=== PATIENT | male | born 1965 | race Two or more races ===

== ENCOUNTER → 2016-02-20 | Outpatient (CLI) | payer BC | LOC: RAD 10:53 | PROVIDERS: ATTEND Preventive Medicine Undersea and Hyperbaric Medicine | DX: L97.522 Non-pressure chronic ulcer of other part of left foot with fat layer exposed (principal) ==

== ENCOUNTER → 2016-02-27 | Outpatient (CLI) | payer BC | LOC: RAD 09:07 | PROVIDERS: ATTEND Preventive Medicine Undersea and Hyperbaric Medicine | DX: Z01.818 Encounter for other preprocedural examination (principal) | CPT/HCPCS: 71020 ==

== ENCOUNTER 2016-02-28 23:29 | Emergency (ER) | payer BC ==
--- NOTE | 2016-02-29 01:46 | ER Document Report ---
ED General - General Chief Complaint: High Blood Pressure Stated Complaint: POSSIBLE HIGH BLOOD PRESSURE Time seen by provider: 01:44 Notes: Patient is a 50-year-old male that comes emergency department for chief complaint of elevated blood pressure. Patient states that his stomach upset, he vomited, he felt unwell, he checked his blood pressure noticed it was about 170/100. He states became concerned and came emergency department. He denies any current symptoms including headache, chest pain, abdominal pain. He states he feels fine and wants go home. Patient states that he only got sick to the stomach after he took the for antibiotics that he is on at the same time. Patient is on antibiotics for his left foot which he is about to begin hyperbaric treatments for. Patient denies any fevers or chills. TRAVEL OUTSIDE OF THE [place] IN LAST 30 DAYS: No - Related Data Allergies/Adverse Reactions: No Known Allergies Allergy (Verified 02/28/16 23:40) Past Medical History - General Information source: Patient - Social History Smoking Status: Current Every Day Smoker Frequency of alcohol use: None Drug Abuse: None Lives with: Family Family History: Reviewed & Not Pertinent, CAD, COPD, DM Patient has suicidal ideation: No Patient has homicidal ideation: No - Past Medical History Cardiac Medical History: Reports: Hx Hypertension Endocrine Medical History: Reports: Hx Diabetes Mellitus Type 2 - He has diabetic retinopathy and nephropathy. There is proteinuria Renal/ Medical History: Denies: Hx Peritoneal Dialysis Psychiatric Medical History: Denies: Hx Depression - Immunizations Hx Diphtheria, Pertussis, Tetanus Vaccination: Yes - unkown of date Review of Systems - Review of Systems Constitutional: No symptoms reported EENT: No symptoms reported Cardiovascular: See HPI Respiratory: No symptoms reported Gastrointestinal: See HPI Genitourinary: No symptoms reported Male Genitourinary: No symptoms reported Musculoskeletal: No symptoms reported Skin: No symptoms reported Hematologic/Lymphatic: No symptoms reported Neurological/Psychological: No symptoms reported Physical Exam - Vital signs Vitals: Temp Pulse Resp BP Pulse Ox 97.9 F 91 16 158/79 H 98 02/28/16 23:37 02/28/16 23:37 02/28/16 23:37 02/28/16 23:37 02/28/16 23:37 Interpretation: Normal - General General appearance: Appears well, Alert In distress: None - HEENT Head: Normocephalic, Atraumatic Eyes: Normal Pupils: PERRL - Respiratory Respiratory status: No respiratory distress Chest status: Nontender Breath sounds: Normal. No: Decreased air movement, Wheezing Chest palpation: Normal - Cardiovascular Rhythm: Regular. No: Tachycardia Heart sounds: Normal auscultation, S1 appreciated, S2 appreciated Murmur: No - Abdominal Inspection: Normal Distension: No distension Bowel sounds: Normal Tenderness: Nontender Organomegaly: No organomegaly - Back Back: Normal, Nontender - Extremities General upper extremity: Normal inspection, Nontender, Normal color, Normal ROM , Normal temperature General lower extremity: Other - Patient has a walking boot on his left foot. Otherwise unremarkable exam - Neurological Neuro grossly intact: Yes Cognition: Normal Orientation: AAOx4 [place] Coma Scale Eye Opening: Spontaneous [place] Coma Scale Verbal: Oriented Lc Coma Scale Motor: Obeys Commands [place] Coma Scale Total: 15 Speech: Normal Motor strength normal: LUE, RUE, LLE, RLE Sensory: Normal - Psychological Associated symptoms: Normal affect, Normal mood - Skin Skin Temperature: Warm Skin Moisture: Dry Skin Color: Normal Course - Re-evaluation Re-evalutation: Patient with asymptomatic hypertension, very well appearing, patient is declining any additional evaluation regardless. No emergent evaluation needed, patient is to continue his daily medications and follow-up closely with his primary care provider. Discussed return precautions. Patient states understanding and agreement. - Vital Signs Vital signs: Temp Pulse Resp BP Pulse Ox 97.9 F 83 16 149/81 H 98 02/28/16 23:37 02/29/16 01:58 02/28/16 23:37 02/29/16 01:58 02/28/16 23:37 Discharge - Discharge Clinical Impression: Essential hypertension, Non healing left heel wound Vomiting Qualifiers: Vomiting type: unspecified Vomiting Intractability: non-intractable Nausea presence: with nausea Qualified Code(s): R11.2 - Nausea with vomiting, unspecified Condition: Stable Disposition: HOME, SELF-CARE Additional Instructions: Continue your antibiotics. Take your blood pressure medication as prescribed. Follow-up with your primary care provider. Return to the emergency department for any concerning symptoms - chest pain, numbness or weakness, dizziness, etc. Forms: Return to Work, Elevated Blood Pressure Referrals: JOSE GONZALEZ MD [Primary Care Provider] - Follow up as needed
[2016-02-29 01:59] VITALS: BP 149/81
== END 2016-02-29 01:55 | disposition home or self-care (01) ==
LOC: ER 23:29
DX: I10 Essential (primary) hypertension (principal); R11.2 Nausea with vomiting, unspecified; F17.210 Nicotine dependence, cigarettes, uncomplicated
CPT/HCPCS: 99283

== ENCOUNTER → 2016-03-04 | Outpatient (CLI) | payer BC | LOC: RAD 03-02 10:59 | PROVIDERS: ATTEND Preventive Medicine Undersea and Hyperbaric Medicine | DX: L97.422 Non-pressure chronic ulcer of left heel and midfoot with fat layer exposed (principal) ==

== ENCOUNTER 2016-03-07 20:33 | Emergency (ER) | payer BC ==
--- NOTE | 2016-03-07 21:03 | ER Document Report ---
ED Medical Screen (RME) - General Stated Complaint: LEFT FOOT/CAST PROBLEM Notes: Cast to left lower extremity Wet shower patient's provider advised to come to the emergency room for removal. I greeted and performed a rapid initial assessment of this patient. Comprehensive ED assessment and evaluation of the patient, analysis of test results and completion of the medical decision making process will be conducted by additional ED providers. TRAVEL OUTSIDE OF THE [place] IN LAST 30 DAYS: No - Related Data Allergies/Adverse Reactions: No Known Allergies Allergy (Verified 02/28/16 23:40) Past Medical History - Past Medical History Cardiac Medical History: Reports: Hx Hypertension Endocrine Medical History: Reports: Hx Diabetes Mellitus Type 2 - He has diabetic retinopathy and nephropathy. There is proteinuria Renal/ Medical History: Denies: Hx Peritoneal Dialysis Psychiatric Medical History: Denies: Hx Depression - Immunizations Hx Diphtheria, Pertussis, Tetanus Vaccination: Yes - unkown of date
--- NOTE | 2016-03-07 22:48 | ER Document Report ---
ED Extremity Problem, Lower - General Chief Complaint: Other Stated Complaint: LEFT FOOT/CAST PROBLEM Time seen by provider: 22:46 Mode of Arrival: Ambulatory Information source: Patient TRAVEL OUTSIDE OF THE [place] 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, he is seen by the wound care clinic and recently had a cast placed on this foot, unfortunately he states he got it wet in the shower this evening and feels as though the cast tightening around his ankle and causing his toes to tingle, patient denies any other injury or pain - Related Data Allergies/Adverse Reactions: No Known Allergies Allergy (Verified 02/28/16 23:40) Past Medical History - General Information source: Patient - Social History Smoking Status: Current Every Day Smoker Chew tobacco use (# tins/day): No Frequency of alcohol use: None Drug Abuse: None Family History: Reviewed & Not Pertinent, CAD, COPD, DM Patient has suicidal ideation: No Patient has homicidal ideation: No - Past Medical History Cardiac Medical History: Reports: Hx Hypertension Endocrine Medical History: Reports: Hx Diabetes Mellitus Type 2 - He has diabetic retinopathy and nephropathy. There is proteinuria Renal/ Medical History: Denies: Hx Peritoneal Dialysis Psychiatric Medical History: Denies: Hx Depression - Immunizations Hx Diphtheria, Pertussis, Tetanus Vaccination: Yes - unkown of date Review of Systems - Review of Systems Constitutional: No symptoms reported EENT: No symptoms reported Cardiovascular: No symptoms reported Respiratory: No symptoms reported Gastrointestinal: No symptoms reported Genitourinary: No symptoms reported Male Genitourinary: No symptoms reported Musculoskeletal: See HPI Skin: No symptoms reported Hematologic/Lymphatic: No symptoms reported Neurological/Psychological: No symptoms reported -: Yes All other systems reviewed and negative Physical Exam - Vital signs Vitals: Temp Pulse Resp BP Pulse Ox 97.4 F 92 18 169/72 H 99 03/07/16 20:58 03/07/16 20:58 03/07/16 20:58 03/07/16 20:58 03/07/16 20:58 Interpretation: Normal - Notes Notes: - General General appearance: Appears well, Alert In distress: None - HEENT Head: Normocephalic, Atraumatic Eyes: Normal Conjunctiva: Normal Extraocular movements intact: Yes Eyelashes: Normal Pupils: PERRL - Respiratory Respiratory status: No respiratory distress - Cardiovascular Rhythm: Regular - Abdominal Inspection: Normal - Back Back: Normal - Extremities General upper extremity: Normal inspection General lower extremity: Cast in place on the left lower extremity which goes from just below the knee and covers the toes completely - Neurological Neuro grossly intact: Yes Orientation: AAOx4 [place] Coma Scale Eye Opening: Spontaneous Lc Coma Scale Verbal: Oriented Wheeler Coma Scale Motor: Obeys Commands Lc Coma Scale Total: 15 - Psychological Associated symptoms: Normal affect, Normal mood - Skin Skin Temperature: Warm Skin Moisture: Dry Skin Color: Normal Course - Re-evaluation Re-evalutation: 03/07/16 22:46 Patient was discussed with powderer Dr. Martinez from the wound care clinic, who is in agreement with removing patient's cast, he requested Xeroform and gauze dressing with Kerlix, have patient wear his postop shoe and follow-up at the wound care center in the morning 03/08/16 23:38 After cast was removed neurovascular evaluation was performed, patient has distal sensation and motor intact, brisk capillary refill, 2+ DP pulses, there is a large ulcer to the heel which was redressed, patient was advised to follow- up at the wound care center in the morning, states he actually has an appointment for hyperbaric treatment - Vital Signs Vital signs: Temp Pulse Resp BP Pulse Ox 97.6 F 84 18 162/97 H 98 03/07/16 23:24 03/07/16 23:24 03/07/16 23:24 03/07/16 23:24 03/07/16 23:24 Procedures - Additional Procedures cast removal Time performed: 23:04 Additional Procedures: Other - Cast on the left lower extremity was bivalved using the cast removal saw, removed without difficulty, it did appear to be quite wet inside Discharge - Discharge Clinical Impression: Cast removal Condition: Stable Disposition: HOME, SELF-CARE Additional Instructions: Follow up with the wound care clinic first thing tomorrow morning. Return if symptoms worsen or any additional concerns.
[2016-03-07 23:31] VITALS: BP 162/97
== END 2016-03-07 23:26 | disposition home or self-care (01) ==
LOC: ER 20:33
DX: Z46.89 Encounter for fitting and adjustment of other specified devices (principal); E11.621 Type 2 diabetes mellitus with foot ulcer; L97.429 Non-pressure chronic ulcer of left heel and midfoot with unspecified severity; E11.21 Type 2 diabetes mellitus with diabetic nephropathy; E11.319 Type 2 diabetes mellitus with unspecified diabetic retinopathy without macular edema; I10 Essential (primary) hypertension; F17.200 Nicotine dependence, unspecified, uncomplicated
CPT/HCPCS: 99282

== ENCOUNTER → 2016-04-20 | Outpatient (CLI) | payer BC, MEDICAID | LOC: RAD 14:09 | PROVIDERS: ATTEND Preventive Medicine Undersea and Hyperbaric Medicine | DX: E11.621 Type 2 diabetes mellitus with foot ulcer (principal); L97.422 Non-pressure chronic ulcer of left heel and midfoot with fat layer exposed ==

== ENCOUNTER 2016-08-06 06:34 | Day surgery (SDC) | payer BC, MEDICAID ==
[~2016-08-06 06:34] MED LIST: KETOROLAC TROMETHAMINE 0.45% 4 DROP/0.4 ML DROPERETTE ONE; LIDOCAINE 4% INJ/PF (40 MG/ML) 5 ML AMPUL ONE; TETRACAINE HCL 0.5% OPH SOLN 0.6 ML DROPERETTE ONE
[2016-08-06] MEDS ORDERED: FENTANYL CITRATE INJ/PF 100 MCG/2 ML AMPUL ONE (06:47)
[2016-08-06] MEDS ORDERED: MIDAZOLAM 2 MG/2 ML INJ ONE ×2 (06:47)
[2016-08-06] MEDS: TROPICAMIDE 1% OPH SOLN 3 ML OD PRN ×3 (06:52→07:12)
[2016-08-06] MEDS: KETOROLAC TROMETHAMINE 0.45% 4 DROP/0.4 ML DROPERETTE OD PRN ×2 (06:52→07:12)
[2016-08-06] MEDS: CYCLOPENTOLATE 0.2%/PHENYLEPHRINE 1% OPH SOLN 2 ML OD PRN ×4 (06:52→07:22)
[2016-08-06] MEDS: TETRACAINE HCL 0.5% OPH SOLN 0.6 ML DROPERETTE OD PRN ×2 (06:52→07:12)
[2016-08-06] MEDS: BESIFLOXACIN HCL 0.6% OPH SUSP 5 ML BOTTLE OD PRN ×2 (06:52→07:02)
[2016-08-06] MEDS ORDERED: LIDOCAINE 1% INJ-PF (10 MG/ML) 30 ML SDV ONE (07:10)
[2016-08-06] MEDS ORDERED: CHONDR SU A NA/HYALUR INTRAOC KIT (SURGICARE) ONE (07:10)
[2016-08-06] MEDS ORDERED: EPINEPHRINE INJ/PF 1 MG/1 ML AMPULE ONE (07:10)
[2016-08-06] MEDS ORDERED: BUPIVACAINE HCL 0.75% INJ/PF (7.5 MG/1 ML) 10 ML SDV OD PRN ×2 (07:44→08:00)
[2016-08-06] MEDS ORDERED: LIDOCAINE 4% INJ/PF (40 MG/ML) 5 ML AMPUL OD PRN ×2 (07:44→08:00)
[2016-08-06] MEDS ORDERED: BESIFLOXACIN HCL 0.6% OPH SUSP 5 ML BOTTLE OD PRN (08:00)
[2016-08-06] MEDS ORDERED: KETOROLAC TROMETHAMINE 0.45% 4 DROP/0.4 ML DROPERETTE OD PRN (08:00)
[2016-08-06] MEDS ORDERED: CYCLOPENTOLATE 0.2%/PHENYLEPHRINE 1% OPH SOLN 2 ML OD PRN (08:00)
[2016-08-06] MEDS ORDERED: TROPICAMIDE 1% OPH SOLN 3 ML OD PRN (08:00)
[2016-08-06] MEDS ORDERED: TETRACAINE HCL 0.5% OPH SOLN 0.6 ML DROPERETTE OD PRN (08:00)
--- NOTE | 2016-08-06 08:29 | [facility] OPERATIVE REPORT E ---
[facility] Operative Report NAME: MERLE ABAD AGE: 51Y DATE OF SURGERY: 08/06/2016 ROOM: [facility] Operative Report PREOPERATIVE DIAGNOSIS: CATARACT, RIGHT EYE. POSTOPERATIVE DIAGNOSIS: CATARACT, RIGHT EYE. PROCEDURE PERFORMED: PHACOEMULSIFICATION WITH POSTERIOR CHAMBER INTRAOCULAR LENS, RIGHT EYE. SURGEON: DORIAN VILLA MD ANESTHESIA: TOPICAL WITH MAC. INDICATIONS FOR SURGERY: Prior ocular surgery with progression of cataract due to vitrectomy, difficulty reading small print and road signs. Best corrected visual acuity 20/40. PROCEDURE: The patient was brought to the Operating Room and placed on the operative table. Following tetracaine drops, topical anesthesia was administered. This consisted of instrument wipe pledgets soaked in a solution of 4% Xylocaine mixed with 0.75% Marcaine in a 1:2 ratio. A 2 x 1 cm pledget was placed in the superior fornix. A 1 x 1 cm pledget was placed in the inferior fornix. The eye was patched shut for 5 minutes. The patch was removed. The eye was sterilely prepped and draped in the usual manner. Lid speculum was placed in the eye. The pledgets were removed. 4-0 black silk sutures were placed around the superior and the inferior rectus muscles to be used as traction. A conjunctival peritomy was made at the 10 o'clock position. Hemostasis was obtained with bipolar cautery. A posterior limbal groove was created using a crescent knife and dissected anteriorly towards the cornea. A sharp point blade was used to create a paracentesis site at the 2 o'clock position. A 2.4 mm keratome was used to enter the anterior chamber through the groove. Viscoelastic was injected into the anterior chamber. An anterior capsulotomy was performed using Utrata forceps in a capsulorrhexis fashion. Hydrodissection and hydrodelineation were performed. Phacoemulsification was performed in xpyogx-[id number] technique. A total of 11.49 seconds phaco time was used. Following this, the I/A unit was used to remove residual cortex. Viscoelastic was injected into the capsular bag. Intraocular lens model S60WS, 21.0 diopters, serial number [id number] was placed in the capsular bag. The I/A unit was used to remove residual viscoelastic. The wound was seen to be watertight under high and low pressure, and no sutures were placed. The intraocular lens was well centered. The pressure was adjusted in the eye to normal pressure. The 4-0 black silk sutures and lid speculum were removed. The eye was shielded after Besivance drops were placed. The patient tolerated the procedure well and was sent to the Recovery Room in good condition. DICTATING PHYSICIAN: DORIAN VILLA M.D. right DICTATING PHYSICIAN: DORIAN VILLA M.D. [id number] Y#: [id number] ID: [id number] JOB#: [id number] ACCT: [id number] cc:DORIAN VILLA M.D. >
--- NOTE | 2016-08-06 08:34 | [facility] DISCHARGE SUMMARY E ---
[facility] Discharge Summary NAME: MERLE ABAD AGE: 51Y ADMITTED: 08/06/2016 DISCHARGED: FINAL DIAGNOSIS: Cataract right eye. HOSPITAL COURSE: The patient is a 51-year-old gentleman, who underwent uneventful cataract extraction with intraocular lens implant right eye on 08/06/2016. DISPOSITION: The patient was discharged to home. DISCHARGE INSTRUCTIONS: He is instructed to resume preoperative medications, take Tylenol as needed for discomfort, use eye shield, to use Besivance, Durezol, and Ilevro at 3 p.m. and 8 p.m., and to follow up in my office in 1 day. DICTATING PHYSICIAN: DORIAN VILLA M.D. [id number] PHY#: [id number] ID: [id number] JOB#: [id number] ACCT: [id number] cc:DORIAN VILLA M.D. >
[2016-08-07] MEDS ORDERED: BUPIVACAINE HCL 0.75% INJ/PF (7.5 MG/1 ML) 10 ML SDV OD PRN (05:00)
[2016-08-07] MEDS ORDERED: CYCLOPENTOLATE 0.2%/PHENYLEPHRINE 1% OPH SOLN 2 ML OD PRN (05:00)
[2016-08-07] MEDS ORDERED: LIDOCAINE 4% INJ/PF (40 MG/ML) 5 ML AMPUL OD PRN (05:00)
[2016-08-07] MEDS ORDERED: KETOROLAC TROMETHAMINE 0.45% 4 DROP/0.4 ML DROPERETTE OD PRN (05:00)
[2016-08-07] MEDS ORDERED: TROPICAMIDE 1% OPH SOLN 3 ML OD PRN (05:00)
[2016-08-07] MEDS ORDERED: BESIFLOXACIN HCL 0.6% OPH SUSP 5 ML BOTTLE OD PRN (05:00)
[2016-08-07] MEDS ORDERED: TETRACAINE HCL 0.5% OPH SOLN 0.6 ML DROPERETTE OD PRN (05:00)
== END 2016-08-06 08:53 | disposition home or self-care (01) ==
LOC: SC 06:34
PROVIDERS: ATTEND Ophthalmology
PROC: 08RJ3JZ Replacement of Right Lens with Synthetic Substitute, Percutaneous Approach (ICD-10-PCS; principal; 2016-08-06 07:30)
DX: H25.813 Combined forms of age-related cataract, bilateral (principal); E11.3513 Type 2 diabetes mellitus with proliferative diabetic retinopathy with macular edema, bilateral; I10 Essential (primary) hypertension; F17.210 Nicotine dependence, cigarettes, uncomplicated; Z79.899 Other long term (current) drug therapy; Z79.84 Long term (current) use of oral hypoglycemic drugs; Z79.82 Long term (current) use of aspirin
CPT/HCPCS: 66984; 82962; V2632; J2250; J3490 ×3; J0171; J3010; 142

== ENCOUNTER 2017-05-06 09:56 | Emergency (ER) | payer OTHER, MEDICAID ==
[2017-05-06] MEDS ORDERED: ACETAMINOPHEN 325 MG TABLET PO ONE (09:59)
[2017-05-06] MEDS ORDERED: ACETAMINOPHEN 325 MG TABLET ONE (10:11)
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
--- NOTE | 2017-05-06 11:37 | RADIOLOGY REPORT (SQ) ---
EXAM DESCRIPTION: FOOT LEFT COMPLETE COMPLETED DATE/TIME: 05/06/2017 11:21 am REASON FOR STUDY: fall injury COMPARISON: None. NUMBER OF VIEWS: Three views. TECHNIQUE: AP, lateral and oblique radiographic images acquired of the left foot. LIMITATIONS: None. FINDINGS: MINERALIZATION: Normal. BONES: There is a fracture of the medial malleolus. There is a fracture of the navicular in the sagi ttal plane. JOINTS: No effusions. SOFT TISSUES: No soft tissue swelling. No foreign body. OTHER: No other significant finding. IMPRESSION: Medial malleolar and navicular fractures. TECHNICAL DOCUMENTATION: JOB ID: [id number] [employer]- All Rights Reserved Reading location - IP/workstation name: [email or web address]
--- NOTE | 2017-05-06 11:38 | RADIOLOGY REPORT (SQ) ---
EXAM DESCRIPTION: ANKLE LEFT COMPLETE COMPLETED DATE/TIME: 05/06/2017 11:21 am REASON FOR STUDY: fall injury COMPARISON: None. NUMBER OF VIEWS: Three views. TECHNIQUE: AP, lateral, and oblique radiographic images acquired of the left ankle. LIMITATIONS: None. FINDINGS: MINERALIZATION: Normal. BONES: There is an oblique fracture of the distal fibula and transverse fracture of the medial malleo muna. There is no dislocation. JOINTS: No effusions. SOFT TISSUES: No soft tissue swelling. No foreign body. OTHER: No other significant finding. IMPRESSION: Bimalleolar fractures. TECHNICAL DOCUMENTATION: JOB ID: [id number] [employer]- All Rights Reserved Reading location - IP/workstation name: [email or web address]
--- NOTE | 2017-05-06 11:39 | RADIOLOGY REPORT (SQ) ---
EXAM DESCRIPTION: TIBIA FIBULA LEFT COMPLETED DATE/TIME: 05/06/2017 11:21 am REASON FOR STUDY: fall injury COMPARISON: None. NUMBER OF VIEWS: Two views. TECHNIQUE: Two radiographic images acquired of the left tibia and fibula to include the knee and ank le in at least one projection. LIMITATIONS: None. FINDINGS: MINERALIZATION: Normal. BONES: Bimalleolar fractures. No proximal tibial or fibular fracture is seen. SOFT TISSUES: No obvious swelling or foreign body. OTHER: No other significant finding. IMPRESSION: Bimalleolar fractures. TECHNICAL DOCUMENTATION: JOB ID: [id number] [employer]- All Rights Reserved Reading location - IP/workstation name: [email or web address]
[2017-05-06 12:28] VITALS: BP 179/81
== END 2017-05-06 12:28 | disposition home or self-care (01) ==
LOC: ER 09:56
PROC: 2W3RX1Z Immobilization of Left Lower Leg using Splint (ICD-10-PCS; principal; 2017-05-06)
DX: S82.842A Displaced bimalleolar fracture of left lower leg, initial encounter for closed fracture (principal); S92.255A Nondisplaced fracture of navicular [scaphoid] of left foot, initial encounter for closed fracture; S99.912A Unspecified injury of left ankle, initial encounter; M25.572 Pain in left ankle and joints of left foot; M79.89 Other specified soft tissue disorders; W01.0XXA Fall on same level from slipping, tripping and stumbling without subsequent striking against object, initial encounter; F17.210 Nicotine dependence, cigarettes, uncomplicated; I10 Essential (primary) hypertension; E11.21 Type 2 diabetes mellitus with diabetic nephropathy; E11.40 Type 2 diabetes mellitus with diabetic neuropathy, unspecified
CPT/HCPCS: 99283; 99406

== ENCOUNTER 2017-05-15 13:59 | Inpatient (IN) | payer MEDICAID, OTHER ==
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
[2017-05-15] MEDS ORDERED: ONDANSETRON HCL INJ/PF 4 MG/2 ML SDV IV ONE (15:37)
[2017-05-15] MEDS ORDERED: MORPHINE SULFATE 10 MG/ML INJ IV ONE (15:37)
--- NOTE | 2017-05-15 15:41 | RADIOLOGY REPORT (SQ) ---
EXAM DESCRIPTION: HIP LEFT AP/LATERAL COMPLETED DATE/TIME: 05/15/2017 3:27 pm REASON FOR STUDY: FALL, TRAUMA, PAIN COMPARISON: None. NUMBER OF VIEWS: Two views. TECHNIQUE: AP pelvis and additional frog-leg view of the left hip. LIMITATIONS: None. FINDINGS: MINERALIZATION: Normal. LEFT HIP: Nondisplaced fracture of the left femoral neck. RIGHT HIP: No fracture or dislocation. No worrisome bone lesions. PUBIS AND ISCHIUM: No fracture. PELVIS: No fracture. SACRUM: No fracture or dislocation. No worrisome bone lesions. LOWER LUMBAR SPINE: No fracture or dislocation. No worrisome bone lesions. No significant disc disea se. SOFT TISSUES: No findings. OTHER: No other significant finding. IMPRESSION: Nondisplaced fracture of the left femoral neck. TECHNICAL DOCUMENTATION: JOB ID: [id number] [place]-72 2010 [employer]- All Rights Reserved Reading location - IP/workstation name: [email or web address]
--- NOTE | 2017-05-15 15:44 | RADIOLOGY REPORT (SQ) ---
EXAM DESCRIPTION: SHOULDER LEFT 2 OR MORE VIEWS COMPLETED DATE/TIME: 05/15/2017 3:27 pm REASON FOR STUDY: FALL, TRAUMA, PAIN COMPARISON: None. NUMBER OF VIEWS: Three views. TECHNIQUE: Internal rotation, external rotation, and Y view images acquired of the left shoulder. LIMITATIONS: None. FINDINGS: MINERALIZATION: Normal. BONES: Fracture the proximal humerus, possibly involving the humeral neck as well as the greater tube rosity. JOINTS: No dislocation. VISUALIZED LUNGS AND RIBS: No pneumothorax. No rib fracture. SOFT TISSUES: No radiopaque foreign body. OTHER: No other significant finding. IMPRESSION: Fracture the proximal humerus, possibly involving the humeral neck as well as the greate r tuberosity. TECHNICAL DOCUMENTATION: JOB ID: [id number] [place]-72 2010 [employer]- All Rights Reserved Reading location - IP/workstation name: [facility]
[2017-05-15 16:27] LABS: ABSOLUTE EOSINOPHILS # (AUTO) 0.1 10^3/uL (0.0-0.6); ABSOLUTE LYMPHOCYTES (AUTO) 0.9 10^3/uL (0.5-4.7); ABSOLUTE MONOCYTES (AUTO) 0.4 10^3/uL (0.1-1.4); ABSOLUTE NEUT (AUTO) 6.6 10^3/uL (1.7-8.2); BASOPHILS % (AUTO) 0.3 % (0-2); EOSINOPHILS % (AUTO) 0.7 % (0-6); HEMATOCRIT 29.2 % (37.9-51.0); LYMPHOCYTES % (AUTO) 11.1 % (13-45); MEAN CORPUSCULAR HEMOGLOBIN 30.9 pg (27.0-33.4); MEAN CORPUSCULAR HGB CONC 34.2 g/dL (32.0-36.0); MEAN CORPUSCULAR VOLUME 90 fl (80-97); MONOCYTES % (AUTO) 5.5 % (3-13); PLATELET COUNT 241 10^3/uL (150-450); RED BLOOD COUNT 3.24 10^6/uL (4.35-5.55); RED CELL DISTRIBUTION WIDTH 13.4 % (11.5-14.0); SEGMENTED NEUTROPHILS % (AUTO) 82.4 % (42-78); TOTAL CELLS COUNTED % (AUTO) 100 %
[2017-05-15 16:42] LABS: BLOOD UREA NITROGEN 42 mg/dL (7-20); CALCIUM 9.1 mg/dL (8.4-10.2); GLUCOSE 135 mg/dL (75-110)
--- NOTE | 2017-05-15 16:42 | EKG REPORT ---
SEVERITY:- NORMAL ECG - SINUS RHYTHM : Confirmed by: Reyes Best 15-May-2017 16:41:37
[2017-05-15 16:43] LABS: ALANINE AMINOTRANSFERASE 26 U/L (21-72); ALBUMIN 3.2 g/dL (3.5-5.0); ALKALINE PHOSPHATASE 89 U/L (38-126); ANION GAP 8 (5-19); ASPARTATE AMINO TRANSFERASE 20 U/L (17-59); BILIRUBIN,DIRECT 0.2 mg/dL (0.0-0.4); BILIRUBIN,TOTAL 0.2 mg/dL (0.2-1.3); CARBON DIOXIDE 22 mmol/L (22-30); CHLORIDE 111 mmol/L (98-107); POTASSIUM 5.1 mmol/L (3.6-5.0); SODIUM 141.4 mmol/L (137-145); TOTAL PROTEIN 6.4 g/dL (6.3-8.2)
[2017-05-15] MEDS ORDERED: NORMAL SALINE 1000 ML 1,000 ML IV PRN (17:49)
[2017-05-15] MEDS ORDERED: DEXTROSE 50%-WATER SYRINGE 12.5 GM/25 ML DOSE IV PRN (17:50)
[2017-05-15] MEDS ORDERED: DEXTROSE 40% GEL 15 GM TUBE PO PRN (17:50)
[2017-05-15] MEDS ORDERED: GLUCAGON,HUMAN RECOMB 1 MG INJ IM PRN (17:50)
[2017-05-15] MEDS ORDERED: DEXTROSE 50%-WATER SYRINGE 25 GM/50 ML DOSE IV PRN (17:50)
[2017-05-15] MEDS ORDERED: DEXTROSE 40% GEL 15 GM TUBE X 2 PO PRN (17:50)
[2017-05-15] MEDS ORDERED: MORPHINE SULFATE 10 MG/ML INJ IV PRN (18:20)
[2017-05-15] MEDS ORDERED: CLONIDINE HCL 0.1 MG TABLET PO ONE (21:15)
[2017-05-15] MEDS ORDERED: LISINOPRIL 10 MG TABLET PO ONE (21:15)
[2017-05-15] MEDS: CLONIDINE HCL 0.1 MG TABLET PO SCH (21:55)
[2017-05-15] MEDS: MORPHINE SULFATE 10 MG/ML INJ IV PRN (21:55)
[2017-05-15 22:36] LABS: APPEARANCE,URINE CLEAR; BILIRUBIN,URINE NEGATIVE (NEGATIVE); COLOR,URINE YELLOW; GLUCOSE, URINE 150 mg/dL (NEGATIVE); KETONES,URINE NEGATIVE (NEGATIVE); LEUKOCYTE ESTERASE,URINE NEGATIVE (NEGATIVE); NITRITE,URINE NEGATIVE (NEGATIVE); PROTEIN,URINE >=500 mg/dL (NEGATIVE); URINE SPECIFIC GRAVITY 1.012; UROBILINOGEN,URINE NEGATIVE mg/dL (<2.0)
[2017-05-16] MEDS: MORPHINE SULFATE 10 MG/ML INJ IV PRN ×4 (00:08→09:39)
[2017-05-16] MEDS: LANSOPRAZOLE 30 MG TAB.RAP.DR PO SCH (05:14)
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
[2017-05-16] MEDS ORDERED: FUROSEMIDE 40 MG TABLET PO SCH (08:00)
[2017-05-16] MEDS ORDERED: CEFAZOLIN SODIUM 2 GM in NORMAL SALINE 100 ML IV PRN (08:15)
[2017-05-16] MEDS ORDERED: TRANEXAMIC ACID INJ/PF 1,000 MG/10 ML SDV IV PRN (08:15)
[2017-05-16] MEDS ORDERED: RINGERS SOLUTION,LACTATED 1,000 ML IV PRN (08:16)
[2017-05-16] MEDS: AMLODIPINE BESYLATE 10 MG TABLET PO SCH (09:39)
[2017-05-16] MEDS ORDERED: LISINOPRIL 10 MG TABLET PO SCH (10:00)
[2017-05-16] MEDS ORDERED: DEXAMETHASONE SOD PHOSPHATE INJ 4 MG/1 ML VIAL ONE (11:32)
[2017-05-16] MEDS ORDERED: MIDAZOLAM 2 MG/2 ML INJ ONE (11:32)
[2017-05-16] MEDS ORDERED: FENTANYL CITRATE INJ/PF 100 MCG/2 ML AMPUL ONE ×2 (11:32→15:51)
[2017-05-16] MEDS ORDERED: LIDOCAINE 2% INJ-PF (20 MG/ML) 10 ML AMPUL ONE (11:32)
[2017-05-16] MEDS ORDERED: ONDANSETRON HCL INJ/PF 4 MG/2 ML SDV ONE (11:32)
[2017-05-16] MEDS ORDERED: ACETAMINOPHEN 100 ML IV ONE (11:33)
[2017-05-16] MEDS ORDERED: PROPOFOL INJ 200 MG/20 ML VIAL IV ONE (11:33)
[2017-05-16] MEDS ORDERED: TRANEXAMIC ACID INJ/PF 1,000 MG/10 ML SDV IV ONE (11:38)
[2017-05-16] MEDS ORDERED: CEFAZOLIN INJ 1 GM VIAL ONE (12:09)
[2017-05-16] MEDS ORDERED: BUPIVACAINE HCL 0.25% /EPINEPHRINE INJ/PF 30 ML SDV ONE (12:34)
[2017-05-16] MEDS ORDERED: PROMETHAZINE HCL INJ 25 MG/1 ML VIAL IV PRN ×2 (13:33)
[2017-05-16] MEDS ORDERED: OXYCODONE-ACETAMINOPHEN 5-325 MG TABLET PO PRN ×2 (13:33)
[2017-05-16] MEDS ORDERED: MORPHINE SULFATE 10 MG/ML INJ IV PRN ×2 (13:33→15:37)
[2017-05-16] MEDS ORDERED: FENTANYL CITRATE INJ/PF 100 MCG/2 ML AMPUL IV PRN ×3 (13:33)
[2017-05-16] MEDS ORDERED: DIPHENHYDRAMINE HCL 50 MG/ML VIAL IV PRN (13:33)
[2017-05-16] MEDS ORDERED: MEPERIDINE HCL/PF INJ 25 MG/1 ML DISP.SYRIN IV PRN (13:33)
[2017-05-16] MEDS ORDERED: SUCCINYLCHOLINE CHLORIDE INJ 200 MG/10 ML VIAL ONE (14:57)
--- NOTE | 2017-05-16 15:08 | Operative Report ---
Operative Report DATE OF SURGERY: 05/16/17 PREOPERATIVE DIAGNOSIS: Left valgus impacted femoral neck fracture. Left proximal humeral fracture. Left bimalleolar ankle fracture OPERATION: Percutaneous fixation left femoral neck fracture. Open reduction internal fixation left bimalleolar ankle fracture. Open reduction internal fixation left proximal humerus fracture SURGEON: TYSON BABCOKC ANESTHESIA: GA PROCEDURE: With the patient supine on the fracture table the left lower extremities prepped and draped in sterile fashion. Under fluoroscopic guidance the pins for the [place] 6.5 titanium cannulated screws were placed percutaneously into the femoral neck and head. A triangle type pattern is formed with one pin inferior and then one anterior and posterior. Pin depth measures 90 mm. 3 x 90 mm cannulated screws were then placed over the pins. The pins are withdrawn. X-rays were obtained in both planes to assure satisfactory hardware placement. The wound was then irrigated and closed in layers with interrupted Vicryl followed by giselle. Sterile dressings applied and the patient was then transferred to a regular bed for next 2 stages of his treatment The patient was next transferred to a regular operating room table in the left lower extremities prepped and draped in sterile fashion. The limb was elevated for exsanguination tourniquet inflated 280 torr. A longitudinal incision is made over the distal fibula and sharp dissection was carried incision through the periosteum. The fracture is visualized. Its distracted and then held in anatomic position with a lobster claw clamp. Subsequently a [place] titanium distal fibula plate is applied and secured with 3 screws proximally and 4 screws distally. Fracture position and hardware placement are ideal. Next a longitudinal incision was made over the medial malleolus. This is a relatively small fragment this anterior as well as medial. It is reduced with a dental pick and then secured with a single 4 oh cannulated screw. The wounds are irrigated and closed using interrupted Vicryl followed by giselle. A sterile dressing is applied and attention is now going to be turned to the left shoulder. The patient's position is now changed to a beachchair position on the operating table. The left upper extremity forequarter prepped and draped in sterile fashion. A standard deltopectoral approach to the proximal humerus is taken. The fracture was exposed and reduced. A [place] titanium proximal humeral plate is applied just lateral to the biceps tendon. It secured with 3 screws distally and 3 screws proximally. When the hardware fixation is finished uroscopy is used to assess fracture reduction as well as hardware placement. At this point is noticed that the posterior superior screw was slightly long and protruding from the back of the humeral head. An attempt is made to remove this using several screwdrivers as well as a screw removal set all of which are unsuccessful because the head of the screw becomes stripped. At that point decision was made whether or not to proceed removal of all hardware and attempt to remove this protruding screw. It is not clear that this is going to represent a clinical problem at this point. There is certainly full passive range of motion without any impingement that I can perceive. In light of this a decision was made to leave the screw in situ. The wound is irrigated and closed is using Vicryl and giselle. A sterile compressive dressing and a shoulder immobilizer applied. The patient's return to the PACU. I discussed the situation with the patient's and explained that there is a screw that is too long and that I am not sure that it is going to be a clinical problem. If it turns out to be a clinical problem we can with her posterior approach and remove the protruding part of the screw.
[2017-05-16] MEDS ORDERED: PROMETHAZINE HCL INJ 25 MG/1 ML VIAL ONE (15:48)
--- NOTE | 2017-05-16 16:06 | RADIOLOGY REPORT (SQ) ---
EXAM DESCRIPTION: NO CHG FLUORO; HIP IN OPERATING RM COMPLETED DATE/TIME: 05/16/2017 3:35 pm REASON FOR STUDY: LT HIP PINNING ASST WITH FLUORO IN OR COMPARISON: Preoperative radiographs. FLUOROSCOPY TIME: 0.4 minutes 3 images saved to PACS. TECHNIQUE: Intra-operative images acquired during surgical procedure to evaluate progress. NUMBER OF IMAGES: 3 LIMITATIONS: None. FINDINGS: Images reveal open reduction internal fixation of proximal femur fracture, grossly anatomi c alignment. IMPRESSION: IMAGE(S) OBTAINED DURING PROCEDURE. COMMENT: Quality ID 145: Final reports for procedures using fluoroscopy that document radiation exp osure indices, or exposure time and number of fluorographic images (if radiation exposure indices are not available) Please consult full operative report of the attending physician for description of the procedure. TECHNICAL DOCUMENTATION: JOB ID: [id number] [employer]- All Rights Reserved Reading location - IP/workstation name: [email or web address]
--- NOTE | 2017-05-16 16:06 | RADIOLOGY REPORT (SQ) ---
EXAM DESCRIPTION: NO CHG FLUORO; HIP IN OPERATING RM COMPLETED DATE/TIME: 05/16/2017 3:35 pm REASON FOR STUDY: LT HIP PINNING ASST WITH FLUORO IN OR COMPARISON: Preoperative radiographs. FLUOROSCOPY TIME: 0.4 minutes 3 images saved to PACS. TECHNIQUE: Intra-operative images acquired during surgical procedure to evaluate progress. NUMBER OF IMAGES: 3 LIMITATIONS: None. FINDINGS: Images reveal open reduction internal fixation of proximal femur fracture, grossly anatomi c alignment. IMPRESSION: IMAGE(S) OBTAINED DURING PROCEDURE. COMMENT: Quality ID 145: Final reports for procedures using fluoroscopy that document radiation exp osure indices, or exposure time and number of fluorographic images (if radiation exposure indices are not available) Please consult full operative report of the attending physician for description of the procedure. TECHNICAL DOCUMENTATION: JOB ID: [id number] [employer]- All Rights Reserved Reading location - IP/workstation name: [email or web address]
--- NOTE | 2017-05-16 16:07 | RADIOLOGY REPORT (SQ) ---
EXAM DESCRIPTION: NO CHG FLUORO; ANKLE LEFT AP/LATERAL COMPLETED DATE/TIME: 05/16/2017 3:35 pm REASON FOR STUDY: ORIF LEFT ANKLE ASST WITH FLUORO IN OR COMPARISON: Preoperative radiographs. FLUOROSCOPY TIME: 0.3 minutes 3 images saved to PACS. TECHNIQUE: Intra-operative images acquired during surgical procedure to evaluate progress. NUMBER OF IMAGES: 3 LIMITATIONS: None. FINDINGS: Images reveal open reduction internal fixation of medial and lateral ankle fractures with grossly anatomic alignment. IMPRESSION: IMAGE(S) OBTAINED DURING PROCEDURE. COMMENT: Quality ID 145: Final reports for procedures using fluoroscopy that document radiation exp osure indices, or exposure time and number of fluorographic images (if radiation exposure indices are not available) Please consult full operative report of the attending physician for description of the procedure. TECHNICAL DOCUMENTATION: JOB ID: [id number] [employer]- All Rights Reserved Reading location - IP/workstation name: [email or web address]
--- NOTE | 2017-05-16 16:07 | RADIOLOGY REPORT (SQ) ---
EXAM DESCRIPTION: NO CHG FLUORO; ANKLE LEFT AP/LATERAL COMPLETED DATE/TIME: 05/16/2017 3:35 pm REASON FOR STUDY: ORIF LEFT ANKLE ASST WITH FLUORO IN OR COMPARISON: Preoperative radiographs. FLUOROSCOPY TIME: 0.3 minutes 3 images saved to PACS. TECHNIQUE: Intra-operative images acquired during surgical procedure to evaluate progress. NUMBER OF IMAGES: 3 LIMITATIONS: None. FINDINGS: Images reveal open reduction internal fixation of medial and lateral ankle fractures with grossly anatomic alignment. IMPRESSION: IMAGE(S) OBTAINED DURING PROCEDURE. COMMENT: Quality ID 145: Final reports for procedures using fluoroscopy that document radiation exp osure indices, or exposure time and number of fluorographic images (if radiation exposure indices are not available) Please consult full operative report of the attending physician for description of the procedure. TECHNICAL DOCUMENTATION: JOB ID: [id number] [employer]- All Rights Reserved Reading location - IP/workstation name: [email or web address]
--- NOTE | 2017-05-16 16:08 | RADIOLOGY REPORT (SQ) ---
EXAM DESCRIPTION: NO CHG FLUORO; SHOULDER LEFT 2 OR MORE VIEWS COMPLETED DATE/TIME: 05/16/2017 3:35 pm REASON FOR STUDY: ORIF LEFT SHOULDER ASST WITH FLUORO IN OR COMPARISON: Preoperative radiographs. FLUOROSCOPY TIME: 0.3 minutes 3 images saved to PACS. TECHNIQUE: Intra-operative images acquired during surgical procedure to evaluate progress. NUMBER OF IMAGES: 3 LIMITATIONS: None. FINDINGS: Images reveal open reduction internal fixation of proximal humerus fracture. Grossly more omic alignment. IMPRESSION: IMAGE(S) OBTAINED DURING PROCEDURE. COMMENT: Quality ID 145: Final reports for procedures using fluoroscopy that document radiation exp osure indices, or exposure time and number of fluorographic images (if radiation exposure indices are not available) Please consult full operative report of the attending physician for description of the procedure. TECHNICAL DOCUMENTATION: JOB ID: [id number] [employer]- All Rights Reserved Reading location - IP/workstation name: [email or web address]
--- NOTE | 2017-05-16 16:08 | RADIOLOGY REPORT (SQ) ---
EXAM DESCRIPTION: NO CHG FLUORO; SHOULDER LEFT 2 OR MORE VIEWS COMPLETED DATE/TIME: 05/16/2017 3:35 pm REASON FOR STUDY: ORIF LEFT SHOULDER ASST WITH FLUORO IN OR COMPARISON: Preoperative radiographs. FLUOROSCOPY TIME: 0.3 minutes 3 images saved to PACS. TECHNIQUE: Intra-operative images acquired during surgical procedure to evaluate progress. NUMBER OF IMAGES: 3 LIMITATIONS: None. FINDINGS: Images reveal open reduction internal fixation of proximal humerus fracture. Grossly more omic alignment. IMPRESSION: IMAGE(S) OBTAINED DURING PROCEDURE. COMMENT: Quality ID 145: Final reports for procedures using fluoroscopy that document radiation exp osure indices, or exposure time and number of fluorographic images (if radiation exposure indices are not available) Please consult full operative report of the attending physician for description of the procedure. TECHNICAL DOCUMENTATION: JOB ID: [id number] [employer]- All Rights Reserved Reading location - IP/workstation name: [email or web address]
[2017-05-16] MEDS ORDERED: OXYCODONE HCL IR 5 MG TABLET PO PRN (18:00)
[2017-05-16] MEDS ORDERED: CEFAZOLIN SODIUM 2 GM in NORMAL SALINE 100 ML IV SCH (18:00)
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
[2017-05-16] MEDS ORDERED: HYDRALAZINE HCL 50 MG TABLET PO SCH (20:15)
[2017-05-16] MEDS ORDERED: (PENDING PHARMACY ID) (Calcitriol [Rocaltrol 0.5 Mcg Capsule] 0.5 MCG) PO SCH (20:15)
[2017-05-16] MEDS: CLONIDINE HCL 0.1 MG TABLET PO SCH (21:22)
[2017-05-16] MEDS: HYDRALAZINE HCL 50 MG TABLET PO SCH (21:22)
[2017-05-16] MEDS: CEFAZOLIN SODIUM 2 GM in NORMAL SALINE 100 ML IV SCH (22:00)
[2017-05-16] MEDS ORDERED: CLONIDINE HCL 0.1 MG TABLET PO SCH (22:00)
[2017-05-17] MEDS: MORPHINE SULFATE 10 MG/ML INJ IV PRN ×4 (00:15→13:17)
[2017-05-17] MEDS: HYDRALAZINE HCL 50 MG TABLET PO SCH ×3 (05:26→23:49)
[2017-05-17] MEDS: LANSOPRAZOLE 30 MG TAB.RAP.DR PO SCH (05:26)
[2017-05-17] MEDS: CEFAZOLIN SODIUM 2 GM in NORMAL SALINE 100 ML IV SCH (05:27)
[2017-05-17 06:21] LABS: ABSOLUTE LYMPHOCYTES (AUTO) 0.6 10^3/uL (0.5-4.7); ABSOLUTE MONOCYTES (AUTO) 0.5 10^3/uL (0.1-1.4); ABSOLUTE NEUT (AUTO) 5.5 10^3/uL (1.7-8.2); BASOPHILS % (AUTO) 0.2 % (0-2); EOSINOPHILS % (AUTO) 0.2 % (0-6); HEMATOCRIT 23.9 % (37.9-51.0); HEMOGLOBIN 8.3 g/dL (13.5-17.0); LYMPHOCYTES % (AUTO) 9.3 % (13-45); MEAN CORPUSCULAR HEMOGLOBIN 31.2 pg (27.0-33.4); MEAN CORPUSCULAR HGB CONC 34.7 g/dL (32.0-36.0); MEAN CORPUSCULAR VOLUME 90 fl (80-97); PLATELET COUNT 172 10^3/uL (150-450); RED BLOOD COUNT 2.66 10^6/uL (4.35-5.55); RED CELL DISTRIBUTION WIDTH 13.6 % (11.5-14.0); SEGMENTED NEUTROPHILS % (AUTO) 82.3 % (42-78); TOTAL CELLS COUNTED % (AUTO) 100 %; WHITE BLOOD COUNT 6.7 10^3/uL (4.0-10.5)
[2017-05-17 06:43] LABS: ANION GAP 10 (5-19); BLOOD UREA NITROGEN 40 mg/dL (7-20); CALCIUM 8.5 mg/dL (8.4-10.2); CARBON DIOXIDE 20 mmol/L (22-30); CHLORIDE 109 mmol/L (98-107); GLUCOSE 140 mg/dL (75-110); POTASSIUM 4.8 mmol/L (3.6-5.0); SODIUM 139.2 mmol/L (137-145)
--- NOTE | 2017-05-17 07:09 | PDOC PROGRESS REPORT ---
Subjective Progress Note for:: 05/17/17 Reason For Visit: LEFT HIP FRACTURE 52-year-old male status post open reduction of left shoulder, left hip, and left ankle yesterday. Patient comfortable overnight. Physical Exam Vital Signs: Temp Pulse Resp BP Pulse Ox 37.0 C 92 18 182/78 H 97 05/17/17 04:12 05/17/17 04:12 05/16/17 23:31 05/17/17 04:12 05/17/17 04:12 Intake & Output 05/16/17 05/17/17 05/18/17 06:59 06:59 06:59 Intake Total 1422 7740 Output Total 1100 1800 Balance 322 5940 Weight 75.9 kg General appearance: PRESENT: no acute distress Head exam: PRESENT: normocephalic Respiratory exam: PRESENT: unlabored Cardiovascular exam: PRESENT: RRR Vascular exam: PRESENT: normal capillary refill GI/Abdominal exam: PRESENT: soft Rectal exam: PRESENT: deferred Extremities exam: PRESENT: other - All 3 dressings are clean dry and intact. Distal neurovascular examination is intact to the left upper left lower extremity. Neurological exam: PRESENT: alert, awake, oriented to person, oriented to place , oriented to time, oriented to situation. ABSENT: motor sensory deficit Psychiatric exam: PRESENT: appropriate affect, normal mood. ABSENT: homicidal ideation, suicidal ideation Skin exam: PRESENT: dry, intact, warm. ABSENT: cyanosis, rash Results Laboratory Results: 05/17/17 06:02 05/17/17 06:02 05/16/17 05/17/17 05/17/17 12:16 06:02 06:02 WBC 6.7 RBC 2.66 L Hgb 8.3 L Hct 23.9 L MCV 90 MCH 31.2 MCHC 34.7 RDW 13.6 Plt Count 172 Seg Neutrophils % 82.3 H Lymphocytes % 9.3 L Monocytes % 8.0 Eosinophils % 0.2 Basophils % 0.2 Absolute Neutrophils 5.5 Absolute Lymphocytes 0.6 Absolute Monocytes 0.5 Absolute Eosinophils 0.0 Absolute Basophils 0.0 Sodium 139.2 Potassium 4.8 Chloride 109 H Carbon Dioxide 20 L Anion Gap 10 BUN 40 H Creatinine 2.79 H Est GFR ( Amer) 29 L Est GFR (Non-Af Amer) 24 L Glucose 140 H Calcium 8.5 Blood Type O POSITIVE Antibody Screen NEGATIVE Impressions: Ankle X-Ray 05/16/17 00:00 IMPRESSION: IMAGE(S) OBTAINED DURING PROCEDURE. Fluoroscopy 05/16/17 00:00 IMPRESSION: IMAGE(S) OBTAINED DURING PROCEDURE. Hip X-Ray 05/16/17 00:00 IMPRESSION: IMAGE(S) OBTAINED DURING PROCEDURE. Shoulder X-Ray 05/16/17 00:00 IMPRESSION: IMAGE(S) OBTAINED DURING PROCEDURE. Status: Imported from PACS Assessment & Plan - Diagnosis (1) Bimalleolar fracture of right ankle Is this a current diagnosis for this admission?: Yes Plan: Postop day 1 status post ORIF (2) Fracture, humerus, proximal Qualifiers: Encounter type: initial encounter Fracture type: closed Fracture morphology: other fracture Fracture alignment: nondisplaced Laterality: left Qualified Code(s): S42.295A - Other nondisplaced fracture of upper end of left humerus, initial encounter for closed fracture Is this a current diagnosis for this admission?: Yes Plan: Postop day 1 status post ORIF (3) Hip fracture, left Qualifiers: Encounter type: initial encounter Fracture type: closed Qualified Code(s) : S72.002A - Fracture of unspecified part of neck of left femur, initial encounter for closed fracture Is this a current diagnosis for this admission?: Yes Plan: Postop day 1 status post ORIF. Patient be mobilized with physical therapy and a touchdown weightbearing restriction for the left lower extremity. - Time Time Spent with patient: 15-24 minutes Anticipated discharge: SNF Within: Other
[2017-05-17] MEDS: AMLODIPINE BESYLATE 10 MG TABLET PO SCH (09:24)
[2017-05-17] MEDS: CALCITRIOL 0.25 MCG CAPSULE PO SCH (09:25)
[2017-05-17] MEDS: ASPIRIN 81 MG TABLET, ENT COATED PO SCH (09:26)
[2017-05-17] MEDS: INSULIN LISPRO 100 UNIT/ML 3 ML VIAL SUBCUT PRN (17:03)
--- NOTE | 2017-05-17 20:25 | PDOC PROGRESS REPORT ---
Subjective Progress Note for:: 05/17/17 Subjective:: He complained of nausea and vomiting most likely this is related to the medication, morphine, he is otherwise stable Reason For Visit: LEFT HIP FRACTURE Physical Exam Vital Signs: Temp Pulse Resp BP Pulse Ox 99 F 98 20 178/76 H 92 05/17/17 13:00 05/17/17 14:00 05/17/17 13:00 05/17/17 13:00 05/17/17 13:00 Intake & Output 05/16/17 05/17/17 05/18/17 06:59 06:59 06:59 Intake Total 1422 7890 480 Output Total 1100 2250 425 Balance 322 5640 55 Weight 75.9 kg General appearance: PRESENT: no acute distress Eye exam: PRESENT: PERRLA Respiratory exam: PRESENT: decreased breath sounds Cardiovascular exam: PRESENT: +S1, +S2 GI/Abdominal exam: PRESENT: soft Neurological exam: PRESENT: alert Results Laboratory Results: 05/17/17 06:02 05/17/17 06:02 05/17/17 05/17/17 06:02 06:02 WBC 6.7 RBC 2.66 L Hgb 8.3 L Hct 23.9 L MCV 90 MCH 31.2 MCHC 34.7 RDW 13.6 Plt Count 172 Seg Neutrophils % 82.3 H Lymphocytes % 9.3 L Monocytes % 8.0 Eosinophils % 0.2 Basophils % 0.2 Absolute Neutrophils 5.5 Absolute Lymphocytes 0.6 Absolute Monocytes 0.5 Absolute Eosinophils 0.0 Absolute Basophils 0.0 Sodium 139.2 Potassium 4.8 Chloride 109 H Carbon Dioxide 20 L Anion Gap 10 BUN 40 H Creatinine 2.79 H Est GFR ( Amer) 29 L Est GFR (Non-Af Amer) 24 L Glucose 140 H Calcium 8.5 Impressions: Ankle X-Ray 05/16/17 00:00 IMPRESSION: IMAGE(S) OBTAINED DURING PROCEDURE. Fluoroscopy 05/16/17 00:00 IMPRESSION: IMAGE(S) OBTAINED DURING PROCEDURE. Hip X-Ray 05/16/17 00:00 IMPRESSION: IMAGE(S) OBTAINED DURING PROCEDURE. Shoulder X-Ray 05/16/17 00:00 IMPRESSION: IMAGE(S) OBTAINED DURING PROCEDURE. Assessment & Plan - Diagnosis (1) Bimalleolar fracture of left ankle Qualifiers: Encounter type: initial encounter Fracture type: closed Qualified Code(s) : S82.842A - Displaced bimalleolar fracture of left lower leg, initial encounter for closed fracture Is this a current diagnosis for this admission?: Yes (2) Left humeral fracture Qualifiers: Encounter type: initial encounter Humerus Location: proximal Fracture type: closed Fracture morphology: other fracture Fracture alignment: nondisplaced Qualified Code(s): S42.295A - Other nondisplaced fracture of upper end of left humerus, initial encounter for closed fracture Is this a current diagnosis for this admission?: Yes (3) Chronic kidney disease, stage 4 (severe) Is this a current diagnosis for this admission?: Yes (4) Diabetes mellitus Qualifiers: Diabetes mellitus type: type 2 Diabetes mellitus detention insulin use: with detention use Diabetes mellitus complication status: with ophthalmic complications Diabetes mellitus complication detail: with diabetic retinopathy Diabetic retinopathy severity: with severe nonproliferative retinopathy Diabetes mellitus macular edema: with macular edema Laterality: bilateral Qualified Code(s): E11.3413 - 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
[2017-05-17] MEDS: ONDANSETRON HCL INJ/PF 4 MG/2 ML SDV IV PRN (22:33)
[2017-05-17] MEDS: CLONIDINE HCL 0.1 MG TABLET PO SCH (23:49)
[2017-05-18] MEDS ORDERED: LEVOFLOXACIN 750 MG TABLET PO ONE (01:00)
[2017-05-18] MEDS: IPRATROPIUM/ALBUTEROL 0.5-2.5 MG/3 ML AMPUL NEB PRN ×3 (01:59→22:43)
[2017-05-18] MEDS: HYDRALAZINE HCL 50 MG TABLET PO SCH ×3 (06:25→22:34)
[2017-05-18] MEDS: LANSOPRAZOLE 30 MG TAB.RAP.DR PO SCH (06:26)
--- NOTE | 2017-05-18 07:05 | PDOC PROGRESS REPORT ---
Subjective Progress Note for:: 05/18/17 Reason For Visit: LEFT HIP FRACTURE 52-year-old male status post open reduction internal fixation of left proximal humerus, left femoral neck, and left bimalleolar ankle fracture on Tuesday. Patient received no physical therapy yesterday Physical Exam Vital Signs: Temp Pulse Resp BP Pulse Ox 37.6 C 102 H 18 158/75 H 100 05/18/17 06:01 05/18/17 06:01 05/18/17 06:01 05/18/17 06:01 05/18/17 06:01 Intake & Output 05/17/17 05/18/17 05/19/17 06:59 06:59 06:59 Intake Total 7890 630 Output Total 2250 925 Balance 5640 -295 General appearance: PRESENT: no acute distress Head exam: PRESENT: normocephalic Respiratory exam: PRESENT: unlabored Cardiovascular exam: PRESENT: RRR Pulses: PRESENT: normal radial pulses, +1 pedal pulses bilateral Vascular exam: PRESENT: normal capillary refill GI/Abdominal exam: PRESENT: soft Rectal exam: PRESENT: deferred Musculoskeletal exam: PRESENT: other - Left shoulder dressing clean dry and intact, left hip dressing clean dry and intact, left ankle posterior splint intact. Neurological exam: PRESENT: alert, awake, oriented to person, oriented to place , oriented to time, oriented to situation. ABSENT: motor sensory deficit Psychiatric exam: PRESENT: appropriate affect, normal mood. ABSENT: homicidal ideation, suicidal ideation Skin exam: PRESENT: dry, intact, warm. ABSENT: cyanosis, rash Results Laboratory Results: 05/17/17 06:02 05/17/17 06:02 Impressions: Ankle X-Ray 05/16/17 00:00 IMPRESSION: IMAGE(S) OBTAINED DURING PROCEDURE. Fluoroscopy 05/16/17 00:00 IMPRESSION: IMAGE(S) OBTAINED DURING PROCEDURE. Hip X-Ray 05/16/17 00:00 IMPRESSION: IMAGE(S) OBTAINED DURING PROCEDURE. Shoulder X-Ray 05/16/17 00:00 IMPRESSION: IMAGE(S) OBTAINED DURING PROCEDURE. Status: Imported from PACS Assessment & Plan - Diagnosis (1) Bimalleolar fracture of right ankle Is this a current diagnosis for this admission?: Yes Plan: Patient to be mobilized with physical therapy for touchdown weightbearing on the left lower extremity, second request (2) Fracture, humerus, proximal Qualifiers: Encounter type: initial encounter Fracture type: closed Fracture morphology: other fracture Fracture alignment: nondisplaced Laterality: left Qualified Code(s): S42.295A - Other nondisplaced fracture of upper end of left humerus, initial encounter for closed fracture Is this a current diagnosis for this admission?: Yes (3) Hip fracture, left Qualifiers: Encounter type: initial encounter Fracture type: closed Qualified Code(s) : S72.002A - Fracture of unspecified part of neck of left femur, initial encounter for closed fracture Is this a current diagnosis for this admission?: Yes - Plan Summary Plan Summary: Patient's discharge plans will depend significantly on his functional recovery. At this point he has not been seen by physical therapy and it is not clear what the patient's mobility will be. He may well be better off placed in a halfway facility.
[2017-05-18] MEDS: ASPIRIN 81 MG TABLET, ENT COATED PO SCH (09:58)
[2017-05-18] MEDS: CALCITRIOL 0.25 MCG CAPSULE PO SCH (09:58)
[2017-05-18] MEDS: AMLODIPINE BESYLATE 10 MG TABLET PO SCH (09:58)
[2017-05-18] MEDS: INSULIN LISPRO 100 UNIT/ML 3 ML VIAL SUBCUT PRN ×2 (12:21→18:08)
[2017-05-18] MEDS ORDERED: LORAZEPAM 1 MG TABLET PO PRN (14:58)
--- NOTE | 2017-05-18 18:11 | PDOC PROGRESS REPORT ---
Subjective Progress Note for:: 05/18/17 Subjective:: He was seen by the bedside, he complained of insomnia, undergoing physical therapy Reason For Visit: LEFT HIP FRACTURE Physical Exam Vital Signs: Temp Pulse Resp BP Pulse Ox 99.0 F 95 16 117/76 100 05/18/17 16:00 05/18/17 16:00 05/18/17 16:00 05/18/17 16:00 05/18/17 16:00 Intake & Output 05/17/17 05/18/17 05/19/17 06:59 06:59 06:59 Intake Total 7890 630 Output Total 2250 925 Balance 5640 -295 General appearance: PRESENT: no acute distress Head exam: PRESENT: atraumatic, normocephalic Eye exam: PRESENT: conjunctiva pink, EOMI, PERRLA Ear exam: PRESENT: normal external ear exam Mouth exam: PRESENT: moist, tongue midline Neck exam: PRESENT: full ROM Respiratory exam: PRESENT: clear to auscultation mirna Cardiovascular exam: PRESENT: RRR, +S1, +S2 Pulses: PRESENT: normal dorsalis pedis pul, +2 pedal pulses bilateral Vascular exam: PRESENT: normal capillary refill GI/Abdominal exam: PRESENT: normal bowel sounds, soft Rectal exam: PRESENT: deferred Neurological exam: PRESENT: alert Psychiatric exam: PRESENT: appropriate affect, normal mood Skin exam: PRESENT: dry, intact, warm Results Laboratory Results: 05/17/17 06:02 05/17/17 06:02 Impressions: Ankle X-Ray 05/16/17 00:00 IMPRESSION: IMAGE(S) OBTAINED DURING PROCEDURE. Fluoroscopy 05/16/17 00:00 IMPRESSION: IMAGE(S) OBTAINED DURING PROCEDURE. Hip X-Ray 05/16/17 00:00 IMPRESSION: IMAGE(S) OBTAINED DURING PROCEDURE. Shoulder X-Ray 05/16/17 00:00 IMPRESSION: IMAGE(S) OBTAINED DURING PROCEDURE. Assessment & Plan - Diagnosis (1) Bimalleolar fracture of left ankle Qualifiers: Encounter type: initial encounter Fracture type: closed Qualified Code(s) : S82.842A - Displaced bimalleolar fracture of left lower leg, initial encounter for closed fracture Is this a current diagnosis for this admission?: Yes (2) Left humeral fracture Qualifiers: Encounter type: initial encounter Humerus Location: proximal Fracture type: closed Fracture morphology: other fracture Fracture alignment: nondisplaced Qualified Code(s): S42.295A - Other nondisplaced fracture of upper end of left humerus, initial encounter for closed fracture Is this a current diagnosis for this admission?: Yes (3) Chronic kidney disease, stage 4 (severe) Is this a current diagnosis for this admission?: Yes (4) Diabetes mellitus Qualifiers: Diabetes mellitus type: type 2 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 extermination supervisor use Diabetes mellitus complication status: with ophthalmic complications Diabetes mellitus complication detail: with diabetic retinopathy Diabetic retinopathy severity: with severe nonproliferative retinopathy Diabetes mellitus macular edema: with macular edema Laterality: bilateral Qualified Code(s): E11.3413 - Type 2 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
[2017-05-18] MEDS: ONDANSETRON HCL INJ/PF 4 MG/2 ML SDV IV PRN (22:32)
[2017-05-18] MEDS: CLONIDINE HCL 0.1 MG TABLET PO SCH (22:34)
[2017-05-18] MEDS: ZOLPIDEM TARTRATE 5 MG TABLET PO SCH (22:34)
[2017-05-19] MEDS: HYDRALAZINE HCL 50 MG TABLET PO SCH ×3 (05:34→20:59)
[2017-05-19] MEDS: LANSOPRAZOLE 30 MG TAB.RAP.DR PO SCH (05:34)
--- NOTE | 2017-05-19 06:12 | PDOC PROGRESS REPORT ---
Subjective Progress Note for:: 05/19/17 Reason For Visit: LEFT HIP FRACTURE 52-year-old male status post open reduction of left proximal humerus, left femoral neck, and left bimalleolar ankle fracture. Postoperative course has been uneventful. Patient starting to make progress with physical therapy. Physical Exam Vital Signs: Temp Pulse Resp BP Pulse Ox 36.8 C 89 17 140/62 H 100 05/19/17 04:01 05/19/17 04:01 05/19/17 04:01 05/19/17 04:01 05/19/17 04:01 Intake & Output 05/17/17 05/18/17 05/19/17 06:59 06:59 06:59 Intake Total 7890 630 360 Output Total 2250 925 400 Balance 5640 -295 -40 General appearance: PRESENT: no acute distress Head exam: PRESENT: normocephalic Respiratory exam: PRESENT: unlabored Cardiovascular exam: PRESENT: RRR Vascular exam: PRESENT: normal capillary refill GI/Abdominal exam: PRESENT: soft Rectal exam: PRESENT: deferred Extremities exam: PRESENT: other - All 3 fracture sites the dressing remains clean dry and intact. Distal neurovascular examination is intact. Neurological exam: PRESENT: alert, awake, oriented to person, oriented to place , oriented to time, oriented to situation. ABSENT: motor sensory deficit Psychiatric exam: PRESENT: appropriate affect, normal mood. ABSENT: homicidal ideation, suicidal ideation Skin exam: PRESENT: dry, intact, warm. ABSENT: cyanosis, rash Results Laboratory Results: 05/17/17 06:02 05/17/17 06:02 Impressions: Ankle X-Ray 05/16/17 00:00 IMPRESSION: IMAGE(S) OBTAINED DURING PROCEDURE. Fluoroscopy 05/16/17 00:00 IMPRESSION: IMAGE(S) OBTAINED DURING PROCEDURE. Hip X-Ray 05/16/17 00:00 IMPRESSION: IMAGE(S) OBTAINED DURING PROCEDURE. Shoulder X-Ray 05/16/17 00:00 IMPRESSION: IMAGE(S) OBTAINED DURING PROCEDURE. Status: Imported from PACS Assessment & Plan - Diagnosis (1) Bimalleolar fracture of right ankle Is this a current diagnosis for this admission?: Yes Plan: Patient is being mobilized on a touchdown weightbearing restriction on the left lower extremity. (2) Fracture, humerus, proximal Qualifiers: Encounter type: initial encounter Fracture type: closed Fracture morphology: other fracture Fracture alignment: nondisplaced Laterality: left Qualified Code(s): S42.295A - Other nondisplaced fracture of upper end of left humerus, initial encounter for closed fracture Is this a current diagnosis for this admission?: Yes Plan: Stable (3) Hip fracture, left Qualifiers: Encounter type: initial encounter Fracture type: closed Qualified Code(s) : S72.002A - Fracture of unspecified part of neck of left femur, initial encounter for closed fracture Is this a current diagnosis for this admission?: Yes Plan: Touchdown weightbearing restriction - Time Time Spent with patient: 15-24 minutes Anticipated discharge: SNF Within: when bed available
[2017-05-19] MEDS: ASPIRIN 81 MG TABLET, ENT COATED PO SCH (09:58)
[2017-05-19] MEDS: CALCITRIOL 0.25 MCG CAPSULE PO SCH (09:58)
[2017-05-19] MEDS: AMLODIPINE BESYLATE 10 MG TABLET PO SCH (09:58)
[2017-05-19] MEDS: INSULIN LISPRO 100 UNIT/ML 3 ML VIAL SUBCUT PRN ×2 (12:05→17:50)
[2017-05-19] MEDS: ZOLPIDEM TARTRATE 5 MG TABLET PO SCH (20:59)
[2017-05-19] MEDS: CLONIDINE HCL 0.1 MG TABLET PO SCH (20:59)
--- NOTE | 2017-05-19 21:22 | PDOC PROGRESS REPORT ---
Subjective Progress Note for:: 05/19/17 Subjective:: He was seen by the bedside, he complained of insomnia, undergoing physical therapy Reason For Visit: LEFT HIP FRACTURE Physical Exam Vital Signs: Temp Pulse Resp BP Pulse Ox 98.4 F 97 20 147/73 H 98 05/19/17 16:52 05/19/17 19:00 05/19/17 16:52 05/19/17 16:52 05/19/17 16:52 Intake & Output 05/18/17 05/19/17 05/20/17 06:59 06:59 06:59 Intake Total 630 765 360 Output Total 925 1100 300 Balance -295 -335 60 General appearance: PRESENT: no acute distress, well-developed, well-nourished Head exam: PRESENT: atraumatic, normocephalic Eye exam: PRESENT: conjunctiva pink, EOMI, PERRLA Ear exam: PRESENT: normal external ear exam Mouth exam: PRESENT: moist, tongue midline Neck exam: PRESENT: full ROM Respiratory exam: PRESENT: clear to auscultation mirna Cardiovascular exam: PRESENT: RRR, +S1, +S2 Vascular exam: PRESENT: normal capillary refill GI/Abdominal exam: PRESENT: normal bowel sounds, soft Rectal exam: PRESENT: deferred Neurological exam: PRESENT: alert Psychiatric exam: PRESENT: appropriate affect, normal mood Skin exam: PRESENT: dry, intact, warm. ABSENT: cyanosis, rash Results Laboratory Results: 05/17/17 06:02 05/17/17 06:02 Impressions: Ankle X-Ray 05/16/17 00:00 IMPRESSION: IMAGE(S) OBTAINED DURING PROCEDURE. Fluoroscopy 05/16/17 00:00 IMPRESSION: IMAGE(S) OBTAINED DURING PROCEDURE. Hip X-Ray 05/16/17 00:00 IMPRESSION: IMAGE(S) OBTAINED DURING PROCEDURE. Shoulder X-Ray 05/16/17 00:00 IMPRESSION: IMAGE(S) OBTAINED DURING PROCEDURE. Assessment & Plan - Diagnosis (1) Bimalleolar fracture of left ankle Qualifiers: Encounter type: initial encounter Fracture type: closed Qualified Code(s) : S82.842A - Displaced bimalleolar fracture of left lower leg, initial encounter for closed fracture Is this a current diagnosis for this admission?: Yes (2) Left humeral fracture Qualifiers: Encounter type: initial encounter Humerus Location: proximal Fracture type: closed Fracture morphology: other fracture Fracture alignment: nondisplaced Qualified Code(s): S42.295A - Other nondisplaced fracture of upper end of left humerus, initial encounter for closed fracture Is this a current diagnosis for this admission?: Yes (3) Chronic kidney disease, stage 4 (severe) Is this a current diagnosis for this admission?: Yes (4) Diabetes mellitus Qualifiers: Diabetes mellitus type: type 2 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 penitentiary use Diabetes mellitus complication status: with ophthalmic complications Diabetes mellitus complication detail: with diabetic retinopathy Diabetic retinopathy severity: with severe nonproliferative retinopathy Diabetes mellitus macular edema: with macular edema Laterality: bilateral Qualified Code(s): E11.3413 - Type 2 diabetes 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
[2017-05-19] MEDS: ONDANSETRON HCL INJ/PF 4 MG/2 ML SDV IV PRN (21:26)
[2017-05-20] MEDS: ONDANSETRON HCL INJ/PF 4 MG/2 ML SDV IV PRN ×2 (05:14→09:08)
[2017-05-20] MEDS: HYDRALAZINE HCL 50 MG TABLET PO SCH ×3 (05:18→22:16)
[2017-05-20] MEDS: LANSOPRAZOLE 30 MG TAB.RAP.DR PO SCH (05:18)
--- NOTE | 2017-05-20 07:13 | PDOC PROGRESS REPORT ---
Subjective Progress Note for:: 05/20/17 Reason For Visit: LEFT HIP FRACTURE 52-year-old male status post a fall with left upper and lower extremity fractures status post open reduction internal fixation on May 16. Used on a touchdown weightbearing restriction and being seen by physical therapy for mobilization. Physical Exam Vital Signs: Temp Pulse Resp BP Pulse Ox 37.0 C 102 H 18 155/62 H 97 05/19/17 19:34 05/20/17 05:16 05/19/17 19:34 05/20/17 05:16 05/20/17 05:16 Intake & Output 05/19/17 05/20/17 05/21/17 06:59 06:59 06:59 Intake Total 765 810 Output Total 1100 950 Balance -335 -140 General appearance: PRESENT: no acute distress Head exam: PRESENT: normocephalic Respiratory exam: PRESENT: unlabored Cardiovascular exam: PRESENT: RRR Pulses: PRESENT: +1 pedal pulses bilateral Vascular exam: PRESENT: normal capillary refill GI/Abdominal exam: PRESENT: soft Rectal exam: PRESENT: deferred Extremities exam: PRESENT: other - Left shoulder, left hip dressings are clean dry and intact. Left ankle posterior splint is intact. Neurological exam: PRESENT: alert, awake, oriented to person, oriented to place , oriented to time, oriented to situation. ABSENT: motor sensory deficit Psychiatric exam: PRESENT: appropriate affect, normal mood. ABSENT: homicidal ideation, suicidal ideation Skin exam: PRESENT: dry, intact, warm. ABSENT: cyanosis, rash Results Laboratory Results: 05/17/17 06:02 05/17/17 06:02 Impressions: Ankle X-Ray 05/16/17 00:00 IMPRESSION: IMAGE(S) OBTAINED DURING PROCEDURE. Fluoroscopy 05/16/17 00:00 IMPRESSION: IMAGE(S) OBTAINED DURING PROCEDURE. Hip X-Ray 05/16/17 00:00 IMPRESSION: IMAGE(S) OBTAINED DURING PROCEDURE. Shoulder X-Ray 05/16/17 00:00 IMPRESSION: IMAGE(S) OBTAINED DURING PROCEDURE. Status: Imported from PACS Assessment & Plan - Diagnosis (1) Bimalleolar fracture of right ankle Is this a current diagnosis for this admission?: Yes (2) Fracture, humerus, proximal Qualifiers: Encounter type: initial encounter Fracture type: closed Fracture morphology: other fracture Fracture alignment: nondisplaced Laterality: left Qualified Code(s): S42.295A - Other nondisplaced fracture of upper end of left humerus, initial encounter for closed fracture Is this a current diagnosis for this admission?: Yes (3) Hip fracture, left Qualifiers: Encounter type: initial encounter Fracture type: closed Qualified Code(s) : S72.002A - Fracture of unspecified part of neck of left femur, initial encounter for closed fracture Is this a current diagnosis for this admission?: Yes - Time Time Spent with patient: 15-24 minutes Anticipated discharge: SNF - Patient awaiting rehab placement. Situation is complicated because of the staged nature of his fractures and the fact that Worker[employer] Compensation is only going to accept responsibility for the ankle fracture. Within: Other
[2017-05-20] MEDS: CALCITRIOL 0.25 MCG CAPSULE PO SCH (09:08)
[2017-05-20] MEDS: AMLODIPINE BESYLATE 10 MG TABLET PO SCH (09:08)
[2017-05-20] MEDS: ASPIRIN 81 MG TABLET, ENT COATED PO SCH (09:08)
[2017-05-20] MEDS ORDERED: NA PHOS,M-B/NA PHOS,DI-BA (ADULT) 133 ML ENEMA PR PRN (09:17)
[2017-05-20] MEDS ORDERED: BISACODYL 5 MG TABEC PO ONE (10:00)
[2017-05-20] MEDS ORDERED: ERGOCALCIFEROL (VITAMIN D2) 50000 UNIT (1.25 MG) CAPSULE PO SCH ×2 (10:00→20:14)
--- NOTE | 2017-05-20 21:40 | PDOC PROGRESS REPORT ---
Subjective Progress Note for:: 05/20/17 Subjective:: He was seen by the bedside, he complained of insomnia, undergoing physical therapy Reason For Visit: LEFT HIP FRACTURE Physical Exam Vital Signs: Temp Pulse Resp BP Pulse Ox 98.2 F 98 18 163/64 H 97 05/20/17 15:02 05/20/17 20:02 05/20/17 20:02 05/20/17 15:02 05/20/17 20:02 Intake & Output 05/19/17 05/20/17 05/21/17 06:59 06:59 06:59 Intake Total 765 810 350 Output Total 1100 950 150 Balance -335 -140 200 General appearance: PRESENT: no acute distress Eye exam: PRESENT: PERRLA Respiratory exam: PRESENT: clear to auscultation mirna Cardiovascular exam: PRESENT: +S1, +S2 GI/Abdominal exam: PRESENT: soft Neurological exam: PRESENT: alert Results Laboratory Results: 05/17/17 06:02 05/17/17 06:02 Impressions: Ankle X-Ray 05/16/17 00:00 IMPRESSION: IMAGE(S) OBTAINED DURING PROCEDURE. Fluoroscopy 05/16/17 00:00 IMPRESSION: IMAGE(S) OBTAINED DURING PROCEDURE. Hip X-Ray 05/16/17 00:00 IMPRESSION: IMAGE(S) OBTAINED DURING PROCEDURE. Shoulder X-Ray 05/16/17 00:00 IMPRESSION: IMAGE(S) OBTAINED DURING PROCEDURE. Assessment & Plan - Diagnosis (1) Bimalleolar fracture of left ankle Qualifiers: Encounter type: initial encounter Fracture type: closed Qualified Code(s) : S82.842A - Displaced bimalleolar fracture of left lower leg, initial encounter for closed fracture Is this a current diagnosis for this admission?: Yes (2) Left humeral fracture Qualifiers: Encounter type: initial encounter Humerus Location: proximal Fracture type: closed Fracture morphology: other fracture Fracture alignment: nondisplaced Qualified Code(s): S42.295A - Other nondisplaced fracture of upper end of left humerus, initial encounter for closed fracture Is this a current diagnosis for this admission?: Yes (3) Chronic kidney disease, stage 4 (severe) Is this a current diagnosis for this admission?: Yes (4) Diabetes mellitus Qualifiers: Diabetes mellitus type: type 2 Diabetes mellitus retirement insulin use: with termite treater helper use Diabetes mellitus complication status: with ophthalmic complications Diabetes mellitus complication detail: with diabetic retinopathy Diabetic retinopathy severity: with severe nonproliferative retinopathy Diabetes mellitus macular edema: with macular edema Laterality: bilateral Qualified Code(s): E11.3413 - Type 2 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
[2017-05-20] MEDS: ZOLPIDEM TARTRATE 5 MG TABLET PO SCH (22:17)
[2017-05-20] MEDS: CLONIDINE HCL 0.1 MG TABLET PO SCH (22:17)
[2017-05-20] MEDS: INSULIN LISPRO 100 UNIT/ML 3 ML VIAL SUBCUT PRN (22:47)
[2017-05-21] MEDS: LANSOPRAZOLE 30 MG TAB.RAP.DR PO SCH (05:31)
[2017-05-21] MEDS: HYDRALAZINE HCL 50 MG TABLET PO SCH ×3 (05:31→22:40)
[2017-05-21] MEDS: AMLODIPINE BESYLATE 10 MG TABLET PO SCH (09:21)
[2017-05-21] MEDS: CALCITRIOL 0.25 MCG CAPSULE PO SCH (09:21)
[2017-05-21] MEDS: ASPIRIN 81 MG TABLET, ENT COATED PO SCH (09:21)
[2017-05-21] MEDS: INSULIN LISPRO 100 UNIT/ML 3 ML VIAL SUBCUT PRN ×2 (12:25→22:41)
--- NOTE | 2017-05-21 15:01 | PDOC PROGRESS REPORT ---
Subjective Progress Note for:: 05/21/17 Subjective:: Patient sitting on chair at bedside. States pain is slowly improving. Was able to ambulate 30 feet today in physical therapy. Denies chest pain or shortness of breath. Reason For Visit: LEFT HIP FRACTURE Physical Exam Vital Signs: Temp Pulse Resp BP Pulse Ox 97.5 F 88 16 144/64 H 99 05/21/17 11:35 05/21/17 13:59 05/21/17 11:35 05/21/17 11:35 05/21/17 13:46 Intake & Output 05/20/17 05/21/17 05/22/17 06:59 06:59 06:59 Intake Total 810 1090 450 Output Total 950 150 Balance -140 940 450 Musculoskeletal exam: PRESENT: other - Left lower extremity: Splint clean/dry/ intact intact flexion extension of the toes. Cap refill less than 2 seconds. No sensory deficits. No pain with passive stretch. Surgical dressing intact no erythema or drainage. No limb length inequality. Left upper extremity: Dressing clean/dry/intact no erythema or drainage. Intact flexion extension of the elbow. Results Laboratory Results: 05/17/17 06:02 05/17/17 06:02 Impressions: Ankle X-Ray 05/16/17 00:00 IMPRESSION: IMAGE(S) OBTAINED DURING PROCEDURE. Fluoroscopy 05/16/17 00:00 IMPRESSION: IMAGE(S) OBTAINED DURING PROCEDURE. Hip X-Ray 05/16/17 00:00 IMPRESSION: IMAGE(S) OBTAINED DURING PROCEDURE. Shoulder X-Ray 05/16/17 00:00 IMPRESSION: IMAGE(S) OBTAINED DURING PROCEDURE. Assessment & Plan - Diagnosis (1) Bimalleolar fracture of left ankle Qualifiers: Encounter type: initial encounter Fracture type: closed Qualified Code(s) : S82.842A - Displaced bimalleolar fracture of left lower leg, initial encounter for closed fracture Is this a current diagnosis for this admission?: Yes Plan: Status post ORIF left proximal humerus, left femoral neck, left bimalleolar ankle fracture #1 continue physical therapy #2 aspirin for DVT prophylaxis #3 pain control #4 discharge planning to long-term facility when details of discharge complete. Patient orthopedically stable for discharge.
--- NOTE | 2017-05-21 19:53 | PDOC PROGRESS REPORT ---
Subjective Progress Note for:: 05/21/17 Subjective:: Patient is essentially waiting for placement for rehabilitation Reason For Visit: LEFT HIP FRACTURE Physical Exam Vital Signs: Temp Pulse Resp BP Pulse Ox 98.6 F 85 16 140/61 H 97 05/21/17 15:42 05/21/17 15:42 05/21/17 15:42 05/21/17 15:42 05/21/17 15:42 Intake & Output 05/20/17 05/21/17 05/22/17 06:59 06:59 06:59 Intake Total 810 1090 450 Output Total 950 150 Balance -140 940 450 General appearance: PRESENT: no acute distress Eye exam: PRESENT: PERRLA Respiratory exam: PRESENT: clear to auscultation mirna Cardiovascular exam: PRESENT: +S1, +S2 Neurological exam: PRESENT: alert Results Laboratory Results: 05/17/17 06:02 05/17/17 06:02 Impressions: Ankle X-Ray 05/16/17 00:00 IMPRESSION: IMAGE(S) OBTAINED DURING PROCEDURE. Fluoroscopy 05/16/17 00:00 IMPRESSION: IMAGE(S) OBTAINED DURING PROCEDURE. Hip X-Ray 05/16/17 00:00 IMPRESSION: IMAGE(S) OBTAINED DURING PROCEDURE. Shoulder X-Ray 05/16/17 00:00 IMPRESSION: IMAGE(S) OBTAINED DURING PROCEDURE. Assessment & Plan - Diagnosis (1) Bimalleolar fracture of left ankle Qualifiers: Encounter type: initial encounter Fracture type: closed Qualified Code(s) : S82.842A - Displaced bimalleolar fracture of left lower leg, initial encounter for closed fracture Is this a current diagnosis for this admission?: Yes (2) Left humeral fracture Qualifiers: Encounter type: initial encounter Humerus Location: proximal Fracture type: closed Fracture morphology: other fracture Fracture alignment: nondisplaced Qualified Code(s): S42.295A - Other nondisplaced fracture of upper end of left humerus, initial encounter for closed fracture Is this a current diagnosis for this admission?: Yes (3) Chronic kidney disease, stage 4 (severe) Is this a current diagnosis for this admission?: Yes (4) Diabetes mellitus Qualifiers: Diabetes mellitus type: type 2 Diabetes mellitus snf insulin use: with vermin exterminator use Diabetes mellitus complication status: with ophthalmic complications Diabetes mellitus complication detail: with diabetic retinopathy Diabetic retinopathy severity: with severe nonproliferative retinopathy Diabetes mellitus macular edema: with macular edema Laterality: bilateral Qualified Code(s): E11.3413 - Type 2 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
[2017-05-21] MEDS: CLONIDINE HCL 0.1 MG TABLET PO SCH (22:41)
[2017-05-21] MEDS: ZOLPIDEM TARTRATE 5 MG TABLET PO SCH (22:41)
[2017-05-22] MEDS: HYDRALAZINE HCL 50 MG TABLET PO SCH ×3 (06:41→21:28)
[2017-05-22] MEDS: LANSOPRAZOLE 30 MG TAB.RAP.DR PO SCH (06:41)
[2017-05-22] MEDS: ASPIRIN 81 MG TABLET, ENT COATED PO SCH (09:27)
[2017-05-22] MEDS: CALCITRIOL 0.25 MCG CAPSULE PO SCH (09:27)
[2017-05-22] MEDS: AMLODIPINE BESYLATE 10 MG TABLET PO SCH (09:27)
--- NOTE | 2017-05-22 12:37 | PDOC PROGRESS REPORT ---
Subjective Progress Note for:: 05/22/17 Subjective:: Patient ambulating with walker to chair at the bedside when I entered the room. Only placing toe-touch weightbearing on left lower extremity. He reports pain is well managed and has no other concerns at this time. He is curious when he will be discharged from the hospital. He also has questions about workman's comp and disability. Patient is reassured that from an orthopedic standpoint he can be discharged from the hospital however discharge planning and hospitalist service will be coordinating his disposition upon discharge. Patient voiced understanding and is in agreement. Reason For Visit: LEFT HIP FRACTURE Physical Exam Vital Signs: Temp Pulse Resp BP Pulse Ox 36.8 C 87 12 154/67 H 95 05/22/17 08:07 05/22/17 08:07 05/22/17 08:07 05/22/17 08:07 05/22/17 08:07 Intake & Output 05/21/17 05/22/17 05/23/17 06:59 06:59 06:59 Intake Total 1090 1070 Output Total 150 Balance 940 1070 General appearance: PRESENT: no acute distress, well-developed, well-nourished Head exam: PRESENT: atraumatic, normocephalic Musculoskeletal exam: PRESENT: ambulatory Additional comments: Left lower extremity: Postoperative splint and dressing clean dry and intact. This is left in place. Foot and toes are nontender to palpation. Resolving ecchymosis noted over dorsum of foot. Less than 2 seconds capillary refill to the toes of left lower extremity. No pain with stretch applied. He does note part of the splint along the posterior calf "digs into my skin". Patient is reassured that this can be padded with gauze to facilitate comfort. Left upper extremity: Postoperative dressing clean dry and intact. This is left in place. He is nontender to palpation. No evidence of compartment syndrome. No pain on initiation of motion and appropriate range of passive range of motion. +2 radial pulse, less than 2 seconds capillary refill to fingers of left upper extremity. No sensory or motor deficits noted. Neurological exam: PRESENT: alert, awake, oriented to person, oriented to place , oriented to time, oriented to situation, CN II-XII grossly intact. ABSENT: motor sensory deficit Psychiatric exam: PRESENT: appropriate affect, normal mood. ABSENT: homicidal ideation, suicidal ideation Results Laboratory Results: 05/17/17 06:02 05/17/17 06:02 Impressions: Ankle X-Ray 05/16/17 00:00 IMPRESSION: IMAGE(S) OBTAINED DURING PROCEDURE. Fluoroscopy 05/16/17 00:00 IMPRESSION: IMAGE(S) OBTAINED DURING PROCEDURE. Hip X-Ray 05/16/17 00:00 IMPRESSION: IMAGE(S) OBTAINED DURING PROCEDURE. Shoulder X-Ray 05/16/17 00:00 IMPRESSION: IMAGE(S) OBTAINED DURING PROCEDURE. Assessment & Plan - Diagnosis (1) Bimalleolar fracture of left ankle Qualifiers: Encounter type: initial encounter Fracture type: closed Qualified Code(s) : S82.842A - Displaced bimalleolar fracture of left lower leg, initial encounter for closed fracture Is this a current diagnosis for this admission?: Yes (2) Hip fracture, left Qualifiers: Encounter type: initial encounter Fracture type: closed Qualified Code(s) : S72.002A - Fracture of unspecified part of neck of left femur, initial encounter for closed fracture Is this a current diagnosis for this admission?: Yes (3) Left humeral fracture Qualifiers: Encounter type: initial encounter Humerus Location: proximal Fracture type: closed Fracture morphology: other fracture Fracture alignment: nondisplaced Qualified Code(s): S42.295A - Other nondisplaced fracture of upper end of left humerus, initial encounter for closed fracture Is this a current diagnosis for this admission?: Yes - Plan Summary Plan Summary: 52-year-old male status post ORIF left proximal humerus, left femoral neck, left bimalleolar ankle fracture. Patient doing well postoperatively and from an orthopedic standpoint is stable for discharge. He will be discharged once discharge planning and hospitalist service see fit. Throughout his stay in the hospital we will continue: #1 physical therapy #2 aspirin for DVT prophylaxis #3 pain control #4 discharge planning to [facility] facility when details of discharge complete
--- NOTE | 2017-05-22 16:19 | PDOC DISCHARGE SUMMARY ---
General - Admit/Disc Date/PCP Admission Date/Primary Care Provider: 05/15/17 16:09 JOSE GONZALEZ MD Discharge Date: 05/23/17 - Discharge Diagnosis (1) Bimalleolar fracture of left ankle Is this a current diagnosis for this admission?: Yes (2) Left humeral fracture Is this a current diagnosis for this admission?: Yes (3) Chronic kidney disease, stage 4 (severe) Is this a current diagnosis for this admission?: Yes (4) Diabetes mellitus Is this a current diagnosis for this admission?: Yes (5) Hip fracture, left Is this a current diagnosis for this admission?: Yes - Additional Information Resuscitation Status: Full Code Prescriptions: Linagliptin [Tradjenta] 5 mg PO DAILY #90 tablet Home Medications: RX: Amlodipine Besylate 10 mg PO DAILY 07/30/16 RX: Furosemide [Lasix] 40 mg PO QAM 07/30/16 RX: Lisinopril 40 mg PO BID 07/30/16 RX: Calcitriol [Rocaltrol 0.5 mcg Capsule] 0.5 mcg PO DAILY 05/16/17 RX: Clonidine HCl [Catapres 0.1 mg Tablet] 0.1 mg PO QHS 05/16/17 RX: Ergocalciferol (Vitamin D2) [Drisdol 50,000 unit (1.25MG) Capsule] 50,000 unit PO FR 05/16/17 RX: Hydralazine HCl [Apresoline 50 mg Tablet] 50 mg PO TID 05/16/17 Linagliptin [Tradjenta] 5 mg PO DAILY #90 tablet 05/22/17 History of Present Illness History of Present Illness: Patient is 52-year-old male with history of type 2 diabetes mellitus complicated with stage IV chronic kidney disease, retinopathy, he is sustained fracture of the left ankle, He was scheduled for open reduction and internal fixation of the left ankle this coming roughly 3 days from today, he was on crutches, he fell on crutches and sustained fracture of the left femoral neck of the left hip, left proximal humerus fracture of the left shoulder. He came to the emergency room for evaluation of these multiple fractures, he was seen by orthopedic and he underwent internal fixation and open reduction of the left ankle, left hip and left humerus.There was no antecedent chest pain, shortness of breath, loss of consciousness patient probably have osteoporosis, he would need a bone density measurement in light of this multiple fracture Hospital Course Hospital Course: He fell and sustained fracture of the left hip shoulder and ankle was seen by the orthopedic he underwent open reduction and internal fixation of the fracture joints and bones, he was orthopedic. He also had physical therapy in the hospital Physical Exam Vital Signs: Temp Pulse Resp BP Pulse Ox 98.0 F 86 16 145/69 H 97 05/22/17 11:14 05/22/17 11:14 05/22/17 11:14 05/22/17 11:14 05/22/17 11:14 Intake & Output 05/21/17 05/22/17 05/23/17 06:59 06:59 06:59 Intake Total 1090 1070 600 Output Total 150 Balance 940 1070 600 General appearance: PRESENT: no acute distress, well-developed, well-nourished Head exam: PRESENT: atraumatic, normocephalic Eye exam: PRESENT: conjunctiva pink, EOMI, PERRLA Ear exam: PRESENT: normal external ear exam Mouth exam: PRESENT: moist, tongue midline Neck exam: PRESENT: full ROM Cardiovascular exam: PRESENT: RRR, +S1, +S2 Pulses: PRESENT: normal dorsalis pedis pul, +2 pedal pulses bilateral Vascular exam: PRESENT: normal capillary refill GI/Abdominal exam: PRESENT: normal bowel sounds, soft Rectal exam: PRESENT: deferred Neurological exam: PRESENT: alert, CN II-XII grossly intact. ABSENT: motor sensory deficit Psychiatric exam: PRESENT: appropriate affect, normal mood Skin exam: PRESENT: dry, intact, warm. ABSENT: cyanosis, rash Results Laboratory Results: 05/17/17 06:02 05/17/17 06:02 Impressions: Ankle X-Ray 05/16/17 00:00 IMPRESSION: IMAGE(S) OBTAINED DURING PROCEDURE. Fluoroscopy 05/16/17 00:00 IMPRESSION: IMAGE(S) OBTAINED DURING PROCEDURE. Hip X-Ray 05/16/17 00:00 IMPRESSION: IMAGE(S) OBTAINED DURING PROCEDURE. Shoulder X-Ray 05/16/17 00:00 IMPRESSION: IMAGE(S) OBTAINED DURING PROCEDURE. Qualifiers - * PATEINT BEING DISCHARGED WITH ANY OF THE FOLLOWING DIAGNOSIS?: No
[2017-05-22 16:48] LABS: ABSOLUTE EOSINOPHILS # (AUTO) 0.1 10^3/uL (0.0-0.6); ABSOLUTE LYMPHOCYTES (AUTO) 0.9 10^3/uL (0.5-4.7); ABSOLUTE MONOCYTES (AUTO) 0.6 10^3/uL (0.1-1.4); ABSOLUTE NEUT (AUTO) 5.3 10^3/uL (1.7-8.2); BASOPHILS % (AUTO) 0.6 % (0-2); EOSINOPHILS % (AUTO) 1.3 % (0-6); HEMATOCRIT 23.4 % (37.9-51.0); LYMPHOCYTES % (AUTO) 12.4 % (13-45); MEAN CORPUSCULAR HEMOGLOBIN 30.8 pg (27.0-33.4); MEAN CORPUSCULAR HGB CONC 34.2 g/dL (32.0-36.0); MEAN CORPUSCULAR VOLUME 90 fl (80-97); MONOCYTES % (AUTO) 8.9 % (3-13); PLATELET COUNT 257 10^3/uL (150-450); RED BLOOD COUNT 2.59 10^6/uL (4.35-5.55); RED CELL DISTRIBUTION WIDTH 13.2 % (11.5-14.0); SEGMENTED NEUTROPHILS % (AUTO) 76.8 % (42-78); TOTAL CELLS COUNTED % (AUTO) 100 %; WHITE BLOOD COUNT 6.9 10^3/uL (4.0-10.5)
[2017-05-22 16:51] LABS: ABSOLUTE RETICS # 0.055 10^6/uL (0.028-0.122); RETICULOCYTE COUNT (AUTO) 2.14 % (0.66-2.85)
[2017-05-22 17:07] LABS: ALANINE AMINOTRANSFERASE 23 U/L (21-72); ALBUMIN 2.7 g/dL (3.5-5.0); ALKALINE PHOSPHATASE 105 U/L (38-126); ANION GAP 10 (5-19); ASPARTATE AMINO TRANSFERASE 23 U/L (17-59); BILIRUBIN,DIRECT 0.1 mg/dL (0.0-0.4); BILIRUBIN,TOTAL 0.1 mg/dL (0.2-1.3); BLOOD UREA NITROGEN 65 mg/dL (7-20); CALCIUM 8.7 mg/dL (8.4-10.2); CARBON DIOXIDE 23 mmol/L (22-30); CHLORIDE 108 mmol/L (98-107); GLUCOSE 158 mg/dL (75-110); POTASSIUM 4.9 mmol/L (3.6-5.0); SODIUM 140.9 mmol/L (137-145); TOTAL PROTEIN 5.4 g/dL (6.3-8.2)
[2017-05-22 17:08] LABS: IRON(TIBC) 19.6 ug/dL (49-181)
[2017-05-22] MEDS: INSULIN LISPRO 100 UNIT/ML 3 ML VIAL SUBCUT PRN ×2 (17:25→21:27)
[2017-05-22 18:10] LABS: FOLATE 4.85 ng/mL (>2.76)
[2017-05-22] MEDS: ZOLPIDEM TARTRATE 5 MG TABLET PO SCH (21:28)
[2017-05-22] MEDS: CLONIDINE HCL 0.1 MG TABLET PO SCH (21:28)
[2017-05-23] MEDS: HYDRALAZINE HCL 50 MG TABLET PO SCH ×2 (05:31→14:06)
[2017-05-23] MEDS: LANSOPRAZOLE 30 MG TAB.RAP.DR PO SCH (05:31)
[2017-05-23] MEDS: ASPIRIN 81 MG TABLET, ENT COATED PO SCH (09:14)
[2017-05-23] MEDS: AMLODIPINE BESYLATE 10 MG TABLET PO SCH (09:14)
[2017-05-23] MEDS: CALCITRIOL 0.25 MCG CAPSULE PO SCH (09:15)
[2017-05-23] MEDS: INSULIN LISPRO 100 UNIT/ML 3 ML VIAL SUBCUT PRN (12:02)
[2017-05-23 14:18] VITALS: BP 117/76
== END 2017-05-23 14:53 | disposition home health service (06) | DRG 480 ==
LOC: ER 13:59 → EH 16:09 → 5 17:04
PROVIDERS: ADMIT Internal Medicine; ATTEND Internal Medicine
PROC: 0PSD04Z Reposition Left Humeral Head with Internal Fixation Device, Open Approach (ICD-10-PCS; 2017-05-16)
PROC: 0QH734Z Insertion of Internal Fixation Device into Left Upper Femur, Percutaneous Approach (ICD-10-PCS; principal; 2017-05-16 12:30)
PROC: 0QSH04Z Reposition Left Tibia with Internal Fixation Device, Open Approach (ICD-10-PCS; 2017-05-16 12:30)
PROC: 0QSK04Z Reposition Left Fibula with Internal Fixation Device, Open Approach (ICD-10-PCS; 2017-05-16 12:30)
DX: S82.842A Displaced bimalleolar fracture of left lower leg, initial encounter for closed fracture (principal); S72.002A Fracture of unspecified part of neck of left femur, initial encounter for closed fracture; S42.295A Other nondisplaced fracture of upper end of left humerus, initial encounter for closed fracture; N18.4 Chronic kidney disease, stage 4 (severe); E11.21 Type 2 diabetes mellitus with diabetic nephropathy; E11.22 Type 2 diabetes mellitus with diabetic chronic kidney disease; E11.319 Type 2 diabetes mellitus with unspecified diabetic retinopathy without macular edema; I12.9 Hypertensive chronic kidney disease with stage 1 through stage 4 chronic kidney disease, or unspecified chronic kidney disease; M25.512 Pain in left shoulder; F17.210 Nicotine dependence, cigarettes, uncomplicated; Y93.01 Activity, walking, marching and hiking; W18.39XA Other fall on same level, initial encounter; Y92.9 Unspecified place or not applicable; Z79.4 Long term (current) use of insulin
CPT/HCPCS: 01230; 36415; 80048; 80053; 81001; 82607; 82728; 82746; 82962; 83036; 83540; 83550; 84466; 85025; 85045; 86850; 86900; 86901; 93005; 93010; 94640; 96374; 96375; 99285; C1713; C1769; J0131; J0330; J0690; J1100; J1642; J1815; J2250; J2270; J2405; J2550; J2704; J3010; J3490; J7030; J7620

== ENCOUNTER 2017-06-10 10:37 | Outpatient (CLI) | payer MEDICAID ==
[2017-06-10 11:13] LABS: HEMATOCRIT 24.1 % (37.9-51.0); HEMOGLOBIN 8.3 g/dL (13.5-17.0); MEAN CORPUSCULAR HGB CONC 34.6 g/dL (32.0-36.0); MEAN CORPUSCULAR VOLUME 90 fl (80-97); PLATELET COUNT 261 10^3/uL (150-450); RED BLOOD COUNT 2.69 10^6/uL (4.35-5.55); RED CELL DISTRIBUTION WIDTH 14.1 % (11.5-14.0)
[2017-06-10] MEDS ORDERED: DIPHENHYDRAMINE HCL 25 MG CAPSULE ONE (13:13)
[2017-06-10] MEDS ORDERED: ACETAMINOPHEN 325 MG TABLET ONE (13:13)
[2017-06-10 16:53] VITALS: BP 169/67
== END 2017-06-10 17:37 | disposition home or self-care (01) ==
LOC: II 10:37 → 2N 10:42 → II 17:37
PROVIDERS: ATTEND Internal Medicine
PROC: 30233N1 Transfusion of Nonautologous Red Blood Cells into Peripheral Vein, Percutaneous Approach (ICD-10-PCS; principal; 2017-06-10)
DX: D64.9 Anemia, unspecified (principal)
CPT/HCPCS: 86900; 86901; 36415; 36430; 86850; 86920; P9016; J3490 ×2

== ENCOUNTER → 2017-07-04 | Outpatient (CLI) | payer MEDICAID ==
[2017-07-04 14:24] LABS: ABSOLUTE EOSINOPHILS # (AUTO) 0.1 10^3/uL (0.0-0.6); ABSOLUTE LYMPHOCYTES (AUTO) 0.9 10^3/uL (0.5-4.7); ABSOLUTE MONOCYTES (AUTO) 0.4 10^3/uL (0.1-1.4); ABSOLUTE NEUT (AUTO) 1.9 10^3/uL (1.7-8.2); BASOPHILS % (AUTO) 0.9 % (0-2); EOSINOPHILS % (AUTO) 2.9 % (0-6); HEMATOCRIT 29.3 % (37.9-51.0); HEMOGLOBIN 9.9 g/dL (13.5-17.0); LYMPHOCYTES % (AUTO) 28.1 % (13-45); MEAN CORPUSCULAR HEMOGLOBIN 29.5 pg (27.0-33.4); MEAN CORPUSCULAR HGB CONC 33.9 g/dL (32.0-36.0); MEAN CORPUSCULAR VOLUME 87 fl (80-97); MONOCYTES % (AUTO) 11.8 % (3-13); PLATELET COUNT 244 10^3/uL (150-450); RED BLOOD COUNT 3.37 10^6/uL (4.35-5.55); SEGMENTED NEUTROPHILS % (AUTO) 56.3 % (42-78); TOTAL CELLS COUNTED % (AUTO) 100 %; WHITE BLOOD COUNT 3.4 10^3/uL (4.0-10.5)
[2017-07-04 14:31] LABS: APPEARANCE,URINE SLIGHTLY-CLOUDY; BILIRUBIN,URINE NEGATIVE (NEGATIVE); COLOR,URINE YELLOW; GLUCOSE, URINE 150 mg/dL (NEGATIVE); KETONES,URINE NEGATIVE (NEGATIVE); LEUKOCYTE ESTERASE,URINE MODERATE (NEGATIVE); NITRITE,URINE POSITIVE (NEGATIVE); PROTEIN,URINE >=500 mg/dL (NEGATIVE); URINE SPECIFIC GRAVITY 1.013; UROBILINOGEN,URINE NEGATIVE mg/dL (<2.0)
[2017-07-04 14:42] LABS: ALBUMIN 2.9 g/dL (3.5-5.0); ANION GAP 6 (5-19); BLOOD UREA NITROGEN 39 mg/dL (7-20); CALCIUM 8.8 mg/dL (8.4-10.2); CARBON DIOXIDE 24 mmol/L (22-30); CHLORIDE 110 mmol/L (98-107); GLUCOSE 153 mg/dL (75-110); PHOSPHORUS 4.1 mg/dL (2.5-4.5); POTASSIUM 4.4 mmol/L (3.6-5.0); SODIUM 140.2 mmol/L (137-145)
[2017-07-04 14:45] LABS: URINE CREATININE 90.6 mg/dL (22-328)
[2017-07-04 15:04] LABS: UR PRO/CREAT RATIO RESULT 8.2 mg/mg (0.0-0.2); URINE PROTEIN 745.5 mg/dL (<12)
== END ==
LOC: LAB 14:06
PROVIDERS: ATTEND Internal Medicine Nephrology
DX: N18.4 Chronic kidney disease, stage 4 (severe) (principal); N25.81 Secondary hyperparathyroidism of renal origin; D63.1 Anemia in chronic kidney disease
CPT/HCPCS: 36415; 80048; 81001; 82040; 82306; 82570; 83970; 84100; 84156; 85025

== ENCOUNTER → 2017-09-09 | Outpatient (CLI) | payer MEDICAID ==
[2017-09-09 11:04] LABS: ABSOLUTE EOSINOPHILS # (AUTO) 0.1 10^3/uL (0.0-0.6); ABSOLUTE LYMPHOCYTES (AUTO) 1.2 10^3/uL (0.5-4.7); ABSOLUTE MONOCYTES (AUTO) 0.4 10^3/uL (0.1-1.4); ABSOLUTE NEUT (AUTO) 3.5 10^3/uL (1.7-8.2); BASOPHILS % (AUTO) 0.7 % (0-2); EOSINOPHILS % (AUTO) 2.7 % (0-6); HEMATOCRIT 28.5 % (37.9-51.0); HEMOGLOBIN 9.8 g/dL (13.5-17.0); MEAN CORPUSCULAR HEMOGLOBIN 30.9 pg (27.0-33.4); MEAN CORPUSCULAR HGB CONC 34.5 g/dL (32.0-36.0); MEAN CORPUSCULAR VOLUME 90 fl (80-97); PLATELET COUNT 210 10^3/uL (150-450); RED BLOOD COUNT 3.18 10^6/uL (4.35-5.55); RED CELL DISTRIBUTION WIDTH 15.6 % (11.5-14.0); SEGMENTED NEUTROPHILS % (AUTO) 67.6 % (42-78); TOTAL CELLS COUNTED % (AUTO) 100 %; WHITE BLOOD COUNT 5.2 10^3/uL (4.0-10.5)
[2017-09-09 11:21] LABS: ALBUMIN 3.1 g/dL (3.5-5.0); ANION GAP 9 (5-19); BLOOD UREA NITROGEN 47 mg/dL (7-20); CALCIUM 8.6 mg/dL (8.4-10.2); CARBON DIOXIDE 20 mmol/L (22-30); CHLORIDE 112 mmol/L (98-107); GLUCOSE 125 mg/dL (75-110); POTASSIUM 4.9 mmol/L (3.6-5.0)
== END ==
LOC: LAB 10:38
PROVIDERS: ATTEND Internal Medicine Nephrology
DX: N18.4 Chronic kidney disease, stage 4 (severe) (principal); D63.1 Anemia in chronic kidney disease; E55.9 Vitamin D deficiency, unspecified; N25.81 Secondary hyperparathyroidism of renal origin
CPT/HCPCS: 36415; 80048; 82040; 82306; 83970; 85025

== ENCOUNTER → 2018-01-12 | Outpatient (CLI) | payer MEDICAID ==
[2018-01-12 12:01] LABS: ABSOLUTE EOSINOPHILS # (AUTO) 0.1 10^3/uL (0.0-0.6); ABSOLUTE LYMPHOCYTES (AUTO) 0.8 10^3/uL (0.5-4.7); ABSOLUTE MONOCYTES (AUTO) 0.4 10^3/uL (0.1-1.4); EOSINOPHILS % (AUTO) 2.5 % (0-6); HEMATOCRIT 23.6 % (37.9-51.0); HEMOGLOBIN 8.1 g/dL (13.5-17.0); LYMPHOCYTES % (AUTO) 18.9 % (13-45); MEAN CORPUSCULAR HEMOGLOBIN 31.7 pg (27.0-33.4); MEAN CORPUSCULAR HGB CONC 34.5 g/dL (32.0-36.0); MEAN CORPUSCULAR VOLUME 92 fl (80-97); MONOCYTES % (AUTO) 8.6 % (3-13); PLATELET COUNT 170 10^3/uL (150-450); RED BLOOD COUNT 2.57 10^6/uL (4.35-5.55); RED CELL DISTRIBUTION WIDTH 14.2 % (11.5-14.0); TOTAL CELLS COUNTED % (AUTO) 100 %; WHITE BLOOD COUNT 4.4 10^3/uL (4.0-10.5)
[2018-01-12 12:16] LABS: ANION GAP 9 (5-19); BLOOD UREA NITROGEN 55 mg/dL (7-20); CALCIUM 7.8 mg/dL (8.4-10.2); CARBON DIOXIDE 21 mmol/L (22-30); CHLORIDE 110 mmol/L (98-107); GLUCOSE 169 mg/dL (75-110); POTASSIUM 5.2 mmol/L (3.6-5.0); SODIUM 139.5 mmol/L (137-145)
[2018-01-12 12:32] LABS: URINE CREATININE 69.4 mg/dL (22-328)
[2018-01-12 12:43] LABS: UR PRO/CREAT RATIO RESULT 5.3 mg/mg (0.0-0.2); URINE PROTEIN 369.6 mg/dL (<12)
[2018-01-13 16:39] LABS: ALBUMIN 2 2.7 g/dL (2.9-4.4); ALPHA-2-GLOBULIN 2 0.8 g/dL (0.4-1.0); BETA GLOBULINS 0.8 g/dL (0.7-1.3); GAMMA GLOBULIN 0.8 g/dL (0.4-1.8); GLOBULIN TOTAL 2.6 g/dL (2.2-3.9); MONOCLONAL SPIKE Not Observed g/dL (Not Observ); PROTEIN TOTAL SERUM 5.3 g/dL (6.0-8.5)
== END ==
LOC: LAB 11:32
PROVIDERS: ATTEND Internal Medicine Nephrology
DX: N17.9 Acute kidney failure, unspecified (principal); E11.21 Type 2 diabetes mellitus with diabetic nephropathy; N18.9 Chronic kidney disease, unspecified; R80.9 Proteinuria, unspecified
CPT/HCPCS: 36415; 80048; 82570; 84156; 84165; 85025

== ENCOUNTER → 2018-02-01 | Outpatient (CLI) | payer MEDICAID ==
--- NOTE | 2018-02-01 15:06 | RADIOLOGY REPORT (SQ) ---
EXAM DESCRIPTION: CT HEAD WITHOUT COMPLETED DATE/TIME: 02/01/2018 2:24 pm REASON FOR STUDY: R51 HEADACHE R51 HEADACHE COMPARISON: 12/04/2010 TECHNIQUE: Axial images acquired through the brain without intravenous contrast. Images reviewed wi th bone, brain and subdural windows. Additional sagittal and coronal reconstructions were generated. Images stored on PACS. All CT scanners at this facility use dose modulation, iterative reconstruction, and/or weight based d osing when appropriate to reduce radiation dose to as low as reasonably achievable (ALARA). [facility]: Dose Right [facility]: CareDose [facility]: Dose Right [facility]: Teradose 4D [facility]: [employer] RADIATION DOSE: CT Rad equipment meets quality standard of care and radiation dose reduction techniq ues were employed. CTDIvol: 48.6 mGy. DLP: 904 mGy-cm. mGy. LIMITATIONS: None. FINDINGS: VENTRICLES: Normal size and contour. CEREBRUM: No masses. No hemorrhage. No midline shift. No evidence for acute infarction. Normal gra y/white matter differentiation. No areas of low density in the white matter. CEREBELLUM: No masses. No hemorrhage. No alteration of density. No evidence for acute infarction. EXTRAAXIAL SPACES: No fluid collections. No masses. ORBITS AND GLOBE: No intra- or extraconal masses. Normal contour of globe without masses. CALVARIUM: No fracture. PARANASAL SINUSES: No fluid or mucosal thickening. SOFT TISSUES: No mass or hematoma. OTHER: No other significant finding. IMPRESSION: NORMAL BRAIN CT WITHOUT CONTRAST. EVIDENCE OF ACUTE STROKE: NO. COMMENT: Quality ID # [id number]: Final reports with documentation of one or more dose reduction techniques (e.g., Automated exposure control, adjustment of the mA and/or kV according to patient size, use of iterative reconstruction technique) TECHNICAL DOCUMENTATION: JOB ID: [id number] [employer]- All Rights Reserved Reading location - IP/workstation name: [email or web address]
== END ==
LOC: RAD 14:57
PROVIDERS: ATTEND Internal Medicine
DX: R51 Headache (principal)
CPT/HCPCS: 70450

== ENCOUNTER → 2018-02-28 | Outpatient (CLI) | payer MEDICAID ==
[2018-02-28 10:34] LABS: HEMATOCRIT 33.2 % (37.9-51.0); HEMOGLOBIN 11.3 g/dL (13.5-17.0); MEAN CORPUSCULAR HEMOGLOBIN 31.3 pg (27.0-33.4); MEAN CORPUSCULAR VOLUME 92 fl (80-97); PLATELET COUNT 137 10^3/uL (150-450); RED BLOOD COUNT 3.62 10^6/uL (4.35-5.55); RED CELL DISTRIBUTION WIDTH 14.4 % (11.5-14.0)
[2018-02-28 10:39] LABS: APPEARANCE,URINE CLEAR; BILIRUBIN,URINE NEGATIVE (NEGATIVE); COLOR,URINE STRAW; GLUCOSE, URINE 150 mg/dL (NEGATIVE); KETONES,URINE NEGATIVE (NEGATIVE); LEUKOCYTE ESTERASE,URINE NEGATIVE (NEGATIVE); NITRITE,URINE NEGATIVE (NEGATIVE); PROTEIN,URINE >=500 mg/dL (NEGATIVE); UROBILINOGEN,URINE NEGATIVE mg/dL (<2.0)
[2018-02-28 10:59] LABS: ANION GAP 7 (5-19); BLOOD UREA NITROGEN 53 mg/dL (7-20); CALCIUM 8.2 mg/dL (8.4-10.2); CARBON DIOXIDE 24 mmol/L (22-30); CHLORIDE 110 mmol/L (98-107); GLUCOSE 155 mg/dL (75-110); PHOSPHORUS 4.7 mg/dL (2.5-4.5); POTASSIUM 4.7 mmol/L (3.6-5.0); SODIUM 140.9 mmol/L (137-145)
== END ==
LOC: LAB 10:16
PROVIDERS: ATTEND Internal Medicine Nephrology
DX: E11.22 Type 2 diabetes mellitus with diabetic chronic kidney disease (principal); N18.5 Chronic kidney disease, stage 5; D64.9 Anemia, unspecified
CPT/HCPCS: 36415; 80048; 81001; 83970; 84100; 85027

== ENCOUNTER → 2018-04-05 | Outpatient (CLI) | payer MEDICAID ==
--- NOTE | 2018-04-05 14:11 | RADIOLOGY REPORT (SQ) ---
EXAM DESCRIPTION: CAROTID DOPPLER COMPLETED DATE/TIME: 04/05/2018 1:40 pm REASON FOR STUDY: BRUITS R09.89 OTH SYMPTOMS AND SIGNS INVOLVING THE CIRC AND RESP SY COMPARISON: None. TECHNIQUE: Grayscale ultrasound, Doppler velocity and spectra, and color Doppler images acquired of the extra-cranial carotid and vertebral arteries. Images stored on PACS. LIMITATIONS: None. FINDINGS: RIGHT CAROTID CCA Velocities: Normal velocities and waveforms without evidence of high-grade stenosis. ICA Velocities Peak systolic 80 m/s. End diastolic 24 m/s. Proximal ICA/CCA peak systolic ratio 1.08. Eccentric plaque at the bulb without evidence of high-grade stenosis. LEFT CAROTID CCA Velocities: Normal velocities and waveforms without evidence of high-grade stenosis. ICA Velocities Peak systolic 62 m/s. End diastolic 23 m/s. Proximal ICA/CCA peak systolic ratio 0.8. Eccentric plaque without evidence of high-grade stenosis. . VERTEBRAL ARTERIES: Antegrade flow. Normal waveforms. OTHER: Elevated velocities at the proximal external carotid arteries. The velocity on the right moon ures up to 210 cm/s suggestive of 50 to 69% stenosis. The velocity on the left measures up to 145 cm /s suggestive of 50% stenosis. IMPRESSION: 1. No evidence of high-grade stenosis within the common or internal carotid arteries. 2. Elevated velocities within the external carotid arteries bilaterally, right greater than left, as detailed above. COMMENT: Quality ID #[id number]: Velocity criteria are extrapolated from the diameter data as defined by t he Society of Radiologists in Ultrasound Consensus Conference. Radiology 2003: 229; 340-346. TECHNICAL DOCUMENTATION: JOB ID: [id number] [employer]- All Rights Reserved Reading location - IP/workstation name: [email or web address]
== END ==
LOC: SP 12:34
PROVIDERS: ATTEND Surgery
DX: R09.89 Other specified symptoms and signs involving the circulatory and respiratory systems (principal)
CPT/HCPCS: 93880

== ENCOUNTER → 2018-04-08 | Outpatient (CLI) | payer MEDICAID ==
[2018-04-08 13:52] LABS: IRON(TIBC) 52.4 ug/dL (49-181)
== END ==
LOC: LAB 13:12
PROVIDERS: ATTEND Internal Medicine Nephrology
DX: N18.5 Chronic kidney disease, stage 5 (principal); D63.1 Anemia in chronic kidney disease
CPT/HCPCS: 36415; 82728; 83540; 83550

== ENCOUNTER → 2018-04-10 | Day surgery (SDC) | payer MEDICAID ==
--- NOTE | 2018-04-07 13:00 | RADIOLOGY REPORT (SQ) ---
EXAM DESCRIPTION: CHEST PA/LATERAL COMPLETED DATE/TIME: 04/07/2018 12:07 pm REASON FOR STUDY: PRE-OP COMPARISON: 02/27/2016 EXAM PARAMETERS: NUMBER OF VIEWS: two views TECHNIQUE: Digital Frontal and Lateral radiographic views of the chest acquired. RADIATION DOSE: NA LIMITATIONS: none FINDINGS: LUNGS AND PLEURA: Slightly ill-defined nodular density suggested at the left lung base. The right lung remains clear. No pneumothorax or pleural effusion. MEDIASTINUM AND HILAR STRUCTURES: No masses or contour abnormalities. HEART AND VASCULAR STRUCTURES: Stable appearance. No evidence for failure. BONES: No acute findings. HARDWARE: None in the chest. OTHER: No other significant finding. IMPRESSION: 1. Slightly ill-defined nodular opacity suggested at the left lung base. Further evalu ation with CT chest with IV contrast. TECHNICAL DOCUMENTATION: JOB ID: [id number] [employer]- All Rights Reserved Reading location - IP/workstation name: [email or web address]
[2018-04-07 13:18] LABS: HEMATOCRIT 36.1 % (37.9-51.0); MEAN CORPUSCULAR HEMOGLOBIN 30.7 pg (27.0-33.4); MEAN CORPUSCULAR HGB CONC 33.4 g/dL (32.0-36.0); MEAN CORPUSCULAR VOLUME 92 fl (80-97); PLATELET COUNT 131 10^3/uL (150-450); RED BLOOD COUNT 3.92 10^6/uL (4.35-5.55); RED CELL DISTRIBUTION WIDTH 16.3 % (11.5-14.0); WHITE BLOOD COUNT 2.5 10^3/uL (4.0-10.5)
[2018-04-07 13:36] LABS: ANION GAP 14 (5-19); BLOOD UREA NITROGEN 63 mg/dL (7-20); CALCIUM 7.8 mg/dL (8.4-10.2); CARBON DIOXIDE 16 mmol/L (22-30); CHLORIDE 111 mmol/L (98-107); GLUCOSE 99 mg/dL (75-110); POTASSIUM 4.4 mmol/L (3.6-5.0)
--- NOTE | 2018-04-07 22:03 | EKG REPORT ---
SEVERITY:- ABNORMAL ECG - SINUS RHYTHM ABNORMAL T, CONSIDER ISCHEMIA, LATERAL LEADS : Confirmed by: Reyes Best 07-Apr-2018 22:02:27
[~2018-04-10] MED LIST changes: +BACITRACIN INJ 50,000 UNIT VIAL ONE; +BUPIVACAINE HCL 0.25 % INJ/PF (2.5 MG/1 ML) 30 ML VIAL ONE; +CEFAZOLIN 1 GM/D5W RTU 1 GM/50 ML RTUPB IV PRN; +HEPARIN SOD (PORCINE) 1,000 UNIT/ML 1 ML VIAL ONE; -KETOROLAC TROMETHAMINE 0.45% 4 DROP/0.4 ML DROPERETTE ONE; +LACTATED RINGERS 1000 ML IV PRN; +LIDOCAINE 0.5% INJ-PF (5 MG/ML) 50 ML SDV ONE; +LIDOCAINE 0.5% INJ-PF (5 MG/ML) 50 ML SDV SUBCUT PRN; -LIDOCAINE 4% INJ/PF (40 MG/ML) 5 ML AMPUL ONE; -TETRACAINE HCL 0.5% OPH SOLN 0.6 ML DROPERETTE ONE
== END ==
LOC: OROUT 09:21
PROVIDERS: ATTEND Surgery
DX: Z01.818 Encounter for other preprocedural examination (principal); I12.9 Hypertensive chronic kidney disease with stage 1 through stage 4 chronic kidney disease, or unspecified chronic kidney disease; N18.9 Chronic kidney disease, unspecified; K42.9 Umbilical hernia without obstruction or gangrene; Z86.73 Personal history of transient ischemic attack (TIA), and cerebral infarction without residual deficits; F17.200 Nicotine dependence, unspecified, uncomplicated; E21.3 Hyperparathyroidism, unspecified; R80.9 Proteinuria, unspecified; E55.9 Vitamin D deficiency, unspecified; Z79.82 Long term (current) use of aspirin; R94.31 Abnormal electrocardiogram [ECG] [EKG]
CPT/HCPCS: 93005; 36415; 85027; 80048; 71046; 93010; J1644; J1642; J3490

== ENCOUNTER 2018-04-17 18:35 | Inpatient (IN) | payer MEDICAID ==
[2018-04-17] MEDS: NITROGLYCERIN/D5W 50 MG/250 ML RTUINJ IV PRN (19:53)
[2018-04-17 20:04] LABS: ABSOLUTE LYMPHOCYTES (AUTO) 0.4 10^3/uL (0.5-4.7); ABSOLUTE MONOCYTES (AUTO) 0.2 10^3/uL (0.1-1.4); ABSOLUTE NEUT (AUTO) 1.8 10^3/uL (1.7-8.2); BASOPHILS % (AUTO) 0.5 % (0-2); EOSINOPHILS % (AUTO) 0.1 % (0-6); HEMOGLOBIN 12.3 g/dL (13.5-17.0); LYMPHOCYTES % (AUTO) 18.5 % (13-45); MEAN CORPUSCULAR HGB CONC 33.3 g/dL (32.0-36.0); MEAN CORPUSCULAR VOLUME 90 fl (80-97); MONOCYTES % (AUTO) 6.7 % (3-13); RED CELL DISTRIBUTION WIDTH 15.9 % (11.5-14.0); SEGMENTED NEUTROPHILS % (AUTO) 74.2 % (42-78); TOTAL CELLS COUNTED % (AUTO) 100 %; WHITE BLOOD COUNT 2.4 10^3/uL (4.0-10.5)
[2018-04-17 20:09] LABS: INTERNATIONAL RATION (INR) 0.94
[2018-04-17 20:10] LABS: PARTIAL THROMBOPLASTIN TIME 27.4 SEC (23.5-35.8)
[2018-04-17 20:27] LABS: PLATELET COUNT 84 10^3/uL (150-450)
[2018-04-17] MEDS ORDERED: ONDANSETRON HCL INJ/PF 4 MG/2 ML SDV IV PRN (20:29)
[2018-04-17 20:39] LABS: CREATINE KINASE MB 3.88 ng/mL (<4.55); TROPONIN I 0.077 ng/mL
[2018-04-17 20:45] LABS: FREE T4 (FREE THYROXINE) 1.02 ng/dL (0.78-2.19)
[2018-04-17 20:48] LABS: ALANINE AMINOTRANSFERASE 22 U/L (21-72); ALBUMIN 3.9 g/dL (3.5-5.0); ALKALINE PHOSPHATASE 87 U/L (38-126); AMYLASE 181 U/L (30-110); ANION GAP 14 (5-19); ASPARTATE AMINO TRANSFERASE 26 U/L (17-59); BILIRUBIN,DIRECT 0.4 mg/dL (0.0-0.4); BILIRUBIN,TOTAL 0.4 mg/dL (0.2-1.3); BLOOD UREA NITROGEN 62 mg/dL (7-20); CALCIUM 7.8 mg/dL (8.4-10.2); CARBON DIOXIDE 16 mmol/L (22-30); CHLORIDE 108 mmol/L (98-107); GLUCOSE 98 mg/dL (75-110); LIPASE 394.1 U/L (23-300); PHOSPHORUS 6.2 mg/dL (2.5-4.5); POTASSIUM 3.9 mmol/L (3.6-5.0); SODIUM 138.3 mmol/L (137-145); TOTAL PROTEIN 6.5 g/dL (6.3-8.2)
[2018-04-17 20:59] LABS: THYROID STIMULATING HORMONE 1.76 uIU/mL (0.47-4.68)
--- NOTE | 2018-04-17 21:11 | RADIOLOGY REPORT (SQ) ---
EXAM DESCRIPTION: XR CHEST 1 VIEW COMPLETED DATE/TME: 04/17/2018 00:00 CLINICAL HISTORY: 53 years, Male, congestion Findings: The heart is moderately enlarged. Aorta is within normal limits. No consolidations or pleural effusions. No pulmonary edema or pneumothorax. IMPRESSION: No acute disease.
--- NOTE | 2018-04-17 21:23 | RADIOLOGY REPORT (SQ) ---
CT HEAD WITHOUT IV CONTRAST HISTORY: Headache. COMPARISON: 02/01/2018 TECHNIQUE: CT scan of the brain without IV contrast. This exam was performed according to our departmental dose-optimization program, which includes automated exposure control, adjustment of the mA and/or kV according to patient size and/or use of iterative reconstruction technique. FINDINGS: Diffuse involutional changes are present. There are scattered areas of hypoattenuation within the periventricular white matter, which likely represent chronic microvascular ischemia. No evidence of acute infarction, intracranial hemorrhage, extra-axial fluid collection, or midline shift. No air-fluid levels are seen in the paranasal sinuses to suggest acute sinusitis. No depressed skull fracture. IMPRESSION: 1. No acute intracranial findings. 2. Chronic microvascular ischemic disease.
--- NOTE | 2018-04-17 21:28 | RADIOLOGY REPORT (SQ) ---
CT ABDOMEN PELVIS WITHOUT IV CONTRAST HISTORY: Abdominal pain. COMPARISON: None. TECHNIQUE: CT scan of the abdomen and pelvis without IV contrast. This exam was performed according to our departmental dose-optimization program, which includes automated exposure control, adjustment of the mA and/or kV according to patient size and/or use of iterative reconstruction technique. FINDINGS: The lung bases are clear. Small pericardial effusion is seen. There is no hiatal hernia. The liver, spleen, pancreas, gallbladder, adrenal glands, and kidneys are unremarkable. No urinary stones are seen. The pelvic organs are also unremarkable. No small bowel obstruction. The appendix is normal. There are scattered colonic diverticula without surrounding inflammatory changes. No intraperitoneal free fluid or free air is seen. The aorta is normal caliber. No acute osseous findings are appreciated. Prior fixation of the left femoral head. There is no body wall hernia. IMPRESSION: No acute abdominal or pelvic pathology.
[2018-04-17 21:44] LABS: AMORPHOUS SEDIMENT,URINE TRACE /HPF; APPEARANCE,URINE SLIGHTLY-CLOUDY; BILIRUBIN,URINE NEGATIVE (NEGATIVE); COLOR,URINE YELLOW; GLUCOSE, URINE 150 mg/dL (NEGATIVE); KETONES,URINE NEGATIVE (NEGATIVE); LEUKOCYTE ESTERASE,URINE NEGATIVE (NEGATIVE); NITRITE,URINE NEGATIVE (NEGATIVE); PROTEIN,URINE >=500 mg/dL (NEGATIVE); URINE SPECIFIC GRAVITY 1.015; UROBILINOGEN,URINE NEGATIVE mg/dL (<2.0)
[2018-04-17] MEDS: HEPARIN SOD (PORCINE) 5,000 UNIT/ML 1 ML SYRINGE SUBCUT SCH (21:54)
[2018-04-17 21:55] LABS: URINE AMPHETAMINES SCREEN NEGATIVE; URINE BARBITURATES SCREEN NEGATIVE; URINE BENZODIAZEPINES SCREEN NEGATIVE; URINE COCAINE SCREEN NEGATIVE; URINE MARIJUANA (THC) SCREEN NEGATIVE; URINE METHADONE SCREEN NEGATIVE; URINE PHENCYCLIDINE SCREEN NEGATIVE
[2018-04-17] MEDS ORDERED: PARICALCITOL 1 MCG CAPSULE PO SCH (22:00)
[2018-04-17] MEDS ORDERED: MAGNESIUM OXIDE 400 MG TABLET PO ONE (22:00)
[2018-04-17] MEDS: CLONIDINE HCL 0.2 MG TABLET PO SCH (22:02)
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
[2018-04-17] MEDS: HYDRALAZINE HCL 50 MG TABLET PO SCH (22:59)
[2018-04-17] MEDS: ATORVASTATIN CALCIUM 40 MG TABLET PO SCH (22:59)
[2018-04-17] MEDS: ACETAMINOPHEN 325 MG TABLET PO PRN (23:00)
[2018-04-17] MEDS ORDERED: CARVEDILOL 12.5 MG TABLET PO ONE (23:00)
[2018-04-17] MEDS ORDERED: PARICALCITOL 1 MCG CAPSULE PO ONE (23:30)
[2018-04-17] MEDS ORDERED: ONDANSETRON 4 MG TAB.RAPDIS PO PRN (23:59)
[2018-04-18 02:13] LABS: CREATINE KINASE MB 2.76 ng/mL (<4.55); TROPONIN I 0.075 ng/mL
[2018-04-18] MEDS: ACETAMINOPHEN 325 MG TABLET PO PRN ×2 (05:05→10:24)
[2018-04-18] MEDS: HYDRALAZINE HCL 50 MG TABLET PO SCH ×2 (05:05→21:15)
[2018-04-18] MEDS: CLONIDINE HCL 0.2 MG TABLET PO SCH ×3 (05:05→21:15)
[2018-04-18] MEDS: HEPARIN SOD (PORCINE) 5,000 UNIT/ML 1 ML SYRINGE SUBCUT SCH ×3 (05:07→21:25)
[2018-04-18 06:33] LABS: ABSOLUTE LYMPHOCYTES (AUTO) 0.7 10^3/uL (0.5-4.7); ABSOLUTE MONOCYTES (AUTO) 0.2 10^3/uL (0.1-1.4); ABSOLUTE NEUT (AUTO) 1.5 10^3/uL (1.7-8.2); BASOPHILS % (AUTO) 0.3 % (0-2); EOSINOPHILS % (AUTO) 0.4 % (0-6); HEMATOCRIT 30.4 % (37.9-51.0); HEMOGLOBIN 10.4 g/dL (13.5-17.0); LYMPHOCYTES % (AUTO) 30.3 % (13-45); MEAN CORPUSCULAR HEMOGLOBIN 30.5 pg (27.0-33.4); MEAN CORPUSCULAR HGB CONC 34.4 g/dL (32.0-36.0); MEAN CORPUSCULAR VOLUME 89 fl (80-97); MONOCYTES % (AUTO) 7.6 % (3-13); RED BLOOD COUNT 3.42 10^6/uL (4.35-5.55); RED CELL DISTRIBUTION WIDTH 15.6 % (11.5-14.0); SEGMENTED NEUTROPHILS % (AUTO) 61.4 % (42-78); TOTAL CELLS COUNTED % (AUTO) 100 %; WHITE BLOOD COUNT 2.5 10^3/uL (4.0-10.5)
[2018-04-18 06:56] LABS: ALANINE AMINOTRANSFERASE 28 U/L (21-72); ALKALINE PHOSPHATASE 71 U/L (38-126); ANION GAP 11 (5-19); ASPARTATE AMINO TRANSFERASE 19 U/L (17-59); BILIRUBIN,DIRECT 0.2 mg/dL (0.0-0.4); BILIRUBIN,TOTAL 0.3 mg/dL (0.2-1.3); BLOOD UREA NITROGEN 64 mg/dL (7-20); CALCIUM 7.4 mg/dL (8.4-10.2); CARBON DIOXIDE 17 mmol/L (22-30); CHLORIDE 109 mmol/L (98-107); CHOLESTEROL 108.08 mg/dL (0-200); GLUCOSE 107 mg/dL (75-110); PHOSPHORUS 6.8 mg/dL (2.5-4.5); POTASSIUM 3.9 mmol/L (3.6-5.0); SODIUM 136.7 mmol/L (137-145); TOTAL PROTEIN 5.4 g/dL (6.3-8.2); TRIGLYCERIDES 115 mg/dL (<150)
[2018-04-18] MEDS ORDERED: DEXTROSE 40% GEL 15 GM TUBE PO PRN (07:00)
[2018-04-18] MEDS ORDERED: DEXTROSE 50%-WATER SYRINGE 12.5 GM/25 ML DOSE IV PRN (07:00)
[2018-04-18] MEDS ORDERED: GLUCAGON,HUMAN RECOMB 1 MG INJ IM PRN (07:00)
[2018-04-18] MEDS ORDERED: DEXTROSE 50%-WATER SYRINGE 25 GM/50 ML DOSE IV PRN (07:00)
[2018-04-18] MEDS ORDERED: DEXTROSE 40% GEL 15 GM TUBE X 2 PO PRN (07:00)
[2018-04-18 07:07] LABS: CREATINE KINASE MB 2.8 ng/mL (<4.55); DIRECT LDL 53 mg/dL (<100); TROPONIN I 0.085 ng/mL
--- NOTE | 2018-04-18 07:16 | EKG REPORT ---
SEVERITY:- ABNORMAL ECG - SINUS RHYTHM ABNORMAL T, CONSIDER ISCHEMIA, LATERAL LEADS BORDERLINE PROLONGED QT INTERVAL : Confirmed by: Andrea Corado MD 18-Apr-2018 07:15:44
[2018-04-18 07:39] LABS: PLATELET COUNT 83 10^3/uL (150-450)
[2018-04-18] MEDS ORDERED: CLOPIDOGREL BISULFATE 75 MG TABLET PO SCH (10:00)
[2018-04-18] MEDS: INSULIN LISPRO 100 UNIT/ML 3 ML VIAL SUBCUT SCH ×4 (10:19→21:28)
[2018-04-18] MEDS: CARVEDILOL 12.5 MG TABLET PO SCH ×2 (10:23→21:14)
[2018-04-18] MEDS: FUROSEMIDE 40 MG TABLET PO SCH (10:23)
[2018-04-18] MEDS: NIFEDIPINE 30 MG TAB.ER.24 PO SCH ×2 (10:23→21:15)
[2018-04-18] MEDS: NITROGLYCERIN/D5W 50 MG/250 ML RTUINJ IV PRN (11:20)
[2018-04-18] MEDS ORDERED: METOPROLOL TARTRATE PF/INJ 5 MG/5 ML SDV IV ONE (13:16)
[2018-04-18] MEDS: SODIUM BICARBONATE 650 MG TABLET PO SCH ×2 (17:23→21:15)
[2018-04-18] MEDS ORDERED: TUBERCULIN,PURIF.PROT.DERIV. 5 TU/0.1 ML TEST 1 ML VIAL ID ONE (18:00)
--- NOTE | 2018-04-18 20:46 | PDOC PROGRESS REPORT ---
Subjective Progress Note for:: 04/18/18 Subjective:: Patient was admitted for evaluation of multiple symptoms, patient is presently end-stage renal disease and is appropriate at this time to initiate kidney replacement therapy my understanding is that patient prefer peritoneal dialysis, the plan was for the patient to have emergent hemodialysis because he is manifesting symptoms of uremia but patient insisted that he has to be discharged on because he has a job arbitration on Tuesday which he has been bryce tafoya. The blood pressure is severely elevated presently requiring intravenous nitro in addition to the p.o. medication Reason For Visit: HYPERTENSIVE EMERGENCY, CKD STAGE 5/ESRD,T2DM Physical Exam Vital Signs: Temp Pulse Resp BP Pulse Ox 97.3 F 77 16 144/61 H 100 04/18/18 15:08 04/18/18 18:00 04/18/18 15:08 04/18/18 18:00 04/18/18 15:08 Intake & Output 04/17/18 04/18/18 04/19/18 06:59 06:59 06:59 Intake Total 97 304 Output Total 25 Balance 97 279 Weight 71.8 kg General appearance: PRESENT: no acute distress Eye exam: PRESENT: PERRLA Respiratory exam: PRESENT: clear to auscultation mirna Cardiovascular exam: PRESENT: +S1, +S2 GI/Abdominal exam: PRESENT: soft Neurological exam: PRESENT: alert Results Laboratory Results: 04/18/18 06:16 04/18/18 06:16 04/17/18 04/17/18 04/17/18 19:39 19:39 21:25 WBC RBC Hgb Hct MCV MCH MCHC RDW Plt Count Seg Neutrophils % Lymphocytes % Monocytes % Eosinophils % Basophils % Absolute Neutrophils Absolute Lymphocytes Absolute Monocytes Absolute Eosinophils Absolute Basophils Sodium 138.3 Potassium 3.9 Chloride 108 H Carbon Dioxide 16 L Anion Gap 14 BUN 62 H Creatinine 10.34 H Est GFR ( Amer) 6 L Est GFR (Non-Af Amer) 5 L Glucose 98 Calcium 7.8 L Phosphorus 6.2 H Magnesium 1.1 L* Total Bilirubin 0.4 AST 26 ALT 22 Alkaline Phosphatase 87 Total Protein 6.5 Albumin 3.9 Triglycerides Cholesterol LDL Cholesterol Direct VLDL Cholesterol HDL Cholesterol Amylase 181 H Lipase 394.1 H TSH 1.76 Free T4 1.02 Urine Color YELLOW Urine Appearance SLIGHTLY-CLOUDY Urine pH 5.0 Ur Specific [place] 1.015 Urine Protein >=500 H Urine Glucose (UA) 150 H Urine Ketones NEGATIVE Urine Blood SMALL H Urine Nitrite NEGATIVE Ur Leukocyte Esterase NEGATIVE Urine WBC (Auto) 22 Urine RBC (Auto) 12 04/18/18 04/18/18 06:16 06:16 WBC 2.5 L RBC 3.42 L Hgb 10.4 L Hct 30.4 L MCV 89 MCH 30.5 MCHC 34.4 RDW 15.6 H Plt Count 83 L Seg Neutrophils % 61.4 Lymphocytes % 30.3 Monocytes % 7.6 Eosinophils % 0.4 Basophils % 0.3 Absolute Neutrophils 1.5 L Absolute Lymphocytes 0.7 Absolute Monocytes 0.2 Absolute Eosinophils 0.0 Absolute Basophils 0.0 Sodium 136.7 L Potassium 3.9 Chloride 109 H Carbon Dioxide 17 L Anion Gap 11 BUN 64 H Creatinine 10.22 H Est GFR ( Amer) 6 L Est GFR (Non-Af Amer) 5 L Glucose 107 Calcium 7.4 L Phosphorus 6.8 H Magnesium Total Bilirubin 0.3 AST 19 ALT 28 Alkaline Phosphatase 71 Total Protein 5.4 L Albumin 3.0 L Triglycerides 115 Cholesterol 108.08 LDL Cholesterol Direct 53 VLDL Cholesterol 23.0 HDL Cholesterol 37 L Amylase Lipase TSH Free T4 Urine Color Urine Appearance Urine pH Ur Specific [place] Urine Protein Urine Glucose (UA) Urine Ketones Urine Blood Urine Nitrite Ur Leukocyte Esterase Urine WBC (Auto) Urine RBC (Auto) 04/17/18 04/17/18 04/17/18 19:39 19:39 19:39 Creatine Kinase Cancelled 359 H CK-MB (CK-2) 3.88 Troponin I 0.077 NT-Pro-B Natriuret Pep [id number] H 04/18/18 04/18/18 04/18/18 01:18 01:18 06:16 Creatine Kinase 258 H 258 H CK-MB (CK-2) 2.76 Troponin I 0.075 NT-Pro-B Natriuret Pep 04/18/18 06:16 Creatine Kinase CK-MB (CK-2) 2.80 Troponin I 0.085 NT-Pro-B Natriuret Pep Impressions: Abdomen/Pelvis CT 04/17/18 00:00 IMPRESSION: No acute abdominal or pelvic pathology. Chest X-Ray 04/17/18 00:00 IMPRESSION: No acute disease. Head CT 04/17/18 00:00 IMPRESSION: 1. No acute intracranial findings. 2. Chronic microvascular ischemic disease. Assessment & Plan - Diagnosis (1) Hypertensive emergency Is this a current diagnosis for this admission?: Yes (2) Uremia Is this a current diagnosis for this admission?: Yes (3) ESRD (end stage renal disease) Is this a current diagnosis for this admission?: Yes (4) Pancytopenia Is this a current diagnosis for this admission?: Yes Plan: consultation ,hematology
[2018-04-18] MEDS: ATORVASTATIN CALCIUM 40 MG TABLET PO SCH (21:15)
[2018-04-18] MEDS: CIPROFLOXACIN HCL 500 MG TABLET PO SCH (21:24)
--- NOTE | 2018-04-18 21:36 | PDOC CONSULTATION ---
Consultation Consult Date: 04/18/18 Attending physician:: JOSE GONZALEZ Consult reason:: I was asked to see the patient due to worsening kidney function. History of Present Illness Admission Date/PCP: 04/17/18 18:35 JOSE GONZALEZ MD History of Present Illness: MERLE ABAD JR is a 53 year old male known to me with history of chronic kidney disease stage V secondary to diabetic nephropathy hypertensive nephrosclerosis with associated nephrotic range proteinuria and microscopic hem aturia, diabetes mellitus type 2, hypertension, who was sent to the emergency room by Dr. Gonzalez because of severe hypertension. Apparently the patient presented to Dr. Gonzalez's office yesterday with 4-5-day history of diarrhea and headache when he was found to have blood pressure of 225/125. He was then sent to the emergency room. Patient said that he has been tired and fatigued this prior to admission. He has poor appetite. He otherwise denies shortness of breath, chest pains, current nausea nor vomiting, nor pruritus. He denies any urinary symptoms including dysuria, nor hematuria. Upon admission patient was started on nitroglycerin drip. Patient's blood pressure today has improved. I saw the patient in the office March 15, 2018. During that time he had a BUN of 53, creatinine of 7.4 with EGFR of 8. His kidney function has been progressively deteriorating for the last 2-3 months. I then referred him to Dr. Benitez for placement of peritoneal dialysis catheter initiate peritoneal dialysis treatment. The procedure has been delayed because the patient needed to have some further testing before he can go under general anesthesia. Dr. Benitez ordered carotid ultrasound. He also ordered cardiac evaluation so he was referred to Dr. Martinez due to abnormal EKG findings. He had an echocardiogram on April 15, 2018 showed a dilated left ventricle and LVEF of 35%. He also underwent Lexiscan stress test on April 14, 2018 which showed no evidence of ischemia or scar. Left ventricular ejection fraction of about 34- 35%. Discussed the case with Dr. Martinez today he states that the patient has moderate risk for general anesthesia. The patient's current kidney function include a BUN of 62, creatinine of 10.34 4 of 5. He continues to have fatigue and poor appetite. Blood pressures are currently improved. Past Medical History Cardiac Medical History: Reports: Hyperlipidemia, Hypertension-primary Pulmonary Medical History: Reports: Asthma, Chronic Obstructive Pulmonary Disease (COPD) EENT Medical History: Reports: Cataracts Endocrine Medical History: Reports: Diabetes Mellitus Type 2 - He has diabetic retinopathy and nephropathy. There is proteinuria Complications of Diabetes: Reports: Autonomic Neuropathy, Nephropathy, Retinopathy Renal/ Medical History: Reports: Chronic Kidney Disease Stage V, Hematuria, Hypocalcemia, Hyperkalemia, Hyperphosphatemia, Proteinuria, Renal Osteodystropy, Secondary Hyperparathyroidism Psychiatric Medical History: Reports: Depression Hematology Medical History: Reports Anemia of Chronic Kidney Disease Past Surgical History Past Surgical History: Reports: Other - Cataract surgery Social History Information Source: Patient Lives with: Parents Smoking Status: Current Every Day Smoker Cigarettes Packs Per Day: 0.3 Number of Years Smokin Frequency of Alcohol Use: None Hx Recreational Drug Use: No Drugs: None Hx Prescription Drug Abuse: No Family History Family History: CAD - Father, DM - Paternal grandfather, Hypertension - Father and mother Parental Family History Reviewed: Yes Children Family History Reviewed: NA Sibling(s) Family History Reviewed.: Yes Medication/Allergy Home Medications: Furosemide [Lasix] 40 mg PO QAM 07/30/16 Atorvastatin Calcium [Lipitor 40 mg Tablet] 40 mg PO QHS 04/07/18 Carvedilol [Coreg 25 mg Tablet] 1 tab PO Q12 04/07/18 Clopidogrel Bisulfate [Plavix] 75 mg PO DAILY 04/07/18 Hydralazine HCl [Apresoline 50 mg Tablet] 50 mg PO TID 04/07/18 Nifedipine [Nifedipine ER] 30 mg PO BID 04/07/18 Paricalcitol 1 mcg PO MOWEFR 04/07/18 Allergies/Adverse Reactions: No Known Allergies Allergy (Verified 05/06/17 10:00) Review of Systems Review of Systems: Constitutional: ABSENT: chills, fever(s), headache(s), weight gain, weight loss; admits fatigue and poor appetite Eyes: ABSENT: visual disturbances Ears: ABSENT: hearing changes Cardiovascular: ABSENT: chest pain, dyspnea on exertion, edema, orthropnea, palpitations Respiratory: ABSENT: cough, dyspnea, hemoptysis Gastrointestinal: ABSENT: abdominal pain, constipation, hematemesis, hematochezia, nausea, vomiting; admits diarrhea Genitourinary: ABSENT: dysuria, hematuria Musculoskeletal: ABSENT: joint swelling Integumentary: ABSENT: rash, wounds Neurological: ABSENT: abnormal gait, abnormal speech, confusion, dizziness, focal weakness, numbness, syncope; admits headache Psychiatric: ABSENT: anxiety, depression Endocrine: ABSENT: cold intolerance, heat intolerance, polydipsia, polyuria Hematologic/Lymphatic: ABSENT: easy bleeding, easy bruising, lymphadenopathy Physical Exam Vital Signs: Temp Pulse Resp BP Pulse Ox 97.6 F 61 16 118/55 L 99 04/18/18 19:43 04/18/18 19:43 04/18/18 19:43 04/18/18 19:43 04/18/18 19:43 Intake & Output 04/17/18 04/18/18 04/19/18 06:59 06:59 06:59 Intake Total 97 304 Output Total 25 Balance 97 279 Weight 71.8 kg Exam: General appearance: No acute distress, cooperative, well-developed, well-nour ished Head exam: PRESENT: atraumatic, normocephalic Eye exam: PRESENT: Conjunctiva Des[place], EOMI, PERRLA. ABSENT: conjunctival injection, scleral icterus Mouth exam: PRESENT: moist, neck supple, tongue midline Neck exam: PRESENT: full ROM. ABSENT: carotid bruit, JVD, lymphadenopathy, thyromegaly Respiratory exam: PRESENT: clear to auscultation bilaterally. ABSENT: rales, rhonchi, stridor, wheezes Cardiovascular exam: PRESENT: RRR, +S1, +S2. ABSENT: systolic murmur Pulses: PRESENT: normal radial pulses, normal dorsalis pedis pulses GI/Abdominal exam: PRESENT: normal bowel sounds, soft. ABSENT: guarding, mass, tenderness Rectal exam: Deferred Extremities exam: PRESENT: full ROM. ABSENT: calf tenderness, pedal edema Musculoskeletal: PRESENT: full ROM. ABSENT: deformity Neurological exam: PRESENT: alert, Awake, Oriented to person, Oriented to place, Oriented to time, reflexes normal, CN II-XII grossly intact. ABSENT: motor sensory deficit Psychiatric exam: PRESENT: appropriate affect, normal mood. ABSENT: homicidal ideation, suicidal ideation Skin exam: PRESENT: intact, dry, warm. ABSENT: rash Results Laboratory Results: 04/18/18 06:16 04/18/18 06:16 04/17/18 04/17/18 04/18/18 19:39 21:25 06:16 WBC 2.5 L RBC 3.42 L Hgb 10.4 L Hct 30.4 L MCV 89 MCH 30.5 MCHC 34.4 RDW 15.6 H Plt Count 83 L Seg Neutrophils % 61.4 Lymphocytes % 30.3 Monocytes % 7.6 Eosinophils % 0.4 Basophils % 0.3 Absolute Neutrophils 1.5 L Absolute Lymphocytes 0.7 Absolute Monocytes 0.2 Absolute Eosinophils 0.0 Absolute Basophils 0.0 Sodium Potassium Chloride Carbon Dioxide Anion Gap BUN Creatinine Est GFR ( Amer) Est GFR (Non-Af Amer) Glucose Calcium Phosphorus Total Bilirubin AST ALT Alkaline Phosphatase Total Protein Albumin Triglycerides Cholesterol LDL Cholesterol Direct VLDL Cholesterol HDL Cholesterol TSH 1.76 Free T4 1.02 Urine Color YELLOW Urine Appearance SLIGHTLY-CLOUDY Urine pH 5.0 Ur Specific [place] 1.015 Urine Protein >=500 H Urine Glucose (UA) 150 H Urine Ketones NEGATIVE Urine Blood SMALL H Urine Nitrite NEGATIVE Ur Leukocyte Esterase NEGATIVE Urine WBC (Auto) 22 Urine RBC (Auto) 12 04/18/18 06:16 WBC RBC Hgb Hct MCV MCH MCHC RDW Plt Count Seg Neutrophils % Lymphocytes % Monocytes % Eosinophils % Basophils % Absolute Neutrophils Absolute Lymphocytes Absolute Monocytes Absolute Eosinophils Absolute Basophils Sodium 136.7 L Potassium 3.9 Chloride 109 H Carbon Dioxide 17 L Anion Gap 11 BUN 64 H Creatinine 10.22 H Est GFR ( Amer) 6 L Est GFR (Non-Af Amer) 5 L Glucose 107 Calcium 7.4 L Phosphorus 6.8 H Total Bilirubin 0.3 AST 19 ALT 28 Alkaline Phosphatase 71 Total Protein 5.4 L Albumin 3.0 L Triglycerides 115 Cholesterol 108.08 LDL Cholesterol Direct 53 VLDL Cholesterol 23.0 HDL Cholesterol 37 L TSH Free T4 Urine Color Urine Appearance Urine pH Ur Specific [place] Urine Protein Urine Glucose (UA) Urine Ketones Urine Blood Urine Nitrite Ur Leukocyte Esterase Urine WBC (Auto) Urine RBC (Auto) 04/17/18 04/17/18 04/17/18 19:39 19:39 19:39 Creatine Kinase Cancelled 359 H CK-MB (CK-2) 3.88 Troponin I 0.077 NT-Pro-B Natriuret Pep [id number] H 04/18/18 04/18/18 04/18/18 01:18 01:18 06:16 Creatine Kinase 258 H 258 H CK-MB (CK-2) 2.76 Troponin I 0.075 NT-Pro-B Natriuret Pep 04/18/18 06:16 Creatine Kinase CK-MB (CK-2) 2.80 Troponin I 0.085 NT-Pro-B Natriuret Pep Impressions: Abdomen/Pelvis CT 04/17/18 00:00 IMPRESSION: No acute abdominal or pelvic pathology. Chest X-Ray 04/17/18 00:00 IMPRESSION: No acute disease. Head CT 04/17/18 00:00 IMPRESSION: 1. No acute intracranial findings. 2. Chronic microvascular ischemic disease. Assessment & Plan - Diagnosis (1) ESRD (end stage renal disease) Is this a current diagnosis for this admission?: Yes Plan: Patient's kidney function has continuously deteriorated and now he is at the point that he is end-stage renal disease. This is due to diabetic nephropathy and hypertensive nephrosclerosis. Patient would need to be initiated for chronic renal replacement therapy and he chose to do peritoneal dialysis. I initially thought of doing acute hemodialysis treatment while waiting for peritoneal dialysis catheter placement however the patient insists that he needs to be discharged home on because of a very important meeting in [place] on Tuesday and he will not stay for any reason because he will not needs that meeting. So after discussion with Dr. Martinez, Dr. Benitez, and Dr. Gonzalez our plan is to discharge the patient home on after his blood pressure is better controlled. He will follow up with Dr. Martinez for cardiac risk stratification prior to surgery for PD catheter placement on Tuesday. Dr. Benitez agreed to put the patient on schedule for PD catheter placement on Tuesday. Once the PD catheter is placed we will have the patient do an acute urgent start for peritoneal dialysis at [facility]. I discussed this plan with the patient and his mother who later came along. Everybody is aware of the plan patient agreed. At this point I think the patient can wait until next week prior to initiation of peritoneal dialysis treatment since there is no urgent indication of emergent initiation of dialysis treatment. (2) Uremia Is this a current diagnosis for this admission?: Yes Plan: Starting mild symptoms including fatigue and poor appetite due to worsening kidney function. (3) Hypertensive urgency Is this a current diagnosis for this admission?: Yes Plan: Increase hydralazine to 100 mg p.o. every 8 hours and try to taper down the nitroglycerin drip with goal of systolic blood pressure between 140-160. Discussed this treatment plan with the patient's nurse today. Continue all other medications. (4) Metabolic acidosis Is this a current diagnosis for this admission?: Yes Plan: Start sodium bicarbonate 650 mg p.o. twice daily which the patient would need to continue upon discharge. (5) Anemia in chronic kidney disease Is this a current diagnosis for this admission?: Yes Plan: No need for Procrit at this time. (6) Secondary hyperparathyroidism (of renal origin) Is this a current diagnosis for this admission?: Yes Plan: Continue paricalcitol. (7) Hyperphosphatemia Is this a current diagnosis for this admission?: Yes Plan: Start calcium acetate 167 mg 2 capsules with meals 3 times a day. (8) Hypomagnesemia Is this a current diagnosis for this admission?: Yes Plan: Replace magnesium as necessary. (9) Urinary tract infection Is this a current diagnosis for this admission?: Yes Plan: Due to gram-negative rods. Start ciprofloxacin 250 mg p.o. twice daily. (10) Nephrotic range proteinuria Is this a current diagnosis for this admission?: Yes (11) Type 2 diabetes mellitus Qualifiers: Is this a current diagnosis for this admission?: Yes Plan: Well-controlled. - Notes Notes: Thank you very much for this consultation. Plan discussed with Dr. Gonzalez, Dr. Martinez, Dr. Benitez, his nurse, the patient himself and his mother. - Time Time Spent: Greater than 70 Minutes
[2018-04-19] MEDS: HYDRALAZINE HCL 50 MG TABLET PO SCH ×3 (06:35→21:20)
[2018-04-19] MEDS: CLONIDINE HCL 0.2 MG TABLET PO SCH ×3 (06:35→21:20)
[2018-04-19] MEDS: HEPARIN SOD (PORCINE) 5,000 UNIT/ML 1 ML SYRINGE SUBCUT SCH ×3 (06:37→21:24)
[2018-04-19 06:50] LABS: ABSOLUTE LYMPHOCYTES (AUTO) 0.9 10^3/uL (0.5-4.7); ABSOLUTE MONOCYTES (AUTO) 0.3 10^3/uL (0.1-1.4); ABSOLUTE NEUT (AUTO) 1.8 10^3/uL (1.7-8.2); BASOPHILS % (AUTO) 0.3 % (0-2); EOSINOPHILS % (AUTO) 1.1 % (0-6); HEMATOCRIT 30.3 % (37.9-51.0); HEMOGLOBIN 10.5 g/dL (13.5-17.0); LYMPHOCYTES % (AUTO) 30.5 % (13-45); MEAN CORPUSCULAR HEMOGLOBIN 30.6 pg (27.0-33.4); MEAN CORPUSCULAR HGB CONC 34.5 g/dL (32.0-36.0); MEAN CORPUSCULAR VOLUME 89 fl (80-97); MONOCYTES % (AUTO) 8.7 % (3-13); RED BLOOD COUNT 3.41 10^6/uL (4.35-5.55); RED CELL DISTRIBUTION WIDTH 15.5 % (11.5-14.0); SEGMENTED NEUTROPHILS % (AUTO) 59.4 % (42-78); TOTAL CELLS COUNTED % (AUTO) 100 %
[2018-04-19 06:53] LABS: ALANINE AMINOTRANSFERASE 31 U/L (21-72); ALBUMIN 2.8 g/dL (3.5-5.0); ALKALINE PHOSPHATASE 70 U/L (38-126); ANION GAP 8 (5-19); ASPARTATE AMINO TRANSFERASE 16 U/L (17-59); BILIRUBIN,DIRECT 0.2 mg/dL (0.0-0.4); BILIRUBIN,TOTAL 0.3 mg/dL (0.2-1.3); BLOOD UREA NITROGEN 67 mg/dL (7-20); CALCIUM 7.4 mg/dL (8.4-10.2); CARBON DIOXIDE 18 mmol/L (22-30); CHLORIDE 109 mmol/L (98-107); GLUCOSE 111 mg/dL (75-110); PHOSPHORUS 6.5 mg/dL (2.5-4.5); POTASSIUM 3.6 mmol/L (3.6-5.0); SODIUM 135.4 mmol/L (137-145); TOTAL PROTEIN 5.2 g/dL (6.3-8.2)
[2018-04-19 08:03] LABS: PLATELET COUNT 72 10^3/uL (150-450)
[2018-04-19] MEDS: INSULIN LISPRO 100 UNIT/ML 3 ML VIAL SUBCUT SCH ×4 (08:24→21:26)
[2018-04-19] MEDS: CALCIUM ACETATE 667 MG CAPSULE PO SCH ×3 (08:27→18:41)
[2018-04-19] MEDS: FUROSEMIDE 40 MG TABLET PO SCH (08:27)
[2018-04-19] MEDS: ACETAMINOPHEN 325 MG TABLET PO PRN ×2 (08:29→21:36)
[2018-04-19] MEDS ORDERED: PARICALCITOL 1 MCG CAPSULE PO SCH (10:00)
[2018-04-19] MEDS: SODIUM BICARBONATE 650 MG TABLET PO SCH ×2 (10:48→21:25)
[2018-04-19] MEDS: CARVEDILOL 12.5 MG TABLET PO SCH ×2 (10:48→21:23)
[2018-04-19] MEDS: CIPROFLOXACIN HCL 500 MG TABLET PO SCH ×2 (10:49→21:22)
[2018-04-19] MEDS: NIFEDIPINE 30 MG TAB.ER.24 PO SCH ×2 (10:50→18:42)
--- NOTE | 2018-04-19 18:03 | PDOC PROGRESS REPORT ---
Subjective Progress Note for:: 04/19/18 Subjective:: Patient was seen by the bedside, he has pancytopenia, he may need bone marrow biopsy, consultation will be obtained from hematology Reason For Visit: HYPERTENSIVE EMERGENCY, CKD STAGE 5/ESRD,T2DM Physical Exam Vital Signs: Temp Pulse Resp BP Pulse Ox 97.2 F 61 17 144/71 H 99 04/19/18 15:06 04/19/18 15:06 04/19/18 15:06 04/19/18 15:06 04/19/18 15:06 Intake & Output 04/18/18 04/19/18 04/20/18 06:59 06:59 06:59 Intake Total 97 440 473 Output Total 25 0 Balance 97 415 473 Weight 71.8 kg 72.2 kg General appearance: PRESENT: no acute distress Eye exam: PRESENT: PERRLA Cardiovascular exam: PRESENT: +S1, +S2, systolic murmur GI/Abdominal exam: PRESENT: soft Results Laboratory Results: 04/19/18 05:32 04/19/18 05:32 04/19/18 04/19/18 05:32 05:32 WBC 3.0 L RBC 3.41 L Hgb 10.5 L Hct 30.3 L MCV 89 MCH 30.6 MCHC 34.5 RDW 15.5 H Plt Count 72 L Seg Neutrophils % 59.4 Lymphocytes % 30.5 Monocytes % 8.7 Eosinophils % 1.1 Basophils % 0.3 Absolute Neutrophils 1.8 Absolute Lymphocytes 0.9 Absolute Monocytes 0.3 Absolute Eosinophils 0.0 Absolute Basophils 0.0 Sodium 135.4 L Potassium 3.6 Chloride 109 H Carbon Dioxide 18 L Anion Gap 8 BUN 67 H Creatinine 10.84 H Est GFR ( Amer) 6 L Est GFR (Non-Af Amer) 5 L Glucose 111 H Calcium 7.4 L Phosphorus 6.5 H Magnesium 1.3 L Total Bilirubin 0.3 AST 16 L ALT 31 Alkaline Phosphatase 70 Total Protein 5.2 L Albumin 2.8 L 04/17/18 21:25 Clean Catch Midstream Urine Culture - Final Pseudomonas Aeruginosa 04/17/18 04/17/18 04/17/18 19:39 19:39 19:39 Creatine Kinase Cancelled 359 H CK-MB (CK-2) 3.88 Troponin I 0.077 NT-Pro-B Natriuret Pep [id number] H 04/18/18 04/18/18 04/18/18 01:18 01:18 06:16 Creatine Kinase 258 H 258 H CK-MB (CK-2) 2.76 Troponin I 0.075 NT-Pro-B Natriuret Pep 04/18/18 06:16 Creatine Kinase CK-MB (CK-2) 2.80 Troponin I 0.085 NT-Pro-B Natriuret Pep Impressions: Abdomen/Pelvis CT 04/17/18 00:00 IMPRESSION: No acute abdominal or pelvic pathology. Chest X-Ray 04/17/18 00:00 IMPRESSION: No acute disease. Head CT 04/17/18 00:00 IMPRESSION: 1. No acute intracranial findings. 2. Chronic microvascular ischemic disease. Assessment & Plan - Diagnosis (1) Hypertensive emergency Is this a current diagnosis for this admission?: Yes (2) Uremia Is this a current diagnosis for this admission?: Yes (3) ESRD (end stage renal disease) Is this a current diagnosis for this admission?: Yes (4) Pancytopenia Is this a current diagnosis for this admission?: Yes (5) Pseudomonas urinary tract infection Is this a current diagnosis for this admission?: Yes (6) Anemia in chronic kidney disease Is this a current diagnosis for this admission?: Yes (7) Secondary hyperparathyroidism (of renal origin) Is this a current diagnosis for this admission?: Yes (8) Nephrotic range proteinuria Is this a current diagnosis for this admission?: Yes
--- NOTE | 2018-04-19 21:01 | PDOC PROGRESS REPORT ---
Subjective Progress Note for:: 04/19/18 Subjective:: Patient's blood pressure has been better controlled. He said he feels better except for a mild headache. He has been off the nitroglycerin drip since last night. He does not have any other new complaints. Reason For Visit: HYPERTENSIVE EMERGENCY, CKD STAGE 5/ESRD,T2DM Physical Exam Vital Signs: Temp Pulse Resp BP Pulse Ox 97.6 F 64 20 141/62 H 98 04/19/18 19:33 04/19/18 19:33 04/19/18 19:33 04/19/18 19:33 04/19/18 19:33 Intake & Output 04/18/18 04/19/18 04/20/18 06:59 06:59 06:59 Intake Total 97 440 710 Output Total 25 0 Balance 97 415 710 Weight 71.8 kg 72.2 kg Exam: General appearance: PRESENT: no acute distress, cooperative, well-developed, well-nourished Head exam: PRESENT: atraumatic, normocephalic Eye exam: PRESENT: conjunctiva pink, PERRLA. ABSENT: scleral icterus Neck exam: ABSENT: JVD Respiratory exam: PRESENT: Normal breath sounds. ABSENT: crackles, rales, rhonchi, unlabored, wheezes Cardiovascular exam: PRESENT: Regular rate rhythm -+S1, +S2. ABSENT: diastolic murmur, systolic murmur GI/Abdominal exam: PRESENT: normal bowel sounds, soft. ABSENT: guarding, mass, tenderness Extremities exam: ABSENT: No edema Neurological exam: PRESENT: alert, awake, oriented to person, place and time. Skin exam: PRESENT: dry, warm, Results Laboratory Results: 04/19/18 05:32 04/19/18 05:32 04/19/18 04/19/18 05:32 05:32 WBC 3.0 L RBC 3.41 L Hgb 10.5 L Hct 30.3 L MCV 89 MCH 30.6 MCHC 34.5 RDW 15.5 H Plt Count 72 L Seg Neutrophils % 59.4 Lymphocytes % 30.5 Monocytes % 8.7 Eosinophils % 1.1 Basophils % 0.3 Absolute Neutrophils 1.8 Absolute Lymphocytes 0.9 Absolute Monocytes 0.3 Absolute Eosinophils 0.0 Absolute Basophils 0.0 Sodium 135.4 L Potassium 3.6 Chloride 109 H Carbon Dioxide 18 L Anion Gap 8 BUN 67 H Creatinine 10.84 H Est GFR ( Amer) 6 L Est GFR (Non-Af Amer) 5 L Glucose 111 H Calcium 7.4 L Phosphorus 6.5 H Magnesium 1.3 L Total Bilirubin 0.3 AST 16 L ALT 31 Alkaline Phosphatase 70 Total Protein 5.2 L Albumin 2.8 L 04/17/18 21:25 Clean Catch Midstream Urine Culture - Final Pseudomonas Aeruginosa 04/17/18 04/17/18 04/17/18 19:39 19:39 19:39 Creatine Kinase Cancelled 359 H CK-MB (CK-2) 3.88 Troponin I 0.077 NT-Pro-B Natriuret Pep [id number] H 04/18/18 04/18/18 04/18/18 01:18 01:18 06:16 Creatine Kinase 258 H 258 H CK-MB (CK-2) 2.76 Troponin I 0.075 NT-Pro-B Natriuret Pep 04/18/18 06:16 Creatine Kinase CK-MB (CK-2) 2.80 Troponin I 0.085 NT-Pro-B Natriuret Pep Impressions: Abdomen/Pelvis CT 04/17/18 00:00 IMPRESSION: No acute abdominal or pelvic pathology. Chest X-Ray 04/17/18 00:00 IMPRESSION: No acute disease. Head CT 04/17/18 00:00 IMPRESSION: 1. No acute intracranial findings. 2. Chronic microvascular ischemic disease. Assessment & Plan - Diagnosis (1) ESRD (end stage renal disease) Is this a current diagnosis for this admission?: Yes Plan: Currently no indication for urgent renal replacement therapy. Plan is to place peritoneal dialysis catheter on Tuesday and to start peritoneal dialysis on at [facility]. (2) Uremia Is this a current diagnosis for this admission?: Yes Plan: Starting mild symptoms. (3) Hypertensive urgency Is this a current diagnosis for this admission?: Yes Plan: Improved with better blood pressure control with current blood pressure regimen. (4) Metabolic acidosis Is this a current diagnosis for this admission?: Yes Plan: Continue sodium bicarbonate upon discharge. (5) Anemia in chronic kidney disease Is this a current diagnosis for this admission?: Yes (6) Secondary hyperparathyroidism (of renal origin) Is this a current diagnosis for this admission?: Yes Plan: On paricalcitol. (7) Hyperphosphatemia Is this a current diagnosis for this admission?: Yes Plan: On calcium acetate. (8) Hypomagnesemia Is this a current diagnosis for this admission?: Yes Plan: Continue magnesium oxide. (9) Urinary tract infection Is this a current diagnosis for this admission?: Yes Plan: Due to Pseudomonas sensitive to ciprofloxacin. (10) Nephrotic range proteinuria Is this a current diagnosis for this admission?: Yes (11) Type 2 diabetes mellitus Qualifiers: Is this a current diagnosis for this admission?: Yes - Time Time with patient: 15-25 minutes
[2018-04-19] MEDS: ATORVASTATIN CALCIUM 40 MG TABLET PO SCH (21:24)
[2018-04-20] MEDS: HEPARIN SOD (PORCINE) 5,000 UNIT/ML 1 ML SYRINGE SUBCUT SCH ×2 (05:53→15:37)
[2018-04-20] MEDS: HYDRALAZINE HCL 50 MG TABLET PO SCH (05:56)
[2018-04-20] MEDS: CLONIDINE HCL 0.2 MG TABLET PO SCH ×2 (05:57→15:36)
[2018-04-20 07:04] LABS: ABSOLUTE MONOCYTES (AUTO) 0.2 10^3/uL (0.1-1.4); ABSOLUTE NEUT (AUTO) 1.7 10^3/uL (1.7-8.2); BASOPHILS % (AUTO) 0.4 % (0-2); EOSINOPHILS % (AUTO) 1.3 % (0-6); HEMATOCRIT 30.8 % (37.9-51.0); HEMOGLOBIN 10.8 g/dL (13.5-17.0); LYMPHOCYTES % (AUTO) 33.6 % (13-45); MEAN CORPUSCULAR HEMOGLOBIN 30.9 pg (27.0-33.4); MEAN CORPUSCULAR HGB CONC 35.1 g/dL (32.0-36.0); MEAN CORPUSCULAR VOLUME 88 fl (80-97); MONOCYTES % (AUTO) 7.6 % (3-13); RED CELL DISTRIBUTION WIDTH 15.4 % (11.5-14.0); SEGMENTED NEUTROPHILS % (AUTO) 57.1 % (42-78); TOTAL CELLS COUNTED % (AUTO) 100 %; WHITE BLOOD COUNT 2.9 10^3/uL (4.0-10.5)
[2018-04-20 07:19] LABS: IRON(TIBC) 78.4 ug/dL (49-181)
[2018-04-20 07:26] LABS: ALANINE AMINOTRANSFERASE 25 U/L (21-72); ALKALINE PHOSPHATASE 75 U/L (38-126); ANION GAP 12 (5-19); ASPARTATE AMINO TRANSFERASE 15 U/L (17-59); BILIRUBIN,DIRECT 0.3 mg/dL (0.0-0.4); BILIRUBIN,TOTAL 0.3 mg/dL (0.2-1.3); BLOOD UREA NITROGEN 74 mg/dL (7-20); CALCIUM 7.7 mg/dL (8.4-10.2); CARBON DIOXIDE 17 mmol/L (22-30); CHLORIDE 107 mmol/L (98-107); GLUCOSE 116 mg/dL (75-110); PHOSPHORUS 6.1 mg/dL (2.5-4.5); POTASSIUM 3.6 mmol/L (3.6-5.0); SODIUM 135.5 mmol/L (137-145); TOTAL PROTEIN 5.4 g/dL (6.3-8.2)
[2018-04-20 07:42] LABS: ABSOLUTE RETICS # 0.017 10^6/uL (0.028-0.122)
[2018-04-20 07:59] LABS: PLATELET COUNT 80 10^3/uL (150-450)
[2018-04-20 08:25] LABS: FOLATE 9.55 ng/mL (>2.76)
[2018-04-20 08:26] LABS: RETICULOCYTE COUNT (AUTO) 0.48 % (0.66-2.85)
--- NOTE | 2018-04-20 08:28 | PDOC CONSULTATION ---
Consultation Consult Date: 04/20/18 Consult reason:: Hematology/Oncology consultation was requested for patient with pancytopenia. History of Present Illness Admission Date/PCP: 04/17/18 18:35 JOSE GONZALEZ MD History of Present Illness: MERLE ABAD JR is a 53 year old male who states that [facility] for elevated blood pressure, but that has now resolved. He is planning to be discharged from the hospital today and return for a catheter placement next Tu in preparation to begin peritoneal dialysis, due to kidney failure. He states that he has been anemic for a long time, but does not remember every having been told that his other blood counts were low, or having any work-up for the anemia. He does have a prior history of blood transfusion for the anemia. He has been on blood thinners for a CVA in the past. He states that he gets dizzy every time they change his blood pressure medication. Today, he is anxious to go home, but will offer no other complaints. Past Medical History Cardiac Medical History: Reports: Hyperlipidema, Hypertension Denies: Coronary Artery Disease, Myocardial Infarction Pulmonary Medical History: Reports: Asthma, Chronic Obstructive Pulmonary Disease (COPD) Denies: Bronchitis, Pneumonia EENT Medical History: Reports: Cataracts Neurological Medical History: Denies: Seizures Endocrine Medical History: Reports: Diabetes Mellitus Type 2 - He has diabetic retinopathy and nephropathy. There is proteinuria GI Medical History: Denies: Hepatitis, Hiatal Hernia Musculoskeltal Medical History: Denies: Arthritis Psychiatric Medical History: Reports: Depression Hematology: Reports: Anemia Denies: Sickle Cell Disease Past Surgical History Past Surgical History: Reports: Other - Left leg for plate in his ankle, also has plates in his shoulder and hip. Denies: Pacemaker Social History Lives with: Parents Smoking Status: Current Every Day Smoker Cigarettes Packs Per Day: 0.3 Number of Years Smokin Frequency of Alcohol Use: None Hx Recreational Drug Use: No Drugs: None Hx Prescription Drug Abuse: No Past Social History Note: He is single, has no children, but does have a dog at home. He tells me he quit smoking a week ago. Family History Family History: CAD, COPD, DM, Hyperlipidemia, Hypertension Parental Family History Reviewed: Yes Children Family History Reviewed: NA Sibling(s) Family History Reviewed.: Yes Medication/Allergy Home Medications: Furosemide [Lasix] 40 mg PO QAM 06/23/17 Atorvastatin Calcium [Lipitor 40 mg Tablet] 40 mg PO QHS 04/07/18 Carvedilol [Coreg 25 mg Tablet] 1 tab PO Q12 04/07/18 Clopidogrel Bisulfate [Plavix] 75 mg PO DAILY 04/07/18 Hydralazine HCl [Apresoline 50 mg Tablet] 50 mg PO TID 04/07/18 Nifedipine [Nifedipine ER] 30 mg PO BID 04/07/18 Paricalcitol 1 mcg PO MOWEFR 04/07/18 Allergies/Adverse Reactions: No Known Allergies Allergy (Verified 05/06/17 10:00) Review of Systems Constitutional: ABSENT: fever(s), headache(s) Eyes: ABSENT: visual disturbances Ears: ABSENT: hearing changes Nose, Mouth, and Throat: ABSENT: sore throat Respiratory: PRESENT: cough Gastrointestinal: PRESENT: heartburn Genitourinary: ABSENT: dysuria, hematuria Integumentary: ABSENT: rash Neurological: PRESENT: dizziness Hematologic/Lymphatic: ABSENT: easy bleeding Physical Exam Vital Signs: Temp Pulse Resp BP Pulse Ox 97.9 F 68 20 154/62 H 99 04/20/18 04:00 04/20/18 07:00 04/20/18 04:00 04/20/18 04:00 04/20/18 04:00 Intake & Output 04/19/18 04/20/18 04/21/18 06:59 06:59 06:59 Intake Total 440 710 Output Total 25 0 Balance 415 710 Weight 72.2 kg 72.9 kg General appearance: PRESENT: well-developed, well-nourished Head exam: PRESENT: normocephalic Eye exam: PRESENT: EOMI Mouth exam: PRESENT: moist, tongue midline Neck exam: ABSENT: lymphadenopathy, tenderness Respiratory exam: PRESENT: clear to auscultation mirna, unlabored Cardiovascular exam: PRESENT: RRR. ABSENT: systolic murmur GI/Abdominal exam: PRESENT: soft. ABSENT: organolmegaly, tenderness Extremities exam: ABSENT: pedal edema Neurological exam: PRESENT: alert, awake Psychiatric exam: PRESENT: other - Very angry and short in all answers. Skin exam: PRESENT: normal color Results Laboratory Results: 04/20/18 06:16 04/20/18 06:16 04/20/18 04/20/18 06:16 06:16 WBC 2.9 L RBC 3.50 L Hgb 10.8 L Hct 30.8 L MCV 88 MCH 30.9 MCHC 35.1 RDW 15.4 H Plt Count 80 L Seg Neutrophils % 57.1 Lymphocytes % 33.6 Monocytes % 7.6 Eosinophils % 1.3 Basophils % 0.4 Absolute Neutrophils 1.7 Absolute Lymphocytes 1.0 Absolute Monocytes 0.2 Absolute Eosinophils 0.0 Absolute Basophils 0.0 Sodium 135.5 L Potassium 3.6 Chloride 107 Carbon Dioxide 17 L Anion Gap 12 BUN 74 H Creatinine 11.03 H Est GFR ( Amer) 6 L Est GFR (Non-Af Amer) 5 L Glucose 116 H Calcium 7.7 L Phosphorus 6.1 H Total Bilirubin 0.3 AST 15 L ALT 25 Alkaline Phosphatase 75 Total Protein 5.4 L Albumin 3.0 L 04/17/18 21:25 Clean Catch Midstream Urine Culture - Final Pseudomonas Aeruginosa 04/17/18 04/17/18 04/17/18 19:39 19:39 19:39 Creatine Kinase Cancelled 359 H CK-MB (CK-2) 3.88 Troponin I 0.077 NT-Pro-B Natriuret Pep [id number] H 04/18/18 04/18/18 04/18/18 01:18 01:18 06:16 Creatine Kinase 258 H 258 H CK-MB (CK-2) 2.76 Troponin I 0.075 NT-Pro-B Natriuret Pep 04/18/18 06:16 Creatine Kinase CK-MB (CK-2) 2.80 Troponin I 0.085 NT-Pro-B Natriuret Pep Impressions: Abdomen/Pelvis CT 04/17/18 00:00 IMPRESSION: No acute abdominal or pelvic pathology. Chest X-Ray 04/17/18 00:00 IMPRESSION: No acute disease. Head CT 04/17/18 00:00 IMPRESSION: 1. No acute intracranial findings. 2. Chronic microvascular ischemic disease. Assessment & Plan - Diagnosis (1) Pancytopenia Is this a current diagnosis for this admission?: Yes Plan: He has a long history of anemia, most likely anemia of chronic renal failure and chronic disease. Some work-up was obtained about a year ago, but I will re- check iron, B12, Folate, LDH, SPEP, retic today. The mild decrease in WBC and PLT are new with this admission. However, he is on at least 2 medications that will suppress marrow function. He is not currently neutropenic and his PLT remain >50, so I believe he is safe for peritoneal dialysis placement. I would prefer to repeat CBC in 1-2 weeks to see if this improves after he has started dialysis and he is off antibiotics. Pancytopenia may also be caused from his UTI. He is growing pseudomonas currently. May need bone marrow biopsy in the near future if no improvement in counts within the next few weeks. (2) ESRD (end stage renal disease) Is this a current diagnosis for this admission?: Yes Plan: Dr. Henry following and has planned peritoneal dialysis. HBV, HCV pending. I will also check HIV, as this is another possible cause of pancytopenia. (3) Hypertensive urgency Is this a current diagnosis for this admission?: Yes Plan: Appears to have resolved with new medications. - Plan Summary Plan Summary: Patient was discussed with Dr. Parks. I will be happy to follow patient in office after discharge.
[2018-04-20] MEDS: INSULIN LISPRO 100 UNIT/ML 3 ML VIAL SUBCUT SCH ×3 (10:27→17:09)
[2018-04-20] MEDS: CALCIUM ACETATE 667 MG CAPSULE PO SCH ×2 (10:36→15:35)
[2018-04-20] MEDS: FUROSEMIDE 40 MG TABLET PO SCH (10:38)
[2018-04-20] MEDS: SODIUM BICARBONATE 650 MG TABLET PO SCH (10:38)
[2018-04-20 10:39] LABS: HEPATITS B SURFACE ANTIGEN Negative (Negative)
[2018-04-20] MEDS: CARVEDILOL 12.5 MG TABLET PO SCH (10:39)
[2018-04-20] MEDS: NIFEDIPINE 30 MG TAB.ER.24 PO SCH (10:40)
[2018-04-20] MEDS: CIPROFLOXACIN HCL 500 MG TABLET PO SCH (11:15)
[2018-04-20 11:18] LABS: HEPATITIS B CORE AB TOT Negative (Negative); HEPATITIS B SURFACE AB QUANT <3.1 mIU/mL (Immunity>9)
--- NOTE | 2018-04-20 11:31 | PDOC PROGRESS REPORT ---
Subjective Progress Note for:: 04/20/18 Subjective:: Patient is doing fine except for mild headache. His blood pressure is better controlled and in fact is a little bit lower than her goal today. I advised patient is to help to take his medications consistently at the same time every day. For the plan for dialysis there has been a change. Dr. Benitez called me this morning and realized that the patient has an abdominal hernia that needs to be fixed at the same time of the peritoneal dialysis catheter therefore the patient cannot do an acute urgent start for peritoneal dialysis. Therefore we will start the patient on hemodialysis instead. So he will keep his appointment with Dr. Martinez on Tuesday. Then he will have a PermCath inserted on Tuesday and the peritoneal dialysis catheter to be placed at a later time with abdominal hernia repair per Dr. Benitez. Then he will be started on outpatient hem odialysis at [facility] on Tuesday. I talked to the patient and his mother at bedside regarding the plan and they both understood and agreed. Reason For Visit: HYPERTENSIVE EMERGENCY, CKD STAGE 5/ESRD,T2DM Physical Exam Vital Signs: Temp Pulse Resp BP Pulse Ox 97.9 F 71 15 121/49 L 97 04/20/18 08:04 04/20/18 08:04 04/20/18 08:04 04/20/18 08:04 04/20/18 08:04 Intake & Output 04/19/18 04/20/18 04/21/18 06:59 06:59 06:59 Intake Total 440 710 Output Total 25 0 Balance 415 710 Weight 72.2 kg 72.9 kg Exam: General appearance: PRESENT: no acute distress, cooperative, well-developed, well-nourished Head exam: PRESENT: atraumatic, normocephalic Eye exam: PRESENT: conjunctiva pink, PERRLA. ABSENT: scleral icterus Neck exam: ABSENT: JVD Respiratory exam: PRESENT: Normal breath sounds. ABSENT: crackles, rales, rhonchi, unlabored, wheezes Cardiovascular exam: PRESENT: Regular rate rhythm -+S1, +S2. ABSENT: diastolic murmur, systolic murmur GI/Abdominal exam: PRESENT: normal bowel sounds, soft. ABSENT: guarding, mass, tenderness Extremities exam: ABSENT: No edema Neurological exam: PRESENT: alert, awake, oriented to person, place and time. Skin exam: PRESENT: dry, warm, Results Laboratory Results: 04/20/18 06:16 04/20/18 06:16 04/20/18 04/20/18 04/20/18 06:16 06:16 06:16 WBC 2.9 L RBC 3.50 L Hgb 10.8 L Hct 30.8 L MCV 88 MCH 30.9 MCHC 35.1 RDW 15.4 H Plt Count 80 L Seg Neutrophils % 57.1 Lymphocytes % 33.6 Monocytes % 7.6 Eosinophils % 1.3 Basophils % 0.4 Absolute Neutrophils 1.7 Absolute Lymphocytes 1.0 Absolute Monocytes 0.2 Absolute Eosinophils 0.0 Absolute Basophils 0.0 Retic Count (auto) 0.48 L Absolute Retic 0.017 L Sodium 135.5 L Potassium 3.6 Chloride 107 Carbon Dioxide 17 L Anion Gap 12 BUN 74 H Creatinine 11.03 H Est GFR ( Amer) 6 L Est GFR (Non-Af Amer) 5 L Glucose 116 H Calcium 7.7 L Phosphorus 6.1 H Iron TIBC % Saturation Ferritin Total Bilirubin 0.3 AST 15 L ALT 25 Alkaline Phosphatase 75 Total Protein 5.4 L Albumin 3.0 L Vitamin B12 Folate 04/20/18 06:16 WBC RBC Hgb Hct MCV MCH MCHC RDW Plt Count Seg Neutrophils % Lymphocytes % Monocytes % Eosinophils % Basophils % Absolute Neutrophils Absolute Lymphocytes Absolute Monocytes Absolute Eosinophils Absolute Basophils Retic Count (auto) Absolute Retic Sodium Potassium Chloride Carbon Dioxide Anion Gap BUN Creatinine Est GFR ( Amer) Est GFR (Non-Af Amer) Glucose Calcium Phosphorus Iron 78.4 TIBC 237 L % Saturation 33 Ferritin 167.00 Total Bilirubin AST ALT Alkaline Phosphatase Total Protein Albumin Vitamin B12 664.0 Folate 9.55 04/17/18 21:25 Clean Catch Midstream Urine Culture - Final Pseudomonas Aeruginosa 04/17/18 04/17/18 04/17/18 19:39 19:39 19:39 Creatine Kinase Cancelled 359 H CK-MB (CK-2) 3.88 Troponin I 0.077 NT-Pro-B Natriuret Pep [id number] H 04/18/18 04/18/18 04/18/18 01:18 01:18 06:16 Creatine Kinase 258 H 258 H CK-MB (CK-2) 2.76 Troponin I 0.075 NT-Pro-B Natriuret Pep 04/18/18 06:16 Creatine Kinase CK-MB (CK-2) 2.80 Troponin I 0.085 NT-Pro-B Natriuret Pep Impressions: Abdomen/Pelvis CT 04/17/18 00:00 IMPRESSION: No acute abdominal or pelvic pathology. Chest X-Ray 04/17/18 00:00 IMPRESSION: No acute disease. Head CT 04/17/18 00:00 IMPRESSION: 1. No acute intracranial findings. 2. Chronic microvascular ischemic disease. Assessment & Plan - Diagnosis (1) ESRD (end stage renal disease) Is this a current diagnosis for this admission?: Yes Plan: Currently no indication for urgent renal replacement therapy. Plan is changed to hemodialysis next week instead of peritoneal dialysis as stated above. Patient will have PermCath placed as an outpatient on Tuesday and to start outpatient hemodialysis on Tuesday. Patient needs to be at [facility] at 2:30 PM on Tuesday. 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 (2) Uremia Is this a current diagnosis for this admission?: Yes Plan: Starting mild symptoms. I think he can still wait for starting hemodialysis next week. (3) Hypertensive urgency Is this a current diagnosis for this admission?: Yes Plan: Improved with current home blood pressure medications. Decrease back his hydralazine to 50 mg p.o. every 8 hours. Advised patient to take his me dications consistently every day for it to work. Patient and mother understood. (4) Metabolic acidosis Is this a current diagnosis for this admission?: Yes Plan: Continue sodium bicarbonate upon discharge. (5) Anemia in chronic kidney disease Is this a current diagnosis for this admission?: Yes (6) Secondary hyperparathyroidism (of renal origin) Is this a current diagnosis for this admission?: Yes Plan: On paricalcitol. (7) Hyperphosphatemia Is this a current diagnosis for this admission?: Yes Plan: On calcium acetate. (8) Hypomagnesemia Is this a current diagnosis for this admission?: Yes Plan: Continue magnesium oxide. (9) Urinary tract infection Is this a current diagnosis for this admission?: Yes Plan: Due to Pseudomonas sensitive to ciprofloxacin. (10) Nephrotic range proteinuria Is this a current diagnosis for this admission?: Yes (11) Type 2 diabetes mellitus Qualifiers: Is this a current diagnosis for this admission?: Yes (12) Pancytopenia Is this a current diagnosis for this admission?: Yes Plan: Dr. French following patient for this. - Notes Notes: Plan of treatment discussed with the patient, his mother, Dr. Benitez and the patient's nurse today. From nephrology standpoint patient can be discharged safely today and to keep all the appointments stated above. - Time Time with patient: Greater than 35 minutes
[2018-04-20] MEDS ORDERED: HYDRALAZINE HCL 50 MG TABLET PO SCH (14:00)
[2018-04-20 16:15] VITALS: BP 150/52
--- NOTE | 2018-04-20 17:53 | PDOC DISCHARGE SUMMARY ---
General - Admit/Disc Date/PCP Admission Date/Primary Care Provider: 04/17/18 18:35 JOSE GONZALEZ MD Discharge Date: 04/20/18 - Discharge Diagnosis (1) Hypertensive emergency Is this a current diagnosis for this admission?: Yes (2) Uremia Is this a current diagnosis for this admission?: Yes (3) ESRD (end stage renal disease) Is this a current diagnosis for this admission?: Yes (4) Pancytopenia Is this a current diagnosis for this admission?: Yes (5) Pseudomonas urinary tract infection Is this a current diagnosis for this admission?: Yes (6) Anemia in chronic kidney disease Is this a current diagnosis for this admission?: Yes (7) Secondary hyperparathyroidism (of renal origin) Is this a current diagnosis for this admission?: Yes (8) Nephrotic range proteinuria Is this a current diagnosis for this admission?: Yes - Additional Information Prescriptions: RX: Ciprofloxacin HCl [Cipro 500 mg Tablet] 250 mg PO Q12 #10 tablet RX: Sodium Bicarbonate [Sodium Bicarbonate 650 mg Tablet] 650 mg PO Q12 #80 tablet Home Medications: RX: Furosemide [Lasix] 40 mg PO QAM 07/30/16 RX: Atorvastatin Calcium [Lipitor 40 mg Tablet] 40 mg PO QHS 04/07/18 RX: Carvedilol [Coreg 25 mg Tablet] 1 tab PO Q12 04/07/18 RX: Clopidogrel Bisulfate [Plavix] 75 mg PO DAILY 04/07/18 RX: Hydralazine HCl [Apresoline 50 mg Tablet] 50 mg PO TID 04/07/18 RX: Nifedipine [Nifedipine ER] 30 mg PO BID 04/07/18 RX: Paricalcitol 1 mcg PO MOWEFR 04/07/18 RX: Acetaminophen [Tylenol 325 mg Tablet] 650 mg PO Q6HP PRN tablet 04/20/18 RX: Ciprofloxacin HCl [Cipro 500 mg Tablet] 250 mg PO Q12 #10 tablet 04/20/18 RX: Sodium Bicarbonate [Sodium Bicarbonate 650 mg Tablet] 650 mg PO Q12 #80 tablet 04/20/18 History of Present Illness History of Present Illness: MERLE Ran ABAD JR is a 53 year old male, He has 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 Hospital Course Hospital Course: Patient was admitted for the management of complications of end-stage renal disease including uremia, hypertensive emergency, he was treated with intravenous nitroglycerin infusion, consultation was obtained from nephrology for hemodialysis, but patient said he has to be discharged home today because he has an arbitration to attend tomorrow Tuesday regarding his job. He has end-sta ge renal disease he was being prepared for peritoneal dialysis outpatient, the vascular surgeon that was supposed to implant the peritoneal catheter referred patient to cardiology for risk factor stratification, a 2D echo was done outpatient that demonstrated a low ejection fraction of left ventricle about 35% he subsequently underwent a pharmacologic, Cardiolite Lexiscan stress test that demonstrated reversibility that suggest ischemia. The medication was adjusted, he was also found to have pancytopenia I consulted hematology for possible bone marrow biopsy the platelet count was profoundly reduced it was in the 70,000, he was seen by the disability manager she will follow patient outpatient since patient is being discharged home today, he was seen today by the disability manager. He also has UTI due to Pseudomonas sensitive to ciprofloxacin. Patient overall condition is very poor but he is stable enough for discharge for him to attend the arbitration appointment tomorrow. Physical Exam Vital Signs: Temp Pulse Resp BP Pulse Ox 98.0 F 78 18 150/52 H 100 04/20/18 15:15 04/20/18 15:15 04/20/18 15:15 04/20/18 15:15 04/20/18 15:15 Intake & Output 04/19/18 04/20/18 04/21/18 06:59 06:59 06:59 Intake Total 440 710 420 Output Total 25 0 550 Balance 415 710 -130 Weight 72.2 kg 72.9 kg General appearance: PRESENT: no acute distress Eye exam: PRESENT: PERRLA Respiratory exam: PRESENT: clear to auscultation mirna Cardiovascular exam: PRESENT: +S1, +S2 GI/Abdominal exam: PRESENT: soft Neurological exam: PRESENT: alert Results Laboratory Results: 04/20/18 06:16 04/20/18 06:16 04/20/18 04/20/18 04/20/18 06:16 06:16 06:16 WBC 2.9 L RBC 3.50 L Hgb 10.8 L Hct 30.8 L MCV 88 MCH 30.9 MCHC 35.1 RDW 15.4 H Plt Count 80 L Seg Neutrophils % 57.1 Lymphocytes % 33.6 Monocytes % 7.6 Eosinophils % 1.3 Basophils % 0.4 Absolute Neutrophils 1.7 Absolute Lymphocytes 1.0 Absolute Monocytes 0.2 Absolute Eosinophils 0.0 Absolute Basophils 0.0 Retic Count (auto) 0.48 L Absolute Retic 0.017 L Sodium 135.5 L Potassium 3.6 Chloride 107 Carbon Dioxide 17 L Anion Gap 12 BUN 74 H Creatinine 11.03 H Est GFR ( Amer) 6 L Est GFR (Non-Af Amer) 5 L Glucose 116 H Calcium 7.7 L Phosphorus 6.1 H Iron TIBC % Saturation Ferritin Total Bilirubin 0.3 AST 15 L ALT 25 Alkaline Phosphatase 75 Total Protein 5.4 L Albumin 3.0 L Vitamin B12 Folate 04/20/18 06:16 WBC RBC Hgb Hct MCV MCH MCHC RDW Plt Count Seg Neutrophils % Lymphocytes % Monocytes % Eosinophils % Basophils % Absolute Neutrophils Absolute Lymphocytes Absolute Monocytes Absolute Eosinophils Absolute Basophils Retic Count (auto) Absolute Retic Sodium Potassium Chloride Carbon Dioxide Anion Gap BUN Creatinine Est GFR ( Amer) Est GFR (Non-Af Amer) Glucose Calcium Phosphorus Iron 78.4 TIBC 237 L % Saturation 33 Ferritin 167.00 Total Bilirubin AST ALT Alkaline Phosphatase Total Protein Albumin Vitamin B12 664.0 Folate 9.55 04/17/18 04/17/18 04/17/18 19:39 19:39 19:39 Creatine Kinase Cancelled 359 H CK-MB (CK-2) 3.88 Troponin I 0.077 NT-Pro-B Natriuret Pep 30781 H 04/18/18 04/18/18 04/18/18 01:18 01:18 06:16 Creatine Kinase 258 H 258 H CK-MB (CK-2) 2.76 Troponin I 0.075 NT-Pro-B Natriuret Pep 04/18/18 06:16 Creatine Kinase CK-MB (CK-2) 2.80 Troponin I 0.085 NT-Pro-B Natriuret Pep Impressions: Abdomen/Pelvis CT 04/17/18 00:00 IMPRESSION: No acute abdominal or pelvic pathology. Chest X-Ray 04/17/18 00:00 IMPRESSION: No acute disease. Head CT 04/17/18 00:00 IMPRESSION: 1. No acute intracranial findings. 2. Chronic microvascular ischemic disease. Qualifiers - * PATIENT BEING DISCHARGED WITH ANY OF THE FOLLOWING DIAGNOSIS: No
[2018-04-21 10:38] LABS: HEPATITIS C QUANTITATION HCV Not Detected IU/mL (.)
[2018-04-24 16:38] LABS: A/G RATIO. 1.3 (0.7-1.7); ALBUMIN 3 3.1 g/dL (2.9-4.4); ALPHA-1-GLOBULIN 0.2 g/dL (0.0-0.4); BETA GLOBULIN 0.9 g/dL (0.7-1.3); GAMMA GLOBULINS 0.8 g/dL (0.4-1.8); IMMUNOGLOBULIN A 215 mg/dL (90-386); IMMUNOGLOBULIN G 857 mg/dL (700-1600); IMMUNOGLOBULIN M 34 mg/dL (20-172); MONOCLONAL-SPIKE Not Observed g/dL (Not Observ); PROTEIN TOTAL SERUM 5.6 g/dL (6.0-8.5)
== END 2018-04-20 19:09 | disposition home or self-care (01) | DRG 682 ==
LOC: 3S 18:35
PROVIDERS: ADMIT Internal Medicine; ATTEND Internal Medicine
DX: I12.0 Hypertensive chronic kidney disease with stage 5 chronic kidney disease or end stage renal disease (principal); N18.6 End stage renal disease; D61.818 Other pancytopenia; E87.2 Acidosis; N25.81 Secondary hyperparathyroidism of renal origin; I16.1 Hypertensive emergency; N39.0 Urinary tract infection, site not specified; E11.22 Type 2 diabetes mellitus with diabetic chronic kidney disease; E11.43 Type 2 diabetes mellitus with diabetic autonomic (poly)neuropathy; E11.319 Type 2 diabetes mellitus with unspecified diabetic retinopathy without macular edema; E83.39 Other disorders of phosphorus metabolism; E83.42 Hypomagnesemia; B96.5 Pseudomonas (aeruginosa) (mallei) (pseudomallei) as the cause of diseases classified elsewhere; E78.5 Hyperlipidemia, unspecified; J44.9 Chronic obstructive pulmonary disease, unspecified; F32.9 Major depressive disorder, single episode, unspecified; D63.1 Anemia in chronic kidney disease; F17.210 Nicotine dependence, cigarettes, uncomplicated; R80.8 Other proteinuria; R63.0 Anorexia; R63.4 Abnormal weight loss; K46.9 Unspecified abdominal hernia without obstruction or gangrene; Z86.73 Personal history of transient ischemic attack (TIA), and cerebral infarction without residual deficits; Z83.3 Family history of diabetes mellitus; Z83.6 Family history of other diseases of the respiratory system; Z82.49 Family history of ischemic heart disease and other diseases of the circulatory system
CPT/HCPCS: 36415; 70450; 71045; 74176; 80048; 80061; 80076; 80307; 81001; 82140; 82150; 82550; 82553; 82607; 82728; 82746; 82962; 83036; 83540; 83550; 83615; 83690; 83735; 83880; 84100; 84439; 84443; 84484; 85025; 85045; 85610; 85730; 86317; 86320; 86701; 86704; 87040; 87086; 87088; 87186; 87340; 87493; 87522; 93005; 93010; J1815; J2405; J3490; S0119

== ENCOUNTER 2018-04-22 09:23 | Emergency (ER) | payer MEDICAID ==
[2018-04-22] MEDS ORDERED: METOCLOPRAMIDE HCL INJ/PF 10 MG/2 ML SDV IV ONE (09:37)
--- NOTE | 2018-04-22 09:40 | ER Document Report ---
ED Medical Screen (RME) - General Chief Complaint: Nausea/Vomiting/Diarrhea Stated Complaint: VOMITING Time Seen by Provider: 04/22/18 09:37 Primary Care Provider: JOSE GONZALEZ MD [Primary Care Provider] - Follow up as needed Notes: RAPID MEDICAL EVALUATION DISCLOSURE I have seen this patient as part of a Rapid Medical Evaluation and, if applicable, placed any initially appropriate orders. The patient will be seen and fully evaluated, including a full history and physical exam, by a provider (in Main ED or Fast Track) when a room becomes available. 53-year-old male recently discharged from the hospital for acute renal failure and hypertensive crisis here with complaints of continued nausea vomiting diarrhea and abdominal pain that started back up again yesterday. He states he does not know if he has been able to keep down his blood pressure medication and that at home his blood pressure was measured to be 249 systolic. The symptoms are not new and were present during his entire hospitalization. EXAM CTAB RRR Diffuse upper > lower quadrant TTP No peritoneal signs TRAVEL OUTSIDE OF THE [place] IN LAST 30 DAYS: No - Related Data Allergies/Adverse Reactions: No Known Allergies Allergy (Verified 04/22/18 09:23) Past Medical History - Past Medical History Cardiac Medical History: Reports: Hx Hypercholesterolemia, Hx Hypertension Denies: Hx Coronary Artery Disease, Hx Heart Attack Pulmonary Medical History: Reports: Hx Asthma, Hx COPD Denies: Hx Bronchitis, Hx Pneumonia Neurological Medical History: Denies: Hx Cerebrovascular Accident, Hx Seizures Endocrine Medical History: Reports: Hx Diabetes Mellitus Type 2 - He has diabetic retinopathy and nephropathy. There is proteinuria Renal/ Medical History: Reports: Hx Renal Insufficiency. Denies: Hx Peritoneal Dialysis GI Medical History: Denies: Hx Hepatitis, Hx Hiatal Hernia, Hx Ulcer Musculoskeltal Medical History: Denies Hx Arthritis Psychiatric Medical History: Reports: Hx Depression Infectious Medical History: Denies: Hx Hepatitis Past Surgical History: Reports: Other - Left leg for plate in his ankle, also has plates in his shoulder and hip.. Denies: Hx Open Heart Surgery, Hx Pacemaker - Immunizations Hx Diphtheria, Pertussis, Tetanus Vaccination: Yes Physical Exam - Vital signs Vitals: Temp Pulse Resp BP Pulse Ox 97.4 F 79 18 169/94 H 98 04/22/18 09:27 04/22/18 09:27 04/22/18 09:27 04/22/18 09:27 04/22/18 09:27 Course - Vital Signs Vital signs: Temp Pulse Resp BP Pulse Ox 97.4 F 79 18 169/94 H 98 04/22/18 09:27 04/22/18 09:27 04/22/18 09:27 04/22/18 09:27 04/22/18 09:27 Doctor's Discharge - Discharge Referrals: JOSE GONZALEZ MD [Primary Care Provider] - Follow up as needed
[2018-04-22 10:14] LABS: ABSOLUTE LYMPHOCYTES (AUTO) 0.5 10^3/uL (0.5-4.7); ABSOLUTE MONOCYTES (AUTO) 0.4 10^3/uL (0.1-1.4); ABSOLUTE NEUT (AUTO) 6.9 10^3/uL (1.7-8.2); BASOPHILS % (AUTO) 0.1 % (0-2); HEMATOCRIT 36.7 % (37.9-51.0); HEMOGLOBIN 12.6 g/dL (13.5-17.0); LYMPHOCYTES % (AUTO) 6.6 % (13-45); MEAN CORPUSCULAR HEMOGLOBIN 30.2 pg (27.0-33.4); MEAN CORPUSCULAR HGB CONC 34.4 g/dL (32.0-36.0); MEAN CORPUSCULAR VOLUME 88 fl (80-97); PLATELET COUNT 157 10^3/uL (150-450); RED BLOOD COUNT 4.17 10^6/uL (4.35-5.55); RED CELL DISTRIBUTION WIDTH 15.5 % (11.5-14.0); SEGMENTED NEUTROPHILS % (AUTO) 88.3 % (42-78); TOTAL CELLS COUNTED % (AUTO) 100 %; WHITE BLOOD COUNT 7.8 10^3/uL (4.0-10.5)
[2018-04-22 10:27] LABS: ALANINE AMINOTRANSFERASE 27 U/L (21-72); ALBUMIN 4.2 g/dL (3.5-5.0); ALKALINE PHOSPHATASE 91 U/L (38-126); ANION GAP 14 (5-19); ASPARTATE AMINO TRANSFERASE 49 U/L (17-59); BILIRUBIN,DIRECT 0.3 mg/dL (0.0-0.4); BILIRUBIN,TOTAL 0.5 mg/dL (0.2-1.3); BLOOD UREA NITROGEN 83 mg/dL (7-20); CALCIUM 8.7 mg/dL (8.4-10.2); CARBON DIOXIDE 25 mmol/L (22-30); CHLORIDE 101 mmol/L (98-107); GLUCOSE 130 mg/dL (75-110); LIPASE 287.2 U/L (23-300); POTASSIUM 3.8 mmol/L (3.6-5.0); SODIUM 140.3 mmol/L (137-145); TOTAL PROTEIN 6.8 g/dL (6.3-8.2)
--- NOTE | 2018-04-22 12:10 | ER Document Report ---
ED General - General Chief Complaint: Nausea/Vomiting/Diarrhea Stated Complaint: VOMITING Time Seen by Provider: 04/22/18 09:37 Primary Care Provider: JOSE GONZALEZ MD [Primary Care Provider] - Follow up as needed Notes: 53-year-old male recently discharged from the hospital for acute renal failure and hypertensive crisis here this past with with CAD, hypertension, ESRD who will start dialysis this week, and a CVA in October 2017 presents to the emergency department with complaints of continued nausea, vomiting, diarrhea, and abdominal pain that started back up again yesterday. He states he does not know if he has been able to keep down his blood pressure medication and that at home his blood pressure was measured to be 249 systolic. The symptoms are not new and were present during his entire hospitalization. He states he cannot sleep, generalized weakness, dizziness, lightheadedness, has no appetite, complains of nausea and vomiting that is intractable, diarrhea. He makes urine. No sick contacts. TRAVEL OUTSIDE OF THE [place] IN LAST 30 DAYS: No - Related Data Allergies/Adverse Reactions: No Known Allergies Allergy (Verified 04/22/18 09:23) Past Medical History - Social History Smoking Status: Former Smoker Family History: CAD, COPD, DM, Hyperlipidemia, Hypertension Patient has suicidal ideation: No Patient has homicidal ideation: No - Past Medical History Cardiac Medical History: Reports: Hx Hypercholesterolemia, Hx Hypertension Denies: Hx Coronary Artery Disease, Hx Heart Attack Pulmonary Medical History: Reports: Hx Asthma, Hx COPD Denies: Hx Bronchitis, Hx Pneumonia Neurological Medical History: Denies: Hx Cerebrovascular Accident, Hx Seizures Endocrine Medical History: Reports: Hx Diabetes Mellitus Type 2 - He has diabetic retinopathy and nephropathy. There is proteinuria Renal/ Medical History: Reports: Hx Renal Insufficiency. Denies: Hx Peritoneal Dialysis GI Medical History: Denies: Hx Hepatitis, Hx Hiatal Hernia, Hx Ulcer Musculoskeletal Medical History: Denies Hx Arthritis Psychiatric Medical History: Reports: Hx Depression Infectious Medical History: Denies: Hx Hepatitis Past Surgical History: Reports: Hx Orthopedic Surgery, Other - Left leg for plate in his ankle, also has plates in his shoulder and hip.. Denies: Hx Open Heart Surgery, Hx Pacemaker - Immunizations Hx Diphtheria, Pertussis, Tetanus Vaccination: Yes Review of Systems - Review of Systems Constitutional: See HPI EENT: See HPI Cardiovascular: See HPI Respiratory: See HPI Gastrointestinal: See HPI Genitourinary: See HPI Male Genitourinary: No symptoms reported Musculoskeletal: No symptoms reported Skin: No symptoms reported Hematologic/Lymphatic: No symptoms reported Neurological/Psychological: No symptoms reported Physical Exam - Vital signs Vitals: Temp Pulse Resp BP Pulse Ox 97.4 F 79 18 169/94 H 98 04/22/18 09:27 04/22/18 09:27 04/22/18 09:27 04/22/18 09:27 04/22/18 09:27 - Notes Notes: PHYSICAL EXAMINATION: Reviewed vital signs and charting by RN GENERAL: Alert, interacts well. Mild distress. HEAD: Normocephalic, atraumatic. EYES: Pupils equal, round. Extraocular movements intact. ENT: Oral mucosa moist, tongue midline. NECK: Full range of motion. Supple. Trachea midline. LUNGS: Clear to auscultation bilaterally, no wheezes, rales, or rhonchi. No respiratory distress. HEART: Regular rate and rhythm. No murmur ABDOMEN: soft, mild tenderness left lower quadrant. Non-distended. Bowel sounds present in all 4 quadrants. no McBurney's point tenderness, no Watters sign. EXTREMITIES: Moves all 4 extremities spontaneously. No edema, No cyanosis. Week. NEUROLOGICAL: Alert and oriented x3. Normal speech. PSYCH: Normal affect, normal mood. SKIN: Warm, dry, normal turgor. No rashes or lesions noted. Course - Re-evaluation Re-evalutation: 04/22/18 13:00 Patient appears in mild distress. All lab work is normal with the exception of his creatinine which was 11.96 and known that he is ESRD. He does still make urine. Talk with Dr. Wang, on-call physician for Dr. Gonzalez's group, who said we can give him WelChol 3.75 mg daily. Patient has no indications of dehydration or infectious symptoms as his white count has increased from 2.94 days ago to 7.1 today. I will discussed with patient and prescribe him the WelChol and give him some Zofran for nausea. 04/22/18 13:[address] Cedeno, patient's team leader/research psychologist who recommended we do acutely treat the hypertension. I will give hydralazine 10 mg IV 1 time. She states she is not clear why the patient is hypertensive as when he was admitted and taking the exact same antihypertensive regimen his blood pressure was normalized. She suspects that the patient may not be compliant at home with his blood pressure meds. Also, because patient has an unremitting headache I ordered a CT head without contrast. 04/22/18 14:59 CT head negative for intracranial bleed or any evidence of ischemia. Patient states headache is improved after taking some Tylenol. States antiemetics did help. I will send him home with some Zofran that he can take. Repeat blood pressure after hydralazine IV is 200/67. This is an improvement from 222/84. Will monitor for short period, recycled blood pressure a couple of times, make a disposition. 04/22/18 16:[address] Wang as patient's blood pressure is persistently above 200 systolic. Stated I was not comfortable discharging him with an elevated blood pressure like that. He recommended ordering hydralazine 100 mg p.o. but the nurse reported that his blood pressure was down to 160 systolic. Repeat blood p ressure was 155/75, this is approximately 1 hour after taking his afternoon p.o. medications. At this time patient is feeling much better and is safe and stable discharge home. I instructed him to follow-up Tuesday with his team leader/research psychologist for the port. - Vital Signs Vital signs: Temp Pulse Resp BP Pulse Ox 97.4 F 79 15 155/75 H 98 04/22/18 09:27 04/22/18 09:27 04/22/18 17:33 04/22/18 17:33 04/22/18 17:33 - Laboratory Result Diagrams: 04/22/18 09:50 04/22/18 09:50 Laboratory results interpreted by me: 04/22/18 04/22/18 09:50 09:50 RBC 4.17 L Hgb 12.6 L Hct 36.7 L RDW 15.5 H Seg Neutrophils % 88.3 H Lymphocytes % 6.6 L BUN 83 H Creatinine 11.96 H Est GFR ( Amer) 5 L Est GFR (Non-Af Amer) 4 L Glucose 130 H Discharge - Discharge Clinical Impression: ESRD (end stage renal disease) Vomiting Qualifiers: Vomiting type: unspecified Vomiting Intractability: non-intractable Nausea presence: without nausea Qualified Code(s): R11.11 - Vomiting without nausea Diarrhea Qualifiers: Diarrhea type: unspecified type Qualified Code(s): R19.7 - Diarrhea, unspecified Condition: Good Disposition: HOME, SELF-CARE Additional Instructions: You are seen in the emergency department this afternoon for nausea, vomiting, diarrhea. All your lab work show that you are not dehydrated and clinically appeared well. Also, you were given some antinausea medications which you stated improved your symptoms. Also, your blood pressure was very high. It is very important that you take your blood pressure medications as prescribed to maintain a blood pressure within a safe range for your kidneys and your heart. If you develop any severe chest pain, altered mental status, you pass out, numbness or tingling in any of your extremities, swelling of both your legs that is abrupt in nature, please immediately return to the emergency department. Referrals: JOSE GONZALEZ MD [Primary Care Provider] - Follow up as needed
[2018-04-22] MEDS ORDERED: ONDANSETRON HCL INJ/PF 4 MG/2 ML SDV IV ONE (12:49)
[2018-04-22] MEDS ORDERED: ACETAMINOPHEN 325 MG TABLET PO ONE (12:51)
[2018-04-22] MEDS ORDERED: HYDRALAZINE HCL INJ/PF 20 MG/1 ML SDV IV ONE (13:47)
--- NOTE | 2018-04-22 14:48 | RADIOLOGY REPORT (SQ) ---
EXAM DESCRIPTION: CT HEAD WITHOUT COMPLETED DATE/TIME: 04/22/2018 2:23 pm REASON FOR STUDY: headache and nausea COMPARISON: 04/17/2018 TECHNIQUE: Axial images acquired through the brain without intravenous contrast. Images reviewed wi th bone, brain and subdural windows. Additional sagittal and coronal reconstructions were generated. Images stored on PACS. All CT scanners at this facility use dose modulation, iterative reconstruction, and/or weight based d osing when appropriate to reduce radiation dose to as low as reasonably achievable (ALARA). [facility]: Dose Right [facility]: CareDose [facility]: Dose Right [facility]: Teradose 4D [facility]: Smart [employer] Precision RADIATION DOSE: CT Rad equipment meets quality standard of care and radiation dose reduction techniq ues were employed. CTDIvol: 53.2 mGy. DLP: 991 mGy-cm. mGy. LIMITATIONS: None. FINDINGS: VENTRICLES: Normal size and configuration CEREBRUM: No masses. No hemorrhage. No midline shift. Areas of low density in the white matter mos t likely due to chronic micro-vascular ischemic change. No evidence for acute infarction. CEREBELLUM: No masses. No hemorrhage. No alteration of density. No evidence for acute infarction. EXTRAAXIAL SPACES: No fluid collections. No masses. ORBITS AND GLOBE: No intra- or extraconal masses. Normal contour of globe without masses. CALVARIUM: No fracture. PARANASAL SINUSES: No fluid or mucosal thickening. SOFT TISSUES: No mass or hematoma. OTHER: No other significant finding. IMPRESSION: No acute findings. Background of chronic microvascular ischemic changes. EVIDENCE OF ACUTE STROKE: NO. TECHNICAL DOCUMENTATION: JOB ID: [id number] Quality ID # [id number]: Final reports with documentation of one or more dose reduction techniques (e.g., Au tomated exposure control, adjustment of the mA and/or kV according to patient size, use of iterative reconstruction technique) 2010 [email or web address]- All Rights Reserved Reading location - IP/workstation name: [email or web address]
[2018-04-22] MEDS ORDERED: HYDRALAZINE HCL 50 MG TABLET PO ONE (16:51)
[2018-04-22 17:36] VITALS: BP 155/75
[2018-04-22] MEDS ORDERED: ONDANSETRON ODT 4 MG TAB (6 TAB/ER DISP) PO PRN (17:45)
== END 2018-04-22 18:09 | disposition home or self-care (01) ==
LOC: ER 09:23
DX: I12.0 Hypertensive chronic kidney disease with stage 5 chronic kidney disease or end stage renal disease (principal); E11.22 Type 2 diabetes mellitus with diabetic chronic kidney disease; N18.6 End stage renal disease; R11.10 Vomiting, unspecified; R19.7 Diarrhea, unspecified; R10.9 Unspecified abdominal pain; R10.814 Left lower quadrant abdominal tenderness; R51 Headache; J44.9 Chronic obstructive pulmonary disease, unspecified; R53.1 Weakness; R42 Dizziness and giddiness; R63.0 Anorexia; Z87.891 Personal history of nicotine dependence; Z86.73 Personal history of transient ischemic attack (TIA), and cerebral infarction without residual deficits; Z79.899 Other long term (current) drug therapy
CPT/HCPCS: 99284; 96374; 96375; 36415; 83690; 83735; 85025; 80053; 70450; J3490; J0360; J2765; J2405

== ENCOUNTER 2018-04-25 10:47 | Day surgery (SDC) | payer MEDICAID ==
[~2018-04-25 10:47] MED LIST changes: -BACITRACIN INJ 50,000 UNIT VIAL ONE; -BUPIVACAINE HCL 0.25 % INJ/PF (2.5 MG/1 ML) 30 ML VIAL ONE; +CEFAZOLIN 1 GM/D5W RTU 1 GM/50 ML RTUPB IV ONE; -HEPARIN SOD (PORCINE) 1,000 UNIT/ML 1 ML VIAL ONE; -LACTATED RINGERS 1000 ML IV PRN; -LIDOCAINE 0.5% INJ-PF (5 MG/ML) 50 ML SDV ONE; -LIDOCAINE 0.5% INJ-PF (5 MG/ML) 50 ML SDV SUBCUT PRN
--- NOTE | 2018-04-25 11:40 | RADIOLOGY REPORT (SQ) ---
EXAM DESCRIPTION: CHEST SINGLE VIEW COMPLETED DATE/TIME: 04/25/2018 11:31 am REASON FOR STUDY: PREOP COMPARISON: 04/17/2018 EXAM PARAMETERS: NUMBER OF VIEWS: One view. TECHNIQUE: Single frontal radiographic view of the chest acquired. RADIATION DOSE: NA LIMITATIONS: None. FINDINGS: LUNGS AND PLEURA: No opacities, masses or pneumothorax. No pleural effusion. MEDIASTINUM AND HILAR STRUCTURES: No masses. Contour normal. HEART AND VASCULAR STRUCTURES: Cardiomegaly suggested. Normal vasculature. BONES: No acute findings. HARDWARE: None in the chest. OTHER: No other significant finding. IMPRESSION: 1. NO ACUTE RADIOGRAPHIC FINDING IN THE CHEST. 2. Cardiomegaly suggested. No evidence for failure. TECHNICAL DOCUMENTATION: JOB ID: [id number] [employer]- All Rights Reserved Reading location - IP/workstation name: [email or web address]
[2018-04-25] MEDS ORDERED: LIDOCAINE 0.5% INJ-PF (5 MG/ML) 50 ML SDV ONE (11:41)
[2018-04-25] MEDS ORDERED: BACITRACIN INJ 50,000 UNIT VIAL ONE (11:41)
[2018-04-25] MEDS ORDERED: OXYCODONE-ACETAMINOPHEN 5-325 MG TABLET ONE (13:06)
[2018-04-25] MEDS ORDERED: DIAZEPAM 5 MG TABLET ONE (13:06)
--- NOTE | 2018-04-25 13:29 | Discharge Summary ---
Discharge Summary (SDC) - Discharge Final Diagnosis: #1 end-stage renal disease on hemodialysis. 2. PermCath in place. 3. Diabetes mellitus type 2. 4. Peripheral vascular disease. 5. Hypertension. Date of Surgery: 04/25/18 Discharge Date: 04/25/18 Condition: Poor Treatment or Instructions: Discharge home [after recovery per ASU criteria]. Diet , [renal],as tolerated, when fully awake advance as tolerated. Activities within moderation encouraged. Follow up in my office by appointment in about [1 week]. Call for appointment. Leave wounds [covered], [keep clean and dry, until office visit in 1 week]. Empty LAURO drain as needed. Meds per med rec. Percocet. Hold of on school/work [until evaluation in office]. May shower [in 48 hrs], [try to keep operated area as dry as possible]. Prescriptions: Oxycodone HCl/Acetaminophen [Percocet 5-325 mg Tablet] 1 tab PO ASDIR PRN #15 tab PRN Reason: Referrals: JOSE GONZALEZ MD [Primary Care Provider] - Discharge Diet: Other (Comments) - Diabetic, renal. Respiratory Treatments at Home: Deep Breathing/Coughing Discharge Activity: Activity As Tolerated Report the Following to Your Physician Immediately: Shortness of Breath, Unusual Bleeding
--- NOTE | 2018-04-25 13:34 | Operative Report ---
Operative Report DATE OF SURGERY: 04/25/18 PREOPERATIVE DIAGNOSIS: #1 end-stage renal disease on hemodialysis. 2. PermCa th in place. 3. Diabetes mellitus type 2. 4. Peripheral vascular disease. 5. Hypertension. POSTOPERATIVE DIAGNOSIS: #1 end-stage renal disease on hemodialysis. 2. Perm Cath in place. 3. Diabetes mellitus type 2. 4. Peripheral vascular disease. 5. Hypertension. OPERATION: Insertion of left high forearm radiocephalic fistula. SURGEON: SUDHA CALDERON LEGAL COMPLIANCE OFFICER: None. ANESTHESIA: Epidural TISSUE REMOVED OR ALTERED: Not applicable. COMPLICATIONS: None. ESTIMATED BLOOD LOSS: 20 mL. INTRAOPERATIVE FINDINGS: Of a satisfactory cephalic vein measuring about 5.2 mm at the elbow. With a convenient deep branch which was utilized for anastomosis. The superficial branch was ligated. Anastomosis done into the first 1.5 cm of the radial artery. The radiologic proved to be somewhat smaller than the ulnar, probably nondominant. Satisfactory flow within the radial artery on Doppler Doppler and by pulse evaluation after the procedure. Satisfactory continuous Doppler waveform in the fistula at the end of the procedure. Difficult to auscultate, at least partially because of excessive room noise. PROCEDURE: Operative Report PROCEDURE: After reviewing the procedure with the patient, [she] was taken to the operating room. The patient was sedated and the [left upper extremity] prepared with chlorhexidine and draped out with sterile linen. After the "" universal timeout", in which it was verified that the patient [received IV antibiotics] the procedure commenced. The sterilely sheathed ultrasound probe was used to evaluate the left venous and arterial systems, pertinent to the previously done vein mapping. Local anesthesia was infiltrated and a transverse incision made over the upper forearm, near the antecubital fossa. Dissection proceeded through the subcutaneous tissues down to the cephalic vein. This was dissected out proximally and distally for about 2 cm. Likewise major branches. The Bicipital aponeurosis was now incised longitudinally and the brachial artery and bifurcation and radial artery dissected out for a distance of about 1.5 cm. Rubber loops were placed on either end of the radial artery. The patient was given 3000 units of heparin intravenously. The deep branch of the cephalic vein was transected and irrigated with heparinized solution. The distal branches were clipped Coronary dilators were accepted [up to 3.5 mm]. The artery was controlled proximally and distally with rubber loops. An arteriotomy approximat bull [1 cm] in length was made, the artery was irrigated proximally and distally with heparinized solution. The transected vein was now spatulated [using the V in both technique], it was then anastomosed end to end to side into the radial artery. This was done using a continuous suture of 6-0 Prolene. Controls of the fistula were now released and it was analyzed using a Doppler probe. Hemostasis was secured once optimal function was assured, the wound was irrigated with antibiotic containing solution and closed. Hemostasis requiring introduction of several more Prolene interrupted sutures closure was done using interrupted 3-0 PDS for the subcutaneous tissues. The skin was closed using a continuous subcutaneous suture of 4-0 Monocryl which was reinforced with Steri- Strips over benzoin. He Owen drain was inserted medially. I encouraged. I then left the operative field and returned with a stethoscope covered with a sterile Tegaderm dressing. This allowed external auscultation of the fistula. Auscultation was difficult to hear. The procedure was concluded by applying dressings over the surgical site. DICTATING PHYSICIAN: SUDHA BABB M.D.
[2018-04-25 13:37] LABS: ABSOLUTE LYMPHOCYTES (AUTO) 0.7 10^3/uL (0.5-4.7); ABSOLUTE MONOCYTES (AUTO) 0.7 10^3/uL (0.1-1.4); ABSOLUTE NEUT (AUTO) 5.8 10^3/uL (1.7-8.2); BASOPHILS % (AUTO) 0.1 % (0-2); EOSINOPHILS % (AUTO) 0.1 % (0-6); HEMATOCRIT 38.2 % (37.9-51.0); HEMOGLOBIN 13.2 g/dL (13.5-17.0); LYMPHOCYTES % (AUTO) 9.1 % (13-45); MEAN CORPUSCULAR HEMOGLOBIN 30.1 pg (27.0-33.4); MEAN CORPUSCULAR HGB CONC 34.5 g/dL (32.0-36.0); MEAN CORPUSCULAR VOLUME 87 fl (80-97); MONOCYTES % (AUTO) 9.8 % (3-13); PLATELET COUNT 134 10^3/uL (150-450); RED BLOOD COUNT 4.38 10^6/uL (4.35-5.55); SEGMENTED NEUTROPHILS % (AUTO) 80.9 % (42-78); TOTAL CELLS COUNTED % (AUTO) 100 %; WHITE BLOOD COUNT 7.2 10^3/uL (4.0-10.5)
[2018-04-25] MEDS ORDERED: MIDAZOLAM 2 MG/2 ML INJ ONE (13:42)
[2018-04-25] MEDS ORDERED: FENTANYL CITRATE INJ/PF 100 MCG/2 ML AMPUL ONE (13:42)
[2018-04-25 14:01] LABS: ANION GAP 13 (5-19); BLOOD UREA NITROGEN 88 mg/dL (7-20); CALCIUM 8.3 mg/dL (8.4-10.2); CARBON DIOXIDE 25 mmol/L (22-30); CHLORIDE 96 mmol/L (98-107); GLUCOSE 96 mg/dL (75-110); POTASSIUM 3.1 mmol/L (3.6-5.0); SODIUM 134.4 mmol/L (137-145)
--- NOTE | 2018-04-25 14:52 | Discharge Summary ---
Discharge Summary (SDC) - Discharge Final Diagnosis: #1 end-stage renal disease requiring hemodialysis. 2. Diabetes mellitus. 3. Hypertension Date of Surgery: 04/25/18 Discharge Date: 04/25/18 Condition: Good Treatment or Instructions: Discharge home [after recovery per ASU criteria]. Diet , [renal],as tolerated, when fully awake advance as tolerated. Activities within moderation encouraged. Follow up in my office by appointment in about [1 week]. Call for appointment. Leave wounds [covered], [keep clean and dry, until office visit in 1 week]. Please note Percocet was entered in error. The prescription was destroyed. Pain medication will be [id number] only. Meds per med rec. Hold of on school/work [until evaluation in office]. May shower [in 48 hrs], [try to keep operated area as dry as possible]. Prescriptions: Oxycodone HCl/Acetaminophen [Percocet 5-325 mg Tablet] 1 tab PO ASDIR PRN #15 tab PRN Reason: Referrals: JOSE GONZALEZ MD [Primary Care Provider] - Discharge Diet: Diabetic, Other (Comments) - . Renal. Respiratory Treatments at Home: Deep Breathing/Coughing Discharge Activity: Activity As Tolerated Report the Following to Your Physician Immediately: Shortness of Breath, Unusual Bleeding
--- NOTE | 2018-04-25 14:55 | Operative Report ---
Operative Report DATE OF SURGERY: 04/25/18 PREOPERATIVE DIAGNOSIS: #1 end-stage renal disease requiring hemodialysis. 2. Diabetes mellitus. 3. Hypertension POSTOPERATIVE DIAGNOSIS: #1 end-stage renal disease requiring hemodialysis. 2. Diabetes mellitus. 3. Hypertension OPERATION: 1. Ultrasound evaluation of the right internal jugular vein. 2. Insertion of permacatheter via real-time access of the right internal jugular vein. 3. Angiogram and interpretation. SURGEON: SUDHA CALDERON FOAM CHARGER: None. ANESTHESIA: Moderate Sedation TISSUE REMOVED OR ALTERED: Not applicable. COMPLICATIONS: None. ESTIMATED BLOOD LOSS: 5 mils. INTRAOPERATIVE FINDINGS: Of a satisfactory right internal jugular vein, estimated to be 1.2 cm in diameter. Accepted a PermCath catheter. The tip of the PermCath catheter well down in the right atrium which is somewhat on the small side. Smooth flow of contrast through the right atrium, ventricle and pulmonary outflow tract. Easy egress of blood and ingress of heparinized solution through both ports. Postprocedure x-ray shows normal looking right apex, no obvious complication. PROCEDURE: After obtaining informed consent, the patient was taken to the [[facility]] and positioned supine. The [right neck] and chest were prepared with chlorhexidine and draped out with sterile linen. After the " universal timeout", in which it was verified that the patient continued to receive antibiotic, the procedure commenced. A steriley sheathed ultrasound probe was used to evaluate the [right internal jugular] vein. Local anesthesia was infiltrated adjacent to the probe. Access into the [right internal jugular] vein was obtained using a micropuncture needle, followed by micropuncture wire and then a micropuncture catheter. This was followed by introduction of a 0.035 guidewire the tip of which was placed down into the inferior vena cava . A 23 cm long [split catheter] was now positioned over the chest and an exit site marked and locally anesthetized ,the catheter was placed between the 2 incisions. Proximally, the catheter was now positioned using a peel-away sheath, after dilation. Easy ingress of heparinized solution and egress of blood obtained through the port . A completion angiogram was done by injecting contrast. The findings were as dictated. The neck incision was now closed using interrupted 3-0 PDS to the subcutaneous tissues, the catheter was anchored at the exit site using 3-0 PDS. A Biopatch device was now placed adjacent to the catheter. Dressings were applied and the procedure concluded. Copies of the dictated operative report for Dr. Sudha Benitez MD.concluded. Copies of the dictated operative report for Dr. Sudha Benitez MD.
--- NOTE | 2018-04-25 15:45 | RADIOLOGY REPORT (SQ) ---
EXAM DESCRIPTION: TUNNELED CENTRAL LINE COMPLETED DATE/TIME: 04/25/2018 2:36 pm REASON FOR STUDY: NEED FOR VASCULAR ACCESS N18.9 CHRONIC KIDNEY DISEASE, UNSPECIFIED COMPARISON: None. FLUOROSCOPY TIME: 0.4 minutes Spot images saved to PACS. TECHNIQUE: Intra-operative images acquired during surgical procedure to evaluate progress. NUMBER OF IMAGES: 17 LIMITATIONS: None. FINDINGS: Fluoroscopy was provided for intraoperative procedure. Please refer to the operative repo rt for further discussion. IMPRESSION: IMAGE(S) OBTAINED DURING PROCEDURE. COMMENT: Quality ID [id number]: Final reports for procedures using fluoroscopy that document radiation exp osure indices, or exposure time and number of fluorographic images (if radiation exposure indices are not available) Please consult full operative report of the attending physician for description of the procedure. TECHNICAL DOCUMENTATION: JOB ID: [id number] [employer]- All Rights Reserved Reading location - IP/workstation name: [email or web address]
[2018-04-25 15:50] VITALS: BP 195/78
--- NOTE | 2018-04-25 17:11 | EKG REPORT ---
SEVERITY:- ABNORMAL ECG - SINUS RHYTHM ABNORMAL T, CONSIDER ISCHEMIA, LATERAL LEADS PROLONGED QT INTERVAL : Confirmed by: Reyes Best 25-Apr-2018 17:10:59
== END 2018-04-25 15:45 | disposition home or self-care (01) ==
LOC: CCL 10:47
PROVIDERS: ATTEND Surgery
DX: I12.0 Hypertensive chronic kidney disease with stage 5 chronic kidney disease or end stage renal disease (principal); N18.6 End stage renal disease; E11.22 Type 2 diabetes mellitus with diabetic chronic kidney disease; Z99.2 Dependence on renal dialysis; I73.9 Peripheral vascular disease, unspecified; E11.21 Type 2 diabetes mellitus with diabetic nephropathy; E21.3 Hyperparathyroidism, unspecified; E88.09 Other disorders of plasma-protein metabolism, not elsewhere classified; E55.9 Vitamin D deficiency, unspecified; R80.9 Proteinuria, unspecified; R09.89 Other specified symptoms and signs involving the circulatory and respiratory systems; F17.210 Nicotine dependence, cigarettes, uncomplicated; Z79.899 Other long term (current) drug therapy; Z86.73 Personal history of transient ischemic attack (TIA), and cerebral infarction without residual deficits
CPT/HCPCS: 36415; 85025; 80048; 36558; 76937; 77001; 71045; 93005; 93010; C1752; Q9967; J2250; J3490 ×3; J0690; J3010; J1644

== ENCOUNTER 2018-05-02 06:55 | Inpatient (IN) | payer MEDICAID ==
[2018-05-02] MEDS ORDERED: HEPARIN SOD (PORCINE) 1,000 UNIT/ML 1 ML VIAL ONE (07:14)
[2018-05-02] MEDS ORDERED: LIDOCAINE 0.5% INJ-PF (5 MG/ML) 50 ML SDV ONE (07:14)
[2018-05-02] MEDS ORDERED: BUPIVACAINE HCL 0.25 % INJ/PF (2.5 MG/1 ML) 30 ML VIAL ONE (07:14)
[2018-05-02] MEDS ORDERED: BACITRACIN INJ 50,000 UNIT VIAL ONE (07:14)
[2018-05-02 07:48] LABS: INTERNATIONAL RATION (INR) 0.91; PROTHROMBIN TIME 12.8 SEC (11.4-15.4)
[2018-05-02 07:49] LABS: PARTIAL THROMBOPLASTIN TIME 27.7 SEC (23.5-35.8)
[2018-05-02 07:55] LABS: POTASSIUM 3.4 mmol/L (3.6-5.0)
[2018-05-02] MEDS ORDERED: FAMOTIDINE INJ/PF 20 MG/2 ML SDV IV ONE (07:55)
[2018-05-02] MEDS ORDERED: ALBUTEROL SULFATE 0.083% NEB 2.5 MG/3 ML AMPUL NEB ONE ×3 (07:56→13:16)
[2018-05-02] MEDS ORDERED: METOCLOPRAMIDE HCL INJ/PF 10 MG/2 ML SDV ONE (07:58)
[2018-05-02] MEDS ORDERED: CEFAZOLIN 1 GM/D5W RTU 1 GM/50 ML RTUPB IV ONE (08:11)
[2018-05-02] MEDS ORDERED: MIDAZOLAM 2 MG/2 ML INJ ONE (09:35)
[2018-05-02] MEDS ORDERED: FENTANYL CITRATE INJ/PF 100 MCG/2 ML AMPUL ONE ×3 (09:35→16:10)
[2018-05-02] MEDS ORDERED: PROPOFOL INJ 200 MG/20 ML VIAL IV ONE ×2 (09:36→12:56)
[2018-05-02] MEDS ORDERED: MORPHINE SULFATE 10 MG/ML INJ IV PRN (10:41)
[2018-05-02] MEDS ORDERED: PROMETHAZINE HCL INJ 25 MG/1 ML VIAL IV PRN (10:41)
[2018-05-02] MEDS ORDERED: FENTANYL CITRATE INJ/PF 100 MCG/2 ML AMPUL IV PRN ×3 (10:41)
[2018-05-02] MEDS ORDERED: DIPHENHYDRAMINE HCL 50 MG/ML VIAL IV PRN (10:41)
[2018-05-02] MEDS ORDERED: MEPERIDINE HCL/PF INJ 25 MG/1 ML DISP.SYRIN IV PRN (10:41)
[2018-05-02] MEDS ORDERED: SUCCINYLCHOLINE CHLORIDE INJ 200 MG/10 ML VIAL ONE (12:04)
[2018-05-02] MEDS ORDERED: ROCURONIUM BROMIDE INJ 50 MG/5 ML VIAL IV ONE (12:04)
--- NOTE | 2018-05-02 12:08 | Discharge Summary ---
Discharge Summary (SDC) - Discharge Final Diagnosis: #1 end-stage renal disease on hemodialysis 2. Diabetes mellitus type 2. 3. Tobacco use disorder, reformed. 4. History of stroke. 5. Hypertension. Date of Surgery: 05/02/18 Discharge Date: 05/02/18 Condition: Fair Treatment or Instructions: Discharge home [after recovery per ASU criteria]. Diet , [renal], diabetic,as tolerated, when fully awake advance as tolerated. Activities within moderation encouraged. Follow up in my office by appointment in about [1 week]. Call for appointment. Leave wounds [covered], [keep clean and dry, until office visit in 1 week]. Hold of on school/work [until evaluation in office]. Meds per med rec. Percocet. May shower [in 48 hrs], [try to keep operated area as dry as possible]. Prescriptions: Oxycodone HCl/Acetaminophen [Percocet 5-325 mg Tablet] 1 tab PO ASDIR PRN #15 tab PRN Reason: Referrals: JOSE GONZALEZ MD [Primary Care Provider] -
[2018-05-02] MEDS ORDERED: NALOXONE HCL INJ/PF 0.4 MG/1 ML SDV ONE (13:06)
[2018-05-02] MEDS ORDERED: SUGAMMADEX SODIUM 200 MG/2 ML SDV IV ONE (13:07)
[2018-05-02] MEDS ORDERED: FUROSEMIDE INJ/PF 40 MG/4 ML SDV ONE ×2 (13:27→13:43)
[2018-05-02] MEDS ORDERED: IPRATROPIUM/ALBUTEROL 0.5-2.5 MG/3 ML AMPUL NEB ONE ×2 (13:45→13:54)
--- NOTE | 2018-05-02 14:12 | RADIOLOGY REPORT (SQ) ---
EXAM DESCRIPTION: CHEST SINGLE VIEW COMPLETED DATE/TIME: 05/02/2018 1:50 pm REASON FOR STUDY: POST INTUBATION COMPARISON: 04/25/2018 EXAM PARAMETERS: NUMBER OF VIEWS: One view. TECHNIQUE: Single frontal radiographic view of the chest acquired. RADIATION DOSE: NA LIMITATIONS: None. FINDINGS: LUNGS AND PLEURA: There is right perihilar airspace disease. Dialysis catheter and endotr acheal tube have been added since prior study. Endotracheal tube lies 3.8 cm above the rosa elena. MEDIASTINUM AND HILAR STRUCTURES: No masses. Contour normal. HEART AND VASCULAR STRUCTURES: Heart normal in size. Normal vasculature. BONES: No acute findings. HARDWARE: As above. OTHER: No other significant finding. IMPRESSION: Patient has been intubated in a dialysis catheter placed as described. Minimal right pe rihilar airspace disease may represent atelectasis. TECHNICAL DOCUMENTATION: JOB ID: [id number] [employer]- All Rights Reserved Reading location - IP/workstation name: [email or web address]
[2018-05-02 14:23] LABS: ALANINE AMINOTRANSFERASE 32 U/L (21-72); ALBUMIN 2.3 g/dL (3.5-5.0); ALKALINE PHOSPHATASE 62 U/L (38-126); ANION GAP 7 (5-19); ASPARTATE AMINO TRANSFERASE 28 U/L (17-59); BILIRUBIN,DIRECT 0.3 mg/dL (0.0-0.4); BILIRUBIN,TOTAL 0.4 mg/dL (0.2-1.3); BLOOD UREA NITROGEN 34 mg/dL (7-20); CARBON DIOXIDE 25 mmol/L (22-30); CHLORIDE 105 mmol/L (98-107); GLUCOSE 125 mg/dL (75-110); SODIUM 136.9 mmol/L (137-145); TOTAL PROTEIN 4.8 g/dL (6.3-8.2)
[2018-05-02 14:32] LABS: TROPONIN I 1.41 ng/mL
[2018-05-02 14:33] LABS: CALCIUM 6.6 mg/dL (8.4-10.2)
--- NOTE | 2018-05-02 14:43 | Operative Report ---
Operative Report DATE OF SURGERY: 05/02/18 PREOPERATIVE DIAGNOSIS: #1 end-stage renal disease on hemodialysis. 2. Diabet es mellitus type 2. 3. Tobacco use disorder, reformed. 4. History of stroke. 5. Hypertension. 6. Umbilical hernia. POSTOPERATIVE DIAGNOSIS: #1 end-stage renal disease on hemodialysis. 2. Diabetes mellitus type 2. 3. Tobacco use disorder, reformed. 4. History of stroke. 5. Hypertension. 6. Umbilical hernia status post repair with mesh. OPERATION: 1. Repair of umbilical hernia with mesh, open. 2. Laparoscopic insertion of peritoneal dialysis catheter. SURGEON: SUDHA CALDERON RUG UNDERLAY MACHINE OPERATOR: None. ANESTHESIA: GA TISSUE REMOVED OR ALTERED: Not applicable. ESTIMATED BLOOD LOSS: 10 mL. INTRAOPERATIVE FINDINGS: Of an umbilical hernia defect about 1.5 cm in diameter. Satisfactory repair. With a 6.4 mm mesh. Satisfactory intraperitoneal findings. Adhesions around the area of the umbilicus noted to the peritoneum. Photographs taken. Coil of the catheter well down in the pelvis. Not much omentum in the pelvic region. Easy ingress of heparinized solution and likewise egress. PROCEDURE: After obtaining informed consent and going over the procedure with [the patient and his family], he was taken to the operating room, he was anesthetized and intubated. The abdomen was prepped and draped in the usual sterile fashion. After the universal timeout, in which it was verified that the patient received IV antibiotic, the procedure commenced. A midline incision was made, curvilinear around the umbilicus about 5 cm in length. This is in reference to the palpation and marking of the abdominal wall bulge. Local anesthesia was infiltrated. Incision was made with a [15 blade scalpel]. Dissection now proceeded through the subcutaneous tissue down to the hernia sac and umbilical remnant. The umbilical remnant was transected about half a centimeter deep to the skin. The margins of the hernia were defined dissecting with cautery and scissor dissection as needed. The fascial margins were serially grasped with Val clamps and elevated. This facilitated [retroperitoneal dissection]. This was done circumferentially for at least [4 cm, in all directions]. This was facilitated by by moving from each side of the table so as to get optimal access to the other. Hemostasis was now secured in this space using monopolar cautery. The dimensions of the fascial defect were measured out. It was enlarged somewhat to accommodate the mesh. A mesh was selected of the size, sufficient to cover the hernia defect with at least a 3 cm overlap. The mesh was now deployed flat in the preperitoneal space. It was anchored and kept slightly taut. In this way circumferential control of the mesh was accomplished. The wound was irrigated with antibiotic containing solution. . Fascial closure, was now accomplished using a continuous suture of 0 PDS. This was done with bites 5 mm apart and 5 mm away from the fascial edge. This conforms to best practices for reduction of hernia recurrence. The subcutaneous tissues under it when it were now irrigated with antibiotic containing solution. The subcutaneous tissues were closed using layers of interrupted 3-0 PDS sutures. The skin was closed using a continuous suture of 4-0 Monocryl. This was reinforced with Steri-Strips over benzoin and a sterile dressing applied. After obtaining informed consent and going over the procedure with [the patient and his family], he was taken to the operating room, [he was] anesthetized and intubated. The abdomen was prepped and draped in the usual sterile fashion. After the universal timeout, in which it was verified that the patient received IV antibiotic, the procedure commenced. The topographical location for the peritoneal dialysis catheter was sketched by applying it to the anterior abdominal wall. The reference point was the pubic symphysis the coil of the catheter, just beneath this level. In this way the position for the cuffs and the external catheter exit were ascertained and marked. The catheter was now replaced in antibiotic containing solution. An entry into the abdomen was sketched just to the right of the midline and transversely in the epigastrium. Local anesthesia was infiltrated. A 1 cm, transverse incision was made with a [15 blade scalpel]. Dissection now proceeded to the medial aspect of the right rectus sheath. This was opened and the muscle gently reflected. The posterior rectus sheath and peritoneum were opened between hemostats and entry was gained to the peritoneal cavity. This allowed introduction of a 5 mm laparoscopic port. The abdomen was now insufflated with carbon dioxide up to a maximum pressure of 12 mm of mercury. The camera was inserted and a good view gained of the abdomen. Photographs were taken. Local anesthesia was now infiltrated and an incision made in respect to the curve of the catheter. A 1 cm transverse incision was made at this point and dissection proceeded down to the rectus sheath. This was opened and a Veress needle on a reducing sleeve were were now introduced through the rectus muscle and the manipulated down to about 4 cm inferior to the incision. The peritoneum was now entered and the Veress needle removed. The internal cannula was now placed under direct vision. A swan neck peritoneal dialysis catheter was now placed on a stylette. Great care was taken to keep the orientation in reference to the white line on the catheter. It was now inserted into the peritoneal cavity under direct vision, through the introducer. As the catheter entered the abdomen the stylette was slowly withdrawn allowing it to assume its normal orientation and shape within the peritoneal cavity. Both the stylet and introducer were removed so as to place the internal cuff about 3 cm from the entry point of the peritoneal cavity, and within the rectus sheath. This was verified with respect to the incision. The external curve of the catheter was allowed to form precisely at the level of the incision. Externally the catheter was affixed to a Alexia stylette which was now used to tunnel the catheter in the subcutaneous tissues to its exit site where it was now used to exit the skin. The catheter orientation and position and, particu larly the 2 cuffs of the catheter were verified. Once this was done the external portion of the catheter was affixed to a Leur lock adapter and connected to a sterile IV tubing. This allowed introduction of 1 L of heparinized saline into the peritoneal cavity via the catheter. This occurred with brisk and free flow of fluid into the peritoneal cavity. Once the entire liter had been infused, the bag was now placed beneath the level of the patient and very satisfactory outflow was observed. With this in place, the camera and the catheter were removed and abdomen desufflated. The subcutaneous tissue in each incision was closed with interrupted 3-0 PDS. The skin in each incision was closed using interrupted and continuous sutures of 4-0 Monocryl. Once about 800 mils of the Infusaid had been passively removed from the abdomen, the catheter was flushed with 10 mL of heparinized solution and capped. The bio a patch was applied at the exit site. Benzoin was applied and Steri-Strips used to reinforce each of the wounds. It was also used to help anchor the Biopatch. It was also used to anchor the main catheter so that any external pressure would not dislodge the catheter. Dry gauze and tape applied and the procedure concluded.
--- NOTE | 2018-05-02 21:51 | EKG REPORT ---
SEVERITY:- ABNORMAL ECG - SINUS RHYTHM REPOL ABNRM SUGGESTS ISCHEMIA, DIFFUSE LEADS PROLONGED QT INTERVAL : Confirmed by: Sandra Martinez MD 02-May-2018 21:51:28
[2018-05-02] MEDS ORDERED: HYDRALAZINE HCL 50 MG TABLET PO ONE ×2 (23:00→23:30)
[2018-05-02] MEDS ORDERED: DEXTROSE 40% GEL 15 GM TUBE PO PRN ×2 (23:17)
[2018-05-02] MEDS ORDERED: DEXTROSE 50%-WATER 25 GM/50 ML DISP.SYRIN IV PRN ×2 (23:17)
[2018-05-02] MEDS ORDERED: GLUCAGON,HUMAN RECOMB 1 MG INJ IM PRN (23:17)
[2018-05-02] MEDS ORDERED: ATORVASTATIN CALCIUM 40 MG TABLET PO ONE (23:30)
[2018-05-03] MEDS: OXYCODONE-ACETAMINOPHEN 5-325 MG TABLET PO PRN ×3 (00:02→12:36)
--- NOTE | 2018-05-03 08:23 | PDOC PROGRESS REPORT ---
Subjective Progress Note for:: 05/03/18 Subjective:: The patient is being evaluated today after being admitted for apparent transient postoperative respiratory failure. Reason For Visit: POST OP RESPIRATORY FAILURE Need evaluation. Physical Exam Vital Signs: Temp Pulse Resp BP Pulse Ox 97.5 F 105 H 20 145/72 H 97 05/03/18 03:27 05/03/18 03:27 05/03/18 03:27 05/03/18 03:27 05/03/18 03:27 Intake & Output 05/02/18 05/03/18 05/04/18 06:59 06:59 06:59 Intake Total 1380 Output Total 370 Balance 1010 Weight 74.6 kg Additional comments: Constitutional: Well-developed well-nourished gentleman. No apparent acute distress. Quite cheerful this morning. Eyes: Mucous membranes pink and moist, pupils equal and reactive to light. Conjunctiva normal. Cornea normal. Wears spectacles Respiratory: Normal respiratory effort. On room air Results Laboratory Results: 05/02/18 13:39 05/02/18 13:39 Sodium 136.9 L Potassium 4.0 Chloride 105 Carbon Dioxide 25 Anion Gap 7 BUN 34 H Creatinine 5.63 H Est GFR ( Amer) 13 L Est GFR (Non-Af Amer) 11 L Glucose 125 H Calcium 6.6 L* Magnesium 1.3 L Total Bilirubin 0.4 AST 28 ALT 32 Alkaline Phosphatase 62 Total Protein 4.8 L Albumin 2.3 L 05/02/18 13:39 Troponin I 1.410 NT-Pro-B Natriuret Pep 37287 H Impressions: Chest X-Ray 05/02/18 00:00 IMPRESSION: Patient has been intubated in a dialysis catheter placed as described. Minimal right perihilar airspace disease may represent atelectasis. Assessment & Plan - Diagnosis (1) Respiratory failure, post-operative Is this a current diagnosis for this admission?: Yes (2) Hypertension Is this a current diagnosis for this admission?: Yes (3) Diabetes mellitus Qualifiers: Diabetes mellitus type: type 2 Diabetes mellitus complication status: with other specified complication Is this a current diagnosis for this admission?: Yes (4) End-stage renal disease on hemodialysis Is this a current diagnosis for this admission?: Yes - Plan Summary Plan Summary: This patient was admitted because he went into respiratory failure in the recovery room after open umbilical hernia repair and laparoscopic peritoneal dialysis cath insertion. These were otherwise apparently uneventful. The patient is sitting upright in dialysis smiling and cheerful. Says he feels fine. Dr. Carrasco has visited him and Dr. Henry his procurement officer is aware of him being in hospital. The plan will be to reassess the patient later today. If the respiratory failure was truly just transient and possibly as a consequence of suboptimal metabolization of anesthetic agents he would be discharged.
[2018-05-03 09:02] LABS: HEMATOCRIT 25.9 % (37.9-51.0); HEMOGLOBIN 8.8 g/dL (13.5-17.0); MEAN CORPUSCULAR HEMOGLOBIN 30.6 pg (27.0-33.4); MEAN CORPUSCULAR HGB CONC 33.9 g/dL (32.0-36.0); MEAN CORPUSCULAR VOLUME 90 fl (80-97); PLATELET COUNT 123 10^3/uL (150-450); RED BLOOD COUNT 2.86 10^6/uL (4.35-5.55); RED CELL DISTRIBUTION WIDTH 15.6 % (11.5-14.0); WHITE BLOOD COUNT 7.7 10^3/uL (4.0-10.5)
[2018-05-03 09:27] LABS: ANION GAP 9 (5-19); BLOOD UREA NITROGEN 42 mg/dL (7-20); CALCIUM 7.2 mg/dL (8.4-10.2); CARBON DIOXIDE 24 mmol/L (22-30); CHLORIDE 103 mmol/L (98-107); GLUCOSE 117 mg/dL (75-110); POTASSIUM 3.8 mmol/L (3.6-5.0); SODIUM 136.2 mmol/L (137-145)
[2018-05-03] MEDS ORDERED: HYDRALAZINE HCL 50 MG TABLET PO SCH ×2 (10:00)
--- NOTE | 2018-05-03 12:36 | PDOC CONSULTATION ---
Consultation Consult Date: 05/03/18 Attending physician:: JOSE GONZALEZ Consult reason:: I was asked to see the patient supervised dialysis while here in the hospital. History of Present Illness Admission Date/PCP: 05/02/18 22:30 JOSE GONZALEZ MD History of Present Illness: MERLE ABAD JR is a 53 year old male known to me with history of ESRD secondary to diabetic nephropathy and hypertensive nephrosclerosis with no nephrotic range proteinuria and microscopic hematuria just recently started on chronic hemodialysis treatment. Patient came in yesterday for same day umbilical hernia repair with laparoscopic peritoneal dialysis catheter placement by Dr. Benitez. Procedure went well but then after he was extubated from the procedure patient went into a brief episode of respiratory distress. He was then subsequently admitted for further observation. This morning I am seeing the patient on dialysis treatment. He is awake and is not in no respiratory distress. He does not really have any complaints. He is tolerating dialysis well. His blood pressure is still elevated but actually acceptable for him. He has been complaining about the number of medications he has to take. Other than that does not have any other issues during dialysis treatment today. Past Medical History Cardiac Medical History: Reports: Hyperlipidemia, Hypertension-primary Pulmonary Medical History: Reports: Asthma, Chronic Obstructive Pulmonary Disease (COPD) EENT Medical History: Reports: Cataracts Neurological Medical History: Denies: Seizures Endocrine Medical History: Reports: Diabetes Mellitus Type 2 - He has diabetic retinopathy and nephropathy. There is proteinuria Complications of Diabetes: Reports: Autonomic Neuropathy, Nephropathy, Retinopathy Renal/ Medical History: Reports: End Stage Renal Disease, Hematuria, Hypocalcemia, Hyperkalemia, Hyperphosphatemia, Proteinuria, Renal Osteodystropy, Secondary Hyperparathyroidism Psychiatric Medical History: Reports: Depression Hematology Medical History: Reports Anemia of Chronic Kidney Disease Past Surgical History Past Surgical History: Reports: Orthopedic Surgery, Other - Left leg for plate in his ankle, also has plates in his shoulder and hip. Social History Information Source: Patient Lives with: Parents Smoking Status: Current Every Day Smoker Frequency of Alcohol Use: None Hx Recreational Drug Use: No Drugs: None Hx Prescription Drug Abuse: No Family History Family History: CAD - Father, DM - Paternal grandfather, Hypertension - Father and mother Parental Family History Reviewed: Yes Children Family History Reviewed: NA Sibling(s) Family History Reviewed.: Yes Medication/Allergy Home Medications: Atorvastatin Calcium [Lipitor 40 mg Tablet] 40 mg PO QHS 04/07/18 Hydralazine HCl [Apresoline 50 mg Tablet] 50 mg PO TID 04/07/18 Acetaminophen [Tylenol 325 mg Tablet] 650 mg PO Q6HP PRN tablet 04/20/18 Oxycodone HCl/Acetaminophen [Percocet 5-325 mg Tablet] 1 tab PO ASDIR PRN #15 tab 04/25/18 Oxycodone HCl/Acetaminophen [Percocet 5-325 mg Tablet] 1 tab PO ASDIR PRN #15 tab 05/02/18 Allergies/Adverse Reactions: No Known Allergies Allergy (Verified 05/02/18 07:36) Review of Systems All systems: reviewed and no additional remarkable complaints except as stated Review of Systems: Constitutional: ABSENT: chills, fatigue, fever(s), headache(s), weight gain, weight loss Eyes: ABSENT: visual disturbances Ears: ABSENT: hearing changes Cardiovascular: ABSENT: chest pain, dyspnea on exertion, edema, orthropnea, palpitations Respiratory: ABSENT: cough, dyspnea, hemoptysis Gastrointestinal: ABSENT: abdominal pain, constipation, diarrhea, hematemesis, hematochezia, nausea, vomiting Genitourinary: ABSENT: dysuria, hematuria Musculoskeletal: ABSENT: joint swelling Integumentary: ABSENT: rash, wounds Neurological: ABSENT: abnormal gait, abnormal speech, confusion, dizziness, focal weakness, numbness, syncope Psychiatric: ABSENT: anxiety, depression Endocrine: ABSENT: cold intolerance, heat intolerance, polydipsia, polyuria Hematologic/Lymphatic: ABSENT: easy bleeding, easy bruising, lymphadenopathy Physical Exam Vital Signs: Temp Pulse Resp BP Pulse Ox 97.5 F 93 20 145/72 H 97 05/03/18 03:27 05/03/18 07:00 05/03/18 03:27 05/03/18 03:27 05/03/18 03:27 Intake & Output 05/02/18 05/03/18 05/04/18 06:59 06:59 06:59 Intake Total 1380 Output Total 370 Balance 1010 Weight 74.6 kg Vitals during dialysis: Blood pressure 167/90, heart rate of 85, blood flow rate of 350 mL/min and dialysate flow rate of 800 mL/min. Exam: General appearance: No acute distress, cooperative, well-developed, well- nourished Head exam: PRESENT: atraumatic, normocephalic Eye exam: PRESENT: Conjunctiva slightly pale, EOMI, PERRLA. ABSENT: conj unctival injection, scleral icterus Mouth exam: PRESENT: moist, neck supple, tongue midline Neck exam: PRESENT: full ROM. ABSENT: carotid bruit, JVD, lymphadenopathy, thyromegaly Respiratory exam: PRESENT: clear to auscultation bilaterally. ABSENT: rales, rhonchi, stridor, wheezes Cardiovascular exam: PRESENT: RRR, +S1, +S2. ABSENT: systolic murmur Pulses: PRESENT: normal radial pulses, normal dorsalis pedis pulses GI/Abdominal exam: PRESENT: normal bowel sounds, soft. ABSENT: guarding, mass, tenderness Rectal exam: Deferred Extremities exam: PRESENT: full ROM. ABSENT: calf tenderness, pedal edema Musculoskeletal: PRESENT: full ROM. ABSENT: deformity Neurological exam: PRESENT: alert, Awake, Oriented to person, Oriented to place, Oriented to time, reflexes normal, CN II-XII grossly intact. ABSENT: motor sensory deficit Psychiatric exam: PRESENT: appropriate affect, normal mood. ABSENT: homicidal ideation, suicidal ideation Skin exam: PRESENT: intact, dry, warm. ABSENT: rash Results Laboratory Results: 05/03/18 08:10 05/03/18 08:10 05/02/18 05/03/18 05/03/18 13:39 08:10 08:10 WBC 7.7 RBC 2.86 L Hgb 8.8 L Hct 25.9 L MCV 90 MCH 30.6 MCHC 33.9 RDW 15.6 H Plt Count 123 L Sodium 136.9 L 136.2 L Potassium 4.0 3.8 Chloride 105 103 Carbon Dioxide 25 24 Anion Gap 7 9 BUN 34 H 42 H Creatinine 5.63 H 7.00 H Est GFR ( Amer) 13 L 10 L Est GFR (Non-Af Amer) 11 L 8 L Glucose 125 H 117 H Calcium 6.6 L* 7.2 L Magnesium 1.3 L Total Bilirubin 0.4 AST 28 ALT 32 Alkaline Phosphatase 62 Total Protein 4.8 L Albumin 2.3 L 05/02/18 13:39 Troponin I 1.410 NT-Pro-B Natriuret Pep [id number] H Impressions: Chest X-Ray 05/02/18 00:00 IMPRESSION: Patient has been intubated in a dialysis catheter placed as described. Minimal right perihilar airspace disease may represent atelectasis. Assessment & Plan - Diagnosis (1) End-stage renal disease on hemodialysis Is this a current diagnosis for this admission?: Yes Plan: We will do dialysis today for 3 hours, using the patient's right IJ PermCath, with 3 potassium bath, blood flow rate of 350 mL per minute, dialysate flow rate of 800 mL per minute, ultrafiltration 1 L or less as tolerated, no heparin and Procrit with 20,000 units during dialysis intravenously or subcutaneously if unable to be given during dialysis treatment. Patient will be monitored throughout dialysis treatment by our dialysis nurses. Patient is very stable and from nephrology standpoint can be safely discharged home after dialysis treatment today provided there are no more other issue. (2) Hypertension Is this a current diagnosis for this admission?: Yes Plan: Blood pressures acceptable for patient at this point. Continue the same blood pressure regimen. (3) Anemia in chronic kidney disease Qualifiers: Chronic kidney disease stage: on chronic dialysis Qualified Code(s): N18.6 - End stage renal disease; D63.1 - Anemia in chronic kidney disease; Z99.2 - Dependence on renal dialysis Is this a current diagnosis for this admission?: Yes Plan: Give Procrit 20,000 units today. (4) Respiratory failure, post-operative Is this a current diagnosis for this admission?: Yes Plan: Resolved. (5) Type 2 diabetes mellitus Qualifiers: Is this a current diagnosis for this admission?: Yes - Notes Notes: Thank you very much for this consultation. I will follow the patient with you if he stays in the hospital. - Time Time Spent: 50 to 70 Minutes
[2018-05-03] MEDS: INSULIN LISPRO 100 UNIT/ML 3 ML VIAL SUBCUT SCH (12:38)
[2018-05-03] MEDS ORDERED: EPOETIN ALFA INJ 20,000 UNIT/1 ML VIAL (ONCOLOGY) SUBCUT ONE (13:00)
[2018-05-03 14:46] VITALS: BP 166/79
--- NOTE | 2018-05-03 16:08 | PDOC H&P ---
History of Present Illness Admission Date/PCP: 05/02/18 22:30 JOSE GONZALEZ MD History of Present Illness: MERLE ABAD JR is a 53 year old male,He came to the hospital for an [place] ctive procedure, to have same day umbilical hernia repair with laparoscopic peritoneal dialysis catheter placement by Dr. Benitez the procedure went well without any complications but patient developed sudden hypoxemia based on the oxygen saturation he was immediately intubated in PACU . Dr. Benitez called me that he wants patient admitted into ICU for management. But the anesthesiologist extubated the patient while he was in the PACU he was then transferred to IMCU floor.Patient was seen by the bedside he has no new complaints consultation will be obtained from nephrology for dialysis Past Medical History Cardiac Medical History: Reports: Hyperlipidema, Hypertension Pulmonary Medical History: Reports: Asthma, Chronic Obstructive Pulmonary Disease (COPD) EENT Medical History: Reports: Cataracts Endocrine Medical History: Reports: Diabetes Mellitus Type 2 - He has diabetic retinopathy and nephropathy. There is proteinuria Renal/ Medical History: Reports: End Stage Renal Disease Psychiatric Medical History: Reports: Depression Hematology: Reports: Anemia Past Surgical History Past Surgical History: Reports: Orthopedic Surgery, Other - Left leg for plate in his ankle, also has plates in his shoulder and hip. Social History Lives with: Parents Smoking Status: Current Every Day Smoker Frequency of Alcohol Use: None Hx Recreational Drug Use: No Drugs: None Hx Prescription Drug Abuse: No Family History Family History: CAD, COPD, DM, Hyperlipidemia, Hypertension Parental Family History Reviewed: Yes Children Family History Reviewed: Yes Sibling(s) Family History Reviewed.: Yes Medication/Allergy Home Medications: Atorvastatin Calcium [Lipitor 40 mg Tablet] 40 mg PO QHS 04/07/18 Hydralazine HCl [Apresoline 50 mg Tablet] 50 mg PO TID 04/07/18 Acetaminophen [Tylenol 325 mg Tablet] 650 mg PO Q6HP PRN tablet 04/20/18 Oxycodone HCl/Acetaminophen [Percocet 5-325 mg Tablet] 1 tab PO ASDIR PRN #15 tab 04/25/18 Oxycodone HCl/Acetaminophen [Percocet 5-325 mg Tablet] 1 tab PO ASDIR PRN #15 tab 05/02/18 Allergies/Adverse Reactions: No Known Allergies Allergy (Verified 05/02/18 07:36) Review of Systems Constitutional: ABSENT: chills, fever(s), headache(s), weight gain, weight loss Eyes: ABSENT: visual disturbances Ears: ABSENT: hearing changes Cardiovascular: ABSENT: chest pain, dyspnea on exertion, edema, orthropnea, palpitations Respiratory: ABSENT: cough, hemoptysis Gastrointestinal: ABSENT: abdominal pain, constipation, diarrhea, hematemesis, hematochezia, nausea, vomiting Genitourinary: ABSENT: dysuria, hematuria Musculoskeletal: ABSENT: joint swelling Integumentary: ABSENT: rash, wounds Neurological: ABSENT: abnormal gait, abnormal speech, confusion, dizziness, focal weakness, syncope Psychiatric: ABSENT: anxiety, depression, homidical ideation, suicidal ideation Endocrine: ABSENT: cold intolerance, heat intolerance, menstrual abnormalities, polydipsia, polyuria Hematologic/Lymphatic: ABSENT: easy bleeding, easy bruising, lymphadenopathy Physical Exam Vital Signs: Temp Pulse Resp BP Pulse Ox 98.7 F 90 20 166/79 H 98 05/03/18 14:41 05/03/18 14:41 05/03/18 14:41 05/03/18 14:41 05/03/18 14:41 Intake & Output 05/02/18 05/03/18 05/04/18 06:59 06:59 06:59 Intake Total 1380 350 Output Total 370 Balance 1010 350 Weight 74.6 kg General appearance: PRESENT: no acute distress, well-developed, well-nourished Head exam: PRESENT: atraumatic, normocephalic Eye exam: PRESENT: conjunctiva pink, EOMI, PERRLA. ABSENT: scleral icterus Ear exam: PRESENT: normal external ear exam Mouth exam: PRESENT: moist, tongue midline Neck exam: PRESENT: full ROM. ABSENT: carotid bruit, JVD, lymphadenopathy, thyromegaly Cardiovascular exam: PRESENT: RRR. ABSENT: diastolic murmur, rubs, systolic murmur Pulses: PRESENT: normal dorsalis pedis pul, +2 pedal pulses bilateral Vascular exam: PRESENT: normal capillary refill GI/Abdominal exam: PRESENT: normal bowel sounds, soft. ABSENT: distended, guarding, mass, organolmegaly, rebound, tenderness Rectal exam: PRESENT: deferred Neurological exam: PRESENT: alert, awake, oriented to person, oriented to place, oriented to time, oriented to situation, CN II-XII grossly intact. ABSENT: motor sensory deficit Psychiatric exam: PRESENT: appropriate affect, normal mood. ABSENT: homicidal ideation, suicidal ideation Skin exam: PRESENT: dry, intact, warm. ABSENT: cyanosis, rash Results Laboratory Results: 05/03/18 08:10 05/03/18 08:10 05/03/18 05/03/18 08:10 08:10 WBC 7.7 RBC 2.86 L Hgb 8.8 L Hct 25.9 L MCV 90 MCH 30.6 MCHC 33.9 RDW 15.6 H Plt Count 123 L Sodium 136.2 L Potassium 3.8 Chloride 103 Carbon Dioxide 24 Anion Gap 9 BUN 42 H Creatinine 7.00 H Est GFR ( Amer) 10 L Est GFR (Non-Af Amer) 8 L Glucose 117 H Calcium 7.2 L 05/02/18 13:39 Troponin I 1.410 NT-Pro-B Natriuret Pep [id number] H Impressions: Chest X-Ray 05/02/18 00:00 IMPRESSION: Patient has been intubated in a dialysis catheter placed as described. Minimal right perihilar airspace disease may represent atelectasis. Assessment & Plan - Diagnosis (1) Hypoxemia Is this a current diagnosis for this admission?: Yes (2) End stage renal disease Is this a current diagnosis for this admission?: Yes (3) Type 2 diabetes mellitus Qualifiers: Diabetes mellitus penitentiary insulin use: with longwall foreman use Diabetes mellitus complication status: with unspecified complications Qualified Code(s): E11.8 - Type 2 diabetes mellitus with unspecified complications; Z79.4 - halfway (current) use of insulin Is this a current diagnosis for this admission?: Yes
--- NOTE | 2018-05-03 16:14 | PDOC DISCHARGE SUMMARY ---
General - Admit/Disc Date/PCP Admission Date/Primary Care Provider: 05/02/18 22:30 JOSE GONZALEZ MD Discharge Date: 05/03/18 - Discharge Diagnosis (1) Hypoxemia Is this a current diagnosis for this admission?: Yes (2) End stage renal disease Is this a current diagnosis for this admission?: Yes (3) Type 2 diabetes mellitus Is this a current diagnosis for this admission?: Yes - Additional Information Discharge Diet: As Tolerated, Cardiac, Diabetic, Other (Comments) Discharge Activity: Activity As Tolerated, Balance Activity w/Rest, No Lifting Over 10 Pounds, No Lifting/Push/Pulling Prescriptions: Oxycodone HCl/Acetaminophen [Percocet 5-325 mg Tablet] 1 tab PO ASDIR PRN #15 tab PRN Reason: Home Medications: Atorvastatin Calcium [Lipitor 40 mg Tablet] 40 mg PO QHS 04/07/18 Hydralazine HCl [Apresoline 50 mg Tablet] 50 mg PO TID 04/07/18 Acetaminophen [Tylenol 325 mg Tablet] 650 mg PO Q6HP PRN tablet 04/20/18 Oxycodone HCl/Acetaminophen [Percocet 5-325 mg Tablet] 1 tab PO ASDIR PRN #15 tab 04/25/18 Oxycodone HCl/Acetaminophen [Percocet 5-325 mg Tablet] 1 tab PO ASDIR PRN #15 tab 05/02/18 History of Present Illness History of Present Illness: MERLE ABAD JR is a 53 year old male,He came to the hospital for an elective procedure, to have same day umbilical hernia repair with laparoscopic peritoneal dialysis catheter placement by Dr. Benitez the procedure went well without any complications but patient developed sudden hypoxemia based on the oxygen saturation he was immediately intubated in PACU . Dr. Benitez called me that he wants patient admitted into ICU for management. But the anesthesiologist extubated the patient while he was in the PACU he was then transferred to IMCU floor.Patient was seen by the bedside he has no new complaints consultation will be obtained from nephrology for dialysis Hospital Course Hospital Course: Patient was admitted because of concern for hypoxemia, he was stabilized there was no event for 24 hours in the hospital, he was seen by nephrology, Dr. Henry he underwent hemodialysis today.The significance of the hypoxemia was not clear because patient does not of any acute pulmonary pathology, he was not in CHF that would explain the hypoxemia. The hypoxemia was also immediately corrected with oxygen via nasal cannula, he did not require oxygen for the last many hours since he has been in the hospital Physical Exam Vital Signs: Temp Pulse Resp BP Pulse Ox 98.7 F 90 20 166/79 H 98 05/03/18 14:41 05/03/18 14:41 05/03/18 14:41 05/03/18 14:41 05/03/18 14:41 Intake & Output 05/02/18 05/03/18 05/04/18 06:59 06:59 06:59 Intake Total 1380 350 Output Total 370 Balance 1010 350 Weight 74.6 kg General appearance: PRESENT: no acute distress Eye exam: PRESENT: PERRLA Respiratory exam: PRESENT: clear to auscultation mirna Cardiovascular exam: PRESENT: +S1, +S2 GI/Abdominal exam: PRESENT: soft Neurological exam: PRESENT: alert Results Laboratory Results: 05/03/18 08:10 05/03/18 08:10 05/03/18 05/03/18 08:10 08:10 WBC 7.7 RBC 2.86 L Hgb 8.8 L Hct 25.9 L MCV 90 MCH 30.6 MCHC 33.9 RDW 15.6 H Plt Count 123 L Sodium 136.2 L Potassium 3.8 Chloride 103 Carbon Dioxide 24 Anion Gap 9 BUN 42 H Creatinine 7.00 H Est GFR ( Amer) 10 L Est GFR (Non-Af Amer) 8 L Glucose 117 H Calcium 7.2 L 05/02/18 13:39 Troponin I 1.410 NT-Pro-B Natriuret Pep [id number] H Impressions: Chest X-Ray 05/02/18 00:00 IMPRESSION: Patient has been intubated in a dialysis catheter placed as described. Minimal right perihilar airspace disease may represent atelectasis. Qualifiers - * PATIENT BEING DISCHARGED WITH ANY OF THE FOLLOWING DIAGNOSIS: No
[2018-05-03] MEDS ORDERED: ATORVASTATIN CALCIUM 40 MG TABLET PO SCH (22:00)
== END 2018-05-03 15:45 | disposition home or self-care (01) | DRG 981 ==
LOC: 3S 06:55 → OROUT 06:55 → 3S 22:30
PROVIDERS: ADMIT Internal Medicine; ATTEND Internal Medicine
PROC: 5A1935Z Respiratory Ventilation, Less than 24 Consecutive Hours (ICD-10-PCS; 2018-05-02)
PROC: 0BH17EZ Insertion of Endotracheal Airway into Trachea, Via Natural or Artificial Opening (ICD-10-PCS; 2018-05-02)
PROC: 0WHG43Z Insertion of Infusion Device into Peritoneal Cavity, Percutaneous Endoscopic Approach (ICD-10-PCS; principal; 2018-05-02 09:00)
PROC: 0WUF0JZ Supplement Abdominal Wall with Synthetic Substitute, Open Approach (ICD-10-PCS; 2018-05-02 09:00)
PROC: 5A1D70Z Performance of Urinary Filtration, Intermittent, Less than 6 Hours Per Day (ICD-10-PCS; 2018-05-03)
DX: J95.821 Acute postprocedural respiratory failure (principal); N18.6 End stage renal disease; N25.81 Secondary hyperparathyroidism of renal origin; E11.22 Type 2 diabetes mellitus with diabetic chronic kidney disease; K42.9 Umbilical hernia without obstruction or gangrene; E11.21 Type 2 diabetes mellitus with diabetic nephropathy; E78.5 Hyperlipidemia, unspecified; J44.9 Chronic obstructive pulmonary disease, unspecified; E11.319 Type 2 diabetes mellitus with unspecified diabetic retinopathy without macular edema; E11.43 Type 2 diabetes mellitus with diabetic autonomic (poly)neuropathy; E83.51 Hypocalcemia; E87.5 Hyperkalemia; E83.39 Other disorders of phosphorus metabolism; N25.0 Renal osteodystrophy; F17.210 Nicotine dependence, cigarettes, uncomplicated; F32.9 Major depressive disorder, single episode, unspecified; D63.1 Anemia in chronic kidney disease; Z79.899 Other long term (current) drug therapy; Z86.73 Personal history of transient ischemic attack (TIA), and cerebral infarction without residual deficits; Z79.891 Long term (current) use of opiate analgesic; Z79.1 Long term (current) use of non-steroidal anti-inflammatories (NSAID); Z82.49 Family history of ischemic heart disease and other diseases of the circulatory system; Z83.3 Family history of diabetes mellitus
CPT/HCPCS: 36415; 71045; 80048; 80053; 82947; 82962; 83735; 83880; 840; 84132; 84484; 85027; 85379; 85610; 85730; 93005; 93010; 94002; C1781; J0330; J0690; J0885; J1642; J1644; J1940; J2250; J2310; J2704; J2765; J3010; J3490; J7620; S0028

== ENCOUNTER → 2018-05-15 | Outpatient (CLI) | payer MEDICAID ==
--- NOTE | 2018-05-16 09:07 | RADIOLOGY REPORT (SQ) ---
EXAM DESCRIPTION: CHEST 2 VIEWS COMPLETED DATE/TIME: 05/15/2018 6:18 pm REASON FOR STUDY: R06.02 SHORTNESS OF BREATH COMPARISON: AP chest 05/02/2018, 04/17/2018 EXAM PARAMETERS: NUMBER OF VIEWS: two views TECHNIQUE: Digital Frontal and Lateral radiographic views of the chest acquired. RADIATION DOSE: NA LIMITATIONS: none FINDINGS: LUNGS AND PLEURA: No opacities, masses or pneumothorax. No pleural effusion. MEDIASTINUM AND HILAR STRUCTURES: No masses or contour abnormalities. HEART AND VASCULAR STRUCTURES: Heart normal size. No evidence for failure. BONES: No acute findings. HARDWARE: Right-sided jugular central venous dialysis catheter tip in the right atrium. OTHER: No other significant finding. IMPRESSION: No acute infiltrates. Right jugular central venous dialysis catheter in good positioning. TECHNICAL DOCUMENTATION: JOB ID: [id number] [employer]- All Rights Reserved Reading location - IP/workstation name: [email or web address]
== END ==
LOC: RAD 17:45
PROVIDERS: ATTEND Internal Medicine
DX: R06.02 Shortness of breath (principal)
CPT/HCPCS: 71046

== ENCOUNTER 2018-09-12 09:06 | Day surgery (SDC) | payer MEDICARE, MEDICAID ==
[~2018-09-12 09:06] MED LIST changes: -CEFAZOLIN 1 GM/D5W RTU 1 GM/50 ML RTUPB IV ONE; -CEFAZOLIN 1 GM/D5W RTU 1 GM/50 ML RTUPB IV PRN; +KETOROLAC TROMETHAMINE 0.45% 4 DROP/0.4 ML DROPERETTE OS PRN
[2018-09-12] MEDS: BESIFLOXACIN HCL 0.6% OPH SUSP 5 ML BOTTLE OS PRN ×4 (10:16→11:26)
[2018-09-12] MEDS: CYCLOPENTOLATE 0.2%/PHENYLEPHRINE 1% OPH SOLN 2 ML OS PRN ×3 (10:16→10:36)
[2018-09-12] MEDS: TROPICAMIDE 1% OPH SOLN 3 ML OS PRN ×3 (10:16→10:36)
[2018-09-12] MEDS: TETRACAINE HCL 0.5% OPH SOLN 4 ML OS PRN ×4 (10:17→10:59)
[2018-09-12] MEDS ORDERED: MIDAZOLAM 2 MG/2 ML INJ ONE (10:40)
[2018-09-12] MEDS ORDERED: FENTANYL CITRATE INJ/PF 100 MCG/2 ML AMPUL ONE (10:41)
[2018-09-12] MEDS: BUPIVACAINE HCL 0.75% INJ/PF (7.5 MG/1 ML) 10 ML SDV OS PRN ×2 (11:02)
[2018-09-12] MEDS: LIDOCAINE 4% INJ/PF (40 MG/ML) 5 ML AMPUL OS PRN ×2 (11:02)
[2018-09-12] MEDS: EPINEPHRINE INJ/PF 1 MG/1 ML AMPULE ONE ×2 (11:11)
[2018-09-12] MEDS: LIDOCAINE 1% INJ-PF (10 MG/ML) 30 ML SDV ONE ×2 (11:11)
[2018-09-12] MEDS: CHONDR SU A NA/HYALUR INTRAOC KIT (SURGICARE) ONE ×2 (11:11)
[2018-09-12] MEDS: DORZOLAMIDE HCL 2%/TIMOLOL MALEAT 0.5% OPH SOLN 10 ML OS PRN ×2 (11:29)
--- NOTE | 2018-09-12 20:49 | [facility] DISCHARGE SUMMARY E ---
[facility] Discharge Summary NAME: MERLE ABAD JR AGE: 53Y ADMITTED: 09/12/2018 DISCHARGED: 09/12/2018 HOSPITAL COURSE: The patient is a 53-year-old gentleman who underwent uneventful cataract extraction with intraocular lens implant, left eye, on 09/12/2018. He will be discharged to home. He was instructed to resume preoperative medications, take Tylenol as needed for discomfort, to keep his eye shielded, to use Durezol, Ilevro and Vigamox at 3 p.m. and 8 p.m., and to follow up in my office in 1 day. DICTATING PHYSICIAN: DORIAN VILLA M.D. [id number] PHY#: [id number] ID: [id number] JOB#: [id number] ACCT: [id number] cc:DORIAN VILLA M.D. >
--- NOTE | 2018-09-12 20:50 | [facility] OPERATIVE REPORT E ---
[facility] Operative Report NAME: MERLE ABAD JR AGE: 53Y DATE OF SURGERY: 09/12/2018 ROOM: PREOPERATIVE DIAGNOSIS: CATARACT, LEFT EYE. POSTOPERATIVE DIAGNOSIS: CATARACT, LEFT EYE. OPERATION: Phacoemulsification with posterior chamber intraocular lens, left eye. SURGEON: DORIAN VILLA M.D. ANESTHESIA: Topical with MAC. INDICATIONS FOR SURGERY: Difficulty driving at night. PROCEDURE: The patient was brought to the Operating Room and placed on the operative table. Following tetracaine drops, topical anesthesia was administered. This consisted of instrument wipe pledgets soaked in a solution of 4% Xylocaine mixed with 0.75% Marcaine in a 1:2 ratio. A 2 x 1 cm pledget was placed in the superior fornix. A 1 x 1 cm pledget was placed in the inferior fornix. The eye was patched shut for 5 minutes. The patch was removed. The eye was sterilely prepped and draped in the usual manner. Lid speculum was placed in the eye. The pledgets were removed. 4-0 black silk sutures were placed around the superior and the inferior rectus muscles to be used as traction. A conjunctival peritomy was made at the 10 o'clock position. Hemostasis was obtained with bipolar cautery. A posterior limbal groove was created using a crescent knife and dissected anteriorly towards the cornea. A sharp point blade was used to create a paracentesis site at the 2 o'clock position. A 2.4 mm keratome was used to enter the anterior chamber through the groove. Viscoelastic was injected into the anterior chamber. An anterior capsulotomy was performed using Utrata forceps in a capsulorrhexis fashion. Hydrodissection and hydrodelineation were performed. Phacoemulsification was performed in jtizbr-pir-mnsooge technique. A total of 6.47 CDE phaco time was used. Following this, the I/A unit was used to remove residual cortex. Viscoelastic was injected into the capsular bag. Intraocular lens model ZCB00, 22.0 diopters, serial number [id number] was placed in the capsular bag. The I/A unit was used to remove residual viscoelastic. The wound was seen to be watertight under high and low pressure, and no sutures were placed. The intraocular lens was well centered. The pressure was adjusted in the eye to normal pressure. The 4-0 black silk sutures and lid speculum were removed. A drop of Cosopt was placed into the eye at the end of surgery. The eye was shielded after Besivance drops were placed. The patient tolerated the procedure well and was sent to the Recovery Room in good condition. DICTATING PHYSICIAN: DORIAN VILLA M.D. DICTATING PHYSICIAN: DORIAN VILLA M.D. [id number] PHY#: [id number] ID: [id number] JOB#: [id number] ACCT: [id number] cc:DORIAN VILLA M.D. >
== END 2018-09-12 12:13 | disposition home or self-care (01) ==
LOC: SC 09:06
PROVIDERS: ATTEND Ophthalmology
DX: H25.812 Combined forms of age-related cataract, left eye (principal); E11.22 Type 2 diabetes mellitus with diabetic chronic kidney disease; I12.0 Hypertensive chronic kidney disease with stage 5 chronic kidney disease or end stage renal disease; N18.6 End stage renal disease; Z99.2 Dependence on renal dialysis; Z87.891 Personal history of nicotine dependence; Z79.899 Other long term (current) drug therapy; Z96.1 Presence of intraocular lens; E11.3513 Type 2 diabetes mellitus with proliferative diabetic retinopathy with macular edema, bilateral; H52.4 Presbyopia
CPT/HCPCS: 66984; 82962; V2632; J2250; J3490 ×5; A9270; J0171; J3010; 142

== ENCOUNTER → 2018-10-30 | Outpatient (CLI) | payer MEDICARE, MEDICAID ==
--- NOTE | 2018-10-30 17:45 | RADIOLOGY REPORT (SQ) ---
EXAM DESCRIPTION: MRI HEAD WITHOUT COMPLETED DATE/TIME: 10/30/2018 5:11 pm REASON FOR STUDY: W10.9XXA FALL (ON) (FROM) UNSPECIFIED STAIRS AND STEPS, INIT ENCNTR W10.9XXA FALL (ON) (FROM) UNSPECIFIED STAIRS AND STEPS, INIT R51 HEADACHE COMPARISON: None. TECHNIQUE: Multiplanar imaging includes non-contrasted T1, T2, FLAIR, and Diffusion with ADC map seq uences. Images stored on PACS. LIMITATIONS: None. FINDINGS: ANATOMY: No anomalies. Normal vascular flow voids. Pituitary fossa normal. CSF SPACES: Normal in size and contour. No hemorrhage. CEREBRUM: A few high-signal intensity lesions scattered throughout the white matter on FLAIR imaging with distribution suggesting chronic micro-vascular ischemic change. Sulci and gyri normal in size a nd contour. No evidence of hemorrhage, mass or extraaxial fluid collection. POSTERIOR FOSSA: No signal alteration. No hemorrhage. No edema, masses or mass effect. Internal fuentes tory canals, cerebello-pontine angles, mastoids normal. DIFFUSION: Negative for acute or sub-acute infarction. ORBITS: No masses. Globes normal. PARANASAL SINUSES: No fluid levels. Mucosa normal. OTHER: No other significant finding. IMPRESSION: MINIMAL MICROVASCULAR ISCHEMIC CHANGE. OTHERWISE NORMAL STUDY. EVIDENCE OF ACUTE STROKE: NO. TECHNICAL DOCUMENTATION: JOB ID: [id number] [employer]- All Rights Reserved Reading location - IP/workstation name: [email or web address]
== END ==
LOC: RAD 16:46
PROVIDERS: ATTEND Internal Medicine
DX: S09.90XA Unspecified injury of head, initial encounter (principal); W10.9XXA Fall (on) (from) unspecified stairs and steps, initial encounter; Y93.9 Activity, unspecified; Y92.9 Unspecified place or not applicable
CPT/HCPCS: 70551

== ENCOUNTER → 2018-11-16 | Outpatient (CLI) | payer MEDICARE, MEDICAID ==
--- NOTE | 2018-11-16 14:38 | RADIOLOGY REPORT (SQ) ---
EXAM DESCRIPTION: CT CHEST WITHOUT COMPLETED DATE/TIME: 11/16/2018 1:30 pm REASON FOR STUDY: J44.9 CHRONIC OBSTRUCTIVE PULMONARY DISEASE, UNSPECIFIED F17.210 NICOTINE DEPENDE NCE, CIGARETTES, UNCOMPLICATED J44.9 CHRONIC OBSTRUCTIVE PULMONARY DISEASE, UNSPECIFIED COMPARISON: CT angio chest 12/19/2013 TECHNIQUE: CT scan performed of the chest without intravenous contrast. Images reviewed with lung, soft tissue and bone windows. Reconstructed coronal and sagittal MPR images reviewed. All images st ored on PACS. All CT scanners at this facility use dose modulation, iterative reconstruction, and/or weight based d osing when appropriate to reduce radiation dose to as low as reasonably achievable (ALARA). [facility]: Dose Right [facility]: CareDose [facility]: Dose Right [facility]: Teradose 4D [facility]: HeadMix RADIATION DOSE: CT Rad equipment meets quality standard of care and radiation dose reduction techniq ues were employed. CTDIvol: 9.1 mGy. DLP: 362 mGy-cm. mGy. LIMITATIONS: No technical limitations. FINDINGS: LUNGS AND PLEURA: No masses, infiltrates, or pneumothorax. No pleural effusions or pleura l calcifications. HILAR AND MEDIASTINAL STRUCTURES: No identified masses or abnormal nodes. No obvious aneurysm. HEART AND VASCULAR STRUCTURES: No aneurysm. No pericardial effusion. Mild coronary artery calcifica tion. Calcified aortic valve. UPPER ABDOMEN: No significant findings. Limited exam. THYROID AND OTHER SOFT TISSUES: No masses. No adenopathy. BONES: No significant finding. HARDWARE: None in the chest. OTHER: No other significant findings. IMPRESSION: NO SIGNIFICANT FINDING ON NON-CONTRASTED CHEST CT. TECHNICAL DOCUMENTATION: JOB ID: [id number] Quality ID # [id number]: Final reports with documentation of one or more dose reduction techniques (e.g., Au tomated exposure control, adjustment of the mA and/or kV according to patient size, use of iterative reconstruction technique) 2010 [employer]- All Rights Reserved Reading location - IP/workstation name: [email or web address]
== END ==
LOC: RAD 13:04
PROVIDERS: ATTEND Internal Medicine Nephrology
DX: J44.9 Chronic obstructive pulmonary disease, unspecified (principal); F17.210 Nicotine dependence, cigarettes, uncomplicated; Z01.83 Encounter for blood typing
CPT/HCPCS: 36415; 71250; 86900; 86901

== ENCOUNTER → 2018-12-26 | Outpatient (CLI) | payer MEDICARE, MEDICAID ==
--- NOTE | 2018-12-26 16:52 | XCELERA REPORT ---
[address] [address] Lower Extremity Arterial Evaluation Name: JENNIFFER SPARKS, MERLE Tong, Age: 53 yrs Gender: Male : 1965 Patient Status: Outpatient Patient Location: [facility] Study Date: 12/26/2018 09:12 AM Procedure: A color flow and duplex scan of the lower extremity arteries was performed bilaterally with velocity and waveform anaylsis. 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 Biphasic with normal velocity, spectral broadening, in the Posterior Tibial artery. Biphasic ,low normal velocity, spectral broadening, in the Anterior tibial. Ankle Brachial index not ordered. Left Side Arterial Evaluation Normal velocity and triphasic waveforms noted from the Common Femoral artery to the Popliteal. Biphasic with normal velocity, spectral broadening, in the Posterior Tibial artery .Monophasic ,low velocity, spectral broadening, in the Anterior tibial. Ankle Brachial index not ordered. Interpretation Summary Moderate hemodynamically significant lesions in the bilateral lower extremities, on duplex imaging, at rest. Duplex imaging, indicates normal flow to the Popliteal, significant disease in the infrageniculate are, especially severe in the Anterior Tibial. Bilaterally. : CATARINO HARRIS > Alberto Benitez
== END ==
LOC: SP 08:13
PROVIDERS: ATTEND Internal Medicine Nephrology
DX: I73.9 Peripheral vascular disease, unspecified (principal)
CPT/HCPCS: 93925

== ENCOUNTER → 2019-01-12 | Outpatient (CLI) | payer MEDICARE, MEDICAID ==
--- NOTE | 2019-01-12 11:20 | RADIOLOGY REPORT (SQ) ---
EXAM DESCRIPTION: U/S ABDOMEN LIMITED W/O DOP COMPLETED DATE/TIME: 01/12/2019 11:08 am REASON FOR STUDY: RUQ PAIN K81.0 ACUTE CHOLECYSTITIS COMPARISON: None. TECHNIQUE: Dynamic and static grayscale images acquired of the abdomen and recorded on PACS. Additio isaias selected color Doppler and spectral images recorded. LIMITATIONS: None. FINDINGS: PANCREAS: No masses. Visualized pancreatic duct normal caliber. LIVER: No masses. Increased echogenicity. LIVER VASCULATURE: Normal directional flow of the main portal vein and hepatic veins. GALLBLADDER: No stones. Normal wall thickness. No pericholecystic fluid. ULTRASOUND-DETECTED JOHNSON'S SIGN: Negative. INTRAHEPATIC DUCTS AND COMMON DUCT: CBD and intrahepatic ducts normal caliber. No filling defects. INFERIOR VENA CAVA: Normal flow. AORTA: Proximal aorta measures up to 2.6 cm. RIGHT KIDNEY: Normal size measuring 10.5 cm. Normal echogenicity. No solid or suspicious masses. No hydronephrosis. No calcifications. PERITONEAL AND RIGHT PLEURAL SPACE: No ascites or effusions. OTHER: No other significant findings. IMPRESSION: 1. No cholelithiasis or evidence of acute cholecystitis. 2. Proximal aorta measures up to 2.6 cm. Follow-up recommendations as below. 3. Likely hepatic steatosis. COMMENT: AAA Size: Follow-up Recommendation 2.6-2.9 cm Every 5 years* *Based upon the Society for Vascular Surgery Guidelines: J Vasc Surg. 2009 Nov;50(4 Suppl):S2-49 *For aortas of maximum diameter of 2.6-2.9 cm meeting the criteria for AAA (?1.5 x proximal normal se gment) TECHNICAL DOCUMENTATION: JOB ID: [id number] [employer]- All Rights Reserved Reading location - IP/workstation name: [email or web address]
== END ==
LOC: RAD 09:59
PROVIDERS: ATTEND Internal Medicine Nephrology
DX: R10.11 Right upper quadrant pain (principal)
CPT/HCPCS: 76705

== ENCOUNTER → 2019-04-13 | Outpatient (CLI) | payer MEDICARE, MEDICAID ==
--- NOTE | 2019-04-13 12:31 | RADIOLOGY REPORT (SQ) ---
EXAM DESCRIPTION: KUB COMPLETED DATE/TIME: 04/13/2019 12:16 pm REASON FOR STUDY: VOMITING, UNSPECIFIED R11.10 VOMITING, UNSPECIFIED COMPARISON: None. NUMBER OF VIEWS: One view. TECHNIQUE: Supine radiographic image of the abdomen acquired. LIMITATIONS: None. FINDINGS: BOWEL GAS PATTERN: Normal bowel gas pattern. No dilated loops. CALCIFICATIONS: No radiopaque stones overlie kidneys or expected course of ureters. Scattered pelvic phleboliths. SOFT TISSUES: No gross mass or suggestion of organomegaly. HARDWARE: Peritoneal dialysis catheter coiled over midline pelvis. Partially visualize cancellous sc rews within the left femoral neck. BONES: No acute fracture. No worrisome bone lesions. OTHER: No other significant finding. IMPRESSION: No evidence of intestinal obstruction or other acute intra-abdominal/pelvic process. TECHNICAL DOCUMENTATION: JOB ID: [id number] 2010 [employer]- All Rights Reserved Reading location - IP/workstation name: [email or web address]
== END ==
LOC: OD 12:04
PROVIDERS: ATTEND Internal Medicine
DX: R11.10 Vomiting, unspecified (principal)
CPT/HCPCS: 74018

== ENCOUNTER 2019-05-02 14:12 | Inpatient (IN) | payer MEDICARE, MEDICAID ==
[2019-05-02] MEDS ORDERED: NORMAL SALINE 1000 ML 1,000 ML IV PRN (14:44)
[2019-05-02 15:29] LABS: ABSOLUTE LYMPHOCYTES (AUTO) 0.4 10^3/uL (0.5-4.7); ABSOLUTE MONOCYTES (AUTO) 0.3 10^3/uL (0.1-1.4); ABSOLUTE NEUT (AUTO) 5.5 10^3/uL (1.7-8.2); BASOPHILS % (AUTO) 0.3 % (0-2); EOSINOPHILS % (AUTO) 0.1 % (0-6); HEMATOCRIT 35.3 % (37.9-51.0); HEMOGLOBIN 11.8 g/dL (13.5-17.0); LYMPHOCYTES % (AUTO) 6.7 % (13-45); MEAN CORPUSCULAR HEMOGLOBIN 32.6 pg (27.0-33.4); MEAN CORPUSCULAR HGB CONC 33.4 g/dL (32.0-36.0); MEAN CORPUSCULAR VOLUME 98 fl (80-97); MONOCYTES % (AUTO) 5.1 % (3-13); PLATELET COUNT 197 10^3/uL (150-450); RED BLOOD COUNT 3.61 10^6/uL (4.35-5.55); RED CELL DISTRIBUTION WIDTH 17.8 % (11.5-14.0); SEGMENTED NEUTROPHILS % (AUTO) 87.8 % (42-78); TOTAL CELLS COUNTED % (AUTO) 100 %; WHITE BLOOD COUNT 6.2 10^3/uL (4.0-10.5)
[2019-05-02 15:32] LABS: INTERNATIONAL RATION (INR) 1.07; PROTHROMBIN TIME 13.9 SEC (11.4-15.4)
[2019-05-02 15:33] LABS: PARTIAL THROMBOPLASTIN TIME 27.8 SEC (23.5-35.8)
[2019-05-02 15:56] LABS: ALKALINE PHOSPHATASE 73 U/L (38-126); AMYLASE 144 U/L (30-110); ANION GAP 14 (5-19); ASPARTATE AMINO TRANSFERASE 25 U/L (17-59); BILIRUBIN,DIRECT 0.4 mg/dL (0.0-0.4); BILIRUBIN,TOTAL 0.4 mg/dL (0.2-1.3); BLOOD UREA NITROGEN 57 mg/dL (7-20); CALCIUM 7.9 mg/dL (8.4-10.2); CARBON DIOXIDE 27 mmol/L (22-30); CHLORIDE 99 mmol/L (98-107); GLUCOSE 115 mg/dL (75-110); PHOSPHORUS 6.5 mg/dL (2.5-4.5); POTASSIUM 3.8 mmol/L (3.6-5.0)
[2019-05-02 16:10] LABS: BLOOD UREA NITROGEN 57 mg/dL (7-20); CALCIUM 7.9 mg/dL (8.4-10.2); CARBON DIOXIDE 27 mmol/L (22-30); CHLORIDE 99 mmol/L (98-107); GLUCOSE 115 mg/dL (75-110); POTASSIUM 3.8 mmol/L (3.6-5.0)
[2019-05-02 16:11] LABS: ALKALINE PHOSPHATASE 73 U/L (38-126); ANION GAP 14 (5-19); ASPARTATE AMINO TRANSFERASE 25 U/L (17-59); BILIRUBIN,DIRECT 0.4 mg/dL (0.0-0.4); BILIRUBIN,TOTAL 0.4 mg/dL (0.2-1.3)
[2019-05-02 16:25] LABS: THYROID STIMULATING HORMONE 2.22 uIU/mL (0.47-4.68)
[2019-05-02] MEDS ORDERED: CLONIDINE HCL 0.2 MG TABLET PO ONE (16:30)
--- NOTE | 2019-05-02 16:36 | RADIOLOGY REPORT (SQ) ---
EXAM DESCRIPTION: CT ABD/PELVIS NO ORAL OR IV COMPLETED DATE/TIME: 05/02/2019 4:20 pm REASON FOR STUDY: INTRACTABLE VOMITING COMPARISON: 04/17/2018 TECHNIQUE: CT scan of the abdomen and pelvis performed without intravenous or oral contrast. Images reviewed with lung, soft tissue, and bone windows. Reconstructed coronal and sagittal MPR images revi ewed. All images stored on PACS. All CT scanners at this facility use dose modulation, iterative reconstruction, and/or weight based d osing when appropriate to reduce radiation dose to as low as reasonably achievable (ALARA). [facility]: Dose Right [facility]: CareDose [facility]: Dose Right [facility]: Teradose 4D [facility]: [employer] RADIATION DOSE: CT Rad equipment meets quality standard of care and radiation dose reduction techniq ues were employed. CTDIvol: 7.9 mGy. DLP: 416 mGy-cm.mGy. LIMITATIONS: None. FINDINGS: LOWER CHEST: Hiatal hernia. NON-CONTRASTED LIVER, SPLEEN, ADRENALS: Evaluation limited by lack of IV contrast. No identified sign ificant masses. PANCREAS: No masses. No peripancreatic inflammatory changes. GALLBLADDER: No identified stones by CT criteria. No inflammatory changes to suggest cholecystitis. RIGHT KIDNEY AND URETER: No suspicious masses. Assessment limited by lack of IV contrast. No signif icant calcifications. No hydronephrosis or hydroureter. LEFT KIDNEY AND URETER: No suspicious masses. Assessment limited by lack of IV contrast. No signifi cant calcifications. No hydronephrosis or hydroureter. AORTA AND RETROPERITONEUM: No aneurysm. No retroperitoneal masses or adenopathy. BOWEL AND PERITONEAL CAVITY: Percutaneous catheter coiled in the pelvis from a left lower quadrant an terior approach. APPENDIX: Not visualized. PELVIS, BLADDER, AND ABDOMINAL WALL:No abnormal masses. No free fluid. Bladder normal. BONES: No significant findings. OTHER: No other significant finding. IMPRESSION: No acute findings. COMMENT: Quality ID # [id number]: Final reports with documentation of one or more dose reduction techniques (e.g., Automated exposure control, adjustment of the mA and/or kV according to patient size, use of iterative reconstruction technique) TECHNICAL DOCUMENTATION: JOB ID: [id number] 2010 [employer]- All Rights Reserved Reading location - IP/workstation name: [email or web address]
[2019-05-02] MEDS: HEPARIN SOD (PORCINE) 5,000 UNIT/ML 1 ML VIAL SUBCUT SCH ×2 (17:17→21:40)
[2019-05-02 17:45] LABS: APPEARANCE,URINE CLEAR; BILIRUBIN,URINE NEGATIVE (NEGATIVE); COLOR,URINE YELLOW; GLUCOSE, URINE >=500 mg/dL (NEGATIVE); KETONES,URINE NEGATIVE (NEGATIVE); LEUKOCYTE ESTERASE,URINE MODERATE (NEGATIVE); NITRITE,URINE NEGATIVE (NEGATIVE); PROTEIN,URINE >=500 mg/dL (NEGATIVE); URINE SPECIFIC GRAVITY 1.012; UROBILINOGEN,URINE NEGATIVE mg/dL (<2.0)
[2019-05-02 17:58] LABS: URINE AMPHETAMINES SCREEN NEGATIVE; URINE BARBITURATES SCREEN NEGATIVE; URINE BENZODIAZEPINES SCREEN NEGATIVE; URINE COCAINE SCREEN NEGATIVE; URINE MARIJUANA (THC) SCREEN NEGATIVE; URINE METHADONE SCREEN NEGATIVE; URINE PHENCYCLIDINE SCREEN NEGATIVE
[2019-05-02] MEDS: ONDANSETRON HCL INJ/PF 4 MG/2 ML SDV IV PRN (20:15)
[2019-05-02] MEDS ORDERED: GLUCAGON,HUMAN RECOMB 1 MG INJ IM PRN (20:31)
[2019-05-02] MEDS ORDERED: DEXTROSE 40% GEL 15 GM TUBE PO PRN ×2 (20:31)
[2019-05-02] MEDS ORDERED: DEXTROSE 50%-WATER 25 GM/50 ML DISP.SYRIN IV PRN ×2 (20:31)
--- NOTE | 2019-05-02 20:40 | PDOC H&P ---
History of Present Illness Admission Date/PCP: 05/02/19 14:12 CATARINO HARRIS MD History of Present Illness: MERLE ABAD JR is a 54 year old male, He has end-stage renal disease on p eritoneal dialysis, he came to the office today for evaluation of vomiting for the last 2 days, he said he is not able to keep any food down in his stomach he has been vomiting potentially in the last 2 days. I was particularly concerned about peritonitis in this patient because he is on PD the abdomen is not particularly tender on palpation but that by itself is not sensitive enough to diagnose peritonitis in this patient population. He was admitted directly from outpatient into the hospital a CAT scan was obtained it was nondiagnostic there was no acute pathology demonstrated on the CAT scan. Past Medical History Cardiac Medical History: Reports: Hyperlipidema, Hypertension Pulmonary Medical History: Reports: Chronic Obstructive Pulmonary Disease (COPD) Neurological Medical History: Denies: Seizures Endocrine Medical History: Reports: Diabetes Mellitus Type 2 - He has diabetic retinopathy and nephropathy. There is proteinuria Renal/ Medical History: Reports: End Stage Renal Disease Psychiatric Medical History: Reports: Depression Hematology: Reports: Anemia Denies: Sickle Cell Disease Past Surgical History Past Surgical History: Reports: Orthopedic Surgery, Other - Left leg for plate in his ankle, also has plates in his shoulder and hip. Denies: Pacemaker Social History Smoking Status: Former Smoker Last Time Smoked: 02/08/2016 Frequency of Alcohol Use: None Hx Recreational Drug Use: No Drugs: None Hx Prescription Drug Abuse: No Family History Family History: CAD, COPD, DM, Hyperlipidemia, Hypertension Parental Family History Reviewed: Yes Children Family History Reviewed: Yes Sibling(s) Family History Reviewed.: Yes Medication/Allergy Home Medications: Atorvastatin Calcium [Lipitor 40 mg Tablet] 40 mg PO DAILY 05/02/19 Furosemide [Lasix 80 mg Tablet] 80 mg PO Q12 05/02/19 Gentamicin Sulfate [Garamycin 0.1% Cream 15 gm] 1 applic TOP ASDIR PRN 05/02/19 Hydralazine HCl 100 mg PO Q8 05/02/19 Allergies/Adverse Reactions: No Known Allergies Allergy (Verified 09/05/18 17:02) Review of Systems Constitutional: ABSENT: chills, fever(s), headache(s), weight gain, weight loss Eyes: ABSENT: visual disturbances Ears: ABSENT: hearing changes Cardiovascular: ABSENT: chest pain, dyspnea on exertion, edema, orthropnea, palpitations Respiratory: ABSENT: cough, hemoptysis Gastrointestinal: PRESENT: abdominal pain, vomiting Genitourinary: ABSENT: dysuria, hematuria Musculoskeletal: ABSENT: joint swelling Integumentary: ABSENT: rash, wounds Neurological: ABSENT: abnormal gait, abnormal speech, confusion, dizziness, focal weakness, syncope Psychiatric: ABSENT: anxiety, depression, homidical ideation, suicidal ideation Endocrine: ABSENT: cold intolerance, heat intolerance, menstrual abnormalities, polydipsia, polyuria Hematologic/Lymphatic: ABSENT: easy bleeding, easy bruising, lymphadenopathy Physical Exam Vital Signs: Temp Pulse Resp BP Pulse Ox 98.0 F 96 17 198/76 H 98 05/02/19 15:42 05/02/19 15:42 05/02/19 15:42 05/02/19 15:45 05/02/19 15:42 Intake & Output 05/01/19 05/02/19 05/03/19 06:59 06:59 06:59 Intake Total 240 Balance 240 Weight 76.6 kg General appearance: PRESENT: no acute distress Head exam: PRESENT: atraumatic, normocephalic Eye exam: PRESENT: conjunctiva pink, EOMI, PERRLA Ear exam: PRESENT: normal external ear exam Mouth exam: PRESENT: moist, tongue midline Neck exam: PRESENT: full ROM Respiratory exam: PRESENT: clear to auscultation mirna Cardiovascular exam: PRESENT: RRR, +S1, +S2 Pulses: PRESENT: normal dorsalis pedis pul, +2 pedal pulses bilateral Vascular exam: PRESENT: normal capillary refill GI/Abdominal exam: PRESENT: normal bowel sounds, soft Rectal exam: PRESENT: deferred Neurological exam: PRESENT: alert, awake, oriented to person, oriented to place, oriented to time, oriented to situation, CN II-XII grossly intact. ABSENT: motor sensory deficit Psychiatric exam: PRESENT: appropriate affect, normal mood Skin exam: PRESENT: dry, intact, warm Results Laboratory Results: 05/02/19 14:52 05/02/19 14:52 05/02/19 05/02/19 05/02/19 14:52 14:52 14:52 WBC 6.2 RBC 3.61 L Hgb 11.8 L Hct 35.3 L MCV 98 H MCH 32.6 MCHC 33.4 RDW 17.8 H Plt Count 197 Seg Neutrophils % 87.8 H Sodium 140.0 140.0 Potassium 3.8 3.8 Chloride 99 99 Carbon Dioxide 27 27 Anion Gap 14 14 BUN 57 H 57 H Creatinine 13.27 H 13.27 H Est GFR ( Amer) 5 L 5 L Glucose 115 H 115 H Calcium 7.9 L 7.9 L Phosphorus 6.5 H Magnesium 1.5 L Total Bilirubin 0.4 0.4 AST 25 25 Alkaline Phosphatase 73 73 Ammonia Total Protein 7.0 7.0 Albumin 4.0 4.0 Amylase 144 H Lipase 262.4 TSH Free T4 Urine Color Urine Appearance Urine pH Ur Specific [place] Urine Protein Urine Glucose (UA) Urine Ketones Urine Blood Urine Nitrite Ur Leukocyte Esterase Urine WBC (Auto) Urine RBC (Auto) 05/02/19 05/02/19 05/02/19 14:52 17:05 17:26 WBC RBC Hgb Hct MCV MCH MCHC RDW Plt Count Seg Neutrophils % Sodium Potassium Chloride Carbon Dioxide Anion Gap BUN Creatinine Est GFR ( Amer) Glucose Calcium Phosphorus Magnesium Total Bilirubin AST Alkaline Phosphatase Ammonia < 8.7 L Total Protein Albumin Amylase Lipase TSH 2.22 Free T4 1.00 Urine Color YELLOW Urine Appearance CLEAR Urine pH 7.0 Ur Specific [place] 1.012 Urine Protein >=500 H Urine Glucose (UA) >=500 H Urine Ketones NEGATIVE Urine Blood NEGATIVE Urine Nitrite NEGATIVE Ur Leukocyte Esterase MODERATE H Urine WBC (Auto) 51 Urine RBC (Auto) 3 05/02/19 05/02/19 05/02/19 14:52 17:26 17:26 Creatine Kinase 241 H CK-MB (CK-2) 3.15 NT-Pro-B Natriuret Pep 14967 H Impressions: Abdomen/Pelvis CT 05/02/19 00:00 IMPRESSION: No acute findings. Assessment & Plan - Diagnosis (1) Intractable vomiting Qualifiers: Vomiting type: unspecified Nausea presence: with nausea Qualified Code(s): R11.2 - Nausea with vomiting, unspecified Is this a current diagnosis for this admission?: Yes Plan: The differential diagnosis very long, The CT scan did not demonstrate any obstruction. patient will be empirically started on Rocephin after blood cultures obtained and also peritoneal fluid analysis, suspect peritonitis (2) End-stage renal disease on peritoneal dialysis Is this a current diagnosis for this admission?: Yes Plan: Consult nephrology for management
[2019-05-02 20:54] LABS: FLUID APPEARANCE CLEAR; FLUID COLOR COLORLESS; FLUID SOURCE ABDOMEN; FLUID TYPE PERITONEAL; FLUID VISCOSITY LIQUID
[2019-05-02] MEDS: PANTOPRAZOLE SODIUM 40 MG VIAL IV SCH (21:40)
[2019-05-02] MEDS: ATORVASTATIN CALCIUM 40 MG TABLET PO SCH (21:41)
[2019-05-02] MEDS: FUROSEMIDE 80 MG TABLET PO SCH (21:41)
[2019-05-02] MEDS: HYDRALAZINE HCL 50 MG TABLET PO SCH (21:41)
[2019-05-02] MEDS: CEFTRIAXONE 1 GM/D5W RTU 1 GM/50 ML RTUPB IV SCH (21:42)
[2019-05-02] MEDS: INSULIN LISPRO 100 UNIT/ML 3 ML VIAL SUBCUT SCH (21:47)
[2019-05-02] MEDS ORDERED: (PENDING PHARMACY ID) (Hydralazine Hcl [Hydralazine Hcl] 100 MG) PO SCH (22:00)
[2019-05-03] MEDS: ACETAMINOPHEN 325 MG TABLET PO PRN ×2 (03:03→17:37)
[2019-05-03] MEDS ORDERED: GENTAMICIN SULFATE 0.1% CREAM 15 GM ONE (03:08)
[2019-05-03 03:49] LABS: CHOLESTEROL 192.98 mg/dL (0-200); TRIGLYCERIDES 165 mg/dL (<150)
[2019-05-03 04:00] LABS: DIRECT LDL 102 mg/dL (<100)
[2019-05-03] MEDS: HYDRALAZINE HCL 50 MG TABLET PO SCH ×3 (05:39→21:06)
[2019-05-03] MEDS: ONDANSETRON HCL INJ/PF 4 MG/2 ML SDV IV PRN ×2 (05:40→17:36)
[2019-05-03] MEDS: HEPARIN SOD (PORCINE) 5,000 UNIT/ML 1 ML VIAL SUBCUT SCH ×3 (05:40→21:07)
[2019-05-03] MEDS: INSULIN LISPRO 100 UNIT/ML 3 ML VIAL SUBCUT SCH ×4 (08:03→21:07)
--- NOTE | 2019-05-03 08:26 | RADIOLOGY REPORT (SQ) ---
EXAM DESCRIPTION: CHEST SINGLE VIEW COMPLETED DATE/TIME: 05/03/2019 8:17 am REASON FOR STUDY: sob COMPARISON: 05/15/2018 EXAM PARAMETERS: NUMBER OF VIEWS: One view. TECHNIQUE: Single frontal radiographic view of the chest acquired. RADIATION DOSE: NA LIMITATIONS: None. FINDINGS: LUNGS AND PLEURA: No opacities, masses or pneumothorax. No pleural effusion. MEDIASTINUM AND HILAR STRUCTURES: No masses. Contour normal. HEART AND VASCULAR STRUCTURES: Heart normal in size. Normal vasculature. BONES: No acute findings. HARDWARE: None in the chest. OTHER: No other significant finding. IMPRESSION: NO ACUTE RADIOGRAPHIC FINDING IN THE CHEST. TECHNICAL DOCUMENTATION: JOB ID: [id number] 2010 [employer]- All Rights Reserved Reading location - IP/workstation name: [email or web address]
[2019-05-03] MEDS: GENTAMICIN SULFATE 0.1% CREAM 15 GM TP SCH (10:04)
[2019-05-03] MEDS: PANTOPRAZOLE SODIUM 40 MG VIAL IV SCH (10:05)
[2019-05-03] MEDS: FUROSEMIDE 80 MG TABLET PO SCH ×2 (10:05→21:06)
--- NOTE | 2019-05-03 10:59 | PDOC CONSULTATION ---
Consultation Consult Date: 05/02/19 Provider Consulted: Teresa SCHROEDER Consult reason:: ESRD on PD with abdominal pains and nausea and vomiting. History of Present Illness Admission Date/PCP: 05/02/19 14:12 CATARINO HARRIS MD History of Present Illness: MERLE ABAD JR is a 54 year old male with a history of ESRD on peritoneal dialysis in the background of diabetes mellitus, hypertension comes in with a history of persistent and intractable nausea with vomiting of 1 day's duration.He says he has been sipping some amount of fluids but unable to eat anything. He still makes small amounts of urine. There is no history of abdominal pains. He says the effluent when he saw this morning was clear and not cloudy. He also gives a history of cough rather drive on the day before which apparently seems to have almost resolved as of today. No history of any fever chills shortness of breath. He continues to get PD at home on a cycler and goes dry in the day and starts his daily PD at 6 PM with a free back before he gets on the cycler. His exit site is clean. Labs and medications were reviewed. Currently he is dry with no fluid in him. Past Medical History Cardiac Medical History: Reports: Hyperlipidemia, Hypertension-primary Denies: Coronary Artery Disease, Myocardial Infarction Pulmonary Medical History: Reports: Chronic Obstructive Pulmonary Disease (COPD) Denies: Asthma, Bronchitis, Pneumonia Neurological Medical History: Denies: Seizures Endocrine Medical History: Reports: Diabetes Mellitus Type 2 - He has diabetic retinopathy and nephropathy. There is proteinuria Complications of Diabetes: Reports: Autonomic Neuropathy, Nephropathy, Retinopathy Renal/ Medical History: Reports: End Stage Renal Disease, Hypocalcemia, Hyperkalemia, Hyperphosphatemia, Secondary Hyperparathyroidism GI Medical History: Denies: Hepatitis, Hiatal Hernia Musculoskeltal Medical History: Denies: Arthritis Psychiatric Medical History: Reports: Depression Past Surgical History Past Surgical History: Reports: Orthopedic Surgery, Other - Left leg for plate in his ankle, also has plates in his shoulder and hip. Denies: Pacemaker Social History Smoking Status: Former Smoker Last Time Smoked: 02/08/2016 Frequency of Alcohol Use: None Hx Recreational Drug Use: No Drugs: None Hx Prescription Drug Abuse: No Family History Parental Family History Reviewed: No Children Family History Reviewed: No Sibling(s) Family History Reviewed.: No Medication/Allergy Home Medications: Atorvastatin Calcium [Lipitor 40 mg Tablet] 40 mg PO DAILY 03/25/20 Furosemide [Lasix 80 mg Tablet] 80 mg PO Q12 05/02/19 Gentamicin Sulfate [Garamycin 0.1% Cream 15 gm] 1 applic TOP ASDIR PRN 05/02/19 Hydralazine HCl 100 mg PO Q8 05/02/19 Allergies/Adverse Reactions: No Known Allergies Allergy (Verified 09/05/18 17:02) Review of Systems Constitutional: PRESENT: anorexia. ABSENT: chills, fatigue, fever(s), headache(s), night sweats, weakness Nose, Mouth, and Throat: ABSENT: mouth pain, sore throat Cardiovascular: ABSENT: chest pain, dyspnea on exertion, edema, orthropnea, palpitations Respiratory: PRESENT: cough - Had a dry cough yesterday but seems to be almost resolved as of today.. ABSENT: dyspnea, hemoptysis Gastrointestinal: PRESENT: nausea, vomiting. ABSENT: abdominal pain, bloating, coffee ground emesis, constipation, diarrhea, dysphagia, heartburn, hematemesis, hematochezia Genitourinary: ABSENT: dysuria, hematuria Musculoskeletal: ABSENT: deformity, joint swelling Integumentary: ABSENT: erythema, lesions, pruritus, rash Neurological: ABSENT: abnormal movements, abnormal speech, confusion, convulsions, focal weakness, frequent falls Psychiatric: ABSENT: anxiety Hematologic/Lymphatic: ABSENT: easy bruising, lymphadenopathy Physical Exam Vital Signs: Temp Pulse Resp BP Pulse Ox 98.0 F 96 17 198/76 H 98 05/02/19 15:42 05/02/19 15:42 05/02/19 15:42 05/02/19 15:45 05/02/19 15:42 Intake & Output 05/01/19 05/02/19 05/03/19 06:59 06:59 06:59 Intake Total 240 Balance 240 Weight 76.6 kg General appearance: PRESENT: no acute distress Eye exam: PRESENT: EOMI, PERRLA. ABSENT: scleral icterus Ear exam: PRESENT: normal external ear exam Mouth exam: ABSENT: moist Neck exam: ABSENT: lymphadenopathy, meningismus, tenderness, thyromegaly, tracheal deviation Respiratory exam: PRESENT: clear to auscultation mirna. ABSENT: crackles Cardiovascular exam: PRESENT: +S1, +S2 GI/Abdominal exam: PRESENT: normal bowel sounds, soft. ABSENT: organomegaly, tenderness Extremities exam: ABSENT: pedal edema Neurological exam: PRESENT: alert, awake, oriented to person, oriented to place, oriented to time Psychiatric exam: PRESENT: appropriate affect Skin exam: ABSENT: cyanosis, jaundice, mottled, rash Results Laboratory Results: 05/02/19 14:52 05/02/19 14:52 05/02/19 05/02/19 05/02/19 14:52 14:52 14:52 WBC 6.2 RBC 3.61 L Hgb 11.8 L Hct 35.3 L MCV 98 H MCH 32.6 MCHC 33.4 RDW 17.8 H Plt Count 197 Seg Neutrophils % 87.8 H Sodium 140.0 140.0 Potassium 3.8 3.8 Chloride 99 99 Carbon Dioxide 27 27 Anion Gap 14 14 BUN 57 H 57 H Creatinine 13.27 H 13.27 H Est GFR ( Amer) 5 L 5 L Glucose 115 H 115 H Calcium 7.9 L 7.9 L Phosphorus 6.5 H Magnesium 1.5 L Total Bilirubin 0.4 0.4 AST 25 25 Alkaline Phosphatase 73 73 Ammonia Total Protein 7.0 7.0 Albumin 4.0 4.0 Amylase 144 H Lipase 262.4 TSH Free T4 Urine Color Urine Appearance Urine pH Ur Specific [place] Urine Protein Urine Glucose (UA) Urine Ketones Urine Blood Urine Nitrite Ur Leukocyte Esterase Urine WBC (Auto) Urine RBC (Auto) 05/02/19 05/02/19 05/02/19 14:52 17:05 17:26 WBC RBC Hgb Hct MCV MCH MCHC RDW Plt Count Seg Neutrophils % Sodium Potassium Chloride Carbon Dioxide Anion Gap BUN Creatinine Est GFR ( Amer) Glucose Calcium Phosphorus Magnesium Total Bilirubin AST Alkaline Phosphatase Ammonia < 8.7 L Total Protein Albumin Amylase Lipase TSH 2.22 Free T4 1.00 Urine Color YELLOW Urine Appearance CLEAR Urine pH 7.0 Ur Specific [place] 1.012 Urine Protein >=500 H Urine Glucose (UA) >=500 H Urine Ketones NEGATIVE Urine Blood NEGATIVE Urine Nitrite NEGATIVE Ur Leukocyte Esterase MODERATE H Urine WBC (Auto) 51 Urine RBC (Auto) 3 05/02/19 05/02/19 05/02/19 14:52 17:26 17:26 Creatine Kinase 241 H CK-MB (CK-2) 3.15 NT-Pro-B Natriuret Pep [id number] H Impressions: Abdomen/Pelvis CT 05/02/19 00:00 IMPRESSION: No acute findings. Assessment & Plan - Diagnosis (1) Intractable vomiting Qualifiers: Vomiting type: unspecified Nausea presence: with nausea Qualified Code(s): R11.2 - Nausea with vomiting, unspecified Is this a current diagnosis for this admission?: Yes Plan: Of 1 days duration. No complaints of any GI bleeds. No history of diarrhea. No abdominal pains. CT scan negative for any obstruction. Examination of the abdomen was rather benign. Currently symptomatic treatment but is being evaluated further. (2) End-stage renal disease on peritoneal dialysis Is this a current diagnosis for this admission?: Yes Plan: Will want to rule out peritonitis. Will instill and drain fluid and sent for appropriate studies. Clinical evaluation is highly unlikely for peritonitis. Meanwhile discussed with treating nurse Denise to start CAPD with 2 L installation of 1.5% alternating with 2.5% fluids. Discussed with patient as well and he is okay with this CAPD as we do not have cycler here in the hospital. (3) Diabetes mellitus Qualifiers: Diabetes mellitus type: type 2 Diabetes mellitus complication status: with other specified complication Plan: As per Dr. Carrasco (4) Hypertension Plan: Presently uncontrolled. See response to dialysis and fluid removal. Monitor.
--- NOTE | 2019-05-03 20:12 | PDOC PROGRESS REPORT ---
Subjective Progress Note for:: 05/03/19 Subjective:: I saw patient today by the bedside the peritoneal fluid analysis was normal there is no white blood cell, the vomiting seems to have stopped last night I started him on IV Protonix but this evening he has developed pain I will consult surgeon for possible EGD, he may have mucosal lesion of the upper GI tract Reason For Visit: INTRACTABLE VOMITING, ? PERITONITIS, ESRD ON PD, Physical Exam Vital Signs: Temp Pulse Resp BP Pulse Ox 98.1 F 87 18 156/75 H 100 05/03/19 14:58 05/03/19 14:58 05/03/19 14:58 05/03/19 14:58 05/03/19 14:58 Intake & Output 05/02/19 05/03/19 05/04/19 06:59 06:59 06:59 Intake Total 7114 3780 Output Total 3200 4000 Balance 3914 -220 Weight 78.2 kg General appearance: PRESENT: no acute distress Eye exam: PRESENT: PERRLA Respiratory exam: PRESENT: clear to auscultation mirna Cardiovascular exam: PRESENT: +S1, +S2 GI/Abdominal exam: PRESENT: soft Neurological exam: PRESENT: alert Results Laboratory Results: 05/02/19 14:52 05/02/19 14:52 05/02/19 05/03/19 19:45 03:22 Triglycerides 165 H Cholesterol 192.98 LDL Cholesterol Direct 102 H VLDL Cholesterol 33.0 H HDL Cholesterol 47 Fluid Type PERITONEAL Fluid Source ABDOMEN Fluid Color COLORLESS Fluid Appearance CLEAR Fluid Viscosity LIQUID Fluid WBC 2 Fluid RBC 1 05/02/19 05/02/19 05/02/19 14:52 17:26 17:26 Creatine Kinase 241 H CK-MB (CK-2) 3.15 NT-Pro-B Natriuret Pep 20145 H 05/02/19 05/02/19 05/03/19 21:12 21:12 03:22 Creatine Kinase 217 H 226 H CK-MB (CK-2) 2.80 NT-Pro-B Natriuret Pep 05/03/19 03:22 Creatine Kinase CK-MB (CK-2) 2.79 NT-Pro-B Natriuret Pep Impressions: Abdomen/Pelvis CT 05/02/19 00:00 IMPRESSION: No acute findings. Chest X-Ray 05/03/19 00:00 IMPRESSION: NO ACUTE RADIOGRAPHIC FINDING IN THE CHEST. Assessment & Plan - Diagnosis (1) Intractable vomiting Qualifiers: Vomiting type: unspecified Nausea presence: with nausea Qualified Code(s): R11.2 - Nausea with vomiting, unspecified Is this a current diagnosis for this admission?: Yes Plan: This seems to have stopped now he has pain, consult surgery for EGD (2) End-stage renal disease on peritoneal dialysis Is this a current diagnosis for this admission?: Yes - Time Time Spent with patient: 25-34 minutes Level of Care: MEDICAL Medications reviewed and adjusted accordingly: Yes
[2019-05-03] MEDS: HYDROMORPHONE HCL INJ/PF 2 MG/ML AMPULE IV PRN (20:18)
[2019-05-03] MEDS: ATORVASTATIN CALCIUM 40 MG TABLET PO SCH (21:06)
[2019-05-03] MEDS: CEFTRIAXONE 1 GM/D5W RTU 1 GM/50 ML RTUPB IV SCH (21:07)
[2019-05-04] MEDS: ONDANSETRON HCL INJ/PF 4 MG/2 ML SDV IV PRN ×2 (01:41→08:27)
[2019-05-04] MEDS: ACETAMINOPHEN 325 MG TABLET PO PRN ×2 (01:41→21:34)
[2019-05-04] MEDS: HYDROMORPHONE HCL INJ/PF 2 MG/ML AMPULE IV PRN ×3 (03:18→22:09)
[2019-05-04] MEDS: HYDRALAZINE HCL 50 MG TABLET PO SCH ×3 (05:51→21:34)
[2019-05-04] MEDS: HEPARIN SOD (PORCINE) 5,000 UNIT/ML 1 ML VIAL SUBCUT SCH ×3 (05:51→21:35)
[2019-05-04] MEDS: INSULIN LISPRO 100 UNIT/ML 3 ML VIAL SUBCUT SCH ×4 (09:27→22:33)
[2019-05-04] MEDS: FUROSEMIDE 80 MG TABLET PO SCH ×2 (09:29→21:34)
[2019-05-04] MEDS: PANTOPRAZOLE SODIUM 40 MG VIAL IV SCH ×2 (09:29→21:34)
[2019-05-04] MEDS: GENTAMICIN SULFATE 0.1% CREAM 15 GM TP SCH (09:29)
--- NOTE | 2019-05-04 11:44 | PDOC PROGRESS REPORT ---
Subjective Progress Note for:: 05/04/19 Reason For Visit: Patient seen today. He still continues to have intermittent dry heaves though no tonie vomiting. No complaints of any abdominal pains. His breathing is good. Continues to get CAPD x4 exchanges in 24 hours. Discussed his issues with his treating nurse Victorina. He is not so compliant with a CAPD and tries to put some obstacles at times as per her. Labs and medications were reviewed. Intermittent spikes in blood pressures. Currently on alternating regimens of 1.5/2.5% dianeal bags. Physical Exam Vital Signs: Temp Pulse Resp BP Pulse Ox 98.2 F 78 16 184/73 H 97 05/04/19 05:11 05/04/19 07:00 05/04/19 05:11 05/04/19 05:11 05/04/19 05:11 Intake & Output 05/03/19 05/04/19 05/05/19 06:59 06:59 06:59 Intake Total 7114 7210 Output Total 3200 7500 Balance 3914 -290 Weight 78.2 kg 76.3 kg General appearance: PRESENT: no acute distress Respiratory exam: PRESENT: clear to auscultation mirna. ABSENT: crackles Cardiovascular exam: PRESENT: +S1, +S2 GI/Abdominal exam: PRESENT: normal bowel sounds, soft. ABSENT: organomegaly, tenderness Extremities exam: ABSENT: pedal edema Neurological exam: PRESENT: alert, awake, oriented to person Results Laboratory Results: 05/02/19 14:52 05/02/19 14:52 05/02/19 05/02/19 05/02/19 14:52 17:26 17:26 Creatine Kinase 241 H CK-MB (CK-2) 3.15 NT-Pro-B Natriuret Pep 84346 H 05/02/19 05/02/19 05/03/19 21:12 21:12 03:22 Creatine Kinase 217 H 226 H CK-MB (CK-2) 2.80 NT-Pro-B Natriuret Pep 05/03/19 03:22 Creatine Kinase CK-MB (CK-2) 2.79 NT-Pro-B Natriuret Pep Impressions: Abdomen/Pelvis CT 05/02/19 00:00 IMPRESSION: No acute findings. Chest X-Ray 05/03/19 00:00 IMPRESSION: NO ACUTE RADIOGRAPHIC FINDING IN THE CHEST. Assessment & Plan - Diagnosis (1) Intractable vomiting Qualifiers: Vomiting type: unspecified Nausea presence: with nausea Qualified Code(s): R11.2 - Nausea with vomiting, unspecified Is this a current diagnosis for this admission?: Yes Plan: Though better still having intermittent episodes of nausea with dry heaves. Has as per Dr. Carrasco. (2) End-stage renal disease on peritoneal dialysis Is this a current diagnosis for this admission?: Yes Plan: Continue on CAPD 4 exchanges in 24 hours. Discussed the treatment schedule with his treating nurse Victorina. If his blood pressure is over 180 systolic I would use 4.25% bag x1 and if he is blood pressure drops below 120 I would use a 1.5% exchange. (3) Diabetes mellitus Qualifiers: Diabetes mellitus type: type 2 Diabetes mellitus complication status: with other specified complication Plan: As per Dr. Carrasco (4) Hypertension Plan: Generally relatively well controlled but for intermittent spikes which may be related to his nausea and dry heaves. Monitor.
[2019-05-04 13:15] LABS: ALBUMIN 4.3 g/dL (3.5-5.0); ALKALINE PHOSPHATASE 82 U/L (38-126); ANION GAP 15 (5-19); ASPARTATE AMINO TRANSFERASE 26 U/L (17-59); BILIRUBIN,DIRECT 0.5 mg/dL (0.0-0.4); BILIRUBIN,TOTAL 0.5 mg/dL (0.2-1.3); BLOOD UREA NITROGEN 58 mg/dL (7-20); CALCIUM 8.3 mg/dL (8.4-10.2); CARBON DIOXIDE 28 mmol/L (22-30); CHLORIDE 95 mmol/L (98-107); GLUCOSE 148 mg/dL (75-110); POTASSIUM 3.9 mmol/L (3.6-5.0); TOTAL PROTEIN 7.5 g/dL (6.3-8.2)
--- NOTE | 2019-05-04 13:38 | PDOC CONSULTATION ---
Consultation Consult Date: 05/04/19 Provider Consulted: SHANAE GERONIMO Consult reason:: Abdominal pain and nausea vomiting History of Present Illness Admission Date/PCP: 05/02/19 14:12 CATARINO HARRIS MD History of Present Illness: MERLE ABAD JR is a 54 year old male with end-stage renal disease peritoneal dialysis dependent who presents with several day history of generalized malaise fever cough as well as some mid abdominal discomfort with anorexia and intermittent nausea and vomiting. No diarrhea. No travel history. Patient had a CT scan which demonstrated no significant bowel abnormalities. No significant findings other than his peritoneal dialysis catheter. Past Medical History Cardiac Medical History: Reports: Hyperlipidema, Hypertension Denies: Coronary Artery Disease, Myocardial Infarction Pulmonary Medical History: Reports: Chronic Obstructive Pulmonary Disease (COPD) Denies: Asthma, Bronchitis, Pneumonia Neurological Medical History: Denies: Seizures Endocrine Medical History: Reports: Diabetes Mellitus Type 2 - He has diabetic retinopathy and nephropathy. There is proteinuria Renal/ Medical History: Reports: End Stage Renal Disease GI Medical History: Denies: Hepatitis, Hiatal Hernia Musculoskeltal Medical History: Denies: Arthritis Psychiatric Medical History: Reports: Depression Hematology: Reports: Anemia Denies: Sickle Cell Disease Past Surgical History Past Surgical History: Reports: Orthopedic Surgery, Other - Left leg for plate in his ankle, also has plates in his shoulder and hip. Denies: Pacemaker Social History Smoking Status: Former Smoker Last Time Smoked: 02/08/2016 Frequency of Alcohol Use: None Hx Recreational Drug Use: No Drugs: None Hx Prescription Drug Abuse: No Family History Family History: CAD, COPD, DM, Hyperlipidemia, Hypertension Parental Family History Reviewed: No Children Family History Reviewed: No Sibling(s) Family History Reviewed.: No Medication/Allergy Home Medications: Atorvastatin Calcium [Lipitor 40 mg Tablet] 40 mg PO DAILY 05/02/19 Furosemide [Lasix 80 mg Tablet] 80 mg PO Q12 05/02/19 Gentamicin Sulfate [Garamycin 0.1% Cream 15 gm] 1 applic TOP ASDIR PRN 05/02/19 Hydralazine HCl 100 mg PO Q8 05/02/19 Allergies/Adverse Reactions: No Known Allergies Allergy (Verified 09/05/18 17:02) Physical Exam Vital Signs: Temp Pulse Resp BP Pulse Ox 97.9 F 79 16 185/65 H 100 05/04/19 11:57 05/04/19 11:57 05/04/19 11:57 05/04/19 11:57 05/04/19 11:57 Intake & Output 05/03/19 05/04/19 05/05/19 06:59 06:59 06:59 Intake Total 7114 7210 1500 Output Total 3200 7500 1350 Balance 3914 -290 150 Weight 78.2 kg 76.3 kg 76.9 kg General appearance: PRESENT: no acute distress, cooperative GI/Abdominal exam: PRESENT: other - Soft, nondistended, nontender to palpation. No palpable hepatosplenomegaly. Peritoneal dialysis catheter in place. No surrounding erythema. Results Laboratory Results: 05/02/19 14:52 05/04/19 12:45 05/04/19 12:45 Sodium 137.6 Potassium 3.9 Chloride 95 L Carbon Dioxide 28 Anion Gap 15 BUN 58 H Creatinine 12.68 H Est GFR ( Amer) 5 L Glucose 148 H Calcium 8.3 L Total Bilirubin 0.5 AST 26 Alkaline Phosphatase 82 Total Protein 7.5 Albumin 4.3 Lipase 244.7 05/02/19 05/02/19 05/02/19 14:52 17:26 17:26 Creatine Kinase 241 H CK-MB (CK-2) 3.15 NT-Pro-B Natriuret Pep 44288 H 05/02/19 05/02/19 05/03/19 21:12 21:12 03:22 Creatine Kinase 217 H 226 H CK-MB (CK-2) 2.80 NT-Pro-B Natriuret Pep 05/03/19 03:22 Creatine Kinase CK-MB (CK-2) 2.79 NT-Pro-B Natriuret Pep Impressions: Abdomen/Pelvis CT 05/02/19 00:00 IMPRESSION: No acute findings. Chest X-Ray 05/03/19 00:00 IMPRESSION: NO ACUTE RADIOGRAPHIC FINDING IN THE CHEST. Assessment & Plan - Diagnosis (1) Viral syndrome Is this a current diagnosis for this admission?: Yes Plan: Patient's presenting symptoms is highly suspicious for viral syndrome with his fever generalized malaise, coughing as well as abdominal discomfort and anorexia. I have reviewed the CT scan with radiology. I do not see any significant findings. His abdominal exam demonstrates no tenderness and certainly no peritoneal signs. It is possible that he does have some component of gastritis or gastroesophageal reflux disease and he may benefit from an upper endoscopy however I believe his presenting symptoms are more consistent with a viral syndrome. I have discussed this matter with his primary care doctor and have recommended initial isolation until Covid 19 testing can be done. Patient has been eating all day today although he has been having some emesis. With his p.o. intake I do not think it is safe to proceed with an EGD today. If by Tuesday if primary care doctor still feels that EGD is indicated, please make patient n.p.o. and reconsult. I do not think he has a surgical abdomen by his exam and his CT scan and his presenting symptoms. Will place patient on proton pump inhibitor in the meantime. Defer his viral syndrome work-up to his primary care physician.
[2019-05-04 16:11] LABS: A TYPE INFLUENZA AG NEGATIVE (NEGATIVE); B INFLUENZA AG NEGATIVE (NEGATIVE)
--- NOTE | 2019-05-04 17:51 | PDOC PROGRESS REPORT ---
Subjective Progress Note for:: 05/04/19 Subjective:: Patient seen by the bedside, he was seen by the surgeon because I requested for consultation for possible EGD, the surgeon raised the possibility of COVID 19, I have a very low suspicion for COVID 19 in this patient because his presentation does not meet the CDC guideline for COVID 19 suspicion which includes fever, cough, shortness of breath but it is at least reasonable to isolate him since the surgeon is concerned about that ,though unlikely. The initial flu test was negative, patient will be transferred to the fifth floor for isolation Reason For Visit: INTRACTABLE VOMITING, ? PERITONITIS, ESRD ON PD, Physical Exam Vital Signs: Temp Pulse Resp BP Pulse Ox 97.6 F 88 16 196/80 H 93 05/04/19 15:45 05/04/19 16:25 05/04/19 15:45 05/04/19 16:25 05/04/19 15:45 Intake & Output 05/03/19 05/04/19 05/05/19 06:59 06:59 06:59 Intake Total 7114 7210 3240 Output Total 3200 7500 2950 Balance 3914 -290 290 Weight 78.2 kg 76.3 kg 76.6 kg General appearance: PRESENT: no acute distress Eye exam: PRESENT: PERRLA Respiratory exam: PRESENT: clear to auscultation mirna Cardiovascular exam: PRESENT: +S1, +S2 GI/Abdominal exam: PRESENT: soft Neurological exam: PRESENT: alert, CN II-XII grossly intact Results Laboratory Results: 05/02/19 14:52 05/04/19 12:45 05/04/19 12:45 Sodium 137.6 Potassium 3.9 Chloride 95 L Carbon Dioxide 28 Anion Gap 15 BUN 58 H Creatinine 12.68 H Est GFR ( Amer) 5 L Glucose 148 H Calcium 8.3 L Total Bilirubin 0.5 AST 26 Alkaline Phosphatase 82 Total Protein 7.5 Albumin 4.3 Lipase 244.7 05/02/19 05/02/19 05/02/19 14:52 17:26 17:26 Creatine Kinase 241 H CK-MB (CK-2) 3.15 NT-Pro-B Natriuret Pep 44475 H 05/02/19 05/02/19 05/03/19 21:12 21:12 03:22 Creatine Kinase 217 H 226 H CK-MB (CK-2) 2.80 NT-Pro-B Natriuret Pep 05/03/19 03:22 Creatine Kinase CK-MB (CK-2) 2.79 NT-Pro-B Natriuret Pep Impressions: Abdomen/Pelvis CT 05/02/19 00:00 IMPRESSION: No acute findings. Chest X-Ray 05/03/19 00:00 IMPRESSION: NO ACUTE RADIOGRAPHIC FINDING IN THE CHEST. Assessment & Plan - Diagnosis (1) Intractable vomiting Qualifiers: Vomiting type: unspecified Nausea presence: with nausea Qualified Code(s): R11.2 - Nausea with vomiting, unspecified Is this a current diagnosis for this admission?: Yes Plan: improved (2) End-stage renal disease on peritoneal dialysis Is this a current diagnosis for this admission?: Yes - Time Time Spent with patient: 35 or more minutes Level of Care: TELE
[2019-05-04] MEDS: CEFTRIAXONE 1 GM/D5W RTU 1 GM/50 ML RTUPB IV SCH (21:33)
[2019-05-04] MEDS: ATORVASTATIN CALCIUM 40 MG TABLET PO SCH (21:34)
[2019-05-05] MEDS: ONDANSETRON HCL INJ/PF 4 MG/2 ML SDV IV PRN (04:07)
[2019-05-05] MEDS: HYDRALAZINE HCL 50 MG TABLET PO SCH ×2 (05:26→13:51)
[2019-05-05] MEDS: HEPARIN SOD (PORCINE) 5,000 UNIT/ML 1 ML VIAL SUBCUT SCH ×2 (05:54→13:51)
[2019-05-05 06:28] LABS: ANION GAP 15 (5-19); BLOOD UREA NITROGEN 60 mg/dL (7-20); CARBON DIOXIDE 27 mmol/L (22-30); CHLORIDE 95 mmol/L (98-107); GLUCOSE 122 mg/dL (75-110); POTASSIUM 3.6 mmol/L (3.6-5.0)
[2019-05-05] MEDS: INSULIN LISPRO 100 UNIT/ML 3 ML VIAL SUBCUT SCH ×2 (08:39→11:29)
[2019-05-05] MEDS: FUROSEMIDE 80 MG TABLET PO SCH (09:18)
[2019-05-05] MEDS: GENTAMICIN SULFATE 0.1% CREAM 15 GM TP SCH (09:18)
[2019-05-05] MEDS: PANTOPRAZOLE SODIUM 40 MG VIAL IV SCH (09:18)
[2019-05-05 09:52] LABS: HEMATOCRIT 34.8 % (37.9-51.0); MEAN CORPUSCULAR HEMOGLOBIN 33.4 pg (27.0-33.4); MEAN CORPUSCULAR HGB CONC 34.4 g/dL (32.0-36.0); MEAN CORPUSCULAR VOLUME 97 fl (80-97); PLATELET COUNT 171 10^3/uL (150-450); RED BLOOD COUNT 3.59 10^6/uL (4.35-5.55); RED CELL DISTRIBUTION WIDTH 17.9 % (11.5-14.0)
[2019-05-05 11:55] VITALS: BP 159/72
--- NOTE | 2019-05-05 15:59 | PDOC DISCHARGE SUMMARY ---
Impression - Admit/DC Date/PCP Admission Date/Primary Care Provider: 05/02/19 14:12 CATARINO HARRIS MD Discharge Date: 05/05/19 - Discharge Diagnosis (1) Intractable vomiting Is this a current diagnosis for this admission?: Yes (2) End-stage renal disease on peritoneal dialysis Is this a current diagnosis for this admission?: Yes - Additional Information Discharge Diet: Diabetic Discharge Activity: Activity As Tolerated Referrals: JOSE GONZALEZ MD [ACTIVE STAFF] - Home Medications: Atorvastatin Calcium [Lipitor 40 mg Tablet] 40 mg PO DAILY 05/02/19 Furosemide [Lasix 80 mg Tablet] 80 mg PO Q12 05/02/19 Gentamicin Sulfate [Garamycin 0.1% Cream 15 gm] 1 applic TOP ASDIR PRN 05/02/19 Hydralazine HCl 100 mg PO Q8 05/02/19 History of Present Illiness History of Present Illness: MERLE ABAD JR is a 54 year old male, He has end-stage renal disease on peritoneal dialysis, he came to the office today for evaluation of vomiting for the last 2 days, he said he is not able to keep any food down in his stomach he has been vomiting potentially in the last 2 days. I was particularly concerned about peritonitis in this patient because he is on PD the abdomen is not particularly tender on palpation but that by itself is not sensitive enough to diagnose peritonitis in this patient population. He was admitted directly from outpatient into the hospital a CAT scan was obtained it was nondiagnostic there was no acute pathology demonstrated on the CAT scan. Hospital Course Hospital Course: Patient was admitted for the management of intractable vomiting, abdominal pain, he has end-stage renal disease on peritoneal dialysis, he came to the office initially for evaluation of his symptoms. I suspected he may have peritonitis partly because he is on peritoneal dialysis, abdominal sign is not sensitive in the diagnosis of peritonitis in population a patient with end-stage renal disease on peritoneal dialysis.The CAT scan of the abdomen and pelvis without contrast was negative for any acute pathology. He was treated empirically with IV antibiotic ceftriaxone because of the suspicion for peritonitis because of the mode of presentation. He was seen in consultation by boat mechanic Dr. Felton Hernandez, the peritoneal fluid analysis was normal there was no evidence of infection on the basis of the white cell count in the peritoneal fluid and the culture I requested for consultation from surgery for EGD because of the vomiting, the surgeon was concerned that patient may have coronavirus because he felt his presentation is consistent with viral syndrome because of vomiting and he said he has a low-grade fever especially because no specific etiology was found for the vomiting, patient was isolated for COVID 19 rule out.I have a very low suspicion for coronavirus he does not specifically meet the CDC guideline for coronavirus suspicion which includes, fever, cough, shortness of breath which is all absent in this patient, the influenza virus is rule out, patient is stable enough at this time he has no more symptoms, he will be discharged home, he will self quarantine and follow the CDC guideline, the RN will educate him about what he needs to do at home Physical Exam Vital Signs: Temp Pulse Resp BP Pulse Ox 99.3 F 101 H 17 159/72 H 99 05/05/19 14:38 05/05/19 14:38 05/05/19 14:38 05/05/19 14:38 05/05/19 14:38 Intake & Output 05/04/19 05/05/19 05/06/19 06:59 06:59 06:59 Intake Total 7210 6890 4845 Output Total 7500 6400 5950 Balance -290 490 -1105 Weight 76.3 kg 79.1 kg 75.9 kg General appearance: PRESENT: no acute distress Eye exam: PRESENT: PERRLA Respiratory exam: PRESENT: clear to auscultation mirna Cardiovascular exam: PRESENT: +S1, +S2 GI/Abdominal exam: PRESENT: soft Results Laboratory Results: WBC 4.0 10^3/uL (4.0-10.5) 05/05/19 05:50 RBC 3.59 10^6/uL (4.35-5.55) L 05/05/19 05:50 Hgb 12.0 g/dL (13.5-17.0) L 05/05/19 05:50 Hct 34.8 % (37.9-51.0) L 05/05/19 05:50 MCV 97 fl (80-97) 05/05/19 05:50 MCH 33.4 pg (27.0-33.4) 05/05/19 05:50 MCHC 34.4 g/dL (32.0-36.0) 05/05/19 05:50 RDW 17.9 % (11.5-14.0) H 05/05/19 05:50 Plt Count 171 10^3/uL (150-450) 05/05/19 05:50 Lymph % (Auto) 6.7 % (13-45) L 05/02/19 14:52 [place] % (Auto) 5.1 % (3-13) 05/02/19 14:52 Eos % (Auto) 0.1 % (0-6) 05/02/19 14:52 Baso % (Auto) 0.3 % (0-2) 05/02/19 14:52 Absolute Neuts (auto) 5.5 10^3/uL (1.7-8.2) 05/02/19 14:52 Absolute Lymphs (auto) 0.4 10^3/uL (0.5-4.7) L 05/02/19 14:52 Absolute Monos (auto) 0.3 10^3/uL (0.1-1.4) 05/02/19 14:52 Absolute Eos (auto) 0.0 10^3/uL (0.0-0.6) 05/02/19 14:52 Absolute Basos (auto) 0.0 10^3/uL (0.0-0.2) 05/02/19 14:52 Seg Neutrophils % 87.8 % (42-78) H 05/02/19 14:52 PT 13.9 SEC (11.4-15.4) 05/02/19 14:52 INR 1.07 05/02/19 14:52 APTT 27.8 SEC (23.5-35.8) 05/02/19 14:52 Sodium 136.7 mmol/L (137-145) L 05/05/19 05:50 Potassium 3.6 mmol/L (3.6-5.0) 05/05/19 05:50 Chloride 95 mmol/L (98-107) L 05/05/19 05:50 Carbon Dioxide 27 mmol/L (22-30) 05/05/19 05:50 Anion Gap 15 (5-19) 05/05/19 05:50 BUN 60 mg/dL (7-20) H 05/05/19 05:50 Creatinine 12.86 mg/dL (0.52-1.25) H 05/05/19 05:50 Est GFR ( Amer) 5 (>60) L 05/05/19 05:50 Est GFR (MDRD) Non-Af 4 (>60) L 05/05/19 05:50 Glucose 122 mg/dL (75-110) H 05/05/19 05:50 POC Glucose 134 mg/dL (70-110) H 05/05/19 11:11 Hemoglobin A1c % 5.1 % (4.7-6.0) 05/03/19 03:22 Calcium 8.0 mg/dL (8.4-10.2) L 05/05/19 05:50 Phosphorus 6.5 mg/dL (2.5-4.5) H 05/02/19 14:52 Magnesium 1.5 mg/dL (1.6-2.3) L 05/05/19 05:50 Total Bilirubin 0.5 mg/dL (0.2-1.3) 05/04/19 12:45 Direct Bilirubin 0.5 mg/dL (0.0-0.4) H 05/04/19 12:45 Neonat Total Bilirubin Not Reportable 05/04/19 12:45 Neonat Direct Bilirubin Not Reportable 05/04/19 12:45 Neonat Indirect Bili Not Reportable 05/04/19 12:45 AST 26 U/L (17-59) 05/04/19 12:45 ALT 15 U/L (<50) 05/04/19 12:45 Alkaline Phosphatase 82 U/L (38-126) 05/04/19 12:45 Ammonia < 8.7 umol/L (9-33) L 05/02/19 17:26 Creatine Kinase 226 U/L (55-170) H 05/03/19 03:22 CK-MB (CK-2) 2.79 ng/mL (<4.55) 05/03/19 03:22 NT-Pro-B Natriuret Pep 13549 pg/mL (<125) H 05/02/19 14:52 Total Protein 7.5 g/dL (6.3-8.2) 05/04/19 12:45 Albumin 4.3 g/dL (3.5-5.0) 05/04/19 12:45 Triglycerides 165 mg/dL (<150) H 05/03/19 03:22 Cholesterol 192.98 mg/dL (0-200) 05/03/19 03:22 LDL Cholesterol Direct 102 mg/dL (<100) H 05/03/19 03:22 VLDL Cholesterol 33.0 mg/dL (10-31) H 05/03/19 03:22 HDL Cholesterol 47 mg/dL (>40) 05/03/19 03:22 Amylase 144 U/L (30-110) H 05/02/19 14:52 Lipase 244.7 U/L (23-300) 05/04/19 12:45 TSH 2.22 uIU/mL (0.47-4.68) 05/02/19 14:52 Free T4 1.00 ng/dL (0.78-2.19) 05/02/19 14:52 Urine Color YELLOW 05/02/19 17:05 Urine Appearance CLEAR 05/02/19 17:05 Urine pH 7.0 (5.0-9.0) 05/02/19 17:05 Ur Specific [place] 1.012 05/02/19 17:05 Urine Protein >=500 mg/dL (NEGATIVE) H 05/02/19 17:05 Urine Glucose (UA) >=500 mg/dL (NEGATIVE) H 05/02/19 17:05 Urine Ketones NEGATIVE mg/dL (NEGATIVE) 05/02/19 17:05 Urine Blood NEGATIVE (NEGATIVE) 05/02/19 17:05 Urine Nitrite NEGATIVE (NEGATIVE) 05/02/19 17:05 Urine Bilirubin NEGATIVE (NEGATIVE) 05/02/19 17:05 Urine Urobilinogen NEGATIVE mg/dL (<2.0) 05/02/19 17:05 Ur Leukocyte Esterase MODERATE (NEGATIVE) H 05/02/19 17:05 Urine WBC (Auto) 51 /HPF 05/02/19 17:05 Urine RBC (Auto) 3 /HPF 05/02/19 17:05 Urine Bacteria (Auto) TRACE /HPF 05/02/19 17:05 Squamous Epi Cells Auto 2 /HPF 05/02/19 17:05 Urine Mucus (Auto) RARE /LPF 05/02/19 17:05 Urine Ascorbic Acid NEGATIVE (NEGATIVE) 05/02/19 17:05 Fluid Type PERITONEAL 05/02/19 19:45 Fluid Source ABDOMEN 05/02/19 19:45 Fluid Color COLORLESS 05/02/19 19:45 Fluid Appearance CLEAR 05/02/19 19:45 Fluid Viscosity LIQUID 05/02/19 19:45 Fluid WBC 2 /uL 05/02/19 19:45 Fluid RBC 1 /uL 05/02/19 19:45 Urine Opiates Screen NEGATIVE 05/02/19 17:05 Urine Methadone Screen NEGATIVE 05/02/19 17:05 Ur Barbiturates Screen NEGATIVE 05/02/19 17:05 Ur Phencyclidine Scrn NEGATIVE 05/02/19 17:05 Ur Amphetamines Screen NEGATIVE 05/02/19 17:05 U Benzodiazepines Scrn NEGATIVE 05/02/19 17:05 Urine Cocaine Screen NEGATIVE 05/02/19 17:05 U Marijuana (THC) Screen NEGATIVE 05/02/19 17:05 Influenza A (Rapid) NEGATIVE (NEGATIVE) 05/04/19 14:40 Influenza B (Rapid) NEGATIVE (NEGATIVE) 05/04/19 14:40 Group A Strep Rapid NEGATIVE (NEGATIVE) 05/04/19 17:41 05/02/19 05/02/19 05/02/19 14:52 17:26 21:12 CK-MB (CK-2) 3.15 2.80 NT-Pro-B Natriuret Pep 17112 H 05/03/19 03:22 CK-MB (CK-2) 2.79 NT-Pro-B Natriuret Pep Impressions: Abdomen/Pelvis CT 05/02/19 00:00 IMPRESSION: No acute findings. Chest X-Ray 05/03/19 00:00 IMPRESSION: NO ACUTE RADIOGRAPHIC FINDING IN THE CHEST. Stroke Is this a Stroke Patient?: No Acute Heart Failure - Is this a Heart Failure Patient?: No
== END 2019-05-05 15:52 | disposition home or self-care (01) | DRG 391 ==
LOC: 4S 14:12 → 5 05-04 17:42
PROVIDERS: ADMIT Internal Medicine; ATTEND Internal Medicine
DX: R11.2 Nausea with vomiting, unspecified (principal); N18.6 End stage renal disease; I12.0 Hypertensive chronic kidney disease with stage 5 chronic kidney disease or end stage renal disease; N25.81 Secondary hyperparathyroidism of renal origin; E11.22 Type 2 diabetes mellitus with diabetic chronic kidney disease; Z03.818 Encounter for observation for suspected exposure to other biological agents ruled out; E78.5 Hyperlipidemia, unspecified; J44.9 Chronic obstructive pulmonary disease, unspecified; E11.21 Type 2 diabetes mellitus with diabetic nephropathy; E11.319 Type 2 diabetes mellitus with unspecified diabetic retinopathy without macular edema; F32.9 Major depressive disorder, single episode, unspecified; D63.1 Anemia in chronic kidney disease; E11.40 Type 2 diabetes mellitus with diabetic neuropathy, unspecified; E83.51 Hypocalcemia; E87.5 Hyperkalemia; E83.39 Other disorders of phosphorus metabolism; Z99.2 Dependence on renal dialysis; Z87.891 Personal history of nicotine dependence; Z79.899 Other long term (current) drug therapy; Z91.19 Patient's noncompliance with other medical treatment and regimen; Z83.6 Family history of other diseases of the respiratory system; Z82.49 Family history of ischemic heart disease and other diseases of the circulatory system; Z83.3 Family history of diabetes mellitus
CPT/HCPCS: 36415; 71045; 74176; 80048; 80053; 80061; 80076; 80307; 81001; 82140; 82150; 82550; 82553; 82962; 83036; 83690; 83735; 83880; 84100; 84439; 84443; 85025; 85027; 85610; 85730; 87040; 87070; 87075; 87205; 87635; 87804; 87880; 89050; 90945; C9113; J0696; J1170; J1644; J1815; J2405; J3490

== ENCOUNTER 2019-07-03 17:31 | Emergency (ER) | payer OTHER, MEDICARE, MEDICAID ==
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
[2019-07-03 20:58] VITALS: BP 163/87
== END 2019-07-03 20:58 | disposition home or self-care (01) ==
LOC: ER 17:31
DX: S39.91XA Unspecified injury of abdomen, initial encounter (principal); S16.1XXA Strain of muscle, fascia and tendon at neck level, initial encounter; R10.30 Lower abdominal pain, unspecified; M54.2 Cervicalgia; V43.52XA Car driver injured in collision with other type car in traffic accident, initial encounter; I11.9 Hypertensive heart disease without heart failure; E11.22 Type 2 diabetes mellitus with diabetic chronic kidney disease; N18.6 End stage renal disease; Z99.2 Dependence on renal dialysis; J44.9 Chronic obstructive pulmonary disease, unspecified
CPT/HCPCS: 72125; 74176; 99284

== ENCOUNTER 2019-08-20 12:37 | Inpatient (IN) | payer MEDICARE, MEDICAID ==
--- NOTE | 2019-08-20 13:16 | ER Document Report ---
HPI - HPI Time Seen by Provider: 08/20/19 13:04 Pain Level: 3 Context: Patient is a 54-year-old male with a history of diabetes, peritoneal dialysis who presents emergency department with a chief complaint of infected foot. Patient was sent over as a direct admit from Dr. Gonzalez with orders. He states that he has had a discolored left fifth toe that started over the weekend with drainage of blood. Patient denies fever. Patient last n.p.o. at 11 AM when eat chicken nuggets. - REPRODUCTIVE Reproductive: DENIES: : Past Medical History - General Information source: Patient - Social History Smoking Status: Never Smoker Chew tobacco use (# tins/day): No Frequency of alcohol use: None Drug Abuse: None Lives with: Family Family History: CAD, COPD, DM, Hyperlipidemia, Hypertension Patient has homicidal ideation: No - Past Medical History Cardiac Medical History: Reports: Hx Hypercholesterolemia, Hx Hypertension Denies: Hx Coronary Artery Disease, Hx Heart Attack Pulmonary Medical History: Reports: Hx COPD Denies: Hx Asthma, Hx Bronchitis, Hx Pneumonia EENT Medical History: Reports: None Neurological Medical History: Denies: Hx Cerebrovascular Accident, Hx Seizures Endocrine Medical History: Reports: Hx Diabetes Mellitus Type 2 - He has diabetic retinopathy and nephropathy. There is proteinuria Renal/ Medical History: Reports: Hx End Stage Renal Disease, Hx Peritoneal Dialysis, Hx Renal Insufficiency Malignancy Medical History: Reports None GI Medical History: Denies: Hx Hepatitis, Hx Hiatal Hernia, Hx Ulcer Musculoskeletal Medical History: Denies Hx Arthritis Psychiatric Medical History: Reports: Hx Depression Infectious Medical History: Denies: Hx Hepatitis Past Surgical History: Reports: Hx Orthopedic Surgery, Other - Left leg for plate in his ankle, also has plates in his shoulder and hip.. Denies: Hx Open Heart Surgery, Hx Pacemaker - Immunizations Hx Diphtheria, Pertussis, Tetanus Vaccination: Yes Vertical Provider Document - CONSTITUTIONAL Agree With Documented VS: Yes Exam Limitations: No Limitations General Appearance: No Apparent Distress - INFECTION CONTROL TRAVEL OUTSIDE OF THE [place] IN LAST 30 DAYS: No - HEENT HEENT: Atraumatic, Normocephalic, PERRLA - NECK Neck: Normal Inspection - RESPIRATORY Respiratory: Breath Sounds Normal, No Respiratory Distress - CARDIOVASCULAR Cardiovascular: Regular Rate, Regular Rhythm - GI/ABDOMEN Gastrointestinal: Abdomen Soft, Abdomen Non-Tender - MUSCULOSKELETAL/EXTREMETIES Notes: Patient has discoloration, lack left fifth toe extending into the fourth toe. There is a streaking of redness up into the left lower leg. Area is warm to touch. - NEURO Level of Consciousness: Awake, Alert, Appropriate Course - Re-evaluation Re-evalutation: 08/20/19 13:[address] Adrian for surgical consult. Will see patient in ER. NPO status; 11 am, ate two chicken nuggets. Informed patient to remain NPO. Patient did recommend from Dr. Gonzalez and came with orders. These orders were placed into the computer. Bed requested. ABX orders faxed to pharmacy by nurse. Patient stable, not tachycardic, hypotensive or febrile this time. - Vital Signs Vital signs: Temp Pulse Resp BP Pulse Ox 99.3 F 97 18 114/61 97 08/20/19 12:44 08/20/19 12:44 08/20/19 12:44 08/20/19 12:44 08/20/19 12:44 - Laboratory Result Diagrams: 08/20/19 13:45 08/20/19 13:45 Discharge - Discharge Clinical Impression: Toe infection, Left foot infection Condition: Stable Disposition: ADMITTED INPATIENT Admitting Provider: [facility] Admitted: Medical Floor Referrals: JOSE GONZALEZ MD [Primary Care Provider] - Follow up as needed
[2019-08-20 14:10] LABS: ABSOLUTE BASOPHILS # (AUTO) 0.1 10^3/uL (0.0-0.2); ABSOLUTE LYMPHOCYTES (AUTO) 0.7 10^3/uL (0.5-4.7); ABSOLUTE MONOCYTES (AUTO) 0.6 10^3/uL (0.1-1.4); ABSOLUTE NEUT (AUTO) 9.3 10^3/uL (1.7-8.2); BASOPHILS % (AUTO) 0.5 % (0-2); EOSINOPHILS % (AUTO) 0.3 % (0-6); HEMATOCRIT 30.1 % (37.9-51.0); HEMOGLOBIN 10.4 g/dL (13.5-17.0); LYMPHOCYTES % (AUTO) 6.4 % (13-45); MEAN CORPUSCULAR HEMOGLOBIN 34.5 pg (27.0-33.4); MEAN CORPUSCULAR HGB CONC 34.5 g/dL (32.0-36.0); MEAN CORPUSCULAR VOLUME 100 fl (80-97); MONOCYTES % (AUTO) 5.9 % (3-13); PLATELET COUNT 188 10^3/uL (150-450); RED BLOOD COUNT 3.01 10^6/uL (4.35-5.55); RED CELL DISTRIBUTION WIDTH 16.1 % (11.5-14.0); SEGMENTED NEUTROPHILS % (AUTO) 86.9 % (42-78); TOTAL CELLS COUNTED % (AUTO) 100 %; WHITE BLOOD COUNT 10.8 10^3/uL (4.0-10.5)
[2019-08-20 14:28] LABS: ALKALINE PHOSPHATASE 73 U/L (38-126); ANION GAP 15 (5-19); ASPARTATE AMINO TRANSFERASE 21 U/L (17-59); BILIRUBIN,DIRECT 0.2 mg/dL (0.0-0.4); BILIRUBIN,TOTAL 0.5 mg/dL (0.2-1.3); BLOOD UREA NITROGEN 54 mg/dL (7-20); CALCIUM 9.7 mg/dL (8.4-10.2); CARBON DIOXIDE 29 mmol/L (22-30); CHLORIDE 93 mmol/L (98-107); GLUCOSE 133 mg/dL (75-110); POTASSIUM 3.6 mmol/L (3.6-5.0); TOTAL PROTEIN 7.1 g/dL (6.3-8.2)
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
[2019-08-20] MEDS ORDERED: MIDAZOLAM 2 MG/2 ML INJ ONE (14:50)
[2019-08-20] MEDS ORDERED: FENTANYL CITRATE INJ/PF 100 MCG/2 ML AMPUL ONE (14:50)
[2019-08-20] MEDS ORDERED: KETAMINE HCL INJ 500 MG/10 ML VIAL ONE (14:50)
[2019-08-20] MEDS ORDERED: LIDOCAINE 0.5% INJ-PF (5 MG/ML) 50 ML SDV ONE (14:51)
[2019-08-20] MEDS ORDERED: PROPOFOL INJ 200 MG/20 ML VIAL IV ONE (14:51)
[2019-08-20] MEDS: PIPERACILLIN SODIUM/TAZOBACTAM 2.25 GM in NORMAL SALINE 50 ML IV SCH ×2 (15:42→21:59)
[2019-08-20] MEDS ORDERED: LIDOCAINE 1% INJ-PF (10 MG/ML) 30 ML SDV ONE (15:48)
--- NOTE | 2019-08-20 15:56 | RADIOLOGY REPORT (SQ) ---
EXAM DESCRIPTION: CHEST SINGLE VIEW IMAGES COMPLETED DATE/TIME: 08/20/2019 3:41 pm REASON FOR STUDY: preop COMPARISON: 05/03/2019 EXAM PARAMETERS: NUMBER OF VIEWS: One view. TECHNIQUE: Single frontal radiographic view of the chest acquired. RADIATION DOSE: NA LIMITATIONS: None. FINDINGS: LUNGS AND PLEURA: No consolidation or effusions. No pneumothorax. Asymmetric nodular den sities in the left base are consistent with anterior rib ends. MEDIASTINUM AND HILAR STRUCTURES: No masses. Contour normal. HEART AND VASCULAR STRUCTURES: Heart normal in size. Normal vasculature. BONES: Postsurgical changes in the left humerus stable in appearance. HARDWARE: None in the chest. OTHER: No other significant finding. IMPRESSION: NO ACUTE RADIOGRAPHIC FINDING IN THE CHEST. TECHNICAL DOCUMENTATION: JOB ID: [id number] 2010 [employer]- All Rights Reserved Reading location - IP/workstation name: [email or web address]
[2019-08-20] MEDS ORDERED: ONDANSETRON HCL INJ/PF 4 MG/2 ML SDV IV ONE (16:22)
[2019-08-20] MEDS ORDERED: BUPIVACAINE HCL 0.5 % INJ/PF 30 ML SDV ONE (16:45)
[2019-08-20] MEDS ORDERED: LIDOCAINE 2% INJ (20 MG/ML) 20 ML MDV ONE (16:45)
--- NOTE | 2019-08-20 17:50 | Operative Report ---
Operative Report DATE OF SURGERY: 08/20/19 PREOPERATIVE DIAGNOSIS: 1. Wet gangrene left fifth toe. 2. Ischemic left fou rth toe and forefoot. 3. End-stage renal failure. 4. Peripheral vascular disease. 5. Diabetes mellitus POSTOPERATIVE DIAGNOSIS: Same OPERATION: 1. Open amputation of left fifth and fourth toes including portions of metatarsal bones. 2. Counterincision dorsum left foot with loop drain placement SURGEON: KULWANT HART ANESTHESIA: Other - Peripheral foot block TISSUE REMOVED OR ALTERED: Toes 5, 4 left foot, nonviable skin and subcutaneous tissue tendons and fascia COMPLICATIONS: None ESTIMATED BLOOD LOSS: 20 cc INTRAOPERATIVE FINDINGS: See below PROCEDURE: Patient was seen in preop holding area, left foot marked, patient taken to the main operating room where LMAC anesthesia was induced. Patient's left foot underwent regional block l anesthesia at the level of the midfoot by the anesthesiologist. Surgical plan and surgical timeout were conducted. The left foot was prepped and draped in a sterile fashion with Betadine. Appropriate level of anesthesia was confirmed. The left fifth and fourth toes were amputated at the webspace. Bleeding was minimal. Additional skin, subcutaneous tissue and tendons were debrided from the dorsum of the left foot. A counterincision was made distal to the ankle on the dorsal surface of the foot and a tunneled tract was opened up meets the area of maximum erythematous streaking. 1/2 inch [place] drain was passed through this tunnel out the counterincision and tied in a loop. We irrigated the tract, as well as the hole in the distal foot at the amputation site. Portions of the fifth and fourth metatarsal bones were debrided with rongeurs. I felt the damage control operation was complete. Sponge and counts are correct. Wounds irrigated again with saline, packed with iodoform soaked gauze. 4 x 4's and Kerlix applied. Patient tolerated the procedure well, taken recovery room in stable condition. Plan 1. Keep leg elevated, follow-up on cultures 2. Reexamine foot in the morning; foot is very concerning for progression of ischemia up the foot requiring additional debridement. Will order arterial duplex study for tomorrow.
[2019-08-20] MEDS ORDERED: VANCOMYCIN HCL 1,000 MG in DEXTROSE 5%-WATER 250 ML IV ONE ×2 (18:00→20:00)
--- NOTE | 2019-08-20 18:21 | PDOC H&P ---
History of Present Illness Admission Date/PCP: 08/20/19 15:15 JOSE GONZALEZ MD History of Present Illness: MERLE ABAD JR is a 54 year old male,He has a history of end-stage renal disease on peritoneal dialysis, type 2 diabetes mellitus He came to the office for evaluation of discoloration of the left fourth and fifth toe he said he noticed discoloration of his toe over the weekend on evaluation in the office it was obviously a wet gangrene of the left fifth toe and the fourth toe with erythema of the dorsum of the left foot consistent with cellulitis patient was immediately admitted into the hospital consultation was obtained from the surgeon for infection source control he underwent open amputation of the left fifth and fourth toes including portions of the metatarsal bones. He has underlining peripheral vascular disease. Past Medical History Cardiac Medical History: Reports: Hyperlipidema, Hypertension Pulmonary Medical History: Reports: Chronic Obstructive Pulmonary Disease (COPD) EENT Medical History: Reports: None Endocrine Medical History: Reports: Diabetes Mellitus Type 2 - He has diabetic retinopathy and nephropathy. There is proteinuria Renal/ Medical History: Reports: End Stage Renal Disease Malignancy Medical History: Reports: None Psychiatric Medical History: Reports: Depression Hematology: Reports: Anemia Denies: Sickle Cell Disease Past Surgical History Past Surgical History: Reports: Orthopedic Surgery, Other - Left leg for plate in his ankle, also has plates in his shoulder and hip. Social History Lives with: Family Smoking Status: Former Smoker Electronic Cigarette use?: No Frequency of Alcohol Use: None Hx Recreational Drug Use: No Drugs: None Hx Prescription Drug Abuse: No Family History Family History: None, CAD, COPD, DM, Hyperlipidemia, Hypertension Parental Family History Reviewed: Yes Children Family History Reviewed: Yes Sibling(s) Family History Reviewed.: Yes Medication/Allergy Home Medications: Furosemide [Lasix 80 mg Tablet] 80 mg PO Q12 05/02/19 Hydralazine HCl 100 mg PO Q8 05/02/19 Calcitriol [Rocaltrol] 0.5 mcg PO DAILY 08/20/19 Calcium Acetate [Phoslo 667 Mg Capsule] 1,334 mg PO AC 08/20/19 Calcium Acetate [Phoslo 667 Mg Capsule] 667 mg PO .WITH SNACKS 08/20/19 Pantoprazole Sodium [Protonix [address] Tablet] 40 mg PO QAM 07/13/20 Potassium Chloride [Klor-Con 10 Meq Tablet ER] 10 meq PO DAILY 08/20/19 Allergies/Adverse Reactions: No Known Allergies Allergy (Verified 09/05/18 17:02) Review of Systems Constitutional: ABSENT: chills, fever(s), headache(s), weight gain, weight loss Eyes: ABSENT: visual disturbances Ears: ABSENT: hearing changes Cardiovascular: ABSENT: chest pain, dyspnea on exertion, edema, orthropnea, palpitations Respiratory: ABSENT: cough, hemoptysis Gastrointestinal: ABSENT: abdominal pain, constipation, diarrhea, hematemesis, hematochezia, nausea, vomiting Genitourinary: ABSENT: dysuria, hematuria Musculoskeletal: ABSENT: joint swelling Integumentary: ABSENT: rash, wounds Neurological: ABSENT: abnormal gait, abnormal speech, confusion, dizziness, focal weakness, syncope Psychiatric: ABSENT: anxiety, depression, homidical ideation, suicidal ideation Endocrine: ABSENT: cold intolerance, heat intolerance, menstrual abnormalities, polydipsia, polyuria Hematologic/Lymphatic: ABSENT: easy bleeding, easy bruising, lymphadenopathy Physical Exam Vital Signs: Temp Pulse Resp BP Pulse Ox 98.6 F 88 18 170/72 H 97 08/20/19 17:39 08/20/19 17:54 08/20/19 17:54 08/20/19 17:54 08/20/19 17:54 Intake & Output 08/19/19 08/20/19 08/21/19 06:59 06:59 06:59 Intake Total 150 Output Total 10 Balance 140 Weight 86.2 kg General appearance: PRESENT: no acute distress, thin Head exam: PRESENT: atraumatic, normocephalic Eye exam: PRESENT: conjunctiva pink, EOMI, PERRLA. ABSENT: scleral icterus Ear exam: PRESENT: normal external ear exam Mouth exam: PRESENT: moist, tongue midline Neck exam: PRESENT: full ROM Respiratory exam: PRESENT: clear to auscultation mirna Cardiovascular exam: PRESENT: RRR, +S2 Vascular exam: PRESENT: normal capillary refill GI/Abdominal exam: PRESENT: normal bowel sounds, soft Rectal exam: PRESENT: deferred Extremities exam: PRESENT: other - Wet gangrene of the left fifth toe, ischemic left fourth toe Neurological exam: PRESENT: alert, CN II-XII grossly intact Psychiatric exam: PRESENT: appropriate affect, normal mood Skin exam: PRESENT: dry, intact, warm Results Laboratory Results: 08/20/19 13:45 08/20/19 13:45 08/20/19 08/20/19 13:45 13:45 WBC 10.8 H RBC 3.01 L Hgb 10.4 L Hct 30.1 L MCV 100 H MCH 34.5 H MCHC 34.5 RDW 16.1 H Plt Count 188 Seg Neutrophils % 86.9 H Sodium 136.9 L Potassium 3.6 Chloride 93 L Carbon Dioxide 29 Anion Gap 15 BUN 54 H Creatinine 13.94 H Est GFR ( Amer) 4 L Glucose 133 H Calcium 9.7 Total Bilirubin 0.5 AST 21 Alkaline Phosphatase 73 Total Protein 7.1 Albumin 4.0 Impressions: Chest X-Ray 08/20/19 15:07 IMPRESSION: NO ACUTE RADIOGRAPHIC FINDING IN THE CHEST. Assessment & Plan - Diagnosis (1) Diabetic wet gangrene of the foot Is this a current diagnosis for this admission?: Yes Plan: Consultation from surgery for amputation (2) Peripheral vascular disease Is this a current diagnosis for this admission?: Yes (3) End stage renal disease on dialysis Is this a current diagnosis for this admission?: Yes Plan: Patient on peritoneal dialysis management per nephrology (4) Cellulitis of left foot Is this a current diagnosis for this admission?: Yes Plan: Patient started on IV antibiotic Zosyn, vancomycin to cover all potential pathogens
[2019-08-20] MEDS ORDERED: GENTAMICIN SULFATE 0.1% OINTMENT 15 GM TP PRN (21:30)
[2019-08-20] MEDS ORDERED: CALCIUM ACETATE 667 MG CAPSULE PO PRN (22:49)
[2019-08-20] MEDS ORDERED: FUROSEMIDE 80 MG TABLET PO SCH (23:00)
[2019-08-20] MEDS: OXYCODONE-ACETAMINOPHEN 5-325 MG TABLET PO PRN (23:16)
[2019-08-20] MEDS: HYDRALAZINE HCL 50 MG TABLET PO SCH (23:16)
[2019-08-21] MEDS: PIPERACILLIN SODIUM/TAZOBACTAM 2.25 GM in NORMAL SALINE 50 ML IV SCH ×2 (05:20→22:08)
[2019-08-21] MEDS: OXYCODONE-ACETAMINOPHEN 5-325 MG TABLET PO PRN ×3 (05:27→22:09)
[2019-08-21] MEDS: HYDRALAZINE HCL 50 MG TABLET PO SCH ×3 (07:52→22:08)
--- NOTE | 2019-08-21 08:24 | PDOC PROGRESS REPORT ---
Subjective Progress Note for:: 08/21/19 Subjective:: feels ok Reason For Visit: TOE INFECTION,LEFT FOOT INFECTION Physical Exam Vital Signs: Temp Pulse Resp BP Pulse Ox 98.5 F 77 18 138/63 H 96 08/20/19 23:13 08/21/19 03:15 08/20/19 23:13 08/21/19 03:15 08/20/19 23:13 Intake & Output 08/20/19 08/21/19 08/22/19 06:59 06:59 06:59 Intake Total 4450 Output Total 2009 Balance 2440 Weight 74.8 kg General appearance: PRESENT: no acute distress Head exam: PRESENT: normocephalic Eye exam: PRESENT: EOMI Ear exam: PRESENT: normal external ear exam Mouth exam: PRESENT: moist Neck exam: PRESENT: full ROM Respiratory exam: PRESENT: clear to auscultation mirna Cardiovascular exam: PRESENT: RRR Pulses: PRESENT: other - weak pulse dp and pt.left foot Vascular exam: PRESENT: normal capillary refill Breast: PRESENT: Normal GI/Abdominal exam: PRESENT: soft Rectal exam: PRESENT: deferred Extremities exam: PRESENT: full ROM, other - left foot amp site clean, pack removed Neurological exam: PRESENT: alert Psychiatric exam: PRESENT: appropriate affect Skin exam: PRESENT: dry Results Laboratory Results: 08/20/19 13:45 08/20/19 13:45 08/20/19 08/20/19 13:45 13:45 WBC 10.8 H RBC 3.01 L Hgb 10.4 L Hct 30.1 L MCV 100 H MCH 34.5 H MCHC 34.5 RDW 16.1 H Plt Count 188 Seg Neutrophils % 86.9 H Sodium 136.9 L Potassium 3.6 Chloride 93 L Carbon Dioxide 29 Anion Gap 15 BUN 54 H Creatinine 13.94 H Est GFR ( Amer) 4 L Glucose 133 H Calcium 9.7 Total Bilirubin 0.5 AST 21 Alkaline Phosphatase 73 Total Protein 7.1 Albumin 4.0 Impressions: Chest X-Ray 08/20/19 15:07 IMPRESSION: NO ACUTE RADIOGRAPHIC FINDING IN THE CHEST. Assessment & Plan - Plan Summary Plan Summary: diabetic foot infection left foot s/p left 4 and 5 toe amp wound clean start wet to dry dressing changes pt could be discharged home can f/u in surgery clinic in a week cont wet to dry dressing changes left foot with gauze and ns. reonsult surgery as necessary.
[2019-08-21] MEDS: FUROSEMIDE 80 MG TABLET PO SCH ×2 (09:08→17:26)
[2019-08-21] MEDS: PANTOPRAZOLE SODIUM 40 MG TABLET.DR PO SCH (09:08)
[2019-08-21] MEDS: CALCITRIOL 0.25 MCG CAPSULE PO SCH (09:08)
[2019-08-21] MEDS: POTASSIUM CHLORIDE 10 MEQ TABLET.ER PO SCH (09:08)
[2019-08-21] MEDS: CALCIUM ACETATE 667 MG CAPSULE PO SCH ×3 (09:08→17:25)
--- NOTE | 2019-08-21 09:24 | RADIOLOGY REPORT (SQ) ---
EXAM DESCRIPTION: ARTERIAL LOWER EXTREM UNILAT IMAGES COMPLETED DATE/TIME: 08/20/2019 9:19 pm REASON FOR STUDY: Evaluate peripheral vascular status left leg COMPARISON: 12/26/2018 TECHNIQUE: Dynamic and static mills scale and color images acquired of the left lower extremity arter ies. LIMITATIONS: None. FINDINGS: Monophasic waveforms throughout the lower extremity suggesting inflow stenosis. Elevated velocity mid femoral artery 2.7 m/sec not significantly changed. Popliteal artery is patent. Three- vessel runoff with collaterals in the dorsalis pedis. IMPRESSION: Possible inflow stenosis. 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 Small vessel disease. COMMENT: [facility] NORMAL: Greater than 1.0 MINIMAL DISEASE: 0.9 to 1.0 CLAUDICATION: 0.5 to 0.9 SEVERE ARTERIAL DISEASE: Less than 0.5 [facility] NORMAL: Greater than 1.0 (1.2 If Heavy Calcifications) NORMAL TO MILD ISCHEMIA: 0.8 to 1.0 MODERATE ISCHEMIA: 0.4 to 0.8 SEVERE ISCHEMIA: Less than 0.4 TECHNICAL DOCUMENTATION: JOB ID: [id number] 2010 [employer]- All Rights Reserved Reading location - IP/workstation name: [email or web address]
--- NOTE | 2019-08-21 10:38 | PDOC CONSULTATION ---
Consultation Consult Date: 08/21/19 Attending physician:: JOSE GONZALEZ Provider Consulted: Teresa SCHROEDER Consult reason:: ESRD for PD. History of Present Illness Admission Date/PCP: 08/20/19 15:15 JOSE GONZALEZ MD History of Present Illness: MERLE ABAD JR is a 54 year old male with the history of ESRD on peritoneal dialysis in the background of diabetes mellitus, hypertension, hyperlipidemia was admitted with history of left foot discoloration of lateral toes 2 to 3 days duration with minimal pain. He has been seen and evaluated by surgery and has undergone emergent amputation of left fifth and fourth toe with debridement. Patient has been undergoing peritoneal dialysis as per orders placed by me yesterday. Further discussions were done with his treating nurse today. Patient currently feels great. He says he hardly has any pain. Labs and medications were reviewed. Past Medical History Cardiac Medical History: Reports: Hyperlipidemia, Hypertension-primary Denies: Coronary Artery Disease, Myocardial Infarction Pulmonary Medical History: Reports: Chronic Obstructive Pulmonary Disease (COPD) Denies: Asthma, Bronchitis, Pneumonia EENT Medical History: Reports: None Neurological Medical History: Denies: Seizures Endocrine Medical History: Reports: Diabetes Mellitus Type 2 - He has diabetic retinopathy and nephropathy. There is proteinuria Complications of Diabetes: Reports: Autonomic Neuropathy, Nephropathy, Retinopathy Renal/ Medical History: Reports: End Stage Renal Disease, Hypocalcemia, Hyperkalemia, Hyperphosphatemia, Secondary Hyperparathyroidism Malignancy Medical History: Reports: None GI Medical History: Denies: Hepatitis, Hiatal Hernia Musculoskeltal Medical History: Denies: Arthritis Psychiatric Medical History: Reports: Depression Hematology Medical History: Reports Anemia of Chronic Kidney Disease Past Surgical History Past Surgical History: Reports: Orthopedic Surgery, Other - Left leg for plate in his ankle, also has plates in his shoulder and hip. Denies: Pacemaker Social History Lives with: Family Smoking Status: Former Smoker Electronic Cigarette use?: No Frequency of Alcohol Use: None Hx Recreational Drug Use: No Drugs: None Hx Prescription Drug Abuse: No Family History Parental Family History Reviewed: Yes - Negative for ESRD Children Family History Reviewed: No Sibling(s) Family History Reviewed.: No Medication/Allergy Home Medications: Furosemide [Lasix 80 mg Tablet] 80 mg PO Q12 05/02/19 Hydralazine HCl 100 mg PO Q8 05/02/19 Calcitriol [Rocaltrol] 0.5 mcg PO DAILY 08/20/19 Calcium Acetate [Phoslo 667 Mg Capsule] 1,334 mg PO AC 08/20/19 Calcium Acetate [Phoslo 667 Mg Capsule] 667 mg PO .WITH SNACKS 08/20/19 Pantoprazole Sodium [Protonix [address] Tablet] 40 mg PO QAM 08/20/19 Potassium Chloride [Klor-Con 10 Meq Tablet ER] 10 meq PO DAILY 08/20/19 Allergies/Adverse Reactions: No Known Allergies Allergy (Verified 09/05/18 17:02) Review of Systems Constitutional: ABSENT: anorexia, chills, fatigue, fever(s), headache(s), night sweats, weakness Ears: ABSENT: hearing changes Nose, Mouth, and Throat: ABSENT: mouth pain, sore throat Cardiovascular: ABSENT: chest pain, dyspnea on exertion, edema, orthropnea, palpitations Respiratory: ABSENT: dyspnea, hemoptysis Gastrointestinal: ABSENT: abdominal pain, diarrhea, dysphagia Genitourinary: ABSENT: dysuria, hematuria Musculoskeletal: ABSENT: deformity, joint swelling Integumentary: PRESENT: other - Discoloration of left lip lateral toes.. ABSENT: lesions, pruritus Neurological: ABSENT: abnormal movements, abnormal speech, confusion, convulsions, lack of coordination Psychiatric: ABSENT: anxiety Hematologic/Lymphatic: ABSENT: easy bruising, lymphadenopathy Physical Exam Vital Signs: Temp Pulse Resp BP Pulse Ox 98.0 F 94 16 129/87 H 94 08/21/19 07:43 08/21/19 08:17 08/21/19 07:43 08/21/19 08:17 08/21/19 07:43 Intake & Output 08/20/19 08/21/19 08/22/19 06:59 06:59 06:59 Intake Total 4450 Output Total 20090 Balance 2440 -2600 Weight 74.8 kg General appearance: PRESENT: no acute distress Neck exam: PRESENT: meningismus Respiratory exam: PRESENT: clear to auscultation mirna, decreased breath sounds. ABSENT: crackles Cardiovascular exam: PRESENT: +S1, +S2 GI/Abdominal exam: PRESENT: normal bowel sounds, soft. ABSENT: organomegaly, tenderness Extremities exam: ABSENT: pedal edema Neurological exam: PRESENT: alert, awake, oriented to person, oriented to place Psychiatric exam: PRESENT: appropriate affect Results Laboratory Results: 08/20/19 13:45 08/20/19 13:45 08/20/19 08/20/19 13:45 13:45 WBC 10.8 H RBC 3.01 L Hgb 10.4 L Hct 30.1 L MCV 100 H MCH 34.5 H MCHC 34.5 RDW 16.1 H Plt Count 188 Seg Neutrophils % 86.9 H Sodium 136.9 L Potassium 3.6 Chloride 93 L Carbon Dioxide 29 Anion Gap 15 BUN 54 H Creatinine 13.94 H Est GFR ( Amer) 4 L Glucose 133 H Calcium 9.7 Total Bilirubin 0.5 AST 21 Alkaline Phosphatase 73 Total Protein 7.1 Albumin 4.0 Impressions: Chest X-Ray 08/20/19 15:07 IMPRESSION: NO ACUTE RADIOGRAPHIC FINDING IN THE CHEST. Extremity Arterial Study 08/20/19 20:00 IMPRESSION: Possible inflow stenosis. 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 Small vessel disease. Assessment & Plan - Diagnosis (1) Diabetic infection of left foot Plan: Status post amputation yesterday of involved toes and done well. Uneventful. (2) End-stage renal disease on peritoneal dialysis Plan: Patient has been undergoing peritoneal dialysis as per orders placed by me yesterday. Uneventful. Once he is discharged he could carry on with his regular home orders. (3) Hypertension Is this a current diagnosis for this admission?: Yes Plan: Controlled. (4) Type 2 diabetes mellitus Qualifiers: Diabetes mellitus jail insulin use: with jail use Diabetes mellitus complication status: with unspecified complications Plan: Advised tight control.
--- NOTE | 2019-08-21 14:29 | EKG REPORT ---
SEVERITY:- NORMAL ECG - SINUS RHYTHM : Confirmed by: Devante Ya MD 21-Aug-2019 14:28:43
--- NOTE | 2019-08-21 19:27 | PDOC PROGRESS REPORT ---
Subjective Progress Note for:: 08/21/19 Subjective:: Patient was seen today by the bedside, he has no new complaints he is feeling better Reason For Visit: GANGRENOUS TOE,CELLULITIS OF LEFT FOOT,CHRONIC KID Physical Exam Vital Signs: Temp Pulse Resp BP Pulse Ox 98.7 F 80 16 123/58 L 96 08/21/19 15:12 08/21/19 18:47 08/21/19 15:12 08/21/19 18:47 08/21/19 15:12 Intake & Output 08/20/19 08/21/19 08/22/19 06:59 06:59 06:59 Intake Total 4450 4300 Output Total 2009 5800 Balance 2440 -1500 Weight 74.8 kg General appearance: PRESENT: no acute distress, well-developed, well-nourished Head exam: PRESENT: atraumatic, normocephalic Eye exam: PRESENT: conjunctiva pink, EOMI, PERRLA Ear exam: PRESENT: normal external ear exam Mouth exam: PRESENT: moist, tongue midline Neck exam: PRESENT: full ROM Respiratory exam: PRESENT: clear to auscultation mirna Cardiovascular exam: PRESENT: RRR, +S1, +S2 Pulses: PRESENT: normal dorsalis pedis pul, +2 pedal pulses bilateral Vascular exam: PRESENT: normal capillary refill GI/Abdominal exam: PRESENT: normal bowel sounds, soft Rectal exam: PRESENT: deferred Neurological exam: PRESENT: alert, CN II-XII grossly intact Psychiatric exam: PRESENT: appropriate affect, normal mood Skin exam: PRESENT: dry, intact, warm. ABSENT: cyanosis, rash Results Laboratory Results: 08/20/19 13:45 08/20/19 13:45 Impressions: Chest X-Ray 08/20/19 15:07 IMPRESSION: NO ACUTE RADIOGRAPHIC FINDING IN THE CHEST. Extremity Arterial Study 08/20/19 20:00 IMPRESSION: Possible inflow stenosis. 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 Small vessel disease. Assessment & Plan - Diagnosis (1) Diabetic wet gangrene of the foot Is this a current diagnosis for this admission?: Yes Plan: Status post amputation of the toes (2) Peripheral vascular disease Is this a current diagnosis for this admission?: Yes (3) End stage renal disease on dialysis Is this a current diagnosis for this admission?: Yes Plan: Management per Dr. Felton Hernandez nephrology (4) Cellulitis of left foot Is this a current diagnosis for this admission?: Yes Plan: He will continue IV antibiotic - Time Time Spent with patient: 25-34 minutes Level of Care: MEDICAL Medications reviewed and adjusted accordingly: Yes
[2019-08-22] MEDS: OXYCODONE-ACETAMINOPHEN 5-325 MG TABLET PO PRN ×3 (06:28→22:21)
[2019-08-22] MEDS: HYDRALAZINE HCL 50 MG TABLET PO SCH ×3 (06:28→22:01)
[2019-08-22] MEDS: CALCIUM ACETATE 667 MG CAPSULE PO SCH ×3 (07:38→17:31)
[2019-08-22] MEDS: PANTOPRAZOLE SODIUM 40 MG TABLET.DR PO SCH (07:38)
[2019-08-22] MEDS: CALCITRIOL 0.25 MCG CAPSULE PO SCH (09:42)
[2019-08-22] MEDS: FUROSEMIDE 80 MG TABLET PO SCH ×2 (09:42→17:31)
[2019-08-22] MEDS: POTASSIUM CHLORIDE 10 MEQ TABLET.ER PO SCH (09:42)
[2019-08-22] MEDS: PIPERACILLIN SODIUM/TAZOBACTAM 2.25 GM in NORMAL SALINE 50 ML IV SCH ×2 (09:44→22:01)
--- NOTE | 2019-08-22 10:09 | PDOC PROGRESS REPORT ---
Subjective Progress Note for:: 08/22/19 Subjective:: No pains Reason For Visit: GANGRENOUS TOE,CELLULITIS OF LEFT FOOT,CHRONIC KID No pains Physical Exam Vital Signs: Temp Pulse Resp BP Pulse Ox 98.0 F 82 18 131/54 H 96 08/22/19 07:43 08/22/19 07:43 08/22/19 07:43 08/22/19 07:43 08/22/19 07:43 Intake & Output 08/21/19 08/22/19 08/23/19 06:59 06:59 06:59 Intake Total 4450 6910 1999 Output Total 20090 1500 Balance 2440 -890 500 Weight 74.8 kg 74.8 kg 72.9 kg Exam: Amputation left 4th,5th toes look dry Rubber drain in place Unable to palpate ankle pulses Afebrile with normal WBC Results Laboratory Results: 08/20/19 13:45 08/20/19 13:45 08/20/19 17:16 Toe - Amputation Site Gram Stain - Final Impressions: Chest X-Ray 08/20/19 15:07 IMPRESSION: NO ACUTE RADIOGRAPHIC FINDING IN THE CHEST. Extremity Arterial Study 08/20/19 20:00 IMPRESSION: Possible inflow stenosis. 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 Small vessel disease. Assessment & Plan - Diagnosis (1) Diabetic wet gangrene of the foot Is this a current diagnosis for this admission?: Yes (2) Peripheral vascular disease Is this a current diagnosis for this admission?: Yes (3) Anemia in chronic kidney disease Qualifiers: Chronic kidney disease stage: on chronic dialysis Qualified Code(s): N18.6 - End stage renal disease; D63.1 - Anemia in chronic kidney disease; Z99.2 - Dependence on renal dialysis Is this a current diagnosis for this admission?: Yes - Time Critical Time spent with patient: 15-24 minutes - Inpatient Certification Medical Necessity: Need for IV Antibiotics - Plan Summary Plan Summary: 54 yo diabetic post amp left toes for wet gangrenePOD 2 Amp site looks dry but no granulation tissue. Patient informed possibility of left BKA in near future especially if wound does not heal. May need vascular evaluation C/o [place] vascular surgeon. I have discussed this with the patient's primary physician. Plan: Continue antibiotics and daily wet-to-dry dressings to left fourth and fifth toe amputation site Suggest vascular surgical consultation We can follow the patient in the surgical clinic in about a week if not seen by vascular surgery Will sign off
--- NOTE | 2019-08-22 16:40 | PDOC PROGRESS REPORT ---
Subjective Progress Note for:: 08/22/19 Subjective:: Patient seen by the bedside status post amputation of toes 4 and 5 of the left foot he has underlying PAD, he will need evaluation by vascular surgery after discharge Reason For Visit: GANGRENOUS TOE,CELLULITIS OF LEFT FOOT,CHRONIC KID Physical Exam Vital Signs: Temp Pulse Resp BP Pulse Ox 98.5 F 73 16 160/64 H 95 08/22/19 11:09 08/22/19 12:55 08/22/19 11:09 08/22/19 12:55 08/22/19 11:09 Intake & Output 08/21/19 08/22/19 08/23/19 06:59 06:59 06:59 Intake Total 4450 6910 4286 Output Total 20090 1500 Balance 2440 -890 2786 Weight 74.8 kg 74.8 kg 71.7 kg General appearance: PRESENT: no acute distress Eye exam: PRESENT: PERRLA Respiratory exam: PRESENT: clear to auscultation mirna Cardiovascular exam: PRESENT: +S1, +S2 GI/Abdominal exam: PRESENT: soft Neurological exam: PRESENT: alert Results Laboratory Results: 08/20/19 13:45 08/20/19 13:45 08/20/19 17:16 Toe - Amputation Site Gram Stain - Final Impressions: Chest X-Ray 08/20/19 15:07 IMPRESSION: NO ACUTE RADIOGRAPHIC FINDING IN THE CHEST. Extremity Arterial Study 08/20/19 20:00 IMPRESSION: Possible inflow stenosis. 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 Small vessel disease. Assessment & Plan - Diagnosis (1) Diabetic wet gangrene of the foot Is this a current diagnosis for this admission?: Yes Plan: He has polymicrobial infection based on the culture from the wound, continue a ntibiotic (2) Peripheral vascular disease Is this a current diagnosis for this admission?: Yes (3) End stage renal disease on dialysis Is this a current diagnosis for this admission?: Yes (4) Cellulitis of left foot Is this a current diagnosis for this admission?: Yes - Time Time Spent with patient: 25-34 minutes Level of Care: [facility]
[2019-08-22] MEDS ORDERED: DEXTROSE 40% GEL 15 GM TUBE X 2 PO PRN (17:00)
[2019-08-22] MEDS ORDERED: DEXTROSE 40% GEL 15 GM TUBE PO PRN (17:00)
[2019-08-22] MEDS ORDERED: GLUCAGON,HUMAN RECOMB 1 MG INJ IM PRN (17:00)
[2019-08-22] MEDS ORDERED: DEXTROSE 50%-WATER SYRINGE 12.5 GM/25 ML DOSE IV PRN (17:00)
[2019-08-22] MEDS ORDERED: DEXTROSE 50%-WATER SYRINGE 25 GM/50 ML DOSE IV PRN (17:00)
[2019-08-22] MEDS: INSULIN LISPRO 100 UNIT/ML 3 ML VIAL SUBCUT SCH ×2 (17:32→22:00)
[2019-08-23] MEDS: HYDRALAZINE HCL 50 MG TABLET PO SCH ×3 (07:05→21:43)
[2019-08-23] MEDS: PANTOPRAZOLE SODIUM 40 MG TABLET.DR PO SCH (07:42)
[2019-08-23] MEDS: CALCIUM ACETATE 667 MG CAPSULE PO SCH ×3 (07:42→20:01)
[2019-08-23] MEDS: INSULIN LISPRO 100 UNIT/ML 3 ML VIAL SUBCUT SCH ×4 (07:46→21:37)
[2019-08-23] MEDS: FUROSEMIDE 80 MG TABLET PO SCH ×2 (09:24→20:21)
[2019-08-23] MEDS: CALCITRIOL 0.25 MCG CAPSULE PO SCH (09:24)
[2019-08-23] MEDS: PIPERACILLIN SODIUM/TAZOBACTAM 2.25 GM in NORMAL SALINE 50 ML IV SCH ×2 (09:24→21:37)
[2019-08-23] MEDS: POTASSIUM CHLORIDE 10 MEQ TABLET.ER PO SCH (09:24)
[2019-08-23] MEDS: OXYCODONE-ACETAMINOPHEN 5-325 MG TABLET PO PRN (14:42)
--- NOTE | 2019-08-23 19:09 | PDOC PROGRESS REPORT ---
Subjective Progress Note for:: 08/23/19 Subjective:: Patient seen by the bedside, he has underlying PAD hopefully discharge in a day or 2, will follow outpatient with vascular surgery Reason For Visit: GANGRENOUS TOE,CELLULITIS OF LEFT FOOT,CHRONIC KID Physical Exam Vital Signs: Temp Pulse Resp BP Pulse Ox 98.8 F 71 16 127/51 H 96 08/23/19 14:57 08/23/19 14:57 08/23/19 14:57 08/23/19 14:57 08/23/19 14:57 Intake & Output 08/22/19 08/23/19 08/24/19 06:59 06:59 06:59 Intake Total 6910 8896 2250 Output Total 7800 4900 3000 Balance -890 3996 -750 Weight 74.8 kg 67.5 kg 68.5 kg General appearance: PRESENT: no acute distress Eye exam: PRESENT: PERRLA Respiratory exam: PRESENT: clear to auscultation mirna Cardiovascular exam: PRESENT: +S1, +S2 GI/Abdominal exam: PRESENT: soft Neurological exam: PRESENT: alert Results Laboratory Results: 08/20/19 13:45 08/20/19 13:45 08/20/19 17:16 Toe - Amputation Site Gram Stain - Final 08/20/19 17:16 Toe - Amputation Site Wound Culture - Final Enterobacter Cloacae Enterococcus Faecalis(Group D) Bacteroides Fragilis Group Anaerococcus (Peptostrep) Sp. Impressions: Chest X-Ray 08/20/19 15:07 IMPRESSION: NO ACUTE RADIOGRAPHIC FINDING IN THE CHEST. Extremity Arterial Study 08/20/19 20:00 IMPRESSION: Possible inflow stenosis. 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 Small vessel disease. Assessment & Plan - Diagnosis (1) Diabetic wet gangrene of the foot Is this a current diagnosis for this admission?: Yes Plan: Continue antibiotic (2) Peripheral vascular disease Is this a current diagnosis for this admission?: Yes (3) End stage renal disease on dialysis Is this a current diagnosis for this admission?: Yes Plan: Continue PD (4) Cellulitis of left foot Is this a current diagnosis for this admission?: Yes - Time Time Spent with patient: 25-34 minutes Level of Care: IMCU Medications reviewed and adjusted accordingly: Yes
[2019-08-24 06:10] LABS: HEMATOCRIT 26.3 % (37.9-51.0); HEMOGLOBIN 9.1 g/dL (13.5-17.0); MEAN CORPUSCULAR HGB CONC 34.6 g/dL (32.0-36.0); MEAN CORPUSCULAR VOLUME 99 fl (80-97); PLATELET COUNT 229 10^3/uL (150-450); RED BLOOD COUNT 2.67 10^6/uL (4.35-5.55); RED CELL DISTRIBUTION WIDTH 15.5 % (11.5-14.0); WHITE BLOOD COUNT 6.3 10^3/uL (4.0-10.5)
[2019-08-24 06:25] LABS: ANION GAP 9 (5-19); BLOOD UREA NITROGEN 52 mg/dL (7-20); CALCIUM 9.1 mg/dL (8.4-10.2); CARBON DIOXIDE 29 mmol/L (22-30); CHLORIDE 97 mmol/L (98-107); GLUCOSE 145 mg/dL (75-110); POTASSIUM 3.6 mmol/L (3.6-5.0)
[2019-08-24] MEDS: HYDRALAZINE HCL 50 MG TABLET PO SCH ×3 (06:31→21:40)
[2019-08-24] MEDS: CALCIUM ACETATE 667 MG CAPSULE PO SCH ×3 (10:30→15:53)
[2019-08-24] MEDS: FUROSEMIDE 80 MG TABLET PO SCH ×2 (10:30→18:38)
[2019-08-24] MEDS: PANTOPRAZOLE SODIUM 40 MG TABLET.DR PO SCH (10:32)
[2019-08-24] MEDS: POTASSIUM CHLORIDE 10 MEQ TABLET.ER PO SCH (10:32)
[2019-08-24] MEDS: INSULIN LISPRO 100 UNIT/ML 3 ML VIAL SUBCUT SCH ×4 (10:33→22:20)
[2019-08-24] MEDS: CALCITRIOL 0.25 MCG CAPSULE PO SCH (10:34)
[2019-08-24] MEDS: PIPERACILLIN SODIUM/TAZOBACTAM 2.25 GM in NORMAL SALINE 50 ML IV SCH ×2 (10:34→21:39)
--- NOTE | 2019-08-24 21:29 | PDOC DISCHARGE SUMMARY ---
Impression - Admit/DC Date/PCP Admission Date/Primary Care Provider: 08/20/19 15:15 JOSE GONZALEZ MD Discharge Date: 08/25/19 - Discharge Diagnosis (1) Diabetic wet gangrene of the foot Is this a current diagnosis for this admission?: Yes (2) Peripheral vascular disease Is this a current diagnosis for this admission?: Yes (3) End stage renal disease on dialysis Is this a current diagnosis for this admission?: Yes (4) Cellulitis of left foot Is this a current diagnosis for this admission?: Yes - Additional Information Discharge Diet: Other (Comments) Discharge Activity: Activity As Tolerated, Balance Activity w/Rest, No tub bath Referrals: JOSE GONZALEZ MD [Primary Care Provider] - 08/30/19 11:00 am Prescriptions: Levofloxacin [Levaquin 500 mg Tablet] 500 mg PO DAILY #5 tablet Home Medications: Furosemide [Lasix 80 mg Tablet] 80 mg PO Q12 05/02/19 Hydralazine HCl 100 mg PO Q8 05/02/19 Calcitriol [Rocaltrol 0.5 mcg Capsule] 0.5 mcg PO DAILY 08/20/19 Calcium Acetate [Phoslo 667 Mg Capsule] 1,334 mg PO AC 08/20/19 Calcium Acetate [Phoslo 667 mg Capsule] 667 mg PO .WITH SNACKS 08/20/19 Pantoprazole Sodium [Protonix [address] Tablet] 40 mg PO QAM 08/20/19 Potassium Chloride [Klor-Con 10 Meq Tablet ER] 10 meq PO DAILY 08/20/19 Levofloxacin [Levaquin 500 mg Tablet] 500 mg PO DAILY #5 tablet 08/24/19 History of Present Illiness History of Present Illness: MERLE ABAD JR is a 54 year old male,He has a history of end-stage renal disease on peritoneal dialysis, type 2 diabetes mellitus He came to the office for evaluation of discoloration of the left fourth and fifth toe he said he noticed discoloration of his toe over the weekend on evaluation in the office it was obviously a wet gangrene of the left fifth toe and the fourth toe with erythema of the dorsum of the left foot consistent with cellulitis patient was immediately admitted into the hospital consultation was obtained from the surgeon for infection source control he underwent open amputation of the left fifth and fourth toes including portions of the metatarsal bones. He has underlining peripheral vascular disease. Hospital Course Hospital Course: Patient was admitted for the management of cellulitis of the left foot with wet gangrene of the fourth and fifth digit of the left foot with a background of peripheral vascular disease, he has a history of end-stage renal disease on peritoneal dialysis. He was seen in consultation by the surgeon he underwent amputation of the fourth and fifth digit of the left foot, he was also seen by nephrology for his peritoneal dialysis. He received IV antibiotic to cover potential pathogens, he has polymicrobial infection of the foot. The plan is for patient to follow with vascular surgery on discharge, he will need further evaluation of the PAD, will follow with me in the office on Tuesday and I will make arrangements for follow-up with vascular surgery. Physical Exam Vital Signs: Temp Pulse Resp BP Pulse Ox 98.4 F 108 H 18 105/64 100 08/24/19 20:00 08/24/19 20:00 08/24/19 20:00 08/24/19 20:00 08/24/19 20:00 Intake & Output 08/23/19 08/24/19 08/25/19 06:59 06:59 06:59 Intake Total 8896 8700 4310 Output Total 4900 90746 2000 Balance 3996 -1300 2310 Weight 67.5 kg 71.2 kg 71.2 kg General appearance: PRESENT: no acute distress Eye exam: PRESENT: PERRLA Respiratory exam: PRESENT: clear to auscultation mirna Cardiovascular exam: PRESENT: +S1, +S2 GI/Abdominal exam: PRESENT: soft Neurological exam: PRESENT: alert, CN II-XII grossly intact Results Laboratory Results: WBC 6.3 10^3/uL (4.0-10.5) 08/24/19 05:43 RBC 2.67 10^6/uL (4.35-5.55) L 08/24/19 05:43 Hgb 9.1 g/dL (13.5-17.0) L 08/24/19 05:43 Hct 26.3 % (37.9-51.0) L 08/24/19 05:43 MCV 99 fl (80-97) H 08/24/19 05:43 MCH 34.0 pg (27.0-33.4) H 08/24/19 05:43 MCHC 34.6 g/dL (32.0-36.0) 08/24/19 05:43 RDW 15.5 % (11.5-14.0) H 08/24/19 05:43 Plt Count 229 10^3/uL (150-450) 08/24/19 05:43 Lymph % (Auto) 6.4 % (13-45) L 08/20/19 13:45 [place] % (Auto) 5.9 % (3-13) 08/20/19 13:45 Eos % (Auto) 0.3 % (0-6) 08/20/19 13:45 Baso % (Auto) 0.5 % (0-2) 08/20/19 13:45 Absolute Neuts (auto) 9.3 10^3/uL (1.7-8.2) H 08/20/19 13:45 Absolute Lymphs (auto) 0.7 10^3/uL (0.5-4.7) 08/20/19 13:45 Absolute Monos (auto) 0.6 10^3/uL (0.1-1.4) 08/20/19 13:45 Absolute Eos (auto) 0.0 10^3/uL (0.0-0.6) 08/20/19 13:45 Absolute Basos (auto) 0.1 10^3/uL (0.0-0.2) 08/20/19 13:45 Seg Neutrophils % 86.9 % (42-78) H 08/20/19 13:45 Sodium 135.4 mmol/L (137-145) L 08/24/19 05:43 Potassium 3.6 mmol/L (3.6-5.0) 08/24/19 05:43 Chloride 97 mmol/L (98-107) L 08/24/19 05:43 Carbon Dioxide 29 mmol/L (22-30) 08/24/19 05:43 Anion Gap 9 (5-19) 08/24/19 05:43 BUN 52 mg/dL (7-20) H 08/24/19 05:43 Creatinine 13.07 mg/dL (0.52-1.25) H 08/24/19 05:43 Est GFR ( Amer) 5 (>60) L 08/24/19 05:43 Est GFR (MDRD) Non-Af 4 (>60) L 08/24/19 05:43 Glucose 145 mg/dL (75-110) H 08/24/19 05:43 POC Glucose 167 mg/dL (70-110) H 08/24/19 16:15 Calcium 9.1 mg/dL (8.4-10.2) 08/24/19 05:43 Total Bilirubin 0.5 mg/dL (0.2-1.3) 08/20/19 13:45 Direct Bilirubin 0.2 mg/dL (0.0-0.4) 08/20/19 13:45 Neonat Total Bilirubin Not Reportable 08/20/19 13:45 Neonat Direct Bilirubin Not Reportable 08/20/19 13:45 Neonat Indirect Bili Not Reportable 08/20/19 13:45 AST 21 U/L (17-59) 08/20/19 13:45 ALT 12 U/L (<50) 08/20/19 13:45 Alkaline Phosphatase 73 U/L (38-126) 08/20/19 13:45 Total Protein 7.1 g/dL (6.3-8.2) 08/20/19 13:45 Albumin 4.0 g/dL (3.5-5.0) 08/20/19 13:45 SARS-CoV-2 (PCR) NEGATIVE (NEGATIVE) 08/20/19 14:56 Impressions: Chest X-Ray 08/20/19 15:07 IMPRESSION: NO ACUTE RADIOGRAPHIC FINDING IN THE CHEST. Extremity Arterial Study 08/20/19 20:00 IMPRESSION: Possible inflow stenosis. 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 Small vessel disease. Stroke Is this a Stroke Patient?: No Acute Heart Failure - Is this a Heart Failure Patient?: No
[2019-08-25 06:24] VITALS: BP 136/61
[2019-08-25] MEDS: HYDRALAZINE HCL 50 MG TABLET PO SCH (06:26)
== END 2019-08-25 08:42 | disposition home health service (06) | DRG 256 ==
LOC: OROUT 12:37 → EH 15:15 → 4W 18:09 → 4S 08-21 17:03
PROVIDERS: ADMIT Internal Medicine; ATTEND Internal Medicine
PROC: 0Y6Y0Z0 Detachment at Left 5th Toe, Complete, Open Approach (ICD-10-PCS; 2019-08-20)
PROC: 0Y6W0Z0 Detachment at Left 4th Toe, Complete, Open Approach (ICD-10-PCS; principal; 2019-08-20 15:30)
DX: E11.52 Type 2 diabetes mellitus with diabetic peripheral angiopathy with gangrene (principal); I96 Gangrene, not elsewhere classified; L03.116 Cellulitis of left lower limb; N18.4 Chronic kidney disease, stage 4 (severe); N25.81 Secondary hyperparathyroidism of renal origin; I12.9 Hypertensive chronic kidney disease with stage 1 through stage 4 chronic kidney disease, or unspecified chronic kidney disease; E78.5 Hyperlipidemia, unspecified; E11.22 Type 2 diabetes mellitus with diabetic chronic kidney disease; J44.9 Chronic obstructive pulmonary disease, unspecified; E11.319 Type 2 diabetes mellitus with unspecified diabetic retinopathy without macular edema; E11.21 Type 2 diabetes mellitus with diabetic nephropathy; G90.9 Disorder of the autonomic nervous system, unspecified; E83.51 Hypocalcemia; E87.5 Hyperkalemia; B96.6 Bacteroides fragilis [B. fragilis] as the cause of diseases classified elsewhere; B95.2 Enterococcus as the cause of diseases classified elsewhere; D63.1 Anemia in chronic kidney disease; E78.00 Pure hypercholesterolemia, unspecified; Z03.818 Encounter for observation for suspected exposure to other biological agents ruled out; Z87.891 Personal history of nicotine dependence; Z79.899 Other long term (current) drug therapy; Z82.49 Family history of ischemic heart disease and other diseases of the circulatory system; Z83.3 Family history of diabetes mellitus; Z83.6 Family history of other diseases of the respiratory system
CPT/HCPCS: 36415; 71045; 80048; 80076; 82962; 85025; 85027; 87040; 87070; 87075; 87077; 87186; 87205; 87635; 88305; 88311; 90945; 93005; 93010; 93926; 99285; C9803; J1815; J2250; J2405; J2543; J2704; J3010; J3370; J3490; J7060